=== PATIENT | male | born 1955 | race Caucasian/White ===

== ENCOUNTER 2017-09-10 13:47 | Emergency (ER) | payer SELFPAY ==
[2017-09-10 14:04] VITALS: BP 159/82; PULSE 90; RESP 18; TEMP 98.8; O2SAT 99
[2017-09-10] MEDS ORDERED: SODIUM CHLOR 0.9% 1000 ML INJ 1,000 ML IV SCH (14:48)
[2017-09-10] MEDS ORDERED: ONDANSETRON HCL 4 MG/2 ML VIAL IVP ONE (15:00)
[2017-09-10] MEDS ORDERED: MORPHINE SULFATE 4 MG/ML INJ IV PUSH ONE (15:00)
[2017-09-10] MEDS ORDERED: SODIUM CHLORIDE 0.9% FLUSH 10 ML FLUSH IV FLUSH PRN (15:00)
[2017-09-10] MEDS ORDERED: IOHEXOL 350 MG/ML 10 ML VIAL (for RAD DIAG) IVCONTRAST ONE (15:44)
[2017-09-10 15:47] LABS: AUTOMATED NEUTROPHIL # 9.5 TH/MM3 (1.8-7.7); BASOPHIL # 0.1 TH/MM3 (0-0.2); BASOPHIL % 0.5 % (0.0-2.0); EOSINOPHIL # 0.5 TH/MM3 (0-0.4); EOSINOPHIL % 3.9 % (0.0-4.0); HEMATOCRIT 38.4 % (39.0-51.0); HEMOGLOBIN 13.1 GM/DL (13.0-17.0); LYMPH % 13.6 % (9.0-44.0); LYMPHOCYTE # 1.7 TH/MM3 (1.0-4.8); MEAN CELL VOLUME 83.9 FL (80.0-100.0); MEAN CORPUSCULAR HEMOGLOBIN 28.6 PG (27.0-34.0); MEAN CORPUSCULAR HGB CONC 34.1 % (32.0-36.0); MEAN PLATELET VOLUME 7.9 FL (7.0-11.0); MONO % 5.5 % (0.0-8.0); MONOCYTE # 0.7 TH/MM3 (0-0.9); NEUT % 76.5 % (16.0-70.0); PLATELET COUNT 321 TH/MM3 (150-450); RED BLOOD COUNT 4.57 MIL/MM3 (4.50-5.90); RED CELL DISTRIBUTION WIDTH 14.5 % (11.6-17.2); WHITE BLOOD COUNT 12.5 TH/MM3 (4.0-11.0)
[2017-09-10 15:48] LABS: BACTERIA, URINE OCC /hpf; BILIRUBIN, URINE NEG (NEG); BLOOD, URINE LARGE (NEG); GLUCOSE,URINE NEG (NEG); KETONE, URINE TRACE mg/dL (NEG); NITRITE,URINE NEG (NEG); TRANSITIONAL EPI CELLS, URINE <1 /hpf; URINE COLOR YELLOW (YELLW/STRAW); URINE LEUKOCYTE ESTERASE LARGE (NEG)
[2017-09-10 15:51] LABS: ALT (GPT) 13 U/L (12-78); AST (GOT) 14 U/L (15-37); BICARBONATE 25.1 MEQ/L (21.0-32.0); BLOOD UREA NITROGEN 17 MG/DL (7-18); CALCIUM 8.8 MG/DL (8.5-10.1); CHLORIDE 108 MEQ/L (98-107); CREATININE 0.88 MG/DL (0.60-1.30); GLOMERULAR FILTRATION RATE 88 ML/MIN (>89); GLUCOSE,RANDOM 79 MG/DL (74-106); SODIUM (NA) 141 MEQ/L (136-145)
[2017-09-10 15:54] LABS: ALKALINE PHOSPHATASE 104 U/L (45-117); TOTAL BILIRUBIN ADULT 0.4 MG/DL (0.2-1.0); TOTAL PROTEIN 7.1 GM/DL (6.4-8.2)
--- NOTE | 2017-09-10 16:05 | RADRPT ---
EXAM DATE/TIME: 09/10/2017 15:40 [facility] COMPARISON: No previous studies available for comparison. INDICATIONS : Diffuse lower right region pain for several months. IV CONTRAST: 80 cc Omnipaque 350 (iohexol) IV ORAL CONTRAST: No oral contrast ingested. RADIATION DOSE: 4.50 CTDIvol (mGy) MEDICAL HISTORY : None SURGICAL HISTORY : None. ENCOUNTER: Initial ACUITY: 4 - 6 months PAIN SCALE: 7/10 LOCATION: Right lower quadrant TECHNIQUE: Volumetric scanning of the abdomen and pelvis was performed. Using automated exposure control and ad justment of the mA and/or kV according to patient size, radiation dose was kept as low as reasonably achievable to obtain optimal diagnostic quality images. DICOM format image data is available electro nically for review and comparison. FINDINGS: LOWER LUNGS: The visualized lower lungs are clear. LIVER: Homogeneous density without lesion. There is no dilation of the biliary tree. No calcified gallston es. SPLEEN: Normal size without lesion. PANCREAS: Within normal limits. KIDNEYS: Normal in size and shape. There is no mass, stone or hydronephrosis. ADRENAL GLANDS: Within normal limits. VASCULAR: There is no aortic aneurysm. BOWEL/MESENTERY: The stomach, small bowel, and colon demonstrate no acute abnormality. There is no free intraperitone al air or fluid. ABDOMINAL WALL: Within normal limits. RETROPERITONEUM: There is no lymphadenopathy. BLADDER: There is abnormal appearance of the urinary bladder. Large anomaly cystic mass with areas of mural no dularity and wall thickening projects along the superior aspect of the bladder measuring 4.4 x 4.3 cm . This may be a mass within a diverticulum as well. There are calcifications along this mass along th e inferior border.. REPRODUCTIVE: Femoral vessels are somewhat prominent. No pelvic adenopathy. INGUINAL: There is no lymphadenopathy or hernia. MUSCULOSKELETAL: Within normal limits for patient age. CONCLUSION: 1. Large mass projecting off the superior aspect of the urinary bladder or could be within a mass wit hin a diverticulum concerning for transitional cell carcinoma. Cystoscopy and biopsy recommended. Jose Rankin MD on September 10, 2017 at 15:58 Board Certified Radiologist. This report was verified electronically.
--- NOTE | 2017-09-10 16:08 | PD ---
HPI Chief Complaint: Abdominal Pain Time Seen by Provider: 14:31 Travel History International Travel<30 days: No Contact w/Intl Traveler<30days: No Traveled to known affect area: No History of Present Illness HPI 61-year-old male complains of right abdomen pain. It has been present for months. He reports blood in the urine. He reports family history of cancer of various types. He reports unintentional weight loss. Pain is constant and has become severe lately. He denies fever. No diarrhea. No vomiting. He states he can "smell cancer." PFS Past Medical History Medical History: Denies Significant Hx Tetanus Vaccination: Unknown Influenza Vaccination: No Past Surgical History Surgical History: No Previous Surgery Social History Alcohol Use: No Tobacco Use: Yes (1 ppd) Substance Use: No Allergies-Medications (Allergen,Severity, Reaction): Coded Allergies: No Known Allergies (Unverified , 09/10/17) Reported Meds & Prescriptions Reported Meds & Active Scripts Active Cipro (Ciprofloxacin HCl) 500 Mg Tab 500 Mg PO BID 7 Days Review of Systems Except as stated in HPI: all other systems reviewed are Neg General / Constitutional: Positive: Weight Loss, No: Fever Physical Exam Narrative GENERAL: 61-year-old male pleasant well-nourished well-developed mild to moderate distress Vital Signs Date Time Temp Pulse Resp B/P (MAP) Pulse Ox O2 Delivery O2 Flow Rate FiO2 09/10/17 14:04 98.8 90 18 159/82 (107) 99 SKIN: Warm and dry. HEAD: Atraumatic. Normocephalic. EYES: Pupils equal and round. No scleral icterus. No injection or drainage. ENT: No nasal bleeding or discharge. Mucous membranes pink and moist. NECK: Trachea midline. No JVD. CARDIOVASCULAR: Regular rate and rhythm. RESPIRATORY: No accessory muscle use. Clear to auscultation. Breath sounds equal bilaterally. GASTROINTESTINAL: Abdomen soft. There is some tenderness in the right side. MUSCULOSKELETAL: Extremities without clubbing, cyanosis, or edema. No obvious deformities. NEUROLOGICAL: Awake and alert. No obvious cranial nerve deficits. Motor grossly within normal limits. Five out of 5 muscle strength in the arms and legs. Normal speech. PSYCHIATRIC: Appropriate mood and affect; insight and judgment normal. Data Data Last Documented VS Vital Signs Date Time Temp Pulse Resp B/P (MAP) Pulse Ox O2 Delivery O2 Flow Rate FiO2 09/10/17 17:48 78 16 174/75 (108) 100 Room Air 09/10/17 14:04 98.8 Vital signs reviewed Orders Orders Complete Blood Count With Diff (09/10/17 14:48) Comprehensive Metabolic Panel (09/10/17 14:48) Lipase (09/10/17 14:48) Urinalysis - C+S If Indicated (09/10/17 14:48) Ct Abd/Pel W Iv Contrast(Rout) (09/10/17 14:48) Iv Access Insert/Monitor (09/10/17 14:48) Ecg Monitoring (09/10/17 14:48) Oximetry (09/10/17 14:48) Morphine Inj (Morphine Inj) (09/10/17 15:00) Ondansetron Inj (Zofran Inj) (09/10/17 15:00) Sodium Chlor 0.9% 1000 Ml Inj (Ns 1000 M (09/10/17 14:48) Sodium Chloride 0.9% Flush (Ns Flush) (09/10/17 15:00) Iohexol 350 Inj (Omnipaque 350 Inj) (09/10/17 15:44) Urine Culture (09/10/17 15:15) Mandatory Outpatient Referral (09/10/17 16:27) Ceftriaxone Inj (Rocephin Inj) (09/10/17 16:45) Ed Discharge Order (09/10/17 16:44) Labs Laboratory Tests Test 09/10/17 15:10 09/10/17 15:15 White Blood Count 12.5 TH/MM3 Red Blood Count 4.57 MIL/MM3 Hemoglobin 13.1 GM/DL Hematocrit 38.4 % Mean Corpuscular Volume 83.9 FL Mean Corpuscular Hemoglobin 28.6 PG Mean Corpuscular Hemoglobin Concent 34.1 % Red Cell Distribution Width 14.5 % Platelet Count 321 TH/MM3 Mean Platelet Volume 7.9 FL Neutrophils (%) (Auto) 76.5 % Lymphocytes (%) (Auto) 13.6 % Monocytes (%) (Auto) 5.5 % Eosinophils (%) (Auto) 3.9 % Basophils (%) (Auto) 0.5 % Neutrophils # (Auto) 9.5 TH/MM3 Lymphocytes # (Auto) 1.7 TH/MM3 Monocytes # (Auto) 0.7 TH/MM3 Eosinophils # (Auto) 0.5 TH/MM3 Basophils # (Auto) 0.1 TH/MM3 CBC Comment DIFF FINAL Differential Comment Blood Urea Nitrogen 17 MG/DL Creatinine 0.88 MG/DL Random Glucose 79 MG/DL Total Protein 7.1 GM/DL Albumin 3.0 GM/DL Calcium Level 8.8 MG/DL Alkaline Phosphatase 104 U/L Aspartate Amino Transf (AST/SGOT) 14 U/L Alanine Aminotransferase (ALT/SGPT) 13 U/L Total Bilirubin 0.4 MG/DL Sodium Level 141 MEQ/L Potassium Level 3.9 MEQ/L Chloride Level 108 MEQ/L Carbon Dioxide Level 25.1 MEQ/L Anion Gap 8 MEQ/L Estimat Glomerular Filtration Rate 88 ML/MIN Lipase 138 U/L Urine Color YELLOW Urine Turbidity CLOUDY Urine pH 7.0 Urine Specific [place] 1.021 Urine Protein 100 mg/dL Urine Glucose (UA) NEG mg/dL Urine Ketones TRACE mg/dL Urine Occult Blood LARGE Urine Nitrite NEG Urine Bilirubin NEG Urine Urobilinogen 2.0 MG/DL Urine Leukocyte Esterase LARGE Urine RBC /hpf Urine WBC /hpf Urine Transitional Epithelial Cells <1 /hpf Urine Bacteria OCC /hpf Microscopic Urinalysis Comment CULTURE INDICATED MDM Medical Decision Making Medical Screen Exam Complete: Yes Emergency Medical Condition: Yes Medical Record Reviewed: Yes Differential Diagnosis Gastritis, pancreatitis, appendicitis, acute cholecystitis, ascending cholangitis, AAA, perforated viscous, mesenteric ischemia, hepatitis, cystitis, hydronephrosis/hydroureter/nephroureter calculus, mesenteric adenitis, biliary colic Narrative Course CBC & BMP Diagram 09/10/17 15:10 Total Protein 7.1, Albumin 3.0 L, Calcium Level 8.8, Alkaline Phosphatase 104, Aspartate Amino Transf (AST/SGOT) 14 L, Alanine Aminotransferase (ALT/SGPT) 13, Total Bilirubin 0.4 Urinalysis shows hematuria with white and red blood cells Rocephin given along with the Cipro prescription. The case was discussed with Dr. Degroot of urology. We'll provide a mandatory outpatient referral and have the patient follow up expeditiously to undergo cystoscopy as there is a concern for neoplastic process. This was discussed in detail with the patient and specifically mentioned the concern for cancer. Patient verbalized understanding and agreement to follow-up with Dr. Degroot expeditiously, within 1 -2 days or at the minimum place a phone call for an appointment tomorrow. All questions were answered. I will add to the diagnosis of UTI however due to the timing documentation it will be added after the patient's discharge. He still understands that an infectious bladder processes occurring and that antibiotics are necessary. Diagnosis Primary Impression: Bladder mass Additional Impression: UTI (urinary tract infection) Referrals: Jose Degroot DO [address] Degroot to make an appointment. Med/Other Pt SpecificInfo: Prescription(s) given Scripts Ciprofloxacin (Cipro) 500 Mg Tab 500 MG PO BID for Infection for 7 Days, #14 TAB 0 Refills Prov: Rivera Duncan MD 09/10/17 Disposition: 01 DISCHARGE HOME Condition: Stable Rivera Duncan MD Sep 10, 2017 16:08
[2017-09-10] MEDS ORDERED: cefTRIAXone INJ 1,000 MG in SODIUM CHLORIDE 0.9% INJ 100 ML IV ONE (16:45)
[2017-09-10] MEDS ORDERED: CIPR-9 PO (16:45)
[2017-09-10 17:48] VITALS: BP 174/75; PULSE 78; RESP 16; O2SAT 100
== END 2017-09-10 17:49 | disposition home or self-care (01) ==
LOC: NEPD 13:47
DX: N32.9 Bladder disorder, unspecified (principal); N39.0 Urinary tract infection, site not specified; F17.200 Nicotine dependence, unspecified, uncomplicated
CPT/HCPCS: 74177; 80053; 81001; 83690; 85025; 87086; 96361; 96374; 96375; 99285; J0696; J2270; J2405; J7030; Q9967

== ENCOUNTER 2017-09-13 15:11 | Emergency (ER) | payer SELFPAY ==
[~2017-09-13] VITALS: Ht 167.6 cm; Wt 60.0 kg
[~2017-09-13 15:11] MED LIST: CIPR-9 PO
[2017-09-13 15:27] VITALS: BP 140/71; PULSE 95; RESP 18; TEMP 98.1; O2SAT 100
[2017-09-13] MEDS ORDERED: oxyCODONE/ACETAMINOPHEN 5 MG/325 MG TAB PO ONE (18:00)
[2017-09-13] MEDS ORDERED: SODIUM CHLOR 0.9% 1000 ML INJ 1,000 ML IV ONE (18:00)
[2017-09-13] MEDS ORDERED: NORC5TAB PO (18:10)
--- NOTE | 2017-09-13 18:10 | PD ---
HPI Chief Complaint: Abdominal Pain Time Seen by Provider: 17:42 Travel History International Travel<30 days: No Contact w/Intl Traveler<30days: No Traveled to known affect area: No History of Present Illness HPI Patient is a 61 year old male who comes in complaining of right sided abdominal pain and flank pain. He was here on 09/10 for the same thing and found to have a bladder mass. He was also diagnosed with a UTI and given a prescription for Cipro. He says that the physician who saw him at the time was supposed to give him a prescription for pain medicine as well, but he did not receive one. He says he has an appointment Saturday with the urologist, but he cannot take the pain. He says he is still passing blood in his urine, but the Cipro seems to be helping this. He denies fever or chills, nausea or vomiting. He has been taking Ibuprofen and Aleve without relief of his symptoms. Severity is mild to moderate. PFSH Social History Alcohol Use: No Tobacco Use: Yes (1 ppd) Substance Use: No Allergies-Medications (Allergen,Severity, Reaction): Coded Allergies: No Known Allergies (Unverified , 09/13/17) Reported Meds & Prescriptions Reported Meds & Active Scripts Active Cipro (Ciprofloxacin HCl) 500 Mg Tab 500 Mg PO BID 7 Days Review of Systems Except as stated in HPI: all other systems reviewed are Neg General / Constitutional: No: Fever, Chills HENT: No: Headaches, Lightheadedness Cardiovascular: No: Chest Pain or Discomfort Respiratory: No: Shortness of Breath Gastrointestinal: Positive: Abdominal Pain, No: Nausea, Vomiting Genitourinary: Positive: Hematuria, Flank Pain Neurologic: No: Weakness, Dizziness Physical Exam Narrative GENERAL: Awake and alert, in no acute distress. SKIN: Warm and dry. No wounds or signs of infection. HEAD: Atraumatic. Normocephalic. EYES: Pupils equal and round. No scleral icterus. ENT: Mucous membranes pink and moist. NECK: Trachea midline. No JVD. CARDIOVASCULAR: Regular rate and rhythm. RESPIRATORY: No accessory muscle use. Clear to auscultation. Breath sounds equal bilaterally. GASTROINTESTINAL: Abdomen soft, nondistended. Tender to palpation of the right side of the abdomen, no rebound or guarding. MUSCULOSKELETAL: Extremities without clubbing, cyanosis, or edema. No obvious deformities. NEUROLOGICAL: Awake and alert. No obvious cranial nerve deficits. Motor grossly within normal limits. Five out of 5 muscle strength in the arms and legs. Normal speech. PSYCHIATRIC: Appropriate mood and affect; insight and judgment normal. Data Data Last Documented VS Vital Signs Date Time Temp Pulse Resp B/P (MAP) Pulse Ox O2 Delivery O2 Flow Rate FiO2 09/13/17 15:27 98.1 95 18 140/71 (94) 100 Orders Orders Complete Blood Count With Diff (09/13/17 17:53) Comprehensive Metabolic Panel (09/13/17 17:53) Urinalysis - C+S If Indicated (09/13/17 17:53) Sodium Chlor 0.9% 1000 Ml Inj (Ns 1000 M (09/13/17 18:00) Oxycodone-Acetamin 5-325 Mg (Percocet (09/13/17 18:00) MDM Medical Decision Making Medical Screen Exam Complete: Yes Emergency Medical Condition: Yes Medical Record Reviewed: Yes Differential Diagnosis bladder mass vs UTI vs obstruction Narrative Course Patient is a 61 year old male who comes in complaining of abdominal pain. Exam shows right sided tenderness to palpation. I explained to the patient that I would like to recheck some blood work to make sure his kidneys are functioning normally and his infection does not seem to be getting worse. He is refusing any testing at this time and just wants a prescription for pain medication. I urged the patient to allow me to check some tests, but he is adamantly against it. Given a prescription for [place] and advised to keep his appointment with the urologist. Diagnosis Primary Impression: Bladder mass Patient Instructions: Abdominal Pain (ED), General Instructions Additional Instructions: Follow up with the urologist as scheduled. Return to the ED as needed for any worsening symptoms. Scripts Hydrocodone-Acetaminophen ([place]) 5 Mg-325 Mg Tab 1 TAB PO Q6H Y for PAIN, #10 TAB 0 Refills Prov: Nora Martinez MD 09/13/17 Disposition: 01 DISCHARGE HOME Condition: Stable Nora Martinez MD Sep 13, 2017 18:10
== END 2017-09-13 18:25 | disposition home or self-care (01) ==
LOC: NEPD 15:11
DX: N32.9 Bladder disorder, unspecified (principal); F17.210 Nicotine dependence, cigarettes, uncomplicated; Z79.2 Long term (current) use of antibiotics
CPT/HCPCS: 99283

== ENCOUNTER 2017-10-10 08:11 | Observation (INO) | payer OTHER ==
[~2017-10-10] VITALS: Ht 167.6 cm; Wt 48.1 kg
[~2017-10-10 08:11] MED LIST changes: -CIPR-9 PO; +PERC5TAB12 PO
[2017-10-10] MEDS ORDERED: ceFAZolin INJ 1,000 MG VIAL ONE (09:10)
[2017-10-10] MEDS ORDERED: SODIUM CHLORIDE 0.9% INJ 100 ML ONE (09:11)
[2017-10-10] MEDS ORDERED: CHLORHEXIDINE GLUCONATE 2 % 1 PACK (2 CLOTHS) TOPICAL PRN (09:15)
[2017-10-10] MEDS ORDERED: LACTATED RINGER'S 1000 ML IV PRN (09:15)
[2017-10-10] MEDS ORDERED: SODIUM CHLORID 0.9% 500 ML IV PRN (09:15)
[2017-10-10] MEDS ORDERED: POVIDONE IODINE 5% (ANTISEPSIS KIT) 4 APPLICATIONS EACH NARE PRN (09:15)
[2017-10-10] MEDS ORDERED: METOPROLOL TARTRATE 25 MG TAB PO PRN (09:15)
[2017-10-10] MEDS ORDERED: INSULIN HUMAN REGULAR 1,000 UNITS/10 ML VIAL SQ PRN (09:15)
[2017-10-10] MEDS ORDERED: ceFAZolin 1,000 MG/NS 100 ML IV SCH ×2 (09:15)
[2017-10-10 09:20] LABS: AUTOMATED NEUTROPHIL # 10.4 TH/MM3 (1.8-7.7); BASOPHIL # 0.1 TH/MM3 (0-0.2); BASOPHIL % 0.9 % (0.0-2.0); EOSINOPHIL # 0.1 TH/MM3 (0-0.4); EOSINOPHIL % 0.6 % (0.0-4.0); HEMATOCRIT 33.5 % (39.0-51.0); LYMPH % 11.1 % (9.0-44.0); LYMPHOCYTE # 1.4 TH/MM3 (1.0-4.8); MEAN CELL VOLUME 84.2 FL (80.0-100.0); MEAN CORPUSCULAR HEMOGLOBIN 27.7 PG (27.0-34.0); MEAN CORPUSCULAR HGB CONC 32.8 % (32.0-36.0); MEAN PLATELET VOLUME 7.7 FL (7.0-11.0); MONO % 7.6 % (0.0-8.0); NEUT % 79.8 % (16.0-70.0); PLATELET COUNT 473 TH/MM3 (150-450); RED BLOOD COUNT 3.98 MIL/MM3 (4.50-5.90); RED CELL DISTRIBUTION WIDTH 15.9 % (11.6-17.2); WHITE BLOOD COUNT 13.1 TH/MM3 (4.0-11.0)
[2017-10-10] MEDS ORDERED: ACETAMINOPHEN 1000 MG/100 ML 100 ML IV ONE (10:42)
[2017-10-10] MEDS ORDERED: diphenhydrAMINE HCL 50 MG/ML VIAL IV PUSH PRN (12:00)
[2017-10-10] MEDS ORDERED: PROPOFOL 200 MG/20 ML AMP IV ONE (12:00)
[2017-10-10] MEDS ORDERED: ACETAMINOPHEN 650 MG/20.3 ML UDC PO PRN (12:00)
[2017-10-10] MEDS ORDERED: GLYCOPYRROLATE 1 MG/5 ML SYRINGE IV PUSH ONE (12:00)
[2017-10-10] MEDS ORDERED: NEOSTIGMINE 5 MG/5 ML SYRINGE IV PUSH ONE (12:00)
[2017-10-10] MEDS ORDERED: RESP: ALBUTEROL 1.25 MG/3 ML NEB (PRN) NEB (12:00)
[2017-10-10] MEDS ORDERED: ROCURONIUM INJ 50 MG/5 ML SYRINGE IV PUSH ONE (12:00)
[2017-10-10] MEDS ORDERED: LIDOCAINE HCL 1% PF 5 ML SYRINGE OTHER ONE (12:00)
[2017-10-10] MEDS ORDERED: ONDANSETRON HCL 4 MG/2 ML VIAL IV ONE (12:00)
[2017-10-10] MEDS ORDERED: DEXAMETHASONE SOD PHOS 4 MG/ML VIAL IV ONE (12:00)
[2017-10-10] MEDS ORDERED: LABETALOL HCL 100 MG/20 ML VIAL IV ONE (12:00)
[2017-10-10] MEDS ORDERED: ONDANSETRON HCL 4 MG/2 ML VIAL IV PUSH PRN (12:00)
[2017-10-10] MEDS ORDERED: VECURONIUM BROMIDE 20 MG VIAL IV ONE (12:00)
--- NOTE | 2017-10-10 12:09 | PD.OP ---
Operative Report Date of Surgery: Oct 10, 2017 Preoperative Diagnosis: 4 cm bladder mass Postoperative Diagnosis: Same Procedure: Urethral dilatation; cystoscopy with transurethral resection of bladder mass Anesthesia: EVAN Surgeon: Jose Degroot Food Quality Technician(s): None Resident Surgeon: None Operation and Findings: 61-year-old male with history of hematuria and pelvic pain who had a CT scan demonstrating a 4 cm bladder mass. Decision was made to take patient to the operating room to undergo cystoscopy with transurethral resection of bladder tumor. Risks and benefits were discussed preoperatively and he was willing to proceed. Patient was brought to the operating room and identified by myself as Marc Herr. He was placed in the dorsal lithotomy position, prepped and draped in usual sterile fashion, received preprocedure antibiotics and general endotracheal tube anesthesia was administered. Attempt was made to place a 22 Japanese cystoscope into the bladder. This was unsuccessful. Urethral dilatation was then performed from a 22 Japanese up to a 28 Japanese. The cystoscope was then easily passed into the bladder. Cystoscopy showed a large bladder tumor along with posterior wall extending from the trigone and upward. Both ureteral orifices were identified. There is also a lot of bullous edema around the tumor edges. Using the Dickerson resectoscope, the tumor was resected from the posterior bladder wall. The tumor was large in size. Calcifications were noted within the tumor and areas of necrosis were noted near the trigone.. Once the bed of the tumor was resected, the rollerball was used then to provide hemostasis. Hemostasis was obtained. The chips were evacuated with the Unruly evacuator. A 22 Japanese three-way Dale was then inserted and the patient was started on continuous bladder irrigation. The patient tolerated the procedure well and was extubated and transferred to the recovery room in stable condition. He will follow-up in the office to review his pathology in the near future. Jose Degroot DO Oct 10, 2017 12:09
--- NOTE | 2017-10-10 12:11 | EKG ---
Date Performed: 10/10/2017 Time Performed: 08:48:26 PTAGE: 61 years EKG: Sinus rhythm RIGHT ATRIAL ENLARGEMENT ABNORMAL ECG NO PREVIOUS TRACING DOCTOR: Rayshawn Wrihgt Interpretating Date/Time 10/10/2017 12:11:02
[2017-10-10] MEDS: BELLADONNA ALKALOIDS/OPIUM 60 MG SUPP RECTAL PRN ×2 (12:15→22:51)
[2017-10-10] MEDS ORDERED: MIDAZOLAM HCL 2 MG/2 ML VIAL ONE (12:16)
[2017-10-10] MEDS ORDERED: *MEPERIDINE 25 MG INJ VIAL PERIprocedural Use ONLY ONE (12:19)
[2017-10-10] MEDS ORDERED: *morphine SULFATE 4 MG/ML PERIprocedure ONLY ONE ×3 (12:25→12:49)
[2017-10-10] MEDS: LACTATED RINGER'S 1000 ML INJ 1,000 ML IV SCH ×2 (12:40→23:23)
[2017-10-10] MEDS ORDERED: HYDROmorphone HCL PF 2 MG/ML VIAL ONE (12:56)
[2017-10-10] MEDS ORDERED: oxyCODONE/ACETAMINOPHEN 5 MG/325 MG TAB PO PRN (13:00)
[2017-10-10 13:21] LABS: HEMATOCRIT 28.2 % (39.0-51.0); HEMOGLOBIN 9.7 GM/DL (13.0-17.0); MEAN CELL VOLUME 83.6 FL (80.0-100.0); MEAN CORPUSCULAR HEMOGLOBIN 28.9 PG (27.0-34.0); MEAN CORPUSCULAR HGB CONC 34.5 % (32.0-36.0); MEAN PLATELET VOLUME 7.6 FL (7.0-11.0); PLATELET COUNT 399 TH/MM3 (150-450); RED BLOOD COUNT 3.37 MIL/MM3 (4.50-5.90); RED CELL DISTRIBUTION WIDTH 15.9 % (11.6-17.2); WHITE BLOOD COUNT 16.8 TH/MM3 (4.0-11.0)
[2017-10-10 13:36] LABS: BICARBONATE 26.5 MEQ/L (21.0-32.0); CALCIUM 8.5 MG/DL (8.5-10.1); CREATININE 0.84 MG/DL (0.60-1.30)
[2017-10-10] MEDS ORDERED: DO NOT ADM ANY ANTICOAGULANT DRUGS PRN (14:45)
[2017-10-10] MEDS: MORPHINE SULFATE 2 MG/ML INJ IV PUSH PRN ×3 (15:43→23:21)
[2017-10-10 16:00] VITALS: BP 140/64; PULSE 81; RESP 17; TEMP 97.7; O2SAT 100
[2017-10-10 20:00] VITALS: BP 139/75; PULSE 69; RESP 18; TEMP 99; O2SAT 96
[2017-10-11] VITALS: BP 128/66; PULSE 75; RESP 18; TEMP 99.4; O2SAT 96
[2017-10-11] MEDS: MORPHINE SULFATE 2 MG/ML INJ IV PUSH PRN ×2 (03:52→08:07)
[2017-10-11] MEDS: LACTATED RINGER'S 1000 ML INJ 1,000 ML IV SCH (08:10)
--- NOTE | 2017-10-11 09:15 | HHI.PR ---
Subjective Patient symptoms today PT seen and examined. Urine is clear. CBI clamped Objective Vital Signs Vital Signs Date Time Temp Pulse Resp B/P (MAP) Pulse Ox O2 Delivery O2 Flow Rate FiO2 10/11/17 00:00 99.4 75 18 128/66 (86) 96 10/10/17 20:00 99.0 69 18 139/75 (96) 96 10/10/17 16:00 97.7 81 17 140/64 (89) 100 10/10/17 13:00 64 25 167/87 (113) 100 Room Air 10/10/17 12:45 66 24 165/84 (111) 100 Room Air 10/10/17 12:30 62 18 140/67 (91) 100 Room Air 10/10/17 12:15 97.6 62 20 145/76 (99) 100 Nasal Cannula 2 Intake & Output 10/11/17 10/11/17 07:00 19:00 Intake Total 100 ml Balance 100 ml Intake IV Total 100 ml Result Diagram: 10/10/17 1148 10/10/17 1148 Objective Remarks Abd:soft,nt,nd Dale: urine clear; CBI off Medications and IVs Current Medications Medications (Trade) Dose Ordered Sig/Kacie Route Start Time Stop Time Status Last Admin Cefazolin Sodium 1000 mg/Sodium Chloride 100 ml @ 200 mls/hr DENTAL INSTRUMENT MAKER IV 10/10/17 09:15 10/13/17 09:14 10/10/17 11:30 Lactated Ringer's 1,000 ml @ 30 mls/hr Q24H PRN IV 10/10/17 09:15 10/13/17 09:14 Sodium Chloride 500 ml @ 30 mls/hr [id number] PRN IV 10/10/17 09:15 10/13/17 09:14 (Lopressor) 25 mg DENTAL INSTRUMENT MAKER PRN PO 10/10/17 09:15 10/13/17 09:14 (Betadine 5% Antisepsis Kit) 1 applic DENTAL INSTRUMENT MAKER PRN EACH NARE 10/10/17 09:15 10/13/17 09:14 (Chlorhexidine 2% Cloth) 3 pack DENTAL INSTRUMENT MAKER PRN TOPICAL 10/10/17 09:15 10/13/17 09:14 (NovoLIN R INJ) See Protocol Table ... DENTAL INSTRUMENT MAKER PRN SQ 10/10/17 09:15 10/13/17 09:14 (Albuterol Neb) 1.25 mg Q6HR NEB PRN NEB 10/10/17 12:00 Lactated Ringer's 1,000 ml @ 100 mls/hr Q10H IV 10/10/17 12:00 10/11/17 08:10 (B & O Supp) 60 mg Q6HR PRN RECTAL 10/10/17 13:00 10/10/17 22:51 (Morphine Inj) 2 mg Q4H PRN IV PUSH 10/10/17 12:00 10/11/17 08:07 (Percocet 5-325 Mg) 1 tab Q4H PRN PO 10/10/17 13:00 (Benadryl Inj) 25 mg Q4H PRN IV PUSH 10/10/17 12:00 (Zofran Inj) 4 mg Q6HR PRN IV PUSH 10/10/17 12:00 (Tylenol 650 Mg/ 20 ml Liq) 650 mg Q6H PRN PO 10/10/17 12:00 Miscellaneous Information ALL NURSING DEPARTME... UNSCH PRN .XX 10/10/17 14:45 10/11/17 14:44 Cefazolin Sodium 1000 mg/Sodium Chloride 100 ml @ 200 mls/hr Q8H IV 10/10/17 20:00 10/11/17 03:51 Assessment and Plan Assessment and Plan 62 y.o male s/p TURBT Dale out: void trial D/C home today Jose Degroot DO Oct 11, 2017 09:15
[2017-10-11] MEDS ORDERED: PERC5TAB12 PO (09:41)
[2017-10-11] MEDS ORDERED: CIPR500T2 PO (09:43)
--- NOTE | 2017-10-11 10:52 | RADRPT ---
EXAM DATE/TIME: 10/11/2017 10:12 [facility] COMPARISON: No previous studies available for comparison. INDICATIONS : Shortness of breath. MEDICAL HISTORY : None. SURGICAL HISTORY : None. ENCOUNTER: Initial ACUITY: 2 days PAIN SCORE: 0/10 LOCATION: Bilateral chest FINDINGS: AP and lateral views of the chest were obtained and demonstrate hyperinflation. Abnormal opacity is p resent in both upper lobes with pleural parenchymal change. The hilar regions appear retracted cephal ad. There is no perihilar or bibasilar infiltrate. There is no effusion. There is osteopenia and ther e are compression fracture deformities in mid thoracic spine. One is moderate to severe and the other is mild. CONCLUSION: 1. Abnormal opacity in both upper lobes with pleural parenchymal change most characteristic of scarri ng. 2. Hyperinflation. 3. Osteopenia and compression fracture deformities in the midthoracic spine consistent with osteoporo sis. Maksim Estrada MD on October 11, 2017 at 10:46 Board Certified Radiologist. This report was verified electronically.
== END 2017-10-11 10:56 | disposition home or self-care (01) ==
LOC: HSDC 08:11 → HSDI 12:02 → N07A 13:31
PROVIDERS: ADMIT Urology; ATTEND Urology
DX: C67.0 Malignant neoplasm of trigone of bladder (principal); N32.89 Other specified disorders of bladder; N40.1 Benign prostatic hyperplasia with lower urinary tract symptoms; R31.9 Hematuria, unspecified; J44.9 Chronic obstructive pulmonary disease, unspecified; F17.210 Nicotine dependence, cigarettes, uncomplicated; R94.31 Abnormal electrocardiogram [ECG] [EKG]
CPT/HCPCS: 00912; 52235; 71046; 80048; 84153; 85025; 85027; 88307; 93005; 94150; 96361; 96365; 96366; 96375; 96376; G0378; J0131; J0690; J1100; J1170; J2175; J2250; J2270; J2405; J2710; J3010; J7120

== ENCOUNTER → 2017-10-24 | Outpatient (CLI) | payer OTHER ==
[~2017-10-24] MED LIST changes: +AUGM875T3 PO; +CIPR500T2 PO; +IOHEXOL 350 MG/ML 10 ML VIAL (for RAD DIAG) IVCONTRAST ONE; +PERC10TA27 PO
--- NOTE | 2017-10-24 11:05 | RADRPT ---
EXAM DATE/TIME: 10/24/2017 08:26 [facility] COMPARISON: CHEST PA & LAT, October 11, 2017, 10:12. INDICATIONS : Bladder cancer. Evaluate for metastatic disease. IV CONTRAST: 71 cc Omnipaque 350 (iohexol) IV ; Cumulative dose for multiple exams. RADIATION DOSE: 3.46 CTDIvol (mGy) MEDICAL HISTORY : Carcinoma, bladder. SURGICAL HISTORY : Removal of tumor from bladder. ENCOUNTER: Initial ACUITY: 1 day PAIN SCALE: 0/10 LOCATION: chest TECHNIQUE: Volumetric scanning of the chest was performed. Using automated exposure control and adjustment of t he mA and/or kV according to patient size, radiation dose was kept as low as reasonably achievable to obtain optimal diagnostic quality images. DICOM format image data is available electronically for review and comparison. Follow-up recommendations for detected pulmonary nodules are based at a minimum on nodule size and pa tient risk factors according to Fleischner Society Guidelines. FINDINGS: Extensive emphysematous changes are noted bilaterally. Elongated mass-like densities are noted within the posterior aspect of both apices extending to the pleural surface consistent with extensive scarr ing. Underlying mass is difficult to rule out on the basis of this examination. Outpatient PET/CT may be helpful to rule out hypermetabolism if clinically indicated. No other mass or nodule is noted. No mediastinal, hilar or axillary lymphadenopathy is noted. Coronary artery calcifications are noted. S coliosis of the thoracic spine is noted. There is a severe compression deformity involving the T8 anna tebral body which is likely chronic. CONCLUSION: 1. Elongated mass-like densities are noted within the posterior aspect of both apices extending to th e pleural surface consistent with extensive scarring. Underlying mass is difficult to rule out on the basis of this examination. Outpatient PET/CT may be helpful to rule out hypermetabolism if clinicall y indicated. 2. Extensive emphysematous changes bilaterally. 3. Severe compression deformity involving the T8 vertebral body which is likely chronic. 4. Scoliosis of the thoracic spine. 5. Coronary artery calcifications. Josh Boone MD on October 24, 2017 at 10:40 Board Certified Radiologist. This report was verified electronically.
--- NOTE | 2017-10-24 18:16 | RADRPT ---
EXAM DATE/TIME: 10/24/2017 11:34 [facility] COMPARISON: CT ABDOMEN & PELVIS W CONTRAST, September 10, 2017, 15:40. PRIOR BONE SCANS: Correlative bone scan(s) available for comparison; INDICATIONS : Bladder cancer. DOSE: 30.1 mCi Tc99m MDP IV MEDICAL HISTORY : Hypertension. SURGICAL HISTORY : Tumor on bladder removed. ENCOUNTER: Initial ACUITY: 1 month PAIN SCALE: 4/10 LOCATION: Abdomen. TECHNIQUE: Three hours post intravenous administration of radiotracer, whole body bone scan imaging was performe d. FINDINGS: Blood pool images demonstrate a homogeneous pattern of uptake in the soft tissues. No hyperemic area s are identified. Planar bone scan demonstrates a normal pattern of uptake. No focal areas of incre ased or decreased uptake are seen. There is an 80 in the right renal collecting system and ureter ext ending down to the bladder. CONCLUSION: 1. No evidence of osseous metastatic disease. 2. Evidence of right hydronephrosis. Maksim Estrada MD on October 24, 2017 at 18:11 Board Certified Radiologist. This report was verified electronically.
== END ==
LOC: HRAD 07:29
PROVIDERS: ATTEND Urology
DX: C67.9 Malignant neoplasm of bladder, unspecified (principal)
CPT/HCPCS: 71260; 78306; A9503; Q9967

== ENCOUNTER 2017-11-01 07:05 | Emergency (ER) | payer OTHER ==
[~2017-11-01] VITALS: Ht 167.6 cm; Wt 55.0 kg
[~2017-11-01 07:05] MED LIST changes: -AUGM875T3 PO; -IOHEXOL 350 MG/ML 10 ML VIAL (for RAD DIAG) IVCONTRAST ONE; -PERC10TA27 PO
[2017-11-01 07:10] VITALS: BP 177/82; PULSE 74; RESP 16; TEMP 97.7; O2SAT 100
[2017-11-01 08:47] VITALS: BP_SYST 146; BP_DIAS 8; BP_DIAS 80; PULSE 61; RESP 18; O2SAT 100
--- NOTE | 2017-11-01 08:53 | PD ---
HPI Chief Complaint: Abdominal Pain Time Seen by Provider: 08:26 Travel History International Travel<30 days: No Contact w/Intl Traveler<30days: No Traveled to known affect area: No History of Present Illness HPI 62yo M with PMH of bladder tumor s/p resection by Dr. Degroot 10/10/17 here with c /o abdominal pain after running out of percocet. +Chills. Highest temp 99.8F. Denies any chest pain, sob, n/v, focal weakness or numbness. Pt said Dr. Degroot told him to take 10mg percocet and he ran out of it 3 days ago. Pt got another prescription from Dr. Degroot but pharmacy wont will it until 11/03/17 because they said it is too soon. PFSH Past Medical History Cancer: Yes (BLADDER) Cardiovascular Problems: No COPD: Yes Diabetes: No Diminished Hearing: No Endocrine: No Genitourinary: Yes (BLADDER TUMOR) Hepatitis: No Hiatal Hernia: No Immune Disorder: No Musculoskeletal: No Neurologic: No Psychiatric: No Reproductive: No Respiratory: Yes (EMPHYSEMA, COPD) Thyroid Disease: No Past Surgical History AICD: No Body Medical Devices: NONE PER PT Genitourinary Surgery: Yes (bladder ) Joint Replacement: No Oral Surgery: Yes (WISDOM TEETH EXTRACTION) Pacemaker: No Social History Alcohol Use: No Tobacco Use: Yes (1 ppd) Substance Use: No Allergies-Medications (Allergen,Severity, Reaction): Coded Allergies: No Known Allergies (Unverified , 10/09/17) Reported Meds & Prescriptions Reported Meds & Active Scripts Active Percocet (Oxycodone-Acetaminophen) 10-325 mg Tab 1 Tab PO Q6H PRN Augmentin (Amoxicillin-Clavulanate) 875-125 Mg Tab 1 Tab PO BID Reported Percocet (Oxycodone-Acetaminophen) 5-325 mg Tab 1 Tab PO Q6H PRN Review of Systems Except as stated in HPI: all other systems reviewed are Neg Physical Exam Narrative GENERAL: 62yo M in moderate distress. SKIN: Focused skin assessment warm/dry. HEAD: Atraumatic. Normocephalic. CARDIOVASCULAR: Regular rate and rhythm. No murmur appreciated. RESPIRATORY: No accessory muscle use. Clear to auscultation. Breath sounds equal bilaterally. GASTROINTESTINAL: Abdomen soft, +TTP periumbilical region. MUSCULOSKELETAL: No obvious deformities. No clubbing. No cyanosis. No edema. NEUROLOGICAL: Awake and alert. No obvious cranial nerve deficits. Motor grossly within normal limits. Normal speech. PSYCHIATRIC: Appropriate mood and affect; insight and judgment normal. Data Data Last Documented VS Vital Signs Date Time Temp Pulse Resp B/P (MAP) Pulse Ox O2 Delivery O2 Flow Rate FiO2 11/01/17 13:03 (102) 11/01/17 08:47 61 18 100 Room Air 11/01/17 07:10 97.7 Orders Orders Complete Blood Count With Diff (11/01/17 08:32) Comprehensive Metabolic Panel (11/01/17 08:32) Lipase (11/01/17 08:32) Urinalysis - C+S If Indicated (11/01/17 08:32) Ct Abd/Pel W Iv Contrast(Rout) (11/01/17 08:32) Oxycodone-Acetamin 10-325 Mg (Percocet 1 (11/01/17 09:00) Iohexol 350 Inj (Omnipaque 350 Inj) (11/01/17 10:06) Urine Culture (11/01/17 10:45) Ceftriaxone Inj (Rocephin Inj) (11/01/17 12:00) Ed Discharge Order (11/01/17 12:50) Labs Laboratory Tests Test 11/01/17 08:50 11/01/17 10:45 White Blood Count 10.9 TH/MM3 Red Blood Count 3.98 MIL/MM3 Hemoglobin 10.6 GM/DL Hematocrit 32.6 % Mean Corpuscular Volume 81.9 FL Mean Corpuscular Hemoglobin 26.6 PG Mean Corpuscular Hemoglobin Concent 32.5 % Red Cell Distribution Width 15.2 % Platelet Count 368 TH/MM3 Mean Platelet Volume 7.6 FL Neutrophils (%) (Auto) 75.2 % Lymphocytes (%) (Auto) 12.5 % Monocytes (%) (Auto) 8.1 % Eosinophils (%) (Auto) 3.9 % Basophils (%) (Auto) 0.3 % Neutrophils # (Auto) 8.2 TH/MM3 Lymphocytes # (Auto) 1.4 TH/MM3 Monocytes # (Auto) 0.9 TH/MM3 Eosinophils # (Auto) 0.4 TH/MM3 Basophils # (Auto) 0.0 TH/MM3 CBC Comment DIFF FINAL Differential Comment Blood Urea Nitrogen 18 MG/DL Creatinine 0.80 MG/DL Random Glucose 83 MG/DL Total Protein 6.6 GM/DL Albumin 2.9 GM/DL Calcium Level 8.8 MG/DL Alkaline Phosphatase 87 U/L Aspartate Amino Transf (AST/SGOT) 14 U/L Alanine Aminotransferase (ALT/SGPT) 19 U/L Total Bilirubin 0.3 MG/DL Sodium Level 144 MEQ/L Potassium Level 4.0 MEQ/L Chloride Level 112 MEQ/L Carbon Dioxide Level 25.8 MEQ/L Anion Gap 6 MEQ/L Estimat Glomerular Filtration Rate 98 ML/MIN Lipase 235 U/L Urine Color YELLOW Urine Turbidity CLOUDY Urine pH 6.5 Urine Specific [place] 1.022 Urine Protein 100 mg/dL Urine Glucose (UA) NEG mg/dL Urine Ketones NEG mg/dL Urine Occult Blood LARGE Urine Nitrite NEG Urine Bilirubin NEG Urine Urobilinogen LESS THAN 2.0 MG/DL Urine Leukocyte Esterase MOD Urine RBC /hpf Urine WBC /hpf Urine WBC Clumps OCC Urine Squamous Epithelial Cells 1 /hpf Urine Bacteria MANY /hpf Urine Mucus MANY /lpf Microscopic Urinalysis Comment CULTURE INDICATED MDM Medical Decision Making Medical Screen Exam Complete: Yes Emergency Medical Condition: Yes Differential Diagnosis Pain secondary to malignancy vs. obstruction vs. colitis Narrative Course 62yo M with bladder tumor here with abdominal pain because he ran out of percocet. Labs reviewed, no leukocytosis. H/H low at 10.6/326 but this has not changed from prior. CMP unremarkable. Lipase normal. Creatinine normal. UA showed large blood. Moderate leukocyte with occ WBC clumps. Pt given ceftriaxone. Pt reevaluated after percocet and said pain has improved. CT a/p showed mass along superior aspect of urinary bladder again seen measuring 4.6 x 4.6cm. Moderate hydronephrosis and hydroureter of right collecting system. Wall thickening of multiple small bowel loops left mid and left upper abdomen. No bowel obstruction. Pt is well appearing and denies any nausea or vomiting. Discussed with Dr. Gibbs who is covering Dr. Degroot and said pt can follow up with Dr. Degroot if pain is controlled. Pt said he needs a new prescription for percocet 10mg instead of 5 as pharmacy wont fill the 5mg since it is not time yet but will fill the 10mg. Since pt has some wall thickening in small bowel as well as UTI, will cover with augmentin. Pain is control now and pt wants to try outpatietn treatment first. Return precautions given. Diagnosis Primary Impression: UTI (urinary tract infection) Qualified Codes: N39.0 - Urinary tract infection, site not specified; R31.9 - Hematuria, unspecified Referrals: Jose Degroot DO call for appointment Patient Instructions: General Instructions Departure Forms: Tests/Procedures Additional Instructions: Please follow up with Dr. Degroot in 2 days. Return to the ED if symptoms worsen. Med/Other Pt SpecificInfo: Prescription(s) given Scripts Oxycodone-Acetaminophen (Percocet) 10-325 mg Tab 1 TAB PO Q6H Y for PAIN, #10 TAB 0 Refills Prov: Maci Montesinos DO 11/01/17 Amoxicillin-Clavulanate (Augmentin) 875-125 Mg Tab 1 TAB PO BID for Infection, #10 TAB 0 Refills Prov: Maci Montesinos DO 11/01/17 Disposition: 01 DISCHARGE HOME Condition: Stable Maci Montesinos DO Nov 01, 2017 08:53
[2017-11-01] MEDS ORDERED: oxyCODONE/ACETAMINOPHEN 10 MG/325 MG TAB PO ONE (09:00)
[2017-11-01 09:09] LABS: AUTOMATED NEUTROPHIL # 8.2 TH/MM3 (1.8-7.7); BASOPHIL % 0.3 % (0.0-2.0); EOSINOPHIL # 0.4 TH/MM3 (0-0.4); EOSINOPHIL % 3.9 % (0.0-4.0); HEMATOCRIT 32.6 % (39.0-51.0); HEMOGLOBIN 10.6 GM/DL (13.0-17.0); LYMPH % 12.5 % (9.0-44.0); LYMPHOCYTE # 1.4 TH/MM3 (1.0-4.8); MEAN CELL VOLUME 81.9 FL (80.0-100.0); MEAN CORPUSCULAR HEMOGLOBIN 26.6 PG (27.0-34.0); MEAN CORPUSCULAR HGB CONC 32.5 % (32.0-36.0); MEAN PLATELET VOLUME 7.6 FL (7.0-11.0); MONO % 8.1 % (0.0-8.0); MONOCYTE # 0.9 TH/MM3 (0-0.9); NEUT % 75.2 % (16.0-70.0); PLATELET COUNT 368 TH/MM3 (150-450); RED BLOOD COUNT 3.98 MIL/MM3 (4.50-5.90); RED CELL DISTRIBUTION WIDTH 15.2 % (11.6-17.2); WHITE BLOOD COUNT 10.9 TH/MM3 (4.0-11.0)
[2017-11-01 09:21] LABS: ALBUMIN 2.9 GM/DL (3.4-5.0); AST (GOT) 14 U/L (15-37); BICARBONATE 25.8 MEQ/L (21.0-32.0); BLOOD UREA NITROGEN 18 MG/DL (7-18); CALCIUM 8.8 MG/DL (8.5-10.1); CHLORIDE 112 MEQ/L (98-107); GLOMERULAR FILTRATION RATE 98 ML/MIN (>89); GLUCOSE,RANDOM 83 MG/DL (74-106); SODIUM (NA) 144 MEQ/L (136-145)
[2017-11-01 09:22] LABS: ALT (GPT) 19 U/L (12-78)
[2017-11-01 09:24] LABS: ALKALINE PHOSPHATASE 87 U/L (45-117); TOTAL BILIRUBIN ADULT 0.3 MG/DL (0.2-1.0); TOTAL PROTEIN 6.6 GM/DL (6.4-8.2)
[2017-11-01] MEDS ORDERED: IOHEXOL 350 MG/ML 10 ML VIAL (for RAD DIAG) IVCONTRAST ONE (10:06)
--- NOTE | 2017-11-01 10:13 | RADRPT ---
EXAM DATE/TIME: 11/01/2017 09:44 [facility] COMPARISON: CT ABDOMEN & PELVIS W CONTRAST, September 10, 2017, 15:40. INDICATIONS : Status post bladder tumor removal with abdominal pain. IV CONTRAST: 70 cc Omnipaque 350 (iohexol) IV ORAL CONTRAST: No oral contrast ingested. RADIATION DOSE: 4.26 CTDIvol (mGy) MEDICAL HISTORY : Bladder tumor. SURGICAL HISTORY : Removal from bladder tumor. ENCOUNTER: Initial ACUITY: 1 day PAIN SCALE: 3/10 LOCATION: pelvis TECHNIQUE: Volumetric scanning of the abdomen and pelvis was performed. Using automated exposure control and ad justment of the mA and/or kV according to patient size, radiation dose was kept as low as reasonably achievable to obtain optimal diagnostic quality images. DICOM format image data is available electro nically for review and comparison. FINDINGS: LOWER LUNGS: The visualized lower lungs are clear. Emphysematous changes. LIVER: Homogeneous density without lesion. There is no dilation of the biliary tree. No calcified gallston es. SPLEEN: Normal size without lesion. PANCREAS: Within normal limits. KIDNEYS: Normal in size and shape. There is no mass, stone or hydronephrosis on the left. Moderate hydronephr osis and hydroureter on the right.. ADRENAL GLANDS: Within normal limits. VASCULAR: There is no aortic aneurysm. BOWEL/MESENTERY: There is wall thickening within multiple small bowel loops in the left upper and midabdomen. There i s no free intraperitoneal air or fluid. ABDOMINAL WALL: Within normal limits. RETROPERITONEUM: There is no lymphadenopathy. BLADDER: There is wall thickening of the urinary bladder. The mass seen along the superior aspect of the urina ry bladder measures 4.6 x 4.6 cm. REPRODUCTIVE: Within normal limits. INGUINAL: There is no lymphadenopathy or hernia. MUSCULOSKELETAL: Within normal limits for patient age. CONCLUSION: 1. Mass along the superior aspect the urinary bladder again seen measuring 4.6 x 4.6 cm. 2. Moderate hydronephrosis and hydroureter of the right collecting system. 3. Wall thickening of multiple small bowel loops left mid and left upper abdomen. No bowel obstructio n. Jose Rankin MD on November 01, 2017 at 10:05 Board Certified Radiologist. This report was verified electronically.
[2017-11-01 11:26] LABS: BACTERIA, URINE MANY /hpf; BILIRUBIN, URINE NEG (NEG); BLOOD, URINE LARGE (NEG); GLUCOSE,URINE NEG (NEG); KETONE, URINE NEG (NEG); MUCUS URINE MANY /lpf (OCC); NITRITE,URINE NEG (NEG); PH, URINE 6.5 (5.0-8.5); SQUAMOUS EPITHELIAL CELL URINE 1 /hpf (0-5); URINE COLOR YELLOW (YELLW/STRAW); URINE LEUKOCYTE ESTERASE MOD (NEG); WHITE BLOOD CELL CLUMPS OCC
[2017-11-01] MEDS ORDERED: cefTRIAXone INJ 1,000 MG in SODIUM CHLORIDE 0.9% INJ 100 ML IV ONE (12:00)
[2017-11-01] MEDS ORDERED: AUGM875T3 PO (12:49)
[2017-11-01] MEDS ORDERED: PERC10TA27 PO (12:50)
== END 2017-11-01 13:04 | disposition home or self-care (01) ==
LOC: NEPE 07:05
DX: N39.0 Urinary tract infection, site not specified (principal); R31.9 Hematuria, unspecified; F17.200 Nicotine dependence, unspecified, uncomplicated
CPT/HCPCS: 74177; 80053; 81001; 83690; 85025; 87086; 96374; 99284; J0696; Q9967

== ENCOUNTER 2018-04-15 06:09 | Inpatient (IN) ==
[2018-04-15] MEDS ORDERED: Metoprolol Tartrate 25 MG Tablet PO ONE (06:28)
[2018-04-15] MEDS ORDERED: Chlorhexidine Gluconate 2% 1 Pack (2 Cloths) TOPICAL ONE (06:28)
[2018-04-15] MEDS ORDERED: Enoxaparin Inj 30 MG/0.3 ML Syringe SQ SCH (06:45)
[2018-04-15] MEDS ORDERED: GENTAMICIN IV.SIG SCH (07:00)
[2018-04-15] MEDS ORDERED: SODIUM CHLOR 0.9% IV.SIG SCH (07:00)
[2018-04-15] MEDS ORDERED: Sodium Chlor 0.9% Inj 500 ML IV.SIG SCH (07:00)
[2018-04-15] MEDS ORDERED: Morphine Sulfate Inj 2 MG/ML Vial ONE ×2 (08:04→08:18)
[2018-04-15] MEDS ORDERED: Gelatin Size 100 Topical Foam ONE (08:37)
[2018-04-15 08:46] LABS: Bacteria,Urine Rare /hpf; Bilirubin,Urine Negative (Negative); Color,Urine Red (Yellw/Straw); Glucose,Urine (UA) Negative (Negative); Leukocyte Esterase,Urine Trace (Negative); Nitrite,Urine Negative (Negative); Specific Gravity,Urine 1.015 (1.002-1.035)
[2018-04-15 08:47] LABS: Clarity,Urine Marked (Clear)
[2018-04-15] MEDS ORDERED: Sod Chloride 0.9% Inj 2,000 ML IRRIGATION ONE (09:15)
[2018-04-15] MEDS ORDERED: Metoprolol Inj 5 MG/5 ML Vial IV.PUSH ONE (09:15)
[2018-04-15] MEDS ORDERED: Lidocaine PF 1% Inj 5 ML Syringe OTHER ONE (09:15)
[2018-04-15] MEDS ORDERED: Sodium Chlor 0.9% Inj 500 ML IV.CONT ONE (09:15)
[2018-04-15 10:11] LABS: ABG PCO2 50 mmHg (38-42); ABG PO2 241 mmHG (61-120)
[2018-04-15] MEDS ORDERED: HYDROmorphone PF Inj 2 MG/ML Vial ONE ×2 (10:54→15:44)
[2018-04-15 12:25] LABS: ABG Base Excess -3.9 mmol/L (-2-2); ABG PCO2 51 mmHg (38-42); ABG PO2 250 mmHG (61-120)
[2018-04-15 12:52] LABS: Hematocrit 33.2 % (39.0-51.0); Hemoglobin 10.6 gm/dL (13.0-17.0)
[2018-04-15] MEDS ORDERED: fentaNYL Citrate Inj 100 MCG/2 ML Ampul ONE ×2 (13:09→15:31)
[2018-04-15] MEDS ORDERED: Sugammadex Inj 200 MG/2 ML Vial IV.PUSH ONE (13:09)
[2018-04-15] MEDS ORDERED: Morphine Inj 4 MG/ML Vial ONE (15:31)
[2018-04-15] MEDS ORDERED: *Ondansetron Inj 4 MG/2 ML Vial PERIprocedural Use ONLY ONE (15:47)
--- NOTE | 2018-04-15 15:51 | P.OP ---
- Preoperative Diagnosis (1) Bladder cancer - Postoperative Diagnosis (1) Bladder cancer Date of procedure: 04/15/18 Procedure: Radical cystectomy with bilateral pelvic lymph node dissection with creation of ileal conduit Anesthesia: EVAN Surgeon: Jose Degroot DO Accounting Recruiter: Kyree Camp Estimated blood loss (mL): 450 Operation and Findings: 62-year-old male with history of muscle invasive bladder cancer who completed neoadjuvant chemotherapy under the care of Dr. Mathews. Decision was then made to bring the patient to the operating room to undergo radical cystectomy with bilateral pelvic lymph node dissection with creation of ileal conduit. Risk and benefits were discussed preoperatively the patient was willing to proceed. Patient was brought to the operating room and identified myself as Marc Herr. He is placed on the operating table in the supine position, was prepped and draped in usual sterile fashion, received preprocedure antibiotics and general endotracheal tube anesthesia was administered. 16 [place] was placed into the bladder at the beginning of the procedure. 15 blade was used to make the opening incision extending from the umbilicus down to the symphysis pubis. Abdi's and camper's fascia were identified down to the rectus fascia. This was cut in an inverted V from the umbilicus down to the bladder. The Bookwalter retractor was then placed in the small bowel was retracted cephalad. The pelvic lymph node dissection was then performed on each side using the Metzenbaum scissors with clips. Both right and left obturator node packets were sent to pathology. Both ureters were identified down to the base of the bladder near the insertion site and were cut and clipped at the end. Frozen section samples were sent to pathology and both distal margins were negative for tumor. The pedicles on both sides of the bladder were identified and using the Ethicon stapler were dissected stapled. Once all the pedicles were freed then attention was directed to the dorsal vein complex. Using a 2-0 Vicryl suture this was sutured to provide hemostasis. This was then cut with a knife and a long handle. The prostate was then retracted cephalad. Using the right ankle, the urethra was dissected out and the umbilical tape was then placed under the urethra and this was then cut. Using my right index finger the plane behind the prostate was identified and from the rectum. The prostate was again retracted cephalad and the surrounding pedicles were cut and tied with 2-0 silk suture and Metzenbaum scissors. Once all the surrounding attachments were freed up then the specimen was sent to pathology. A 20 [place] was then inserted into the pelvis to provide drainage. Roland was used to help with hemostasis of this area. Creation of the ileal conduit was performed by isolating a segment of small bowel which is approximately 10-12 cm in length. This segment was taken approximately 12 cm from the ileocecal valve. The bowel was then stapled and to use places after the mesentery was taken down with the Bovie cautery. The conduit was placed posteriorly behind the bowel and the 2 remaining segments of small bowel were then reanastomosed to most together using the staplers. The distal aspect of the conduit segment was opened and irrigated with normal saline and cleared out. Using a right angle clamp to small enterotomies were made into the conduit to allow for passage of the stents through the conduit and up into each ureter. Using a 4-0 Vicryl suture each ureter was anastomosed to the distal aspect to the proximal aspect of the conduit. This was done in running fashion. Care was taken to avoid catching the stents. The bowel that was reanastomosed was closed to prevent herniation. The stoma site was then created lateral to the umbilicus on the patient's right side using a cruciate incision and then the stoma was anchored with 4-0 Vicryl sutures in a [place] stoma was created. This was anchored circumferentially to the skin with interrupted 4-0 Vicryl sutures. A red rubber catheter was inserted in the stoma and the drains and the red rubber catheter were anchored with a 2-0 silk suture. Hemostasis was again checked for within the pelvis and again Roland was used to provide hemostasis. The fascia was closed with a #1 looped running PDS suture and then the skin was closed with vasquez. The patient was awoken and extubated transferred to recovery in stable condition. He was stable hemodynamically throughout the entire case. He did receive 3 units of packed red blood cells during the procedure given that his hemoglobin at one-point was noted to be 8.3.
[2018-04-15] MEDS ORDERED: *Meperidine Inj 25 MG/ML Vial PERIprocedural Use ONLY ONE (15:53)
[2018-04-15 15:57] LABS: Hematocrit 35.8 % (39.0-51.0); Hemoglobin 11.7 gm/dL (13.0-17.0); Mean Corpuscular HGB Conc 32.7 % (32.0-36.0); Mean Corpuscular Volume 82.4 fL (80.0-100.0); Mean Platelet Volume 7.7 fL (7.0-11.0); Platelet Count 352 th/mm3 (150-450); Red Blood Count 4.34 mil/mm3 (4.50-5.90); Red Cell Distribution Width 17.2 % (11.6-17.2); White Blood Count 22.7 th/mm3 (4.0-11.0)
[2018-04-15 16:13] LABS: Anion Gap 10 meq/L (5-15); Blood Urea Nitrogen 13 mg/dL (7-18); Calcium 7.8 mg/dL (8.5-10.1); Carbon Dioxide 21.9 meq/L (21.0-32.0); Chloride 109 meq/L (98-107); Glomerular Filtration Rate Greater Than 89 mL/min (>89); Glucose,Random 147 mg/dL (74-106); Potassium 4.4 meq/L (3.5-5.1); Sodium 141 meq/L (136-145)
[2018-04-15] MEDS ORDERED: fentaNYL 10 mcg/mL Premix Drip 2,500 MCG/250 ML BAG IV.SIG PRN (16:24)
[2018-04-15] MEDS ORDERED: fentaNYL Citrate Inj 100 MCG/2 ML Ampul IV.PUSH ONE (16:24)
--- NOTE | 2018-04-15 16:31 | XR ---
EXAM DATE: 04/15/2018 12:00 AM EDT AGE/SEX: 62 years / Male INDICATIONS: Post op ileo conduit and radical cystectomy. CLINICAL DATA: This is the patient's initial encounter. Patient reports that signs and symptoms have been present for 1 day and indicates a pain score of 10/10. MEDICAL/SURGICAL HISTORY: . Carcinoma, bladder. Chronic obstructive pulmonary disease. Bronchi tis. Scarlet fever. . Ileo conduit and radical cystectomy. COMPARISON: [facility], CT BIOPSY LUNG RIGHT, 03/26/2018. [facility], PET/CT TUMOR, 02/25/2018. . FINDINGS: Abnormal parenchymal opacity at both lung apices again seen. No effusions. Heart size normal. CONCLUSION: Persistent abnormal bilateral upper lobe opacity previously evaluated on PET/CT. Electronically signed by: Fidencio Simms MD 04/15/2018 4:30 PM EDT
--- NOTE | 2018-04-15 16:52 | XR ---
EXAM DATE: 04/15/2018 12:00 AM EDT AGE/SEX: 62 years / Male INDICATIONS: Post op ileo conduit and radical cystectomy. CLINICAL DATA: This is the patient's initial encounter. Patient reports that signs and symptoms have been present for 1 day and indicates a pain score of 10/10. MEDICAL/SURGICAL HISTORY: . Carcinoma, bladder. Chronic obstructive pulmonary disease. Bronchi tis. Scarlet fever. None. COMPARISON: No prior exams available for comparison. FINDINGS: A single AP view of the abdomen and pelvis was obtained and demonstrates bilateral renal stent daniel ters in place as well as an apparent ileal conduit. There is a larger drainage catheter projected ove r the right lower abdomen and upper pelvis. Gas and stool is noted segmentally in the colon and there are multiple loops of nondilated air-containing small bowel. There are surgical clips and vasquez in the pelvis as well as overlying surgical skin vasquez. A nasogastric tube is noted in place. CONCLUSION: 1. Surgical changes status post ileal conduit placement with bilateral stent catheters. 2. Nonspecific bowel gas pattern most likely representing a postoperative ileus. Electronically signed by: Maksim Estrada MD 04/15/2018 4:51 PM EDT
--- NOTE | 2018-04-15 17:28 | P.CONCC ---
History of Present Illness Service: Critical care medicine Reason for Consult: Critical care management Primary Care Provider: No Primary Care Physician Family Provider: No Primary Care Physician Chief Complaint: Status post cystectomy. History of Present Illness: This 62-year-old gentleman underwent cystectomy and ileal conduit construction earlier today. Preoperative CAT scan of the chest and bone marrow scan was negative for metastatic disease. He has a large barrel chest and obvious long- term respiratory problems. The procedure went well and he is normotensive on arrival. He is a present breathing comfortably moving air well. He required 3 units of blood transfusion perioperatively, largely because of an anemia preop. His past medical history is relatively uncomplicated aside from his marginal nutritional status. His only prior surgery is to have the tumor biopsied on a previous cystoscopy. He has been on oral morphine 3 times a day for considerable period of time and it is anticipated that he will be tolerant to pain medicine. For this reason we will use a basal continuous rate of fentanyl to help control his postoperative pain. Review of Systems No chest pain or shortness of breath. Complains of incisional pain. It is noteworthy that he has had long-term problems with pain control. [facility] - History History Provided By: Patient - Medical History Medical History: Medical History (Last Updated 04/15/18 @ 07:21 by Rosalie Montano) History of chemotherapy Anxiety Bladder cancer COPD (chronic obstructive pulmonary disease) Cancer Chronic abdominal pain Depression Scarlet fever - Surgical History Surgical History: Surgical History (Last Updated 04/08/18 @ 11:57 by Brenna Reich RN) History of bladder surgery - Tobacco History Second Hand Smoke Exposure: No Tobacco Use In Past 30 Days: Yes Smoking Status: Current every day smoker Tobacco Type: Cigarettes - Alcohol History How Often Do You Have a Drink Containing Alcohol: Never - Substance Use History Substance History: No History of Abuse - Travel History Recent Travel in the [place] Within the Last 8 Weeks: No Recent Travel Out of the Country Within the Last 8 Weeks: No Medications and Allergies Active Medications: Active Medications Albuterol (Duoneb Neb ([facility])) 1 ampul NEB Q6HR NEB [facility] Last Admin: 04/15/18 16:32 Dose: 1 ampul Albuterol (Duoneb Neb (Prn)) 1 ampul NEB Q2HR NEB PRN PRN Reason: WHEEZING Enoxaparin Sodium (Lovenox Inj) 30 mg SQ [employer] [facility] Stop: 04/15/18 18:00 Last Admin: 04/15/18 08:00 Dose: 30 mg Enoxaparin Sodium (Lovenox Inj) 30 mg SQ DAILY [facility] Gabapentin (Neurontin Liq) 300 mg PO BID [facility] Hydromorphone HCl (Dilaudid Pf Inj) 2 mg IV.PUSH Q4H PRN PRN Reason: PAIN 6-10 Lactated Ringer's (Lr 1000 Ml Inj) 1,000 mls @ 30 mls/hr IV.SIG .Q24H [facility] Stop: 04/16/18 06:29 Last Admin: 04/15/18 07:24 Dose: 30 mls/hr Sodium Chloride (Ns Inj) 500 mls @ 30 mls/hr IV.SIG .Q10H [facility] Last Admin: 04/15/18 07:25 Dose: Not Given Metronidazole/Sodium Chloride (Flagyl 500 Mg Inj) 100 mls @ 100 mls/hr IV.SIG [employer] [facility] Stop: 04/16/18 07:26 Last Infusion: 04/15/18 10:30 Dose: Infused Cefazolin Sodium 1,000 mg/ (Sodium Chloride) 100 mls @ 200 mls/hr IV.SIG Q8H [facility] Metronidazole/Sodium Chloride (Flagyl 500 Mg Inj) 100 mls @ 100 mls/hr IV.SIG Q8H [facility] Stop: 04/16/18 08:59 Fentanyl (Fentanyl 10 Mcg/Ml Premix Drip) 2,500 mcg in 250 mls @ 5 mls/hr IV.SIG TITRATE PRN; Protocol PRN Reason: Per Protocol Miscellaneous Information ([facility] Nursing Information) 1 each OTHER UNSCH PRN PRN Reason: SEE LABEL COMMENTS Stop: 04/16/18 15:22 Ondansetron HCl (Zofran Inj) 4 mg IV.PUSH Q6H PRN PRN Reason: MILD NAUSEA Stop: 04/30/18 23:59 Pantoprazole Sodium (Protonix Inj) 40 mg IV.PUSH Q24H [facility] Allergies Allergy/AdvReac Type Severity Reaction Status Date / Time No Known Allergies Allergy Verified 04/15/18 07:21 Home Medications Medication Instructions Recorded Confirmed Type hydrocodone-acetaminophen 1 tab PO Q4-6H PRN 01/30/18 04/15/18 History morphine 30 mg PO Q8H 01/30/18 04/15/18 History ondansetron [Zofran ODT] 4 mg PO Q6-8H PRN 01/30/18 04/15/18 History gabapentin 300 mg PO BID 03/26/18 04/15/18 History Physical Exam Vital signs: Vital Signs 04/15/18 07:28 04/15/18 15:22 04/15/18 15:30 Temperature 97.8 F 98 F Pulse Rate 80 78 75 Respiratory Rate 24 20 18 Blood Pressure 129/81 145/69 H 128/72 Pulse Oximetry 100 100 99 04/15/18 15:45 04/15/18 16:00 04/15/18 16:32 Temperature 98.2 F Pulse Rate 75 70 78 Respiratory Rate 15 14 18 Blood Pressure 139/70 148/85 H Pulse Oximetry 100 100 Intake & Output 04/14/18 04/15/18 04/15/18 18:59 06:59 18:59 Intake Total 4804.5 / 4804.5 Output Total 450 / 450 Balance 4354.5 / 4354.5 Weight 44.9 kg Intake: IV 304.5 / 304.5 Ampicillin Inj 1,000 MG In NS 100 / 100 Inj 100 ML @ 100 mls/hr IV.SIG [employer] [facility] Rx#:[id number] Gentamicin Inj 180 MG In NS Inj 104.5 / 104.5 100 ML @ 104.5 mls/hr IV.SIG [employer] [facility] Rx#:[id number] Flagyl 500 MG Inj 100 ML @ 100 100 / 100 mls/hr IV.SIG [employer] [facility] Rx#: [id number] Anesthesia Amount 3700 / 3700 Intake (Blood Product) Amt 800 / 800 Rbc As-3 Leukoreduced Unit 400 / 400 [id number] Rbc As-3 Leukoreduced Unit 0 / 0 [id number] Rbc As-3 Leukoreduced Unit 400 / 400 [id number] Output: Estimated Blood Loss 450 / 450 Other: Weight On Admission 44.9 kg Narrative: General: Thin, moderately debilitated appearing middle-aged gentleman Head: Atraumatic Neck: Supple, airway widely patent Lungs: Clear bilaterally, distant breath sounds, no wheezes or crackles. Comfortable respiratory pattern Heart: Distant tones, regular rate and rhythm, no murmur or rub. Abdomen: Postsurgical, nondistended, ostomy well-perfused. Quiet. Extremities: Warm, well-perfused. Neuro: Residual lethargy from surgery. Complains of pain at incision. Moves 4 limbs spontaneously. Protects airway well. - Urinary Catheter Management Indwelling Urethral Catheter Cath placed during this visit: yes, but has since been removed by the nurse Reason for continuing: Not indwelling catheter Insertion date: 04/15/18 Insertion time: 14:20 Removal date: 04/15/18 Removal time: 13:08 Assessment and Plan - Problem List (1) Emphysema of lung Code(s): J43.9 - Emphysema, unspecified Status: Acute (2) Bladder cancer Code(s): C67.9 - Malignant neoplasm of bladder, unspecified Status: Acute - Assessment and Plan Plan: Plan: 1. Incentive spirometry every 2 hours. 2. Maintenance IV isotonic crystalloid. 3. Bronchodilators. 4. Fentanyl continuous drip as basal pain control. 5. Protonix for GI ulcer prophylaxis. 6. Chemical DVT prophylaxis when okay with surgeon. 7. CBC in a.m. Overall impression: This gentleman looks quite stable following a major abdominal procedure today. We need to pay particular attention to his long- standing respiratory problems and his pain control issues. Aside from that hopefully his postoperative course will be uneventful. He is breathing comfortably now at the bedside and has no bronchospasm.
[2018-04-15] MEDS: HYDROmorphone PF Inj 2 MG/ML Vial IV.PUSH PRN (17:46)
[2018-04-15] MEDS: Pantoprazole Inj 40 MG Vial IV.PUSH SCH (18:06)
[2018-04-15] MEDS: Gabapentin Liq 250 MG/5 ML UDC PO SCH (20:58)
[2018-04-16] MEDS: HYDROmorphone PF Inj 2 MG/ML Vial IV.PUSH PRN ×2 (03:13→07:19)
[2018-04-16 05:17] LABS: Baso % (Auto) 0.3 % (0.0-2.0); Eos % (Auto) 0.1 % (0.0-4.0); Hematocrit 30.8 % (39.0-51.0); Hemoglobin 10.1 gm/dL (13.0-17.0); Lymph # (Auto) 0.8 th/mm3 (1.0-4.8); Mean Corpuscular HGB Conc 32.9 % (32.0-36.0); Mean Corpuscular Hemoglobin 27.1 pg (27.0-34.0); Mean Corpuscular Volume 82.4 fL (80.0-100.0); Mono # (Auto) 1.1 th/mm3 (0.0-0.9); Mono % (Auto) 6.9 % (0.0-8.0); Neut # (Auto) 13.8 th/mm3 (1.8-7.7); Neut % (Auto) 87.7 % (16.0-70.0); Platelet Count 285 th/mm3 (150-450); Red Blood Count 3.73 mil/mm3 (4.50-5.90); Red Cell Distribution Width 17.2 % (11.6-17.2); White Blood Count 15.8 th/mm3 (4.0-11.0)
[2018-04-16 05:33] LABS: Alanine Aminotransferase 8 U/L (12-78); Anion Gap 10 meq/L (5-15); Aspartate Aminotransferase 17 U/L (15-37); Blood Urea Nitrogen 12 mg/dL (7-18); Calcium 7.7 mg/dL (8.5-10.1); Carbon Dioxide 25.9 meq/L (21.0-32.0); Chloride 113 meq/L (98-107); Glomerular Filtration Rate Greater Than 89 mL/min (>89); Glucose,Random 109 mg/dL (74-106); Potassium 4.1 meq/L (3.5-5.1); Sodium 149 meq/L (136-145)
[2018-04-16 05:37] LABS: Alkaline Phosphatase 57 U/L (45-117); Prealbumin 8 mg/dL (20-40); Total Protein 5.7 g/dL (6.4-8.2)
[2018-04-16] MEDS ORDERED: Potassium Phosphate Inj 30 MMOL in Sodium Chlor 0.9% Inj 250 ML IV.SIG PRN (08:32)
[2018-04-16] MEDS ORDERED: Magnesium Oxide 400 MG Tablet PO PRN (08:32)
[2018-04-16] MEDS ORDERED: Magnesium Sulfate Inj 4 GM in Sodium Chlor 0.9% Inj 92 ML IV.SIG PRN (08:32)
[2018-04-16] MEDS ORDERED: Potassium Chlor 40 mEq Premix 40 MEQ/100 ML PIGGYBACK IV.SIG PRN (08:32)
[2018-04-16] MEDS ORDERED: Sodium Phosphate Inj 30 MMOL in Sodium Chlor 0.9% Inj 250 ML IV.SIG PRN (08:32)
[2018-04-16] MEDS ORDERED: Magnesium Sulfate Inj 2 GM in Sodium Chlor 0.9% Inj 96 ML IV.SIG PRN (08:32)
[2018-04-16] MEDS ORDERED: Potassium Chlor 20 mEq Premix 20 MEQ/100 ML PIGGYBACK IV.SIG PRN ×2 (08:32)
[2018-04-16] MEDS ORDERED: Potassium Chloride 25 MEQ Effervescent Tablet PO PRN (08:32)
[2018-04-16] MEDS ORDERED: Potassium Phosphate 500 MG Soluble Tablet PO PRN ×2 (08:32)
[2018-04-16] MEDS ORDERED: Dextrose 50% in Water 50 ML Vial IV.PUSH PRN (08:33)
--- NOTE | 2018-04-16 08:33 | P.PNURO ---
Subjective Patient symptoms today: Pt seen and examined. Some pain but controlled overall. Stable. Objective Vital Signs: Vital Signs 04/15/18 15:22 04/15/18 15:30 04/15/18 15:45 Temperature 98 F Pulse Rate 78 75 75 Respiratory Rate 20 18 15 Blood Pressure 145/69 H 128/72 139/70 Pulse Oximetry 100 99 100 04/15/18 16:00 04/15/18 16:32 04/15/18 19:00 Temperature 98.2 F Pulse Rate 70 78 Respiratory Rate 14 18 16 Blood Pressure 148/85 H Pulse Oximetry 100 94 L 04/15/18 20:00 04/15/18 20:58 04/16/18 00:00 Temperature 97.6 F 98.3 F Pulse Rate 76 70 Respiratory Rate 16 16 17 Blood Pressure 141/66 H 156/76 H Pulse Oximetry 93 L 95 04/16/18 04:00 04/16/18 04:59 04/16/18 05:32 Temperature 98.7 F Pulse Rate 73 76 Respiratory Rate 13 20 18 Blood Pressure 130/75 Pulse Oximetry 92 L Intake & Output 04/15/18 04/16/18 04/16/18 18:59 06:59 18:59 Intake Total 4904.5 / 4904.5 420 / 420 Output Total 450 / 450 975 / 975 Balance 4454.5 / 4454.5 -555 / -555 Weight 50 kg Intake: IV 404.5 / 404.5 400 / 400 Ampicillin Inj 1,000 MG In NS 100 / 100 Inj 100 ML @ 100 mls/hr IV.SIG AUTOMATIC BEAM WARPER TENDER KACIE Rx#:[id number] Gentamicin Inj 180 MG In NS Inj 104.5 / 104.5 100 ML @ 104.5 mls/hr IV.SIG AUTOMATIC BEAM WARPER TENDER KACIE Rx#:[id number] Ancef Inj 1,000 MG In NS Inj 200 / 200 100 ML @ 200 mls/hr IV.SIG Q8H KACIE Rx#:[id number] Flagyl 500 MG Inj 100 ML @ 100 200 / 200 200 / 200 mls/hr IV.SIG Q8H KACIE Rx#: [id number] Water Bolus Amount 20 / 20 Anesthesia Amount 3700 / 3700 Intake (Blood Product) Amt 800 / 800 Rbc As-3 Leukoreduced Unit 400 / 400 [id number] Rbc As-3 Leukoreduced Unit 0 / 0 [id number] Rbc As-3 Leukoreduced Unit 400 / 400 [id number] Output: Estimated Blood Loss 450 / 450 Urine Amount (Catheter) 900 / 900 Right ileal conduit 900 / 900 Wound Drainage 75 / 75 Penile drain 75 / 75 Result Diagrams: 04/16/18 04:40 04/16/18 04:40 Imaging: Impressions Abdomen X-Ray 04/15/18 00:00 CONCLUSION: 1. Surgical changes status post ileal conduit placement with bilateral stent catheters. 2. Nonspecific bowel gas pattern most likely representing a postoperative ileus. Chest X-Ray 04/15/18 00:00 CONCLUSION: Persistent abnormal bilateral upper lobe opacity previously evaluated on PET/CT. Medications and IVs: Active Medications Generic Name Dose Route Start Last Admin Trade Name Freq PRN Reason Stop Dose Admin Albuterol 1 ampul 04/15/18 16:00 04/16/18 04:59 Duoneb Neb (Kacie) NEB 1 ampul Q6HR NEB KACIE Administration Albuterol 1 ampul 04/15/18 16:28 Duoneb Neb (Prn) NEB Q2HR NEB PRN WHEEZING Enoxaparin Sodium 30 mg 04/16/18 09:00 Lovenox Inj SQ DAILY KACIE Gabapentin 300 mg 04/15/18 21:00 04/15/18 20:58 Neurontin Liq PO Not Given BID KACIE Hydromorphone HCl 2 mg 04/15/18 15:33 04/16/18 07:19 Dilaudid Pf Inj IV.PUSH 2 mg Q4H PRN Administration PAIN 6-10 Sodium Chloride 500 mls @ 30 mls/hr 04/15/18 07:00 04/15/18 07:25 Ns Inj IV.SIG Not Given .Q10H KACIE Cefazolin Sodium 1,000 mg/ 100 mls @ 200 mls/hr 04/15/18 17:00 04/16/18 02:26 Sodium Chloride IV.SIG Infused Q8H KACIE Infusion Metronidazole/Sodium Chloride 100 mls @ 100 mls/hr 04/15/18 16:00 04/16/18 02 :26 Flagyl 500 Mg Inj IV.SIG 04/16/18 08:59 Infused Q8H KACIE Infusion Fentanyl 2,500 mcg in 250 mls @ 5 mls/hr 04/15/18 16:24 04/16/18 02:26 Fentanyl 10 Mcg/Ml Premix Drip IV.SIG 150 mcg/hr TITRATE PRN 15 mls/hr Per Protocol Titration Protocol 50 MCG/HR Miscellaneous Information 1 each 04/15/18 15:23 Misc Nursing Information OTHER 04/16/18 15:22 UNSCH PRN SEE LABEL COMMENTS Ondansetron HCl 4 mg 04/15/18 15:26 Zofran Inj IV.PUSH 04/30/18 23:59 Q6H PRN MILD NAUSEA Pantoprazole Sodium 40 mg 04/15/18 16:00 04/15/18 18:06 Protonix Inj IV.PUSH 40 mg Q24H KACIE Administration Objective Remarks: CV: RRR Lungs: decreased BS Abd:soft,nd,tender one exam Stoma: pink and viable Dale Pelvic drain: bloody Ext: neg C/C/E Assessment and Plan - Plan Stable s/p radical cystectomy with ileal conduit OOB to chair Start TPN
[2018-04-16] MEDS ORDERED: Sodium Chloride 0.45 % Inj 1,000 ML IV.CONT SCH (09:00)
[2018-04-16] MEDS ORDERED: Naloxone Inj 0.4 MG/ML Vial IV.PUSH PRN (09:02)
[2018-04-16] MEDS ORDERED: HYDROmorphone PF Inj 2 MG/ML Vial IV.PUSH ONE (09:02)
--- NOTE | 2018-04-16 09:02 | P.PNCC ---
Subjective Subjective Remarks/Hospital Course: This 62-year-old gentleman underwent cystectomy and ileal conduit construction earlier today. Preoperative CAT scan of the chest and bone marrow scan was negative for metastatic disease. He has a large barrel chest and obvious long- term respiratory problems. The procedure went well and he is normotensive on arrival. He is a present breathing comfortably moving air well. He required 3 units of blood transfusion perioperatively, largely because of an anemia preop. His past medical history is relatively uncomplicated aside from his marginal nutritional status. His only prior surgery is to have the tumor biopsied on a previous cystoscopy. He has been on oral morphine 3 times a day for considerable period of time and it is anticipated that he will be tolerant to pain medicine. For this reason we will use a basal continuous rate of fentanyl to help control his postoperative pain. SUBJECTIVE: 04/16: Currently on fentanyl drip at 150 kelsi grams per hour. Complains of abdominal pain with singultus. Ileostomy conduit site good drainage with no active bleeding. Awake and oriented x3. Difficulty moving right lower extremity/adduction Objective Vital Signs / I&O: Vital Signs 04/15/18 15:22 04/15/18 15:30 04/15/18 15:45 Temperature 98 F Pulse Rate 78 75 75 Respiratory Rate 20 18 15 Blood Pressure 145/69 H 128/72 139/70 Pulse Oximetry 100 99 100 04/15/18 16:00 04/15/18 16:32 04/15/18 19:00 Temperature 98.2 F Pulse Rate 70 78 Respiratory Rate 14 18 16 Blood Pressure 148/85 H Pulse Oximetry 100 94 L 04/15/18 20:00 04/15/18 20:58 04/16/18 00:00 Temperature 97.6 F 98.3 F Pulse Rate 76 70 Respiratory Rate 16 16 17 Blood Pressure 141/66 H 156/76 H Pulse Oximetry 93 L 95 04/16/18 04:00 04/16/18 04:59 04/16/18 05:32 Temperature 98.7 F Pulse Rate 73 76 Respiratory Rate 13 20 18 Blood Pressure 130/75 Pulse Oximetry 92 L 04/16/18 08:53 Temperature Pulse Rate 79 Respiratory Rate 17 Blood Pressure Pulse Oximetry Intake & Output 04/15/18 04/16/18 04/16/18 18:59 06:59 18:59 Intake Total 4904.5 / 4904.5 420 / 420 Output Total 450 / 450 975 / 975 Balance 4454.5 / 4454.5 -555 / -555 Weight 50 kg Intake: IV 404.5 / 404.5 400 / 400 Ampicillin Inj 1,000 MG In NS 100 / 100 Inj 100 ML @ 100 mls/hr IV.SIG MILKING MACHINE MECHANIC NADINE Rx#:[id number] Gentamicin Inj 180 MG In NS Inj 104.5 / 104.5 100 ML @ 104.5 mls/hr IV.SIG MILKING MACHINE MECHANIC NADINE Rx#:[id number] Ancef Inj 1,000 MG In NS Inj 200 / 200 100 ML @ 200 mls/hr IV.SIG Q8H NADINE Rx#:[id number] Flagyl 500 MG Inj 100 ML @ 100 200 / 200 200 / 200 mls/hr IV.SIG Q8H NADINE Rx#: [id number] Water Bolus Amount 20 / 20 Anesthesia Amount 3700 / 3700 Intake (Blood Product) Amt 800 / 800 Rbc As-3 Leukoreduced Unit 400 / 400 [id number] Rbc As-3 Leukoreduced Unit 0 / 0 [id number] Rbc As-3 Leukoreduced Unit 400 / 400 [id number] Output: Estimated Blood Loss 450 / 450 Urine Amount (Catheter) 900 / 900 Right ileal conduit 900 / 900 Wound Drainage 75 / 75 Penile drain 75 / 75 Result Diagrams: 04/16/18 04:40 04/16/18 04:40 Imaging: Abdomen X-Ray 04/15/18 00:00 CONCLUSION: 1. Surgical changes status post ileal conduit placement with bilateral stent catheters. 2. Nonspecific bowel gas pattern most likely representing a postoperative ileus. Chest X-Ray 04/15/18 00:00 CONCLUSION: Persistent abnormal bilateral upper lobe opacity previously evaluated on PET/CT. Objective Remarks: GENERAL: 62-year-old male resting in bed in no acute distress SKIN: Warm and dry. HEAD: Atraumatic. Normocephalic. EYES: Pupils equal and round. No scleral icterus. No injection or drainage. ENT: No nasal bleeding or discharge. Mucous membranes pink and moist. Nasogastric tube in left nares to low intermittent wall suction NECK: Trachea midline. No JVD. CARDIOVASCULAR: Regular rate and rhythm. S1, S2. No S4. RESPIRATORY: No accessory muscle use. Clear to auscultation. Breath sounds equal bilaterally. GASTROINTESTINAL: Abdomen soft, tender to palpation. Midline incisions/lateral to the right with old dried blood. Ileal conduit is pink with good drainage. MUSCULOSKELETAL: Extremities without significant peripheral edema. No obvious deformities. NEUROLOGICAL: Awake and alert. No obvious cranial nerve deficits. Difficulty lifting right lower extremity and adducting PSYCHIATRIC: Appropriate mood and affect; insight and judgment normal. 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 0.2 mg every 6 hours for breakthrough pain. Resume gabapentin 300 mg twice daily/home medication Acetaminophen 650 p.o. every 6 hours as needed fever CV: Currently one half normal saline at 100 cc an hour. Discontinue when TPN initiated Currently not requiring vasopressors and/or antihypertensives Resp: COPD Pulmonary nodule -lung biopsy 2018 revealed inflammatory changes. No malignancy Nasal cannula to maintain saturations greater than equal to 92% Incentive spirometry while awake Albuterol/ipratropium aerosols every 6 hours with albuterol aerosols every 2 hours as needed for dyspnea Lung hyperinflation protocol initiated GI: History of internal and external hemorrhoids Hypoalbuminemia Severe protein calorie malnutrition N.p.o. except for medications per urology We will start on TPN at 65 cc an hour with lipids daily. Dietary for recommendations for dosage Pantoprazole for GI prophylaxis Docusate sodium 100 milligrams twice daily/senna liquid 8.8 g twice daily for bowel regimen Rule out porphyria check urine 24 hours for chronic abdominal pain : Postoperative day #1 ileal conduit bilateral urethral stents secondary to high- grade urethral cancer T3 N0 M0 (stage IIIa) Management per Dr. 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 Clarke -3 cycles of 4 of cisplatin/gemcitabine. Leukocytosis Normocytic anemia Transfuse 3 PRBCs in OR. Monitor CBC daily. Follow trends. No indication for transfusion of blood products today. ID: Currently on cefazolin 1 g IV every 8 hours.. Received ampicillin and gentamicin in OR Management per urology FEN: Hypernatremia Currently one half normal saline at 100 cc an hour. Adjust TPN as needed. Replace electrolytes as clinically indicated per ICU electrolyte protocol MSK: Physical therapy/occupational therapy evaluate and treat Access -Left subclavian CVL day 2 placed 04/15 Prophylaxis -GI -pantoprazole -DVT -SCD/enoxaparin Level 3 follow-up
[2018-04-16] MEDS ORDERED: Sodium Chloride 0.9% 2 ML Flush PRN IV.FLUSH (09:14)
[2018-04-16 11:17] LABS: Anion Gap 10 meq/L (5-15); Blood Urea Nitrogen 14 mg/dL (7-18); Calcium 8.3 mg/dL (8.5-10.1); Carbon Dioxide 25.1 meq/L (21.0-32.0); Chloride 110 meq/L (98-107); Glomerular Filtration Rate Greater Than 89 mL/min (>89); Glucose,Random 128 mg/dL (74-106); Phosphorus 3.5 mg/dL (2.5-4.9); Potassium 3.6 meq/L (3.5-5.1); Sodium 145 meq/L (136-145)
--- NOTE | 2018-04-16 11:39 | P.DIET ---
Nutritional Evaluation Type of nutrition evaluation: initial Nutrition consult regarding: TPN/PPN Nutrition screening: [facility] Objective - Diagnosis Cystectomy - Objective Body Mass Index: 17.8 % IBW: 77 (IBW = 142#) Body Weight Used for Calculations: Actual (50 kg) Energy Needs - Lower Range (kCal/kg): 30 Energy Needs - Upper Range (kCal/kg): 35 Lower Limit kCal/kg (kCals): 1,500 Upper Limit kCal/kg (kCals): 1,750 Lower Limit Protein Factor (Grams per Kg): 1.0 Upper Limit Protein Factor (Grams per Kg): 1.5 Lower Protein Needs (Protein): 50 Upper Protein Needs (Protein): 75 Dietitian Reviewed in Medical Record: Curent medications, Intake & Output, Labs , Medical history, TPN/PPN Diet Order: NPO Objective Comments: glu 128 Assessment Assessment: Pt is at high nutrition risk 2' to dx and his need for TPN. To meet needs, recommend Clinimix E 5/20 @ 60 mls/hr with 20% lipids 250 mls/day to provide a total of 2267 kcals and 72 gms protein. Request weekly TG while on TPN and monitor glucose closely. Recommendations: TPN: Clinimix E 5/20 @ 60 mls/hr LIPIDS: 20% lipids 250 mls/day Dietitian to Monitor: Lab values, Intake & Output, TPN/PPN tolerance, Weight change, Diet advancement, Medical course
[2018-04-16] MEDS: Enoxaparin Inj 30 MG/0.3 ML Syringe SQ SCH (12:04)
[2018-04-16] MEDS: Gabapentin Liq 250 MG/5 ML UDC PO SCH ×2 (12:05→20:14)
[2018-04-16] MEDS: Insulin NovoLOG Aspart Correctional Sugar Inj SQ SCH ×2 (12:06→18:18)
[2018-04-16] MEDS: HYDROmorphone PCA Inj 6 MG/30 ML PCA.VIAL PCA PRN ×3 (12:29→23:02)
--- NOTE | 2018-04-16 14:38 | OTSOAPIP ---
TIME SESSION COMPLETED: AM TREATMENT TIME: 0 MINS. CHART REVIEWED. PATIENT REQUESTED TO BE SEEN TOMORROW, DUE TO PAIN. PLAN: WILL SEE PATIENT NEXT TREATMENT DAY. Therapist: Lissette Gutiérrez Signature on file
[2018-04-16] MEDS: Pantoprazole Inj 40 MG Vial IV.PUSH SCH (16:33)
[2018-04-16] MEDS: Docusate Sodium Liq 100 MG/10 ML UDC NG/OG SCH (20:14)
[2018-04-16] MEDS: Sennosides Liq 8.8 MG/5 ML UDC NG/OG SCH (20:14)
[2018-04-16] MEDS: Sodium Chloride 0.9% 2 ML Flush BID IV.FLUSH SCH (20:15)
[2018-04-16] MEDS: Multivitamin Inj 10 ML, Folic Acid Inj 1 MG in AA 5%/D20W - Electrolytes 2,000 ML IV.SIG SCH (20:45)
[2018-04-16 22:47] LABS: INR 1.1 Ratio; Prothrombin Time 11.6 sec (9.8-11.6)
[2018-04-17] MEDS: Insulin NovoLOG Aspart Correctional Sugar Inj SQ SCH ×4 (01:13→19:02)
[2018-04-17 03:35] LABS: Baso # (Auto) 0.1 th/mm3 (0.0-0.2); Baso % (Auto) 0.6 % (0.0-2.0); Eos % (Auto) 0.1 % (0.0-4.0); Hematocrit 31.6 % (39.0-51.0); Hemoglobin 10.2 gm/dL (13.0-17.0); Lymph # (Auto) 0.7 th/mm3 (1.0-4.8); Lymph % (Auto) 5.3 % (9.0-44.0); Mean Corpuscular HGB Conc 32.4 % (32.0-36.0); Mean Corpuscular Hemoglobin 26.8 pg (27.0-34.0); Mean Corpuscular Volume 82.8 fL (80.0-100.0); Mean Platelet Volume 7.8 fL (7.0-11.0); Mono # (Auto) 0.8 th/mm3 (0.0-0.9); Neut # (Auto) 11.6 th/mm3 (1.8-7.7); Platelet Count 286 th/mm3 (150-450); Red Blood Count 3.81 mil/mm3 (4.50-5.90); Red Cell Distribution Width 17.7 % (11.6-17.2); White Blood Count 13.2 th/mm3 (4.0-11.0)
[2018-04-17 04:00] LABS: Alanine Aminotransferase 6 U/L (12-78); Albumin 1.9 g/dL (3.4-5.0); Anion Gap 9 meq/L (5-15); Aspartate Aminotransferase 13 U/L (15-37); Blood Urea Nitrogen 14 mg/dL (7-18); Calcium 7.9 mg/dL (8.5-10.1); Carbon Dioxide 29.5 meq/L (21.0-32.0); Chloride 108 meq/L (98-107); Glomerular Filtration Rate Greater Than 89 mL/min (>89); Glucose,Random 136 mg/dL (74-106); Magnesium 2.1 mg/dL (1.5-2.5); Phosphorus 2.3 mg/dL (2.5-4.9); Potassium 3.3 meq/L (3.5-5.1); Sodium 146 meq/L (136-145)
[2018-04-17 04:02] LABS: Alkaline Phosphatase 57 U/L (45-117); Total Protein 5.5 g/dL (6.4-8.2)
[2018-04-17] MEDS: HYDROmorphone PCA Inj 6 MG/30 ML PCA.VIAL PCA PRN ×3 (07:00→18:30)
[2018-04-17] MEDS: Gabapentin Liq 250 MG/5 ML UDC PO SCH ×2 (08:57→20:14)
[2018-04-17] MEDS: Docusate Sodium Liq 100 MG/10 ML UDC NG/OG SCH ×2 (08:57→21:15)
[2018-04-17] MEDS: Sodium Chloride 0.9% 2 ML Flush BID IV.FLUSH SCH ×2 (08:58→21:15)
[2018-04-17] MEDS: Enoxaparin Inj 30 MG/0.3 ML Syringe SQ SCH (08:58)
[2018-04-17] MEDS: Sennosides Liq 8.8 MG/5 ML UDC NG/OG SCH ×2 (08:59→20:15)
--- NOTE | 2018-04-17 11:04 | P.PNCC ---
Subjective Subjective Remarks/Hospital Course: This 62-year-old gentleman underwent cystectomy and ileal conduit construction earlier today. Preoperative CAT scan of the chest and bone marrow scan was negative for metastatic disease. He has a large barrel chest and obvious long- term respiratory problems. The procedure went well and he is normotensive on arrival. He is a present breathing comfortably moving air well. He required 3 units of blood transfusion perioperatively, largely because of an anemia preop. His past medical history is relatively uncomplicated aside from his marginal nutritional status. His only prior surgery is to have the tumor biopsied on a previous cystoscopy. He has been on oral morphine 3 times a day for considerable period of time and it is anticipated that he will be tolerant to pain medicine. For this reason we will use a basal continuous rate of fentanyl to help control his postoperative pain. 04/16: Currently on fentanyl drip at 150 kelsi grams per hour. Complains of abdominal pain with singultus. Ileostomy conduit site good drainage with no active bleeding. Awake and oriented x3. Difficulty moving right lower extremity/adduction SUBJECTIVE: 04/17: Resting at side of bed. Still unable to elevate or adduct his right lower extremity. Tolerating the hydromorphone MANAGER PULMONARY with a basal rate 0.2 mg an hour. Appears comfortable. Tolerating TPN see orders Objective Vital Signs / I&O: Vital Signs 04/16/18 12:00 04/16/18 14:00 04/16/18 16:00 Temperature 98.2 F 98.5 F Pulse Rate 82 82 80 Respiratory Rate 20 18 Blood Pressure 150/90 H 140/82 Pulse Oximetry 93 L 91 L 04/16/18 18:00 04/16/18 20:00 04/16/18 20:39 Temperature 97.6 F Pulse Rate 88 82 Respiratory Rate 19 Blood Pressure 144/82 H Pulse Oximetry 95 98 04/16/18 22:00 04/17/18 00:00 04/17/18 02:00 Temperature Pulse Rate 77 73 73 Respiratory Rate 17 Blood Pressure 133/74 Pulse Oximetry 93 L 04/17/18 04:00 04/17/18 05:55 04/17/18 08:00 Temperature 98.7 F Pulse Rate 72 71 75 Respiratory Rate 19 25 H Blood Pressure 137/69 131/72 Pulse Oximetry 92 L 97 04/17/18 10:00 04/17/18 10:45 Temperature Pulse Rate 84 Respiratory Rate Blood Pressure Pulse Oximetry 93 L Intake & Output 04/16/18 04/17/18 04/17/18 18:59 06:59 18:59 Intake Total 200 / 200 1810 / 1810 Output Total 1450 / 1450 1350 / 1350 Balance -1250 / -1250 460 / 460 Weight 51 kg Intake: IV 200 / 200 1810 / 1810 1/2 Normal Saline Inj 1,000 ML 1000 / 1000 @ 100 mls/hr IV.CONT .Q10H NADINE Rx#:[id number] Intralipid 20% Inj 250 ML @ 31. 250 / 250 25 mls/hr IV.SIG Q24H NADINE Rx#: [id number] Ancef Inj 1,000 MG In NS Inj 100 / 100 200 / 200 100 ML @ 200 mls/hr IV.SIG Q8H NADINE Rx#:[id number] Flagyl 500 MG Inj 100 ML @ 100 100 / 100 mls/hr IV.SIG Q8H NADINE Rx#: [id number] Output: Urine Amount (Catheter) 200 / 200 Indwelling Urethral Catheter 200 / 200 Urine Amount (Stoma) 1150 / 1150 1150 / 1150 Ileal Conduit Right 1150 / 1150 1150 / 1150 Gastric Drainage 100 / 100 100 / 100 Left Nare Nasogastric Tube 100 / 100 100 / 100 Wound Drainage 100 / 100 Pelvic Drain 100 / 100 Other: Date of Last Bowel Movement 04/15/18 04/15/18 # Bowel Movements 0 Result Diagrams: 04/17/18 03:15 04/17/18 03:15 Other Results: Microbiology 04/15/18 07:00 Clean Catch Urine Urine Culture - Final No growth in 48 hours Imaging: Abdomen X-Ray 04/15/18 00:00 CONCLUSION: 1. Surgical changes status post ileal conduit placement with bilateral stent catheters. 2. Nonspecific bowel gas pattern most likely representing a postoperative ileus. Chest X-Ray 04/15/18 00:00 CONCLUSION: Persistent abnormal bilateral upper lobe opacity previously evaluated on PET/CT. Objective Remarks: GENERAL: 62-year-old male resting in bed in no acute distress SKIN: Warm and dry. HEAD: Atraumatic. Normocephalic. EYES: Pupils equal and round. No scleral icterus. No injection or drainage. ENT: No nasal bleeding or discharge. Mucous membranes pink and moist. Nasogastric tube in left nares to low intermittent wall suction NECK: Trachea midline. No JVD. CARDIOVASCULAR: Regular rate and rhythm. S1, S2. No S4. RESPIRATORY: No accessory muscle use. Clear to auscultation. Breath sounds equal bilaterally. GASTROINTESTINAL: Abdomen soft, tender to palpation. Midline incisions/lateral to the right with old dried blood. Ileal conduit is pink with good drainage. MUSCULOSKELETAL: Extremities without significant peripheral edema. No obvious deformities. NEUROLOGICAL: Awake and alert. No obvious cranial nerve deficits. Difficulty lifting right lower extremity and adducting PSYCHIATRIC: Appropriate mood and affect; insight and judgment normal. 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 0.2 mg every 6 hours for breakthrough pain. Resume gabapentin 300 mg twice daily/home medication Acetaminophen 650 p.o. every 6 hours as needed fever CV: Currently on TPN at 60 cc an hour Currently not requiring vasopressors and/or antihypertensives Resp: COPD Pulmonary nodule -lung biopsy 2018 revealed inflammatory changes. No malignancy Nasal cannula to maintain saturations greater than equal to 92% Incentive spirometry while awake Albuterol/ipratropium aerosols every 6 hours with albuterol aerosols every 2 hours as needed for dyspnea Lung hyperinflation protocol initiated GI: History of internal and external hemorrhoids Hypoalbuminemia Severe protein calorie malnutrition N.p.o. except for medications per urology We will start on TPN at 60 cc an hour with lipids daily. 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 Clarke -3 cycles of 4 of cisplatin/gemcitabine. Leukocytosis Normocytic anemia Transfuse 3 PRBCs in OR. Monitor CBC daily. Follow trends. No indication for transfusion of blood products today. ID: Currently on cefazolin 1 g IV every 8 hours.. Received ampicillin and gentamicin in OR Management per urology FEN: Hypernatremia Hypokalemia Currently one half normal saline at 100 cc an hour. Discontinue Adjust TPN as needed. Currently on Clinimix 5/20 at 60 cc an hour with lipids daily Replace electrolytes as clinically indicated per ICU electrolyte protocol MSK: Physical therapy/occupational therapy evaluate and treat Access -Left subclavian CVL day 3 placed 04/15 Prophylaxis -GI -pantoprazole -DVT -SCD/enoxaparin Level 3 follow-up
--- NOTE | 2018-04-17 11:41 | P.PNURO ---
Subjective Patient symptoms today: Pt alert and awake. Pain is controlled. TPN started. Objective Vital Signs: Vital Signs 04/16/18 12:00 04/16/18 14:00 04/16/18 16:00 Temperature 98.2 F 98.5 F Pulse Rate 82 82 80 Respiratory Rate 20 18 Blood Pressure 150/90 H 140/82 Pulse Oximetry 93 L 91 L 04/16/18 18:00 04/16/18 20:00 04/16/18 20:39 Temperature 97.6 F Pulse Rate 88 82 Respiratory Rate 19 Blood Pressure 144/82 H Pulse Oximetry 95 98 04/16/18 22:00 04/17/18 00:00 04/17/18 02:00 Temperature Pulse Rate 77 73 73 Respiratory Rate 17 Blood Pressure 133/74 Pulse Oximetry 93 L 04/17/18 04:00 04/17/18 05:55 04/17/18 08:00 Temperature 98.7 F Pulse Rate 72 71 75 Respiratory Rate 19 25 H Blood Pressure 137/69 131/72 Pulse Oximetry 92 L 97 04/17/18 10:00 04/17/18 10:45 Temperature Pulse Rate 84 Respiratory Rate Blood Pressure Pulse Oximetry 93 L Intake & Output 04/16/18 04/17/18 04/17/18 18:59 06:59 18:59 Intake Total 200 / 200 1810 / 1810 Output Total 1450 / 1450 1350 / 1350 Balance -1250 / -1250 460 / 460 Weight 51 kg Intake: IV 200 / 200 1810 / 1810 1/2 Normal Saline Inj 1,000 ML 1000 / 1000 @ 100 mls/hr IV.CONT .Q10H KACIE Rx#:[id number] Intralipid 20% Inj 250 ML @ 31. 250 / 250 25 mls/hr IV.SIG Q24H KACIE Rx#: [id number] Ancef Inj 1,000 MG In NS Inj 100 / 100 200 / 200 100 ML @ 200 mls/hr IV.SIG Q8H KACIE Rx#:[id number] Flagyl 500 MG Inj 100 ML @ 100 100 / 100 mls/hr IV.SIG Q8H KACIE Rx#: [id number] Output: Urine Amount (Catheter) 200 / 200 Indwelling Urethral Catheter 200 / 200 Urine Amount (Stoma) 1150 / 1150 1150 / 1150 Ileal Conduit Right 1150 / 1150 1150 / 1150 Gastric Drainage 100 / 100 100 / 100 Left Nare Nasogastric Tube 100 / 100 100 / 100 Wound Drainage 100 / 100 Pelvic Drain 100 / 100 Other: Date of Last Bowel Movement 04/15/18 04/15/18 # Bowel Movements 0 Result Diagrams: 04/17/18 03:15 04/17/18 03:15 Medications and IVs: Active Medications Generic Name Dose Route Start Last Admin Trade Name Freq PRN Reason Stop Dose Admin Acetaminophen 650 mg 04/16/18 08:55 Tylenol Liq PO Q6H PRN FEVER Albuterol 1 ampul 04/15/18 16:00 04/17/18 10:44 Duoneb Neb (Kacie) NEB Not Given Q6HR NEB KACIE Albuterol 2.5 mg 04/16/18 08:54 Albuterol Neb (Prn) NEB Q2HR NEB PRN DYSPNEA Dextrose 50 ml 04/16/18 08:33 D50w Vial IV.PUSH UNSCH PRN PER HYPOGLYCEMIA PROTOCOL Diphenhydramine HCl 25 mg 04/16/18 09:02 Benadryl Inj IV.PUSH Q6H PRN for itching Docusate Sodium 100 mg 04/16/18 21:00 04/17/18 08:57 Colace Liq NG/OG 100 mg BID KACIE Administration Enoxaparin Sodium 30 mg 04/16/18 09:00 04/17/18 08:58 Lovenox Inj SQ 30 mg DAILY KACIE Administration Gabapentin 300 mg 04/15/18 21:00 04/17/18 08:57 Neurontin Liq PO 300 mg BID KACIE Administration Glucagon 1 mg 04/16/18 08:33 Glucagon Inj OTHER UNSCH PRN for Hypoglycemia Protocol Sodium Chloride 500 mls @ 30 mls/hr 04/15/18 07:00 04/15/18 07:25 Ns Inj IV.SIG Not Given .Q10H KACIE Magnesium Sulfate 4 gm/ Sodium 100 mls @ 50 mls/hr 04/16/18 08:32 Chloride IV.SIG UNSCH PRN For Magnesium 0.9 - 1.1 mg/dL Magnesium Sulfate 2 gm/ Sodium 100 mls @ 50 mls/hr 04/16/18 08:32 Chloride IV.SIG UNSCH PRN For Magnesium 1.2 - 1.6 mg/dL Potassium Chloride 20 meq in 100 mls @ 50 mls/hr 04/16/18 08:32 Kcl 20 Meq Premix Inj IV.SIG Q2H PRN For Potassium 3.3 - 3.5 mEq/L Potassium Chloride 40 meq in 100 mls @ 25 mls/hr 04/16/18 08:32 Kcl 40 Meq Premix Inj IV.SIG UNSCH PRN For Potassium 3.3 - 3.5 mEq/L Potassium Chloride 20 meq in 100 mls @ 50 mls/hr 04/16/18 08:32 Kcl 20 Meq Premix Inj IV.SIG Q2H PRN For Potassium 2.8 - 3.2 mEq/L Potassium Phosphate 30 mmol/ 260 mls @ 42 mls/hr 04/16/18 08:32 04/17/18 06: 43 Sodium Chloride IV.SIG 42 mls/hr UNSCH PRN Administration SEE LABEL COMMENTS Sodium Phosphate 30 mmol/ 260 mls @ 42 mls/hr 04/16/18 08:32 Sodium Chloride IV.SIG UNSCH PRN For Phosphorus < 2.5 mg/dL Potassium Chloride 40 meq in 100 mls @ 50 mls/hr 04/16/18 08:32 Kcl 40 Meq Premix Inj IV.SIG Q2H PRN For Potassium 2.8 - 3.2 mEq/L Hydromorphone/Sodium Chloride 6 mg in 30 mls @ 1.5 mls/hr 04/16/18 09:02 10/30 07:00 Dilaudid Waiter/Waitress Dining Car Inj SENIOR LEAD DEVELOPER 1.5 mls/hr UNSCH PRN Administration per SENIOR LEAD DEVELOPER parameters 0.3 MG/HR Multivitamins 10 ml/ Folic 2,010.2 mls @ 65 mls/hr 04/16/18 20:00 04/16/18 20 :45 Acid 1 mg/ Amino Acids/ IV.SIG 65 mls/hr Electrolytes Q24H KACIE Administration Fat Emulsion Intravenous 250 mls @ 31.25 mls/hr 04/16/18 20:00 04/17/18 04:44 Intralipid 20% Inj IV.SIG Infused Q24H KACIE Infusion Cefazolin Sodium 1,000 mg/ 100 mls @ 200 mls/hr 04/16/18 21:00 04/17/18 05:41 Sodium Chloride IV.SIG Infused Q8H KACIE Infusion Insulin Aspart 0 unit 04/16/18 12:00 04/17/18 05:47 Novolog Insulin Correctional Sugar Inj SQ Not Given Q6HR [facility] Protocol Magnesium Oxide 800 mg 04/16/18 08:32 Mag-Ox PO UNSCH PRN For Magnesium 1.2 - 1.6 mg/dL Naloxone HCl 0.4 mg 04/16/18 09:02 Narcan Inj IV.PUSH PRN PRN SEE LABEL COMMENTS Ondansetron HCl 4 mg 04/15/18 15:26 04/17/18 10:22 Zofran Inj IV.PUSH 04/30/18 23:59 4 mg Q6H PRN Administration MILD NAUSEA Pantoprazole Sodium 40 mg 04/15/18 16:00 04/16/18 16:33 Protonix Inj IV.PUSH 40 mg Q24H KACIE Administration Potassium Bicarb/Potassium Chloride 50 meq 04/16/18 08:32 K-Lyte Cl Eff PO UNSCH PRN For Potassium 3.3 - 3.5 mEq/L Potassium Phosphate 2,000 mg 04/16/18 08:32 K-Phos Original PO Q4H PRN Phosphorus Less Than 2.5 mg/dL Potassium Phosphate 2,000 mg 04/16/18 08:32 K-Phos Original PO UNSCH PRN SEE LABEL COMMENTS Sennosides 8.8 mg 04/16/18 21:00 04/17/18 08:59 Senna Liq NG/OG 8.8 mg BID KACIE Administration Sodium Chloride 2 ml 04/16/18 21:00 04/17/18 08:58 Ns Flush IV.FLUSH 2 ml BID KACIE Administration Sodium Chloride 2 ml 04/16/18 09:14 Ns Flush IV.FLUSH PRN PRN FLUSH AFTER USING IV ACCESS Objective Remarks: CV: RRR Lungs: decreased BS Abd:soft,nd,tender one exam Stoma: pink and viable Dale Pelvic drain: bloody Ext: neg C/C/E 04/17 CV: RRR Lungs: decreased BS Abd:soft,nd,tender Stoma: pink and viable Wound: clean and dry Dale Pelvic drain: bloody Ext: neg C/C/E Assessment and Plan - Plan Stable s/p radical cystectomy with ileal conduit OOB to chair Start TPN 04/17 Stable s/p radical cystectomy with ileal conduit Continue TPN OOB to chair NGT to gravity drainage Encourage incentive sphirometer
[2018-04-17 16:26] LABS: Hematocrit 30.6 % (39.0-51.0); Hemoglobin 10.1 gm/dL (13.0-17.0); Mean Corpuscular HGB Conc 33.1 % (32.0-36.0); Mean Corpuscular Volume 81.8 fL (80.0-100.0); Mean Platelet Volume 7.9 fL (7.0-11.0); Platelet Count 286 th/mm3 (150-450); Red Blood Count 3.74 mil/mm3 (4.50-5.90); Red Cell Distribution Width 17.6 % (11.6-17.2)
[2018-04-17] MEDS ORDERED: Lidocaine 1% Inj 50 ML Vial ONE (17:52)
[2018-04-17 18:14] LABS: Albumin 2.1 g/dL (3.4-5.0); Anion Gap 10 meq/L (5-15); Aspartate Aminotransferase 12 U/L (15-37); Blood Urea Nitrogen 13 mg/dL (7-18); Calcium 8.7 mg/dL (8.5-10.1); Carbon Dioxide 29.4 meq/L (21.0-32.0); Chloride 106 meq/L (98-107); Glomerular Filtration Rate Greater Than 89 mL/min (>89); Glucose,Random 122 mg/dL (74-106); Potassium 3.1 meq/L (3.5-5.1); Sodium 145 meq/L (136-145)
[2018-04-17 18:15] LABS: Alanine Aminotransferase 8 U/L (12-78)
[2018-04-17 18:17] LABS: Alkaline Phosphatase 62 U/L (45-117); Total Protein 6.3 g/dL (6.4-8.2)
[2018-04-17] MEDS ORDERED: Lidocaine 1% Inj 50 ML Vial INFILTRATN ONE (18:30)
[2018-04-17] MEDS: Pantoprazole Inj 40 MG Vial IV.PUSH SCH (18:42)
[2018-04-17] MEDS: Potassium Chlor 40 mEq Premix 40 MEQ/100 ML PIGGYBACK IV.SIG PRN ×2 (20:13→22:42)
[2018-04-17] MEDS: Multivitamin Inj 10 ML, Folic Acid Inj 1 MG in AA 5%/D20W - Electrolytes 2,000 ML IV.SIG SCH (20:20)
[2018-04-18] MEDS: HYDROmorphone PCA Inj 6 MG/30 ML PCA.VIAL PCA PRN ×5 (01:00→22:38)
--- NOTE | 2018-04-18 08:50 | P.PNURO ---
Subjective Patient symptoms today: Pt seen and examined. Feels ok. No complaints. OOB yesterday. Objective Vital Signs: Vital Signs 04/17/18 10:00 04/17/18 10:45 04/17/18 12:00 Temperature 98.7 F Pulse Rate 84 91 H Respiratory Rate 20 Blood Pressure 141/76 H Pulse Oximetry 93 L 97 04/17/18 12:23 04/17/18 13:32 04/17/18 14:00 Temperature Pulse Rate 75 Respiratory Rate 20 20 Blood Pressure Pulse Oximetry 04/17/18 16:00 04/17/18 16:18 04/17/18 18:00 Temperature 98.9 F Pulse Rate 75 74 71 Respiratory Rate 20 17 Blood Pressure 143/82 H Pulse Oximetry 98 04/17/18 18:41 04/17/18 19:31 04/17/18 20:00 Temperature 99.2 F Pulse Rate 68 Respiratory Rate 21 19 17 Blood Pressure 129/72 Pulse Oximetry 95 04/17/18 20:47 04/17/18 22:00 04/18/18 00:00 Temperature 98.6 F Pulse Rate 72 78 Respiratory Rate 24 Blood Pressure 170/90 H Pulse Oximetry 90 L 95 04/18/18 01:30 04/18/18 02:00 04/18/18 04:00 Temperature 98.7 F Pulse Rate 70 70 Respiratory Rate 21 16 Blood Pressure 145/63 H Pulse Oximetry 96 04/18/18 06:00 04/18/18 07:51 04/18/18 08:10 Temperature Pulse Rate 70 Respiratory Rate 20 Blood Pressure Pulse Oximetry 96 Intake & Output 04/17/18 04/18/18 04/18/18 18:59 06:59 18:59 Intake Total 360 / 360 2450 / 2450 Output Total 500 / 500 1175 / 1175 Balance -140 / -140 1275 / 1275 Weight 50.6 kg Intake: IV 360 / 360 2450 / 2450 Intralipid 20% Inj 250 ML @ 31. 250 / 250 25 mls/hr IV.SIG Q24H KACIE Rx#: [id number] MVI-12 Inj 10 ML Folvite Inj 1 1800 / 1800 MG In Clinimix E 5%/D20W Inj 2, 000 ML @ 65 mls/hr IV.SIG Q24H KACIE Rx#:[id number] KCl 40 mEq Premix Inj 40 meq In 200 / 200 100 ml @ 50 mls/hr IV.SIG Q2H PRN Rx#:[id number] Potassium Phosphate Inj 30 MMOL 260 / 260 In NS Inj 250 ML @ 42 mls/hr IV.SIG UNSCH PRN Rx#:[id number] Ancef Inj 1,000 MG In NS Inj 100 / 100 200 / 200 100 ML @ 200 mls/hr IV.SIG Q8H KACIE Rx#:[id number] Oral 0 / 0 Output: Urine 500 / 500 Urine Amount (Stoma) 1050 / 1050 Ileal Conduit Right 1050 / 1050 Wound Drainage 125 / 125 Pelvic Drain 125 / 125 Other: Date of Last Bowel Movement 04/15/18 # Bowel Movements 0 Result Diagrams: 04/17/18 16:00 04/17/18 17:30 Medications and IVs: Active Medications Generic Name Dose Route Start Last Admin Trade Name Freq PRN Reason Stop Dose Admin Acetaminophen 650 mg 04/16/18 08:55 Tylenol Liq PO Q6H PRN FEVER Albuterol 1 ampul 04/15/18 16:00 04/18/18 07:51 Duoneb Neb (Kacie) NEB Not Given Q6HR NEB KACIE Albuterol 2.5 mg 04/16/18 08:54 Albuterol Neb (Prn) NEB Q2HR NEB PRN DYSPNEA Dextrose 50 ml 04/16/18 08:33 D50w Vial IV.PUSH UNSCH PRN PER HYPOGLYCEMIA PROTOCOL Diphenhydramine HCl 25 mg 04/16/18 09:02 Benadryl Inj IV.PUSH Q6H PRN for itching Docusate Sodium 100 mg 04/16/18 21:00 04/17/18 21:15 Colace Liq NG/OG 100 mg BID KACIE Administration Enoxaparin Sodium 30 mg 04/16/18 09:00 04/17/18 08:58 Lovenox Inj SQ 30 mg DAILY KACIE Administration Gabapentin 300 mg 04/15/18 21:00 04/17/18 20:14 Neurontin Liq PO 300 mg BID KACIE Administration Glucagon 1 mg 04/16/18 08:33 Glucagon Inj OTHER UNSCH PRN for Hypoglycemia Protocol Sodium Chloride 500 mls @ 30 mls/hr 04/15/18 07:00 04/15/18 07:25 Ns Inj IV.SIG Not Given .Q10H KACIE Magnesium Sulfate 4 gm/ Sodium 100 mls @ 50 mls/hr 04/16/18 08:32 Chloride IV.SIG UNSCH PRN For Magnesium 0.9 - 1.1 mg/dL Magnesium Sulfate 2 gm/ Sodium 100 mls @ 50 mls/hr 04/16/18 08:32 Chloride IV.SIG UNSCH PRN For Magnesium 1.2 - 1.6 mg/dL Potassium Chloride 20 meq in 100 mls @ 50 mls/hr 04/16/18 08:32 Kcl 20 Meq Premix Inj IV.SIG Q2H PRN For Potassium 3.3 - 3.5 mEq/L Potassium Chloride 40 meq in 100 mls @ 25 mls/hr 04/16/18 08:32 Kcl 40 Meq Premix Inj IV.SIG UNSCH PRN For Potassium 3.3 - 3.5 mEq/L Potassium Chloride 20 meq in 100 mls @ 50 mls/hr 04/16/18 08:32 Kcl 20 Meq Premix Inj IV.SIG Q2H PRN For Potassium 2.8 - 3.2 mEq/L Potassium Phosphate 30 mmol/ 260 mls @ 42 mls/hr 04/16/18 08:32 04/17/18 14: 10 Sodium Chloride IV.SIG Infused UNSCH PRN Infusion SEE LABEL COMMENTS Sodium Phosphate 30 mmol/ 260 mls @ 42 mls/hr 04/16/18 08:32 Sodium Chloride IV.SIG UNSCH PRN For Phosphorus < 2.5 mg/dL Potassium Chloride 40 meq in 100 mls @ 50 mls/hr 04/16/18 08:32 04/18/18 00: 42 Kcl 40 Meq Premix Inj IV.SIG Infused Q2H PRN Infusion For Potassium 2.8 - 3.2 mEq/L Hydromorphone/Sodium Chloride 6 mg in 30 mls @ 1.5 mls/hr 04/16/18 09:02 11/29 08:11 Dilaudid Casino Controller Inj EROSION CONTROL SPECIALIST 1.5 mls/hr UNSCH PRN Administration per EROSION CONTROL SPECIALIST parameters 0.3 MG/HR Multivitamins 10 ml/ Folic 2,010.2 mls @ 65 mls/hr 04/16/18 20:00 04/17/18 20 :20 Acid 1 mg/ Amino Acids/ IV.SIG 65 mls/hr Electrolytes Q24H KACIE Administration Fat Emulsion Intravenous 250 mls @ 31.25 mls/hr 04/16/18 20:00 04/18/18 04:55 Intralipid 20% Inj IV.SIG Infused Q24H KACIE Infusion Cefazolin Sodium 1,000 mg/ 100 mls @ 200 mls/hr 04/16/18 21:00 04/18/18 06:10 Sodium Chloride IV.SIG Infused Q8H KACIE Infusion Insulin Aspart 0 unit 04/16/18 12:00 04/18/18 00:00 Novolog Insulin Correctional Sugar Inj SQ Not Given Q6HR [facility] Protocol Magnesium Oxide 800 mg 04/16/18 08:32 Mag-Ox PO UNSCH PRN For Magnesium 1.2 - 1.6 mg/dL Naloxone HCl 0.4 mg 04/16/18 09:02 Narcan Inj IV.PUSH PRN PRN SEE LABEL COMMENTS Ondansetron HCl 4 mg 04/15/18 15:26 04/17/18 10:22 Zofran Inj IV.PUSH 04/30/18 23:59 4 mg Q6H PRN Administration MILD NAUSEA Pantoprazole Sodium 40 mg 04/15/18 16:00 04/17/18 18:42 Protonix Inj IV.PUSH 40 mg Q24H KACIE Administration Potassium Bicarb/Potassium Chloride 50 meq 04/16/18 08:32 K-Lyte Cl Eff PO UNSCH PRN For Potassium 3.3 - 3.5 mEq/L Potassium Phosphate 2,000 mg 04/16/18 08:32 K-Phos Original PO Q4H PRN Phosphorus Less Than 2.5 mg/dL Potassium Phosphate 2,000 mg 04/16/18 08:32 K-Phos Original PO UNSCH PRN SEE LABEL COMMENTS Sennosides 8.8 mg 04/16/18 21:00 04/17/18 20:15 Senna Liq NG/OG 8.8 mg BID KACIE Administration Sodium Chloride 2 ml 04/16/18 21:00 04/17/18 21:15 Ns Flush IV.FLUSH 2 ml BID KACIE Administration Sodium Chloride 2 ml 04/16/18 09:14 Ns Flush IV.FLUSH PRN PRN FLUSH AFTER USING IV ACCESS Objective Remarks: CV: RRR Lungs: decreased BS Abd:soft,nd,tender one exam Stoma: pink and viable Dale Pelvic drain: bloody Ext: neg C/C/E 04/17 CV: RRR Lungs: decreased BS Abd:soft,nd,tender Stoma: pink and viable Wound: clean and dry Dale Pelvic drain: bloody Ext: neg C/C/E 04/18 CV: RRR Lungs: CTA Abd:soft,nd,tender Stoma: pink and viable Wound: Dressing intact Dale Pelvic drain: bloody Ext: neg C/C/E Assessment and Plan - Plan Stable s/p radical cystectomy with ileal conduit OOB to chair Start TPN 04/17 Stable s/p radical cystectomy with ileal conduit Continue TPN OOB to chair NGT to gravity drainage Encourage incentive sphirometer 04/18 Stable s/p radical cystectomy with ileal conduit POD#3 Continue TPN OOB to chair/ambulate NGT to gravity drainage Will d/c pelvic drain in next day or two as drainage continues to decline
[2018-04-18 08:53] LABS: Hematocrit 31.6 % (39.0-51.0); Hemoglobin 10.3 gm/dL (13.0-17.0); Mean Corpuscular HGB Conc 32.7 % (32.0-36.0); Mean Corpuscular Hemoglobin 27.1 pg (27.0-34.0); Mean Platelet Volume 8.2 fL (7.0-11.0); Platelet Count 259 th/mm3 (150-450); Red Blood Count 3.81 mil/mm3 (4.50-5.90); Red Cell Distribution Width 17.4 % (11.6-17.2); White Blood Count 12.1 th/mm3 (4.0-11.0)
[2018-04-18] MEDS: Gabapentin Liq 250 MG/5 ML UDC PO SCH ×2 (08:54→20:43)
[2018-04-18] MEDS: Enoxaparin Inj 30 MG/0.3 ML Syringe SQ SCH (08:54)
[2018-04-18] MEDS: Docusate Sodium Liq 100 MG/10 ML UDC NG/OG SCH ×2 (08:54→20:43)
[2018-04-18] MEDS: Sodium Chloride 0.9% 2 ML Flush BID IV.FLUSH SCH ×2 (08:59→20:46)
[2018-04-18] MEDS: Sennosides Liq 8.8 MG/5 ML UDC NG/OG SCH ×2 (08:59→20:43)
[2018-04-18 09:20] LABS: Anion Gap 8 meq/L (5-15); Blood Urea Nitrogen 12 mg/dL (7-18); Carbon Dioxide 30.3 meq/L (21.0-32.0); Chloride 103 meq/L (98-107); Glomerular Filtration Rate Greater Than 89 mL/min (>89); Glucose,Random 108 mg/dL (74-106); Magnesium 1.8 mg/dL (1.5-2.5); Phosphorus 3.1 mg/dL (2.5-4.9); Potassium 3.4 meq/L (3.5-5.1); Sodium 141 meq/L (136-145)
[2018-04-18] MEDS ORDERED: Cathflo Activase Inj 2 MG Vial I-CATHETER ONE (10:00)
[2018-04-18] MEDS ORDERED: Potassium Chlor 40 mEq Premix 40 MEQ/100 ML PIGGYBACK IV.SIG ONE (10:00)
--- NOTE | 2018-04-18 10:00 | P.PNCC ---
Subjective Subjective Remarks/Hospital Course: This 62-year-old gentleman underwent cystectomy and ileal conduit construction earlier today. Preoperative CAT scan of the chest and bone marrow scan was negative for metastatic disease. He has a large barrel chest and obvious long- term respiratory problems. The procedure went well and he is normotensive on arrival. He is a present breathing comfortably moving air well. He required 3 units of blood transfusion perioperatively, largely because of an anemia preop. His past medical history is relatively uncomplicated aside from his marginal nutritional status. His only prior surgery is to have the tumor biopsied on a previous cystoscopy. He has been on oral morphine 3 times a day for considerable period of time and it is anticipated that he will be tolerant to pain medicine. For this reason we will use a basal continuous rate of fentanyl to help control his postoperative pain. 04/16: Currently on fentanyl drip at 150 kelsi grams per hour. Complains of abdominal pain with singultus. Ileostomy conduit site good drainage with no active bleeding. Awake and oriented x3. Difficulty moving right lower extremity/adduction 04/17: Resting at side of bed. Still unable to elevate or adduct his right lower extremity. Tolerating the hydromorphone WET POUR MIXER with a basal rate 0.2 mg an hour. Appears comfortable. Tolerating TPN see orders SUBJECTIVE: 04/18: Afebrile. Currently resting in bed in no acute distress. Remains on hydromorphone WET POUR MIXER. Tolerating TPN. Replacing potassium magnesium today. Objective Vital Signs / I&O: Vital Signs 04/17/18 10:00 04/17/18 10:45 04/17/18 12:00 Temperature 98.7 F Pulse Rate 84 91 H Respiratory Rate 20 Blood Pressure 141/76 H Pulse Oximetry 93 L 97 04/17/18 12:23 04/17/18 13:32 04/17/18 14:00 Temperature Pulse Rate 75 Respiratory Rate 20 20 Blood Pressure Pulse Oximetry 04/17/18 16:00 04/17/18 16:18 04/17/18 18:00 Temperature 98.9 F Pulse Rate 75 74 71 Respiratory Rate 20 17 Blood Pressure 143/82 H Pulse Oximetry 98 04/17/18 18:41 04/17/18 19:31 04/17/18 20:00 Temperature 99.2 F Pulse Rate 68 Respiratory Rate 21 19 17 Blood Pressure 129/72 Pulse Oximetry 95 04/17/18 20:47 04/17/18 22:00 04/18/18 00:00 Temperature 98.6 F Pulse Rate 72 78 Respiratory Rate 24 Blood Pressure 170/90 H Pulse Oximetry 90 L 95 04/18/18 01:30 04/18/18 02:00 04/18/18 04:00 Temperature 98.7 F Pulse Rate 70 70 Respiratory Rate 21 16 Blood Pressure 145/63 H Pulse Oximetry 96 04/18/18 06:00 04/18/18 07:51 04/18/18 08:00 Temperature Pulse Rate 70 77 Respiratory Rate Blood Pressure Pulse Oximetry 96 97 04/18/18 08:10 04/18/18 08:54 Temperature Pulse Rate Respiratory Rate 20 24 Blood Pressure Pulse Oximetry Intake & Output 04/17/18 04/18/18 04/18/18 18:59 06:59 18:59 Intake Total 360 / 360 2450 / 2450 Output Total 500 / 500 1175 / 1175 Balance -140 / -140 1275 / 1275 Weight 50.6 kg Intake: IV 360 / 360 2450 / 2450 Intralipid 20% Inj 250 ML @ 31. 250 / 250 25 mls/hr IV.SIG Q24H NADINE Rx#: [id number] MVI-12 Inj 10 ML Folvite Inj 1 1800 / 1800 MG In Clinimix E 5%/D20W Inj 2, 000 ML @ 65 mls/hr IV.SIG Q24H NADINE Rx#:[id number] KCl 40 mEq Premix Inj 40 meq In 200 / 200 100 ml @ 50 mls/hr IV.SIG Q2H PRN Rx#:[id number] Potassium Phosphate Inj 30 MMOL 260 / 260 In NS Inj 250 ML @ 42 mls/hr IV.SIG UNSCH PRN Rx#:[id number] Ancef Inj 1,000 MG In NS Inj 100 / 100 200 / 200 100 ML @ 200 mls/hr IV.SIG Q8H NADINE Rx#:[id number] Oral 0 / 0 Output: Urine 500 / 500 Urine Amount (Stoma) 1050 / 1050 Ileal Conduit Right 1050 / 1050 Wound Drainage 125 / 125 Pelvic Drain 125 / 125 Other: Date of Last Bowel Movement 04/15/18 # Bowel Movements 0 Result Diagrams: 04/18/18 07:57 04/18/18 07:57 Other Results: Microbiology 04/15/18 07:00 Clean Catch Urine Urine Culture - Final No growth in 48 hours Imaging: Abdomen X-Ray 04/15/18 00:00 CONCLUSION: 1. Surgical changes status post ileal conduit placement with bilateral stent catheters. 2. Nonspecific bowel gas pattern most likely representing a postoperative ileus. Chest X-Ray 04/15/18 00:00 CONCLUSION: Persistent abnormal bilateral upper lobe opacity previously evaluated on PET/CT. Objective Remarks: GENERAL: 62-year-old male resting in bed in no acute distress SKIN: Warm and dry. HEAD: Atraumatic. Normocephalic. EYES: Pupils equal and round. No scleral icterus. No injection or drainage. ENT: No nasal bleeding or discharge. Mucous membranes pink and moist. Nasogastric tube in left nares to low intermittent wall suction NECK: Trachea midline. No JVD. CARDIOVASCULAR: Regular rate and rhythm. S1, S2. No S4. Without murmur RESPIRATORY: No accessory muscle use. Clear to auscultation. Breath sounds equal bilaterally. GASTROINTESTINAL: Abdomen soft, tender to palpation. Midline incisions/lateral to the right with old dried blood. Ileal conduit is clearing with good drainage 1050 cc. Pelvic drain 125 cc past 24 hours. MUSCULOSKELETAL: Extremities without significant peripheral edema. No obvious deformities. NEUROLOGICAL: Awake and alert. No obvious cranial nerve deficits. Difficulty lifting right lower extremity and adducting PSYCHIATRIC: Appropriate mood and affect; insight and judgment normal. 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 0.2 mg every 6 hours for breakthrough pain. Resume gabapentin 300 mg twice daily/home medication Acetaminophen 650 p.o. every 6 hours as needed fever CV: Currently on TPN at 60 cc an hour Currently not requiring vasopressors and/or antihypertensives Resp: COPD Pulmonary nodule -lung biopsy 2018 revealed inflammatory changes. No malignancy Nasal cannula to maintain saturations greater than equal to 92%. Currently on 2 L nasal cannula Incentive spirometry while awake Albuterol/ipratropium aerosols every 6 hours with albuterol aerosols every 2 hours as needed for dyspnea Lung hyperinflation protocol initiated GI: History of internal and external hemorrhoids Hypoalbuminemia Severe protein calorie malnutrition N.p.o. except for medications per urology We will start on TPN at 60 cc an hour with lipids daily. Dietary for recommendations for dosage Pantoprazole for GI prophylaxis Docusate sodium 100 milligrams twice daily/senna liquid 8.8 g twice daily for bowel regimen Relistor 12 mg subcu x1 now. Check KUB. 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 Mathews -3 cycles of 4 of cisplatin/gemcitabine. Leukocytosis Normocytic anemia Transfuse 3 PRBCs in OR. Monitor CBC daily. Follow trends. No indication for transfusion of blood products today. ID: Currently on cefazolin 1 g IV every 8 hours.. Received ampicillin and gentamicin in OR Management per urology FEN: Hypokalemia Currently one half normal saline at 100 cc an hour. Discontinue Adjust TPN as needed. Currently on Clinimix 5/20 at 60 cc an hour with lipids daily Replace electrolytes as clinically indicated per ICU electrolyte protocol. Receiving 2 g mag sulfate and 60 mg potassium chloride IV x1 now. MSK: Physical therapy/occupational therapy evaluate and treat Access -Left subclavian CVL day 4 placed 04/15 Prophylaxis -GI -pantoprazole -DVT -SCD/enoxaparin Level 3 follow-up
[2018-04-18] MEDS ORDERED: Labetalol HCl Inj 100 MG/20 ML Vial IV.PUSH PRN (10:09)
[2018-04-18] MEDS ORDERED: Magnesium Sulfate Inj 2 GM in Sodium Chlor 0.9% Inj 96 ML IV.SIG ONE (11:00)
[2018-04-18] MEDS ORDERED: Methylnaltrexone Inj 12 MG/0.6 ML Vial SQ ONE (11:00)
--- NOTE | 2018-04-18 14:41 | XR ---
EXAM DATE: 04/18/2018 12:00 AM EDT AGE/SEX: 62 years / Male INDICATIONS: Abdominal pain. CLINICAL DATA: This is the patient's subsequent encounter. Patient reports that signs and symptoms h ave been present for 1 day and indicates a pain score of 9/10. MEDICAL/SURGICAL HISTORY: . Carcinoma, bladder. Chronic obstructive pulmonary disease. Bronchit is. Scarlet fever. . Ileo conduit and radical cystectomy. COMPARISON: [facility], ABDOMEN 1V KUB, 04/15/2018. . FINDINGS: Multiple renal stents and drain are evident from ileal conduit and cystectomy.. Midline vasquez. Nasogastric tube just across the GE junction Minimal gas distention of proximal small bowel when compared to distal. There is no free air. CONCLUSION: Compared to the study of 04/15/2018 with slight increase the amount of bowel distention. Stents and drain appear to remain in good position. Electronically signed by: Mustapha Rodriguez MD 04/18/2018 2:39 PM EDT
[2018-04-18] MEDS: Insulin NovoLOG Aspart Correctional Sugar Inj SQ SCH ×3 (15:32→17:15)
[2018-04-18] MEDS: Pantoprazole Inj 40 MG Vial IV.PUSH SCH (15:44)
[2018-04-19] MEDS: Multivitamin Inj 10 ML, Folic Acid Inj 1 MG in AA 5%/D20W - Electrolytes 2,000 ML IV.SIG SCH ×2 (00:34→20:36)
[2018-04-19] MEDS: HYDROmorphone PCA Inj 6 MG/30 ML PCA.VIAL PCA PRN ×5 (03:12→20:19)
[2018-04-19] MEDS: Insulin NovoLOG Aspart Correctional Sugar Inj SQ SCH ×5 (04:03→18:17)
--- NOTE | 2018-04-19 08:12 | P.PNCC ---
Subjective Subjective Remarks/Hospital Course: This 62-year-old gentleman underwent cystectomy and ileal conduit construction earlier today. Preoperative CAT scan of the chest and bone marrow scan was negative for metastatic disease. He has a large barrel chest and obvious long- term respiratory problems. The procedure went well and he is normotensive on arrival. He is a present breathing comfortably moving air well. He required 3 units of blood transfusion perioperatively, largely because of an anemia preop. His past medical history is relatively uncomplicated aside from his marginal nutritional status. His only prior surgery is to have the tumor biopsied on a previous cystoscopy. He has been on oral morphine 3 times a day for considerable period of time and it is anticipated that he will be tolerant to pain medicine. For this reason we will use a basal continuous rate of fentanyl to help control his postoperative pain. 04/16: Currently on fentanyl drip at 150 kelsi grams per hour. Complains of abdominal pain with singultus. Ileostomy conduit site good drainage with no active bleeding. Awake and oriented x3. Difficulty moving right lower extremity/adduction 04/17: Resting at side of bed. Still unable to elevate or adduct his right lower extremity. Tolerating the hydromorphone ENTREPRENEURSHIP PROGRAM DIRECTOR with a basal rate 0.2 mg an hour. Appears comfortable. Tolerating TPN see orders 04/18: Afebrile. Currently resting in bed in no acute distress. Remains on hydromorphone ENTREPRENEURSHIP PROGRAM DIRECTOR. Tolerating TPN. Replacing potassium magnesium today. 04/19: Comfortable in bed and perhaps little drowsy. Urine output acceptable and renal function good. Pain control remains an issue and he may be a little oversedated at this time. He has been a longtime consumer of oral morphine and tends to push the ENTREPRENEURSHIP PROGRAM DIRECTOR button repeatedly. We will follow him closely. Urine culture appears benign. Objective Vital Signs / I&O: Vital Signs 04/18/18 08:10 04/18/18 08:54 04/18/18 10:00 Temperature Pulse Rate 72 Respiratory Rate 20 24 Blood Pressure Pulse Oximetry 04/18/18 12:00 04/18/18 14:00 04/18/18 15:32 Temperature 99.3 F Pulse Rate 76 73 Respiratory Rate 22 22 Blood Pressure 134/87 Pulse Oximetry 96 04/18/18 15:33 04/18/18 16:00 04/18/18 16:53 Temperature 98.8 F Pulse Rate 75 92 H Respiratory Rate 16 19 24 Blood Pressure 129/74 Pulse Oximetry 96 04/18/18 18:00 04/18/18 18:49 04/18/18 18:50 Temperature Pulse Rate 83 Respiratory Rate 21 21 Blood Pressure Pulse Oximetry 04/18/18 19:58 04/18/18 20:00 04/18/18 22:00 Temperature 98.9 F Pulse Rate 78 90 Respiratory Rate 18 Blood Pressure 126/76 Pulse Oximetry 95 91 L 04/19/18 00:00 04/19/18 02:00 04/19/18 03:08 Temperature 98.9 F Pulse Rate 82 81 Respiratory Rate 21 21 Blood Pressure 142/75 H Pulse Oximetry 90 L 04/19/18 04:00 04/19/18 06:00 Temperature 98.4 F Pulse Rate 81 84 Respiratory Rate 21 Blood Pressure 120/75 Pulse Oximetry 92 L Intake & Output 04/18/18 04/19/18 04/19/18 18:59 06:59 18:59 Intake Total 300 / 300 2460.2 / 2460.2 Output Total 525 / 525 2099 / 2099 Balance -225 / -225 360.2 / 360.2 Weight 50 kg Intake: IV 300 / 300 2460.2 / 2460.2 Intralipid 20% Inj 250 ML @ 31. 250 / 250 25 mls/hr IV.SIG Q24H [facility] Rx#: [id number] Magnesium Sulfate Inj 2 GM In 100 / 100 NS Inj 96 ML @ 50 mls/hr IV.SIG ONCE ONE Rx#:[id number] MVI-12 Inj 10 ML Folvite Inj 1 2009.2 / 2009.2 MG In Clinimix E 5%/D20W Inj 2, 000 ML @ 65 mls/hr IV.SIG Q24H [facility] Rx#:[id number] KCl 40 mEq Premix Inj 40 meq In 100 / 100 100 ml @ 25 mls/hr IV.SIG ONCE ONE Rx#:[id number] Ancef Inj 1,000 MG In NS Inj 100 / 100 200 / 200 100 ML @ 200 mls/hr IV.SIG Q8H [facility] Rx#:[id number] Oral 0 / 0 Output: Urine Amount (Stoma) 525 / 525 2099 / 2099 Ileal Conduit Right 525 / 525 2099 Wound Drainage 0 / 0 Pelvic Drain 0 / 0 Other: Date of Last Bowel Movement 04/15/18 # Bowel Movements 0 Result Diagrams: 04/18/18 07:57 04/18/18 07:57 Objective Remarks: GENERAL: 62-year-old male resting in bed in no acute distress SKIN: Warm and dry. HEAD: Atraumatic. Normocephalic. EYES: Pupils equal and round. No scleral icterus. No injection or drainage. ENT: No nasal bleeding or discharge. Mucous membranes pink and moist. Nasogastric tube in left nares to low intermittent wall suction NECK: Trachea midline. Airway widely patent. CARDIOVASCULAR: Regular rate and rhythm. S1, S2. No S4. Without murmur. Distant tones, no JVD. RESPIRATORY: No accessory muscle use. Clear to auscultation. Breath sounds equal bilaterally. GASTROINTESTINAL: Abdomen soft, tender to palpation. Ileal conduit is viable with plentiful urinary drainage. MUSCULOSKELETAL: Extremities without significant peripheral edema. Warm, well- perfused. NEUROLOGICAL: Awake and alert. No obvious cranial nerve deficits. PSYCHIATRIC: Appropriate mood and affect; insight and judgment normal. 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 0.2 mg every 6 hours for breakthrough pain. Resume gabapentin 300 mg twice daily/home medication Acetaminophen 650 p.o. every 6 hours as needed fever CV: Currently on TPN at 60 cc an hour Currently not requiring vasopressors and/or antihypertensives Resp: COPD Pulmonary nodule -lung biopsy 2018 revealed inflammatory changes. No malignancy Nasal cannula to maintain saturations greater than equal to 92%. Currently on 2 L nasal cannula Incentive spirometry while awake Albuterol/ipratropium aerosols every 6 hours with albuterol aerosols every 2 hours as needed for dyspnea Lung hyperinflation protocol initiated GI: History of internal and external hemorrhoids Hypoalbuminemia Severe protein calorie malnutrition N.p.o. except for medications per urology We will start on TPN at 60 cc an hour with lipids daily. Dietary for recommendations for dosage Pantoprazole for GI prophylaxis Docusate sodium 100 milligrams twice daily/senna liquid 8.8 g twice daily for bowel regimen Relistor 12 mg subcu x1 now. Check KUB. 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 Mathews -3 cycles of 4 of cisplatin/gemcitabine. Leukocytosis Normocytic anemia Transfuse 3 PRBCs in OR. Monitor CBC daily. Follow trends. No indication for transfusion of blood products today. ID: Currently on cefazolin 1 g IV every 8 hours.. Received ampicillin and gentamicin in OR Management per urology FEN: Hypokalemia Currently one half normal saline at 100 cc an hour. Discontinue Adjust TPN as needed. Currently on Clinimix 5/20 at 60 cc an hour with lipids daily Replace electrolytes as clinically indicated per ICU electrolyte protocol. MSK: Physical therapy/occupational therapy evaluate and treat Access -Left subclavian CVL day 5 placed 04/15 Prophylaxis -GI -pantoprazole -DVT -SCD/enoxaparin Overall impression: Stable hemodynamics and acceptable respiratory function status post major abdominal procedure. Renal function is normal. Good progress aside from anticipated issues with pain control.
[2018-04-19] MEDS: Enoxaparin Inj 30 MG/0.3 ML Syringe SQ SCH (08:59)
[2018-04-19] MEDS: Sodium Chloride 0.9% 2 ML Flush BID IV.FLUSH SCH ×2 (08:59→20:18)
[2018-04-19] MEDS: Gabapentin Liq 250 MG/5 ML UDC PO SCH ×2 (08:59→20:17)
[2018-04-19 13:30] LABS: Hematocrit 31.8 % (39.0-51.0); Hemoglobin 10.4 gm/dL (13.0-17.0); Mean Corpuscular HGB Conc 32.8 % (32.0-36.0); Mean Corpuscular Hemoglobin 27.3 pg (27.0-34.0); Mean Corpuscular Volume 83.1 fL (80.0-100.0); Mean Platelet Volume 8.1 fL (7.0-11.0); Platelet Count 262 th/mm3 (150-450); Red Blood Count 3.82 mil/mm3 (4.50-5.90); Red Cell Distribution Width 17.4 % (11.6-17.2); White Blood Count 15.1 th/mm3 (4.0-11.0)
[2018-04-19 13:51] LABS: Albumin 1.9 g/dL (3.4-5.0); Amylase 59 U/L (25-115); Anion Gap 9 meq/L (5-15); Aspartate Aminotransferase 13 U/L (15-37); Blood Urea Nitrogen 15 mg/dL (7-18); Calcium 8.2 mg/dL (8.5-10.1); Chloride 99 meq/L (98-107); Glomerular Filtration Rate Greater Than 89 mL/min (>89); Glucose,Random 127 mg/dL (74-106); Lipase 91 U/L (73-393); Magnesium 1.9 mg/dL (1.5-2.5); Potassium 3.5 meq/L (3.5-5.1); Sodium 135 meq/L (136-145)
[2018-04-19 13:52] LABS: Alanine Aminotransferase 9 U/L (12-78)
[2018-04-19 14:00] LABS: Alkaline Phosphatase 85 U/L (45-117); Total Protein 6.1 g/dL (6.4-8.2)
--- NOTE | 2018-04-19 14:15 | P.PNURO ---
Subjective Patient symptoms today: Pt seen and examined. Pain controlled. Vitals stable. Objective Vital Signs: Vital Signs 04/18/18 15:32 04/18/18 15:33 04/18/18 16:00 Temperature 98.8 F Pulse Rate 75 Respiratory Rate 22 16 19 Blood Pressure 129/74 Pulse Oximetry 96 04/18/18 16:53 04/18/18 18:00 04/18/18 18:49 Temperature Pulse Rate 92 H 83 Respiratory Rate 24 21 Blood Pressure Pulse Oximetry 04/18/18 18:50 04/18/18 19:58 04/18/18 20:00 Temperature 98.9 F Pulse Rate 78 Respiratory Rate 21 18 Blood Pressure 126/76 Pulse Oximetry 95 91 L 04/18/18 22:00 04/19/18 00:00 04/19/18 02:00 Temperature 98.9 F Pulse Rate 90 82 81 Respiratory Rate 21 Blood Pressure 142/75 H Pulse Oximetry 90 L 04/19/18 03:08 04/19/18 04:00 04/19/18 06:00 Temperature 98.4 F Pulse Rate 81 84 Respiratory Rate 21 21 Blood Pressure 120/75 Pulse Oximetry 92 L 04/19/18 08:00 04/19/18 09:12 04/19/18 10:00 Temperature 99.2 F Pulse Rate 88 94 H 92 H Respiratory Rate 24 20 Blood Pressure 125/71 Pulse Oximetry 92 L 94 L 04/19/18 12:00 Temperature 99.2 F Pulse Rate 87 Respiratory Rate 24 Blood Pressure 123/76 Pulse Oximetry 96 Intake & Output 04/18/18 04/19/18 04/19/18 18:59 06:59 18:59 Intake Total 300 / 300 2460.2 / 2460.2 Output Total 525 / 525 2100 / 2100 Balance -225 / -225 360.2 / 360.2 Weight 50 kg Intake: IV 300 / 300 2460.2 / 2460.2 Intralipid 20% Inj 250 ML @ 31. 250 / 250 25 mls/hr IV.SIG Q24H [facility] Rx#: [id number] Magnesium Sulfate Inj 2 GM In 100 / 100 NS Inj 96 ML @ 50 mls/hr IV.SIG ONCE ONE Rx#:[id number] MVI-12 Inj 10 ML Folvite Inj 1 2009.2 / 2009.2 MG In Clinimix E 5%/D20W Inj 2, 000 ML @ 65 mls/hr IV.SIG Q24H [facility] Rx#:[id number] KCl 40 mEq Premix Inj 40 meq In 100 / 100 100 ml @ 25 mls/hr IV.SIG ONCE ONE Rx#:[id number] Ancef Inj 1,000 MG In NS Inj 100 / 100 200 / 200 100 ML @ 200 mls/hr IV.SIG Q8H [facility] Rx#:[id number] Oral 0 / 0 Output: Urine Amount (Stoma) 525 / 525 2100 / 2100 Ileal Conduit Right 525 / 525 2100 / 2100 Wound Drainage 0 / 0 Pelvic Drain 0 / 0 Other: Date of Last Bowel Movement 04/15/18 04/15/18 # Bowel Movements 0 Result Diagrams: 04/19/18 13:13 04/19/18 13:13 Imaging: Impressions Abdomen X-Ray 04/18/18 00:00 CONCLUSION: Compared to the study of 04/15/2018 with slight increase the amount of bowel distention. Stents and drain appear to remain in good position. Medications and IVs: Active Medications Generic Name Dose Route Start Last Admin Trade Name Freq PRN Reason Stop Dose Admin Acetaminophen 650 mg 04/16/18 08:55 Tylenol Liq PO Q6H PRN FEVER Albuterol 1 ampul 04/15/18 16:00 04/19/18 09:10 Duoneb Neb (Kacie) NEB 1 ampul Q6HR NEB [facility] Administration Albuterol 2.5 mg 04/16/18 08:54 Albuterol Neb (Prn) NEB Q2HR NEB PRN DYSPNEA Dextrose 50 ml 04/16/18 08:33 D50w Vial IV.PUSH UNSCH PRN PER HYPOGLYCEMIA PROTOCOL Diphenhydramine HCl 25 mg 04/16/18 09:02 Benadryl Inj IV.PUSH Q6H PRN for itching Docusate Sodium 100 mg 04/16/18 21:00 04/18/18 20:43 Colace Liq NG/OG 100 mg BID [facility] Administration Enoxaparin Sodium 30 mg 04/16/18 09:00 04/19/18 08:59 Lovenox Inj SQ 30 mg DAILY [facility] Administration Gabapentin 300 mg 04/15/18 21:00 04/19/18 08:59 Neurontin Liq PO 300 mg BID KAICE Administration Glucagon 1 mg 04/16/18 08:33 Glucagon Inj OTHER UNSCH PRN for Hypoglycemia Protocol Sodium Chloride 500 mls @ 30 mls/hr 04/15/18 07:00 04/15/18 07:25 Ns Inj IV.SIG Not Given .Q10H [facility] Magnesium Sulfate 4 gm/ Sodium 100 mls @ 50 mls/hr 04/16/18 08:32 Chloride IV.SIG UNSCH PRN For Magnesium 0.9 - 1.1 mg/dL Magnesium Sulfate 2 gm/ Sodium 100 mls @ 50 mls/hr 04/16/18 08:32 Chloride IV.SIG UNSCH PRN For Magnesium 1.2 - 1.6 mg/dL Potassium Chloride 20 meq in 100 mls @ 50 mls/hr 04/16/18 08:32 Kcl 20 Meq Premix Inj IV.SIG Q2H PRN For Potassium 3.3 - 3.5 mEq/L Potassium Chloride 40 meq in 100 mls @ 25 mls/hr 04/16/18 08:32 Kcl 40 Meq Premix Inj IV.SIG UNSCH PRN For Potassium 3.3 - 3.5 mEq/L Potassium Chloride 20 meq in 100 mls @ 50 mls/hr 04/16/18 08:32 Kcl 20 Meq Premix Inj IV.SIG Q2H PRN For Potassium 2.8 - 3.2 mEq/L Potassium Phosphate 30 mmol/ 260 mls @ 42 mls/hr 04/16/18 08:32 04/17/18 14: 10 Sodium Chloride IV.SIG Infused UNSCH PRN Infusion SEE LABEL COMMENTS Sodium Phosphate 30 mmol/ 260 mls @ 42 mls/hr 04/16/18 08:32 Sodium Chloride IV.SIG UNSCH PRN For Phosphorus < 2.5 mg/dL Potassium Chloride 40 meq in 100 mls @ 50 mls/hr 04/16/18 08:32 04/18/18 00: 42 Kcl 40 Meq Premix Inj IV.SIG Infused Q2H PRN Infusion For Potassium 2.8 - 3.2 mEq/L Hydromorphone/Sodium Chloride 6 mg in 30 mls @ 1.5 mls/hr 04/16/18 09:02 12/30 11:50 Dilaudid Clinical Editor Inj DIVER TENDER 1.5 mls/hr UNSCH PRN Administration per DIVER TENDER parameters 0.3 MG/HR Multivitamins 10 ml/ Folic 2,010.2 mls @ 65 mls/hr 04/16/18 20:00 04/19/18 00 :34 Acid 1 mg/ Amino Acids/ IV.SIG 65 mls/hr Electrolytes Q24H [facility] Administration Fat Emulsion Intravenous 250 mls @ 31.25 mls/hr 04/16/18 20:00 04/19/18 04:42 Intralipid 20% Inj IV.SIG Infused Q24H [facility] Infusion Cefazolin Sodium 1,000 mg/ 100 mls @ 200 mls/hr 04/16/18 21:00 04/19/18 05:42 Sodium Chloride IV.SIG Infused Q8H [facility] Infusion Insulin Aspart 0 unit 04/16/18 12:00 04/19/18 09:01 Novolog Insulin Correctional Sugar Inj SQ Not Given Q6HR [facility] Protocol Labetalol HCl 10 mg 04/18/18 10:09 Trandate Inj IV.PUSH Q1H PRN Sbp>165, Dbp>90, Hr>65 Magnesium Oxide 800 mg 04/16/18 08:32 Mag-Ox PO UNSCH PRN For Magnesium 1.2 - 1.6 mg/dL Naloxone HCl 0.4 mg 04/16/18 09:02 Narcan Inj IV.PUSH PRN PRN SEE LABEL COMMENTS Nitroglycerin 2 inch 04/18/18 10:10 Nitro-Bid 2% Oint TOPICAL Q6HR PRN Sbp>165, Dbp>90 Ondansetron HCl 4 mg 04/15/18 15:26 04/17/18 10:22 Zofran Inj IV.PUSH 04/30/18 23:59 4 mg Q6H PRN Administration MILD NAUSEA Pantoprazole Sodium 40 mg 04/15/18 16:00 04/18/18 15:44 Protonix Inj IV.PUSH 40 mg Q24H [facility] Administration Potassium Bicarb/Potassium Chloride 50 meq 04/16/18 08:32 K-Lyte Cl Eff PO UNSCH PRN For Potassium 3.3 - 3.5 mEq/L Potassium Phosphate 2,000 mg 04/16/18 08:32 K-Phos Original PO Q4H PRN Phosphorus Less Than 2.5 mg/dL Potassium Phosphate 2,000 mg 04/16/18 08:32 K-Phos Original PO UNSCH PRN SEE LABEL COMMENTS Sennosides 8.8 mg 04/16/18 21:00 04/18/18 20:43 Senna Liq NG/OG 8.8 mg BID [facility] Administration Sodium Chloride 2 ml 04/16/18 21:00 04/19/18 08:59 Ns Flush IV.FLUSH 2 ml BID [facility] Administration Sodium Chloride 2 ml 04/16/18 09:14 Ns Flush IV.FLUSH PRN PRN FLUSH AFTER USING IV ACCESS Objective Remarks: CV: RRR Lungs: decreased BS Abd:soft,nd,tender one exam Stoma: pink and viable Dale Pelvic drain: bloody Ext: neg C/C/E 04/17 CV: RRR Lungs: decreased BS Abd:soft,nd,tender Stoma: pink and viable Wound: clean and dry Dale Pelvic drain: bloody Ext: neg C/C/E 04/18 CV: RRR Lungs: CTA Abd:soft,nd,tender Stoma: pink and viable Wound: Dressing intact Dale Pelvic drain: bloody Ext: neg C/C/E 04/19 Abd:soft,nt,nd Dressing intact Stoma: pink and viable Pelvic drain removed at bedside Ext: neg Assessment and Plan - Plan Stable s/p radical cystectomy with ileal conduit OOB to chair Start TPN 10 Stable s/p radical cystectomy with ileal conduit Continue TPN OOB to chair NGT to gravity drainage Encourage incentive sphirometer 10 Stable s/p radical cystectomy with ileal conduit POD#3 Continue TPN OOB to chair/ambulate NGT to gravity drainage Will d/c pelvic drain in next day or two as drainage continues to decline 10 Stable s/p radical cystectomy with ileal conduit POD#4 OOB to chair Pelvic drain removed Continue NGT to gravity Continue TPN Path noted: T3b
[2018-04-19] MEDS: Pantoprazole Inj 40 MG Vial IV.PUSH SCH (15:31)
[2018-04-19] MEDS: Docusate Sodium Liq 100 MG/10 ML UDC NG/OG SCH ×2 (15:32→20:18)
[2018-04-19] MEDS: Sennosides Liq 8.8 MG/5 ML UDC NG/OG SCH ×2 (15:32→20:19)
[2018-04-20] MEDS: Insulin NovoLOG Aspart Correctional Sugar Inj SQ SCH ×4 (00:40→17:30)
[2018-04-20] MEDS: HYDROmorphone PCA Inj 6 MG/30 ML PCA.VIAL PCA PRN ×5 (02:19→19:54)
[2018-04-20 04:44] LABS: Alanine Aminotransferase 20 U/L (12-78); Albumin 1.9 g/dL (3.4-5.0); Alkaline Phosphatase 168 U/L (45-117); Anion Gap 12 meq/L (5-15); Aspartate Aminotransferase 38 U/L (15-37); Blood Urea Nitrogen 13 mg/dL (7-18); Calcium 7.7 mg/dL (8.5-10.1); Carbon Dioxide 28.3 meq/L (21.0-32.0); Chloride 95 meq/L (98-107); Glomerular Filtration Rate Greater Than 89 mL/min (>89); Glucose,Random 115 mg/dL (74-106); Magnesium 1.9 mg/dL (1.5-2.5); Potassium 3.6 meq/L (3.5-5.1); Sodium 135 meq/L (136-145); Total Protein 6.2 g/dL (6.4-8.2)
[2018-04-20] MEDS: Sodium Chloride 0.9% 2 ML Flush BID IV.FLUSH SCH ×2 (08:47→20:14)
[2018-04-20] MEDS: Gabapentin Liq 250 MG/5 ML UDC PO SCH ×2 (08:47→20:13)
[2018-04-20] MEDS: Enoxaparin Inj 30 MG/0.3 ML Syringe SQ SCH (08:47)
[2018-04-20] MEDS: Sennosides Liq 8.8 MG/5 ML UDC NG/OG SCH ×2 (08:47→20:14)
[2018-04-20] MEDS: Docusate Sodium Liq 100 MG/10 ML UDC NG/OG SCH ×2 (08:47→20:13)
--- NOTE | 2018-04-20 10:11 | P.PNURO ---
Subjective Patient symptoms today: Pt seen and examined. No complaints or events overnight. Objective Vital Signs: Vital Signs 04/19/18 12:00 04/19/18 14:00 04/19/18 16:00 Temperature 99.2 F 99.2 F Pulse Rate 87 87 100 H Respiratory Rate 24 18 Blood Pressure 123/76 121/80 Pulse Oximetry 96 94 L 04/19/18 18:00 04/19/18 20:00 04/19/18 21:08 Temperature 99.3 F Pulse Rate 89 90 Respiratory Rate 18 20 Blood Pressure 132/78 Pulse Oximetry 94 L 04/19/18 21:09 04/19/18 22:00 04/20/18 00:00 Temperature 99.8 F H Pulse Rate 88 92 H Respiratory Rate 18 20 Blood Pressure 130/79 Pulse Oximetry 95 04/20/18 01:09 04/20/18 02:00 04/20/18 03:26 Temperature Pulse Rate 88 Respiratory Rate 20 22 Blood Pressure Pulse Oximetry 04/20/18 04:00 04/20/18 06:00 04/20/18 06:49 Temperature 99.5 F Pulse Rate 89 88 Respiratory Rate 23 18 Blood Pressure 133/79 Pulse Oximetry 93 L 04/20/18 07:48 04/20/18 08:00 Temperature 99.1 F Pulse Rate 84 Respiratory Rate 19 Blood Pressure 126/75 Pulse Oximetry 94 L 95 Intake & Output 04/19/18 04/20/18 04/20/18 18:59 06:59 18:59 Intake Total 100 / 100 1900 / 1900 Output Total 1974 1200 / 1200 Balance -1875 / -1875 700 / 700 Weight 48.9 kg Intake: IV 100 / 100 1900 / 1900 MVI-12 Inj 10 ML Folvite Inj 1 1800 / 1800 MG In Clinimix E 5%/D20W Inj 2, 000 ML @ 65 mls/hr IV.SIG Q24H [facility] Rx#:[id number] Ancef Inj 1,000 MG In NS Inj 100 / 100 100 / 100 100 ML @ 200 mls/hr IV.SIG Q8H [facility] Rx#:[id number] Oral 0 / 0 Output: Urine Amount (Catheter) 1949 1200 / 1200 Right ileal conduit 1949 1200 / 1200 Gastric Drainage 0 / 0 Left Nare Nasogastric Tube 0 / 0 Wound Drainage 25 / 25 Pelvic Drain 25 / 25 Other: Date of Last Bowel Movement 04/15/18 04/15/18 04/15/18 Result Diagrams: 04/19/18 13:13 04/20/18 03:30 Medications and IVs: Active Medications Generic Name Dose Route Start Last Admin Trade Name Freq PRN Reason Stop Dose Admin Acetaminophen 650 mg 04/16/18 08:55 Tylenol Liq PO Q6H PRN FEVER Albuterol 2.5 mg 04/16/18 08:54 Albuterol Neb (Prn) NEB Q2HR NEB PRN DYSPNEA Dextrose 50 ml 04/16/18 08:33 D50w Vial IV.PUSH UNSCH PRN PER HYPOGLYCEMIA PROTOCOL Diphenhydramine HCl 25 mg 04/16/18 09:02 Benadryl Inj IV.PUSH Q6H PRN for itching Docusate Sodium 100 mg 04/16/18 21:00 04/20/18 08:47 Colace Liq NG/OG Not Given BID [facility] Enoxaparin Sodium 30 mg 04/16/18 09:00 04/20/18 08:47 Lovenox Inj SQ 30 mg DAILY [facility] Administration Gabapentin 300 mg 04/15/18 21:00 04/20/18 08:47 Neurontin Liq PO 300 mg BID [facility] Administration Glucagon 1 mg 04/16/18 08:33 Glucagon Inj OTHER UNSCH PRN for Hypoglycemia Protocol Sodium Chloride 500 mls @ 30 mls/hr 04/15/18 07:00 04/15/18 07:25 Ns Inj IV.SIG Not Given .Q10H [facility] Magnesium Sulfate 4 gm/ Sodium 100 mls @ 50 mls/hr 04/16/18 08:32 Chloride IV.SIG UNSCH PRN For Magnesium 0.9 - 1.1 mg/dL Magnesium Sulfate 2 gm/ Sodium 100 mls @ 50 mls/hr 04/16/18 08:32 Chloride IV.SIG UNSCH PRN For Magnesium 1.2 - 1.6 mg/dL Potassium Chloride 20 meq in 100 mls @ 50 mls/hr 04/16/18 08:32 Kcl 20 Meq Premix Inj IV.SIG Q2H PRN For Potassium 3.3 - 3.5 mEq/L Potassium Chloride 40 meq in 100 mls @ 25 mls/hr 04/16/18 08:32 Kcl 40 Meq Premix Inj IV.SIG UNSCH PRN For Potassium 3.3 - 3.5 mEq/L Potassium Chloride 20 meq in 100 mls @ 50 mls/hr 04/16/18 08:32 Kcl 20 Meq Premix Inj IV.SIG Q2H PRN For Potassium 2.8 - 3.2 mEq/L Potassium Phosphate 30 mmol/ 260 mls @ 42 mls/hr 04/16/18 08:32 04/17/18 14: 10 Sodium Chloride IV.SIG Infused UNSCH PRN Infusion SEE LABEL COMMENTS Sodium Phosphate 30 mmol/ 260 mls @ 42 mls/hr 04/16/18 08:32 Sodium Chloride IV.SIG UNSCH PRN For Phosphorus < 2.5 mg/dL Potassium Chloride 40 meq in 100 mls @ 50 mls/hr 04/16/18 08:32 04/18/18 00: 42 Kcl 40 Meq Premix Inj IV.SIG Infused Q2H PRN Infusion For Potassium 2.8 - 3.2 mEq/L Hydromorphone/Sodium Chloride 6 mg in 30 mls @ 1.5 mls/hr 04/16/18 09:02 01/29 07:10 Dilaudid Medical Record Transcriber Inj KNITTING DEMONSTRATOR 1.5 mls/hr UNSCH PRN Administration per KNITTING DEMONSTRATOR parameters 0.3 MG/HR Multivitamins 10 ml/ Folic 2,010.2 mls @ 65 mls/hr 04/16/18 20:00 04/19/18 20 :36 Acid 1 mg/ Amino Acids/ IV.SIG 65 mls/hr Electrolytes Q24H [facility] Administration Fat Emulsion Intravenous 250 mls @ 31.25 mls/hr 04/16/18 20:00 04/19/18 20:35 Intralipid 20% Inj IV.SIG 31.25 mls/hr Q24H [facility] Administration Cefazolin Sodium 1,000 mg/ 100 mls @ 200 mls/hr 04/16/18 21:00 04/20/18 04:58 Sodium Chloride IV.SIG 200 mls/hr Q8H [facility] Administration Insulin Aspart 0 unit 04/16/18 12:00 04/20/18 06:13 Novolog Insulin Correctional Sugar Inj SQ Not Given Q6HR [facility] Protocol Labetalol HCl 10 mg 04/18/18 10:09 Trandate Inj IV.PUSH Q1H PRN Sbp>165, Dbp>90, Hr>65 Magnesium Oxide 800 mg 04/16/18 08:32 Mag-Ox PO UNSCH PRN For Magnesium 1.2 - 1.6 mg/dL Naloxone HCl 0.4 mg 04/16/18 09:02 Narcan Inj IV.PUSH PRN PRN SEE LABEL COMMENTS Nitroglycerin 2 inch 04/18/18 10:10 Nitro-Bid 2% Oint TOPICAL Q6HR PRN Sbp>165, Dbp>90 Ondansetron HCl 4 mg 04/15/18 15:26 04/17/18 10:22 Zofran Inj IV.PUSH 04/30/18 23:59 4 mg Q6H PRN Administration MILD NAUSEA Pantoprazole Sodium 40 mg 04/15/18 16:00 04/19/18 15:31 Protonix Inj IV.PUSH 40 mg Q24H [facility] Administration Potassium Bicarb/Potassium Chloride 50 meq 04/16/18 08:32 K-Lyte Cl Eff PO UNSCH PRN For Potassium 3.3 - 3.5 mEq/L Potassium Phosphate 2,000 mg 04/16/18 08:32 K-Phos Original PO Q4H PRN Phosphorus Less Than 2.5 mg/dL Potassium Phosphate 2,000 mg 04/16/18 08:32 K-Phos Original PO UNSCH PRN SEE LABEL COMMENTS Sennosides 8.8 mg 04/16/18 21:00 04/20/18 08:47 Senna Liq NG/OG Not Given BID [facility]INE Sodium Chloride 2 ml 04/16/18 21:00 04/20/18 08:47 Ns Flush IV.FLUSH 2 ml BID [facility] Administration Sodium Chloride 2 ml 04/16/18 09:14 Ns Flush IV.FLUSH PRN PRN FLUSH AFTER USING IV ACCESS Objective Remarks: CV: RRR Lungs: decreased BS Abd:soft,nd,tender one exam Stoma: pink and viable Dale Pelvic drain: bloody Ext: neg C/C/E 04/17 CV: RRR Lungs: decreased BS Abd:soft,nd,tender Stoma: pink and viable Wound: clean and dry Dale Pelvic drain: bloody Ext: neg C/C/E 04/18 CV: RRR Lungs: CTA Abd:soft,nd,tender Stoma: pink and viable Wound: Dressing intact Dale Pelvic drain: bloody Ext: neg C/C/E 04/19 Abd:soft,nt,nd Dressing intact Stoma: pink and viable Pelvic drain removed at bedside Ext: neg 04/20 Abd:soft,nt,nd Dressing intact Stoma: pink and viable Ext: neg C/C/E Assessment and Plan - Plan Stable s/p radical cystectomy with ileal conduit OOB to chair Start TPN 10/ Stable s/p radical cystectomy with ileal conduit Continue TPN OOB to chair NGT to gravity drainage Encourage incentive sphirometer 04/18 Stable s/p radical cystectomy with ileal conduit POD#3 Continue TPN OOB to chair/ambulate NGT to gravity drainage Will d/c pelvic drain in next day or two as drainage continues to decline 04/19 Stable s/p radical cystectomy with ileal conduit POD#4 OOB to chair Pelvic drain removed Continue NGT to gravity Continue TPN Path noted: T3b 04/20 Stable POD#5 s/p radical cystectomy with ileal conduit OOB today/Ambulate Path reviewed with pt today Will plan to remove NGT this Saturday and start clear liquids Continue TPN
--- NOTE | 2018-04-20 13:37 | P.PNCC ---
Subjective Subjective Remarks/Hospital Course: This 62-year-old gentleman underwent cystectomy and ileal conduit construction earlier today. Preoperative CAT scan of the chest and bone marrow scan was negative for metastatic disease. He has a large barrel chest and obvious long- term respiratory problems. The procedure went well and he is normotensive on arrival. He is a present breathing comfortably moving air well. He required 3 units of blood transfusion perioperatively, largely because of an anemia preop. His past medical history is relatively uncomplicated aside from his marginal nutritional status. His only prior surgery is to have the tumor biopsied on a previous cystoscopy. He has been on oral morphine 3 times a day for considerable period of time and it is anticipated that he will be tolerant to pain medicine. For this reason we will use a basal continuous rate of fentanyl to help control his postoperative pain. 04/16: Currently on fentanyl drip at 150 kelsi grams per hour. Complains of abdominal pain with singultus. Ileostomy conduit site good drainage with no active bleeding. Awake and oriented x3. Difficulty moving right lower extremity/adduction 04/17: Resting at side of bed. Still unable to elevate or adduct his right lower extremity. Tolerating the hydromorphone NUTRITION SPECIALIST with a basal rate 0.2 mg an hour. Appears comfortable. Tolerating TPN see orders 04/18: Afebrile. Currently resting in bed in no acute distress. Remains on hydromorphone NUTRITION SPECIALIST. Tolerating TPN. Replacing potassium magnesium today. 04/19: Comfortable in bed and perhaps little drowsy. Urine output acceptable and renal function good. Pain control remains an issue and he may be a little oversedated at this time. He has been a longtime consumer of oral morphine and tends to push the NUTRITION SPECIALIST button repeatedly. We will follow him closely. Urine culture appears benign. 04/20: Breathing with acceptable comfort. Clears throat well. Protects airway well. Remains suitably hydrated and renal intestines are sluggish as expected but abdomen is not distended. Continue NG tube to intermittent suction. Objective Vital Signs / I&O: Vital Signs 04/19/18 14:00 04/19/18 16:00 04/19/18 18:00 Temperature 99.2 F Pulse Rate 87 100 H 89 Respiratory Rate 18 Blood Pressure 121/80 Pulse Oximetry 94 L 04/19/18 20:00 04/19/18 21:08 04/19/18 21:09 Temperature 99.3 F Pulse Rate 90 Respiratory Rate 18 20 18 Blood Pressure 132/78 Pulse Oximetry 94 L 04/19/18 22:00 04/20/18 00:00 04/20/18 01:09 Temperature 99.8 F H Pulse Rate 88 92 H Respiratory Rate 20 20 Blood Pressure 130/79 Pulse Oximetry 95 04/20/18 02:00 04/20/18 03:26 04/20/18 04:00 Temperature 99.5 F Pulse Rate 88 89 Respiratory Rate 22 23 Blood Pressure 133/79 Pulse Oximetry 93 L 04/20/18 06:00 04/20/18 06:49 04/20/18 07:48 Temperature Pulse Rate 88 Respiratory Rate 18 Blood Pressure Pulse Oximetry 94 L 04/20/18 08:00 Temperature 99.1 F Pulse Rate 84 Respiratory Rate 19 Blood Pressure 126/75 Pulse Oximetry 95 Intake & Output 04/19/18 04/20/18 04/20/18 18:59 06:59 18:59 Intake Total 100 / 100 1999 Output Total 1974 1200 / 1200 Balance -1875 / -1875 800 / 800 Weight 48.9 kg Intake: IV 100 / 100 1999 MVI-12 Inj 10 ML Folvite Inj 1 1800 / 1800 MG In Clinimix E 5%/D20W Inj 2, 000 ML @ 65 mls/hr IV.SIG Q24H NADINE Rx#:[id number] Ancef Inj 1,000 MG In NS Inj 100 / 100 200 / 200 100 ML @ 200 mls/hr IV.SIG Q8H NADINE Rx#:[id number] Oral 0 / 0 Output: Urine Amount (Catheter) 1949 1200 / 1200 Right ileal conduit 1949 1200 / 1200 Gastric Drainage 0 / 0 Left Nare Nasogastric Tube 0 / 0 Wound Drainage 25 / 25 Pelvic Drain 25 / 25 Other: Date of Last Bowel Movement 04/15/18 04/15/18 04/15/18 Result Diagrams: 04/19/18 13:13 04/20/18 03:30 Objective Remarks: GENERAL: 62-year-old male resting in bed in no acute distress SKIN: Warm and dry. HEAD: Atraumatic. Normocephalic. EYES: Pupils equal and round. No scleral icterus. No injection or drainage. ENT: No nasal bleeding or discharge. Mucous membranes pink and moist. Nasogastric tube in left nares to low intermittent wall suction NECK: Trachea midline. Airway widely patent. CARDIOVASCULAR: Regular rate and rhythm. S1, S2. No S4. Without murmur. Distant tones, no JVD. RESPIRATORY: Barrel shaped chest. No accessory muscle use. Clear to auscultation. Breath sounds equal bilaterally. GASTROINTESTINAL: Abdomen soft, tender to palpation. Ileal conduit is viable with plentiful urinary drainage. MUSCULOSKELETAL: Extremities without significant peripheral edema. Warm, well- perfused. NEUROLOGICAL: Awake and alert. No obvious cranial nerve deficits. Follows commands with 4 limbs. 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 0.2 mg every 6 hours for breakthrough pain. Resume gabapentin 300 mg twice daily/home medication Acetaminophen 650 p.o. every 6 hours as needed fever CV: Currently on TPN at 60 cc an hour Currently not requiring vasopressors and/or antihypertensives Resp: COPD Pulmonary nodule -lung biopsy 2018 revealed inflammatory changes. No malignancy Nasal cannula to maintain saturations greater than equal to 92%. Currently on 2 L nasal cannula Incentive spirometry while awake Albuterol/ipratropium aerosols every 6 hours with albuterol aerosols every 2 hours as needed for dyspnea Lung hyperinflation protocol initiated GI: History of internal and external hemorrhoids Hypoalbuminemia Severe protein calorie malnutrition N.p.o. except for medications per urology We will start on TPN at 60 cc an hour with lipids daily. Dietary for recommendations for dosage Pantoprazole for GI prophylaxis Docusate sodium 100 milligrams twice daily/senna liquid 8.8 g twice daily for bowel regimen Relistor 12 mg subcu x1 now. Check KUB. 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 Mathews -3 cycles of 4 of cisplatin/gemcitabine. Leukocytosis Normocytic anemia Transfuse 3 PRBCs in OR. Monitor CBC daily. Follow trends. No indication for transfusion of blood products today. ID: Currently on cefazolin 1 g IV every 8 hours.. Received ampicillin and gentamicin in OR Management per urology FEN: Hypokalemia Currently one half normal saline at 100 cc an hour. Discontinue Adjust TPN as needed. Currently on Clinimix 5/20 at 60 cc an hour with lipids daily Replace electrolytes as clinically indicated per ICU electrolyte protocol. MSK: Physical therapy/occupational therapy evaluate and treat Access -Left subclavian CVL day 5 placed 04/15 Prophylaxis -GI -pantoprazole -DVT -SCD/enoxaparin Overall impression: Stable hemodynamics and acceptable respiratory function status post major abdominal procedure. Renal function is normal. Good progress aside from anticipated issues with pain control. Attempt to taper back slowly on narcotic use.
[2018-04-20] MEDS: Pantoprazole Inj 40 MG Vial IV.PUSH SCH (15:37)
[2018-04-20] MEDS: Multivitamin Inj 10 ML, Folic Acid Inj 1 MG in AA 5%/D20W - Electrolytes 2,000 ML IV.SIG SCH (20:32)
[2018-04-21] MEDS: HYDROmorphone PCA Inj 6 MG/30 ML PCA.VIAL PCA PRN ×6 (00:19→22:06)
[2018-04-21] MEDS: Insulin NovoLOG Aspart Correctional Sugar Inj SQ SCH ×4 (00:42→18:59)
[2018-04-21 06:08] LABS: Hematocrit 30.9 % (39.0-51.0); Hemoglobin 10.3 gm/dL (13.0-17.0); Mean Corpuscular HGB Conc 33.3 % (32.0-36.0); Mean Corpuscular Hemoglobin 27.2 pg (27.0-34.0); Mean Corpuscular Volume 81.5 fL (80.0-100.0); Mean Platelet Volume 8.7 fL (7.0-11.0); Platelet Count 265 th/mm3 (150-450); Red Blood Count 3.79 mil/mm3 (4.50-5.90); Red Cell Distribution Width 17.3 % (11.6-17.2); White Blood Count 13.5 th/mm3 (4.0-11.0)
[2018-04-21 06:36] LABS: Anion Gap 9 meq/L (5-15); Blood Urea Nitrogen 14 mg/dL (7-18); Carbon Dioxide 27.6 meq/L (21.0-32.0); Chloride 97 meq/L (98-107); Glomerular Filtration Rate Greater Than 89 mL/min (>89); Glucose,Random 119 mg/dL (74-106); Potassium 3.4 meq/L (3.5-5.1); Sodium 134 meq/L (136-145)
--- NOTE | 2018-04-21 08:52 | P.PNURO ---
Subjective Patient symptoms today: Pt seen and examined. Pt did not get OOB yesterday as no help was provided by staff per pt. No complaints. Objective Vital Signs: Vital Signs 04/20/18 10:00 04/20/18 12:00 04/20/18 14:00 Temperature 99.1 F Pulse Rate 88 86 82 Respiratory Rate 20 Blood Pressure 127/75 Pulse Oximetry 96 04/20/18 16:00 04/20/18 18:00 04/20/18 20:00 Temperature 99.1 F 98.4 F Pulse Rate 92 H 88 82 Respiratory Rate 21 21 Blood Pressure 121/75 128/74 Pulse Oximetry 95 95 04/20/18 20:06 04/20/18 20:24 04/20/18 22:00 Temperature Pulse Rate 84 Respiratory Rate 22 21 Blood Pressure Pulse Oximetry 04/21/18 00:00 04/21/18 00:42 04/21/18 00:49 Temperature 99.7 F H Pulse Rate 90 Respiratory Rate 18 21 18 Blood Pressure 130/74 Pulse Oximetry 93 L 04/21/18 02:00 04/21/18 04:00 04/21/18 04:49 Temperature 99.5 F Pulse Rate 85 86 Respiratory Rate 18 18 Blood Pressure 119/72 Pulse Oximetry 94 L 04/21/18 06:00 Temperature Pulse Rate 90 Respiratory Rate Blood Pressure Pulse Oximetry Intake & Output 04/20/18 04/21/18 04/21/18 18:59 06:59 18:59 Intake Total 2250 / 2250 Output Total 1300 / 1300 1100 / 1100 Balance -1300 / -1300 1150 / 1150 Weight 48.6 kg Intake: IV 2250 / 2250 Intralipid 20% Inj 250 ML @ 31. 250 / 250 25 mls/hr IV.SIG Q24H NADINE Rx#: [id number] MVI-12 Inj 10 ML Folvite Inj 1 1800 / 1800 MG In Clinimix E 5%/D20W Inj 2, 000 ML @ 65 mls/hr IV.SIG Q24H NADINE Rx#:[id number] Ancef Inj 1,000 MG In NS Inj 200 / 200 100 ML @ 200 mls/hr IV.SIG Q8H NADINE Rx#:[id number] Output: Urine Amount (Catheter) 1300 / 1300 1100 / 1100 Right ileal conduit 1300 / 1300 1100 / 1100 Other: Date of Last Bowel Movement 04/15/18 04/15/18 # Bowel Movements 0 Result Diagrams: 04/21/18 05:45 04/21/18 05:45 Medications and IVs: Active Medications Generic Name Dose Route Start Last Admin Trade Name Freq PRN Reason Stop Dose Admin Acetaminophen 650 mg 04/16/18 08:55 Tylenol Liq PO Q6H PRN FEVER Albuterol 2.5 mg 04/16/18 08:54 Albuterol Neb (Prn) NEB Q2HR NEB PRN DYSPNEA Dextrose 50 ml 04/16/18 08:33 D50w Vial IV.PUSH UNSCH PRN PER HYPOGLYCEMIA PROTOCOL Diphenhydramine HCl 25 mg 04/16/18 09:02 Benadryl Inj IV.PUSH Q6H PRN for itching Docusate Sodium 100 mg 04/16/18 21:00 04/20/18 20:13 Colace Liq NG/OG Not Given BID NADINE Enoxaparin Sodium 30 mg 04/16/18 09:00 04/20/18 08:47 Lovenox Inj SQ 30 mg DAILY NADINE Administration Gabapentin 300 mg 04/15/18 21:00 04/20/18 20:13 Neurontin Liq PO 300 mg BID NADINE Administration Glucagon 1 mg 04/16/18 08:33 Glucagon Inj OTHER UNSCH PRN for Hypoglycemia Protocol Sodium Chloride 500 mls @ 30 mls/hr 04/15/18 07:00 04/15/18 07:25 Ns Inj IV.SIG Not Given .Q10H NADINE Magnesium Sulfate 4 gm/ Sodium 100 mls @ 50 mls/hr 04/16/18 08:32 Chloride IV.SIG UNSCH PRN For Magnesium 0.9 - 1.1 mg/dL Magnesium Sulfate 2 gm/ Sodium 100 mls @ 50 mls/hr 04/16/18 08:32 Chloride IV.SIG UNSCH PRN For Magnesium 1.2 - 1.6 mg/dL Potassium Chloride 20 meq in 100 mls @ 50 mls/hr 04/16/18 08:32 Kcl 20 Meq Premix Inj IV.SIG Q2H PRN For Potassium 3.3 - 3.5 mEq/L Potassium Chloride 40 meq in 100 mls @ 25 mls/hr 04/16/18 08:32 Kcl 40 Meq Premix Inj IV.SIG UNSCH PRN For Potassium 3.3 - 3.5 mEq/L Potassium Chloride 20 meq in 100 mls @ 50 mls/hr 04/16/18 08:32 Kcl 20 Meq Premix Inj IV.SIG Q2H PRN For Potassium 2.8 - 3.2 mEq/L Potassium Phosphate 30 mmol/ 260 mls @ 42 mls/hr 04/16/18 08:32 04/17/18 14: 10 Sodium Chloride IV.SIG Infused UNSCH PRN Infusion SEE LABEL COMMENTS Sodium Phosphate 30 mmol/ 260 mls @ 42 mls/hr 04/16/18 08:32 Sodium Chloride IV.SIG UNSCH PRN For Phosphorus < 2.5 mg/dL Potassium Chloride 40 meq in 100 mls @ 50 mls/hr 04/16/18 08:32 04/18/18 00: 42 Kcl 40 Meq Premix Inj IV.SIG Infused Q2H PRN Infusion For Potassium 2.8 - 3.2 mEq/L Hydromorphone/Sodium Chloride 6 mg in 30 mls @ 1.5 mls/hr 04/16/18 09:02 03/01 05:12 Dilaudid Regulatory Affairs Analyst Inj MANAGER CANCER 1.5 mls/hr UNSCH PRN Administration per MANAGER CANCER parameters 0.3 MG/HR Multivitamins 10 ml/ Folic 2,010.2 mls @ 65 mls/hr 04/16/18 20:00 04/20/18 20 :32 Acid 1 mg/ Amino Acids/ IV.SIG 65 mls/hr Electrolytes Q24H NADINE Administration Fat Emulsion Intravenous 250 mls @ 31.25 mls/hr 04/16/18 20:00 04/20/18 20:12 Intralipid 20% Inj IV.SIG 31.25 mls/hr Q24H NADINE Administration Cefazolin Sodium 1,000 mg/ 100 mls @ 200 mls/hr 04/16/18 21:00 04/21/18 05:07 Sodium Chloride IV.SIG 200 mls/hr Q8H NADINE Administration Insulin Aspart 0 unit 04/16/18 12:00 04/21/18 05:59 Novolog Insulin Correctional Sugar Inj SQ Not Given Q6HR [facility] Protocol Labetalol HCl 10 mg 04/18/18 10:09 Trandate Inj IV.PUSH Q1H PRN Sbp>165, Dbp>90, Hr>65 Magnesium Oxide 800 mg 04/16/18 08:32 Mag-Ox PO UNSCH PRN For Magnesium 1.2 - 1.6 mg/dL Naloxone HCl 0.4 mg 04/16/18 09:02 Narcan Inj IV.PUSH PRN PRN SEE LABEL COMMENTS Nitroglycerin 2 inch 04/18/18 10:10 Nitro-Bid 2% Oint TOPICAL Q6HR PRN Sbp>165, Dbp>90 Ondansetron HCl 4 mg 04/15/18 15:26 04/17/18 10:22 Zofran Inj IV.PUSH 04/30/18 23:59 4 mg Q6H PRN Administration MILD NAUSEA Pantoprazole Sodium 40 mg 04/15/18 16:00 04/20/18 15:37 Protonix Inj IV.PUSH 40 mg Q24H NADINE Administration Potassium Bicarb/Potassium Chloride 50 meq 04/16/18 08:32 K-Lyte Cl Eff PO UNSCH PRN For Potassium 3.3 - 3.5 mEq/L Potassium Phosphate 2,000 mg 04/16/18 08:32 K-Phos Original PO Q4H PRN Phosphorus Less Than 2.5 mg/dL Potassium Phosphate 2,000 mg 04/16/18 08:32 K-Phos Original PO UNSCH PRN SEE LABEL COMMENTS Sennosides 8.8 mg 04/16/18 21:00 04/20/18 20:14 Senna Liq NG/OG Not Given BID NADINE Sodium Chloride 2 ml 04/16/18 21:00 04/20/18 20:14 Ns Flush IV.FLUSH 2 ml BID NADINE Administration Sodium Chloride 2 ml 04/16/18 09:14 Ns Flush IV.FLUSH PRN PRN FLUSH AFTER USING IV ACCESS Objective Remarks: CV: RRR Lungs: decreased BS Abd:soft,nd,tender one exam Stoma: pink and viable Dale Pelvic drain: bloody Ext: neg C/C/E 04/17 CV: RRR Lungs: decreased BS Abd:soft,nd,tender Stoma: pink and viable Wound: clean and dry Dale Pelvic drain: bloody Ext: neg C/C/E 04/18 CV: RRR Lungs: CTA Abd:soft,nd,tender Stoma: pink and viable Wound: Dressing intact Dale Pelvic drain: bloody Ext: neg C/C/E 04/19 Abd:soft,nt,nd Dressing intact Stoma: pink and viable Pelvic drain removed at bedside Ext: neg 04/20 Abd:soft,nt,nd Dressing intact Stoma: pink and viable Ext: neg C/C/E 04/21 Abd:soft,nt,nd Stoma: pink and viable Stents in place Wound: clean and dry Ext:neg C/C/E Assessment and Plan - Plan Stable s/p radical cystectomy with ileal conduit OOB to chair Start TPN 10 Stable s/p radical cystectomy with ileal conduit Continue TPN OOB to chair NGT to gravity drainage Encourage incentive sphirometer 04/18 Stable s/p radical cystectomy with ileal conduit POD#3 Continue TPN OOB to chair/ambulate NGT to gravity drainage Will d/c pelvic drain in next day or two as drainage continues to decline 04/19 Stable s/p radical cystectomy with ileal conduit POD#4 OOB to chair Pelvic drain removed Continue NGT to gravity Continue TPN Path noted: T3b 04/20 Stable POD#5 s/p radical cystectomy with ileal conduit OOB today/Ambulate Path reviewed with pt today Will plan to remove NGT this Saturday and start clear liquids Continue TPN 04/21 Stable POD#6 s/p radical cystectomy with ileal conduit NGT removed; ice chips today OOB Continue TPN
[2018-04-21] MEDS: Gabapentin Liq 250 MG/5 ML UDC PO SCH ×2 (10:05→21:02)
[2018-04-21] MEDS: Enoxaparin Inj 30 MG/0.3 ML Syringe SQ SCH (10:05)
[2018-04-21] MEDS: Docusate Sodium Liq 100 MG/10 ML UDC NG/OG SCH ×3 (10:05→21:01)
[2018-04-21] MEDS: Sennosides Liq 8.8 MG/5 ML UDC NG/OG SCH ×3 (10:05→21:03)
[2018-04-21] MEDS: Sodium Chloride 0.9% 2 ML Flush BID IV.FLUSH SCH ×2 (10:06→21:02)
--- NOTE | 2018-04-21 10:39 | P.PNCC ---
Subjective Subjective Remarks/Hospital Course: This 62-year-old gentleman underwent cystectomy and ileal conduit construction earlier today. Preoperative CAT scan of the chest and bone marrow scan was negative for metastatic disease. He has a large barrel chest and obvious long- term respiratory problems. The procedure went well and he is normotensive on arrival. He is a present breathing comfortably moving air well. He required 3 units of blood transfusion perioperatively, largely because of an anemia preop. His past medical history is relatively uncomplicated aside from his marginal nutritional status. His only prior surgery is to have the tumor biopsied on a previous cystoscopy. He has been on oral morphine 3 times a day for considerable period of time and it is anticipated that he will be tolerant to pain medicine. For this reason we will use a basal continuous rate of fentanyl to help control his postoperative pain. 04/16: Currently on fentanyl drip at 150 kelsi grams per hour. Complains of abdominal pain with singultus. Ileostomy conduit site good drainage with no active bleeding. Awake and oriented x3. Difficulty moving right lower extremity/adduction 04/17: Resting at side of bed. Still unable to elevate or adduct his right lower extremity. Tolerating the hydromorphone INVENTORY ANALYST with a basal rate 0.2 mg an hour. Appears comfortable. Tolerating TPN see orders 04/18: Afebrile. Currently resting in bed in no acute distress. Remains on hydromorphone INVENTORY ANALYST. Tolerating TPN. Replacing potassium magnesium today. 04/19: Comfortable in bed and perhaps little drowsy. Urine output acceptable and renal function good. Pain control remains an issue and he may be a little oversedated at this time. He has been a longtime consumer of oral morphine and tends to push the INVENTORY ANALYST button repeatedly. We will follow him closely. Urine culture appears benign. 04/20: Breathing with acceptable comfort. Clears throat well. Protects airway well. Remains suitably hydrated and renal intestines are sluggish as expected but abdomen is not distended. Continue NG tube to intermittent suction. 04/21: Warm and well-perfused, urine output good. Continue to try to light and analgesia and increase mobilization. Objective Vital Signs / I&O: Vital Signs 04/20/18 12:00 04/20/18 14:00 04/20/18 16:00 Temperature 99.1 F 99.1 F Pulse Rate 86 82 92 H Respiratory Rate 20 21 Blood Pressure 127/75 121/75 Pulse Oximetry 96 95 04/20/18 18:00 04/20/18 20:00 04/20/18 20:06 Temperature 98.4 F Pulse Rate 88 82 Respiratory Rate 21 22 Blood Pressure 128/74 Pulse Oximetry 95 04/20/18 20:24 04/20/18 22:00 04/21/18 00:00 Temperature 99.7 F H Pulse Rate 84 90 Respiratory Rate 21 18 Blood Pressure 130/74 Pulse Oximetry 93 L 04/21/18 00:42 04/21/18 00:49 04/21/18 02:00 Temperature Pulse Rate 85 Respiratory Rate 21 18 Blood Pressure Pulse Oximetry 04/21/18 04:00 04/21/18 04:49 04/21/18 06:00 Temperature 99.5 F Pulse Rate 86 90 Respiratory Rate 18 18 Blood Pressure 119/72 Pulse Oximetry 94 L Intake & Output 04/20/18 04/21/18 04/21/18 18:59 06:59 18:59 Intake Total 2250 / 2250 350 / 350 Output Total 1300 / 1300 1100 / 1100 Balance -1300 / -1300 1150 / 1150 350 / 350 Weight 48.6 kg Intake: IV 2250 / 2250 350 / 350 Intralipid 20% Inj 250 ML @ 31. 250 / 250 250 / 250 25 mls/hr IV.SIG Q24H NADINE Rx#: [id number] MVI-12 Inj 10 ML Folvite Inj 1 1800 / 1800 MG In Clinimix E 5%/D20W Inj 2, 000 ML @ 65 mls/hr IV.SIG Q24H NADINE Rx#:[id number] Ancef Inj 1,000 MG In NS Inj 200 / 200 100 / 100 100 ML @ 200 mls/hr IV.SIG Q8H NADINE Rx#:[id number] Output: Urine Amount (Catheter) 1300 / 1300 1100 / 1100 Right ileal conduit 1300 / 1300 1100 / 1100 Other: Date of Last Bowel Movement 04/15/18 04/15/18 # Bowel Movements 0 Result Diagrams: 04/21/18 05:45 04/21/18 05:45 Objective Remarks: GENERAL: 62-year-old SKIN: Warm and dry. HEAD: Atraumatic. Normocephalic. EYES: Pupils equal and round. No scleral icterus. No injection or drainage. ENT: No nasal bleeding or discharge. Mucous membranes pink and moist. Nasogastric tube in left nares to low intermittent wall suction NECK: Trachea midline. Airway widely patent. No obstructive noises. CARDIOVASCULAR: Regular rate and rhythm. S1, S2. No S4. Without murmur. Distant tones, no JVD. RESPIRATORY: Barrel shaped chest. No accessory muscle use. Clear to auscultation. Breath sounds equal bilaterally. Acceptable cough. GASTROINTESTINAL: Abdomen soft, tender to palpation. Ileal conduit is viable with plentiful urinary drainage. MUSCULOSKELETAL: Extremities without significant peripheral edema. Warm, well- perfused. NEUROLOGICAL: Awake and alert. No obvious cranial nerve deficits. Follows commands with 4 limbs. 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 0.2 mg every 6 hours for breakthrough pain. Resume gabapentin 300 mg twice daily/home medication Acetaminophen 650 p.o. every 6 hours as needed fever CV: Currently on TPN at 60 cc an hour Currently not requiring vasopressors and/or antihypertensives Resp: COPD Pulmonary nodule -lung biopsy 2018 revealed inflammatory changes. No malignancy Nasal cannula to maintain saturations greater than equal to 92%. Currently on 2 L nasal cannula Incentive spirometry while awake Albuterol/ipratropium aerosols every 6 hours with albuterol aerosols every 2 hours as needed for dyspnea Lung hyperinflation protocol initiated GI: History of internal and external hemorrhoids Hypoalbuminemia Severe protein calorie malnutrition N.p.o. except for medications per urology We will start on TPN at 60 cc an hour with lipids daily. Dietary for recommendations for dosage Pantoprazole for GI prophylaxis Docusate sodium 100 milligrams twice daily/senna liquid 8.8 g twice daily for bowel regimen Relistor 12 mg subcu x1 now. Check KUB. Ice chips have been started by service. 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 Mathews -3 cycles of 4 of cisplatin/gemcitabine. Leukocytosis Normocytic anemia Transfuse 3 PRBCs in OR. Monitor CBC daily. Follow trends. No indication for transfusion of blood products today. ID: Currently on cefazolin 1 g IV every 8 hours.. Received ampicillin and gentamicin in OR Management per urology FEN: Hypokalemia Currently one half normal saline at 100 cc an hour. Discontinue Adjust TPN as needed. Currently on Clinimix 5/20 at 60 cc an hour with lipids daily Replace electrolytes as clinically indicated per ICU electrolyte protocol. MSK: Physical therapy/occupational therapy evaluate and treat Access -Left subclavian CVL day 5 placed 04/15 Prophylaxis -GI -pantoprazole -DVT -SCD/enoxaparin Overall impression: Stable hemodynamics and acceptable respiratory function status post major abdominal procedure. Renal function is normal. Good progress aside from anticipated issues with pain control. Attempt to taper back on narcotic use and increase mobilization.
[2018-04-21] MEDS: Multivitamin Inj 10 ML, Folic Acid Inj 1 MG in AA 5%/D20W - Electrolytes 2,000 ML IV.SIG SCH (11:00)
--- NOTE | 2018-04-21 13:35 | P.DIET ---
Nutritional Evaluation Type of nutrition evaluation: follow-up Nutrition consult regarding: TPN/PPN Nutrition screening: [facility] [place] Objective - Diagnosis Cystectomy - Objective % IBW: 77 (IBW = 142#) Body Weight Used for Calculations: Actual (50 kg) Energy Needs - Lower Range (kCal/kg): 30 Energy Needs - Upper Range (kCal/kg): 35 Lower Limit kCal/kg (kCals): 1,500 Upper Limit kCal/kg (kCals): 1,750 Lower Limit Protein Factor (Grams per Kg): 1.0 Upper Limit Protein Factor (Grams per Kg): 1.5 Lower Protein Needs (Protein): 50 Upper Protein Needs (Protein): 75 Dietitian Reviewed in Medical Record: Curent medications, Intake & Output, Labs , Medical history, TPN/PPN Diet Order: NPO Assessment Assessment: Pt remains at high nutrition risk receiving TPN of Clinimix E 5/20 @ 65 mls/hr with 20% lipids 250 mls/day for a total of 1873 kcals and 78 gms protein. Labs, wts and clinical course reviewed; CBW = 48.6 kg. Request weekly TG while on TPN and monitor glucose closely. Recommendations: TPN: Clinimix E 5/20 @ 65 mls/hr LIPIDS: 20% lipids 250 mls/day Dietitian to Monitor: Lab values, Intake & Output, TPN/PPN tolerance, Weight change, Diet advancement, Medical course
[2018-04-21 16:52] LABS: Collection Duration Porphyrins 24 h; Coproporphyrin, Tetra 167 nmol/24 h (<=230); Heptacarboxylporphryins 4 nmol/24 h (<=9); Urine Volume Porphyrins 1700 mL; Uroporphyrin, Octa 15 nmol/24 h (<=30)
[2018-04-21] MEDS: Pantoprazole Inj 40 MG Vial IV.PUSH SCH (17:26)
[2018-04-22] MEDS: Insulin NovoLOG Aspart Correctional Sugar Inj SQ SCH ×4 (00:58→17:54)
[2018-04-22] MEDS: HYDROmorphone PCA Inj 6 MG/30 ML PCA.VIAL PCA PRN (05:10)
[2018-04-22 06:28] LABS: Hematocrit 29.5 % (39.0-51.0); Hemoglobin 9.7 gm/dL (13.0-17.0); Mean Corpuscular Hemoglobin 27.3 pg (27.0-34.0); Mean Corpuscular Volume 82.6 fL (80.0-100.0); Mean Platelet Volume 8.7 fL (7.0-11.0); Platelet Count 306 th/mm3 (150-450); Red Blood Count 3.57 mil/mm3 (4.50-5.90); White Blood Count 11.3 th/mm3 (4.0-11.0)
[2018-04-22 06:38] LABS: Anion Gap 10 meq/L (5-15); Blood Urea Nitrogen 14 mg/dL (7-18); Calcium 7.7 mg/dL (8.5-10.1); Carbon Dioxide 27.6 meq/L (21.0-32.0); Chloride 98 meq/L (98-107); Glomerular Filtration Rate Greater Than 89 mL/min (>89); Glucose,Random 136 mg/dL (74-106); Potassium 3.3 meq/L (3.5-5.1); Sodium 136 meq/L (136-145)
[2018-04-22] MEDS: Enoxaparin Inj 30 MG/0.3 ML Syringe SQ SCH (09:43)
[2018-04-22] MEDS: Gabapentin Liq 250 MG/5 ML UDC PO SCH ×2 (09:45→21:11)
[2018-04-22] MEDS: Sodium Chloride 0.9% 2 ML Flush BID IV.FLUSH SCH ×2 (09:45→21:12)
[2018-04-22] MEDS: Docusate Sodium Liq 100 MG/10 ML UDC NG/OG SCH ×3 (09:45→21:01)
[2018-04-22] MEDS: Sennosides Liq 8.8 MG/5 ML UDC NG/OG SCH ×2 (09:46→21:02)
--- NOTE | 2018-04-22 10:49 | P.PNURO ---
Subjective Patient symptoms today: Pt seen and examined. NGT out. Still passing gas. Urine clear. Objective Vital Signs: Vital Signs 04/21/18 12:00 04/21/18 14:00 04/21/18 16:00 Temperature 98 F 98.2 F Pulse Rate 104 H 93 H 86 Respiratory Rate 20 20 Blood Pressure 118/73 121/75 Pulse Oximetry 97 95 04/21/18 18:00 04/21/18 20:00 04/21/18 22:00 Temperature 98.9 F Pulse Rate 80 86 86 Respiratory Rate 20 Blood Pressure 130/79 Pulse Oximetry 95 04/22/18 00:00 04/22/18 02:00 04/22/18 04:00 Temperature 98.4 F 98.8 F Pulse Rate 80 79 81 Respiratory Rate 17 21 Blood Pressure 127/78 125/72 Pulse Oximetry 94 L 94 L 04/22/18 06:00 04/22/18 06:37 04/22/18 07:56 Temperature Pulse Rate 85 Respiratory Rate 17 Blood Pressure Pulse Oximetry 95 04/22/18 08:00 Temperature Pulse Rate 79 Respiratory Rate Blood Pressure Pulse Oximetry 92 L Intake & Output 04/21/18 04/22/18 04/22/18 18:59 06:59 18:59 Intake Total 2460.2 / 2460.2 100 / 100 350 / 350 Output Total 1000 / 1000 825 / 825 Balance 1460.2 / 1460.2 -725 / -725 350 / 350 Weight 49.4 kg Intake: IV 2460.2 / 2460.2 100 / 100 350 / 350 Intralipid 20% Inj 250 ML @ 31. 250 / 250 250 / 250 25 mls/hr IV.SIG Q24H NADINE Rx#: [id number] MVI-12 Inj 10 ML Folvite Inj 1 2010.2 / 2010.2 MG In Clinimix E 5%/D20W Inj 2, 000 ML @ 65 mls/hr IV.SIG Q24H NADINE Rx#:[id number] Ancef Inj 1,000 MG In NS Inj 200 / 200 100 / 100 100 / 100 100 ML @ 200 mls/hr IV.SIG Q8H NADINE Rx#:[id number] Output: Urine Amount (Catheter) 1000 / 1000 825 / 825 Right ileal conduit 1000 / 1000 825 / 825 Other: Date of Last Bowel Movement 04/21/18 04/21/18 04/21/18 # Bowel Movements 1 Result Diagrams: 04/22/18 06:08 04/22/18 06:08 Medications and IVs: Active Medications Generic Name Dose Route Start Last Admin Trade Name Freq PRN Reason Stop Dose Admin Acetaminophen 650 mg 04/16/18 08:55 Tylenol Liq PO Q6H PRN FEVER Albuterol 2.5 mg 04/16/18 08:54 Albuterol Neb (Prn) NEB Q2HR NEB PRN DYSPNEA Dextrose 50 ml 04/16/18 08:33 D50w Vial IV.PUSH UNSCH PRN PER HYPOGLYCEMIA PROTOCOL Diphenhydramine HCl 25 mg 04/16/18 09:02 Benadryl Inj IV.PUSH Q6H PRN for itching Docusate Sodium 100 mg 04/16/18 21:00 04/22/18 10:00 Colace Liq NG/OG Not Given BID NADINE Enoxaparin Sodium 30 mg 04/16/18 09:00 04/22/18 09:43 Lovenox Inj SQ 30 mg DAILY NADINE Administration Gabapentin 300 mg 04/15/18 21:00 04/22/18 09:45 Neurontin Liq PO 300 mg BID NADINE Administration Glucagon 1 mg 04/16/18 08:33 Glucagon Inj OTHER UNSCH PRN for Hypoglycemia Protocol Sodium Chloride 500 mls @ 30 mls/hr 04/15/18 07:00 04/15/18 07:25 Ns Inj IV.SIG Not Given .Q10H NADINE Magnesium Sulfate 4 gm/ Sodium 100 mls @ 50 mls/hr 04/16/18 08:32 Chloride IV.SIG UNSCH PRN For Magnesium 0.9 - 1.1 mg/dL Magnesium Sulfate 2 gm/ Sodium 100 mls @ 50 mls/hr 04/16/18 08:32 Chloride IV.SIG UNSCH PRN For Magnesium 1.2 - 1.6 mg/dL Potassium Chloride 20 meq in 100 mls @ 50 mls/hr 04/16/18 08:32 Kcl 20 Meq Premix Inj IV.SIG Q2H PRN For Potassium 3.3 - 3.5 mEq/L Potassium Chloride 40 meq in 100 mls @ 25 mls/hr 04/16/18 08:32 Kcl 40 Meq Premix Inj IV.SIG UNSCH PRN For Potassium 3.3 - 3.5 mEq/L Potassium Chloride 20 meq in 100 mls @ 50 mls/hr 04/16/18 08:32 Kcl 20 Meq Premix Inj IV.SIG Q2H PRN For Potassium 2.8 - 3.2 mEq/L Potassium Phosphate 30 mmol/ 260 mls @ 42 mls/hr 04/16/18 08:32 04/17/18 14: 10 Sodium Chloride IV.SIG Infused UNSCH PRN Infusion SEE LABEL COMMENTS Sodium Phosphate 30 mmol/ 260 mls @ 42 mls/hr 04/16/18 08:32 Sodium Chloride IV.SIG UNSCH PRN For Phosphorus < 2.5 mg/dL Potassium Chloride 40 meq in 100 mls @ 50 mls/hr 04/16/18 08:32 04/18/18 00: 42 Kcl 40 Meq Premix Inj IV.SIG Infused Q2H PRN Infusion For Potassium 2.8 - 3.2 mEq/L Hydromorphone/Sodium Chloride 6 mg in 30 mls @ 1.5 mls/hr 04/16/18 09:02 04/01 05:10 Dilaudid Fraud Representative Inj ELECTRICAL HIGH TENSION TESTER 1.5 mls/hr UNSCH PRN Administration per ELECTRICAL HIGH TENSION TESTER parameters 0.3 MG/HR Multivitamins 10 ml/ Folic 2,010.2 mls @ 65 mls/hr 04/16/18 20:00 04/21/18 11 :00 Acid 1 mg/ Amino Acids/ IV.SIG 65 mls/hr Electrolytes Q24H NADINE Administration Fat Emulsion Intravenous 250 mls @ 31.25 mls/hr 04/16/18 20:00 04/22/18 07:00 Intralipid 20% Inj IV.SIG Infused Q24H NADINE Infusion Cefazolin Sodium 1,000 mg/ 100 mls @ 200 mls/hr 04/16/18 21:00 04/22/18 07:00 Sodium Chloride IV.SIG Infused Q8H NADINE Infusion Insulin Aspart 0 unit 04/16/18 12:00 04/22/18 06:39 Novolog Insulin Correctional Sugar Inj SQ Not Given Q6HR [facility] Protocol Labetalol HCl 10 mg 04/18/18 10:09 Trandate Inj IV.PUSH Q1H PRN Sbp>165, Dbp>90, Hr>65 Magnesium Oxide 800 mg 04/16/18 08:32 Mag-Ox PO UNSCH PRN For Magnesium 1.2 - 1.6 mg/dL Naloxone HCl 0.4 mg 04/16/18 09:02 Narcan Inj IV.PUSH PRN PRN SEE LABEL COMMENTS Nitroglycerin 2 inch 04/18/18 10:10 Nitro-Bid 2% Oint TOPICAL Q6HR PRN Sbp>165, Dbp>90 Ondansetron HCl 4 mg 04/15/18 15:26 04/17/18 10:22 Zofran Inj IV.PUSH 04/30/18 23:59 4 mg Q6H PRN Administration MILD NAUSEA Pantoprazole Sodium 40 mg 04/15/18 16:00 04/21/18 17:26 Protonix Inj IV.PUSH 40 mg Q24H NADINE Administration Potassium Bicarb/Potassium Chloride 50 meq 04/16/18 08:32 K-Lyte Cl Eff PO UNSCH PRN For Potassium 3.3 - 3.5 mEq/L Potassium Phosphate 2,000 mg 04/16/18 08:32 K-Phos Original PO Q4H PRN Phosphorus Less Than 2.5 mg/dL Potassium Phosphate 2,000 mg 04/16/18 08:32 K-Phos Original PO UNSCH PRN SEE LABEL COMMENTS Sennosides 8.8 mg 04/16/18 21:00 04/22/18 09:46 Senna Liq NG/OG Not Given BID NADINE Sodium Chloride 2 ml 04/16/18 21:00 04/22/18 09:45 Ns Flush IV.FLUSH 2 ml BID NADINE Administration Sodium Chloride 2 ml 04/16/18 09:14 Ns Flush IV.FLUSH PRN PRN FLUSH AFTER USING IV ACCESS Objective Remarks: CV: RRR Lungs: decreased BS Abd:soft,nd,tender one exam Stoma: pink and viable Dale Pelvic drain: bloody Ext: neg C/C/E 04/17 CV: RRR Lungs: decreased BS Abd:soft,nd,tender Stoma: pink and viable Wound: clean and dry Dale Pelvic drain: bloody Ext: neg C/C/E 04/18 CV: RRR Lungs: CTA Abd:soft,nd,tender Stoma: pink and viable Wound: Dressing intact Dale Pelvic drain: bloody Ext: neg C/C/E 04/19 Abd:soft,nt,nd Dressing intact Stoma: pink and viable Pelvic drain removed at bedside Ext: neg 04/20 Abd:soft,nt,nd Dressing intact Stoma: pink and viable Ext: neg C/C/E 04/21 Abd:soft,nt,nd Stoma: pink and viable Stents in place Wound: clean and dry Ext:neg C/C/E 04/22 Abd:soft,nt,nd Stoma: pink and viable Stents in place Wound: clean and dry Ext:neg C/C/E Assessment and Plan - Plan Stable s/p radical cystectomy with ileal conduit OOB to chair Start TPN 10 Stable s/p radical cystectomy with ileal conduit Continue TPN OOB to chair NGT to gravity drainage Encourage incentive sphirometer 10 Stable s/p radical cystectomy with ileal conduit POD#3 Continue TPN OOB to chair/ambulate NGT to gravity drainage Will d/c pelvic drain in next day or two as drainage continues to decline 04/19 Stable s/p radical cystectomy with ileal conduit POD#4 OOB to chair Pelvic drain removed Continue NGT to gravity Continue TPN Path noted: T3b 04/20 Stable POD#5 s/p radical cystectomy with ileal conduit OOB today/Ambulate Path reviewed with pt today Will plan to remove NGT this Saturday and start clear liquids Continue TPN 04/21 Stable POD#6 s/p radical cystectomy with ileal conduit NGT removed; ice chips today OOB Continue TPN 04/22 Stable POD#7 s/p radical cystectomy with ileal conduit Clear liquid diet D/C ELECTRICAL HIGH TENSION TESTER. Will start PO pain meds. OOB Continue TPN
--- NOTE | 2018-04-22 11:04 | P.PN ---
Subjective Interval history: peer specialist notes: This 62-year-old gentleman underwent cystectomy and ileal conduit construction earlier today. Preoperative CAT scan of the chest and bone marrow scan was negative for metastatic disease. He has a large barrel chest and obvious long- term respiratory problems. The procedure went well and he is normotensive on arrival. He is a present breathing comfortably moving air well. He required 3 units of blood transfusion perioperatively, largely because of an anemia preop. His past medical history is relatively uncomplicated aside from his marginal nutritional status. His only prior surgery is to have the tumor biopsied on a previous cystoscopy. He has been on oral morphine 3 times a day for considerable period of time and it is anticipated that he will be tolerant to pain medicine. For this reason we will use a basal continuous rate of fentanyl to help control his postoperative pain. 04/16: Currently on fentanyl drip at 150 kelsi grams per hour. Complains of abdominal pain with singultus. Ileostomy conduit site good drainage with no active bleeding. Awake and oriented x3. Difficulty moving right lower extremity/adduction 04/17: Resting at side of bed. Still unable to elevate or adduct his right lower extremity. 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 Appears comfortable. Tolerating TPN see orders 04/18: Afebrile. Currently resting in bed in no acute distress. 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 Tolerating TPN. Replacing potassium magnesium today. 04/19: Comfortable in bed and perhaps little drowsy. Urine output acceptable and renal function good. Pain control remains an issue and he may be a little oversedated at this time. He has been a longtime consumer of oral morphine and tends to push the LEASE PURCHASE TRUCK DRIVER button repeatedly. We will follow him closely. Urine culture appears benign. 04/20: Breathing with acceptable comfort. Clears throat well. Protects airway well. Remains suitably hydrated and renal intestines are sluggish as expected but abdomen is not distended. Continue NG tube to intermittent suction. 04/21: Warm and well-perfused, urine output good. Continue to try to light and analgesia and increase mobilization. Hospitalist notes: 04/22: Seen in his bedroom, discussed with patient and nurse Miss aLrsen at this time started on liquid diet asked for Ensure clear will follow recommendations by Urology specialist, no nausea, vomit or diarrhea. Physical Exam Vital signs: Vital Signs 04/21/18 12:00 04/21/18 14:00 04/21/18 16:00 Temperature 98 F 98.2 F Pulse Rate 104 H 93 H 86 Respiratory Rate 20 20 Blood Pressure 118/73 121/75 Pulse Oximetry 97 95 04/21/18 18:00 04/21/18 20:00 04/21/18 22:00 Temperature 98.9 F Pulse Rate 80 86 86 Respiratory Rate 20 Blood Pressure 130/79 Pulse Oximetry 95 04/22/18 00:00 04/22/18 02:00 04/22/18 04:00 Temperature 98.4 F 98.8 F Pulse Rate 80 79 81 Respiratory Rate 17 21 Blood Pressure 127/78 125/72 Pulse Oximetry 94 L 94 L 04/22/18 06:00 04/22/18 06:37 04/22/18 07:56 Temperature Pulse Rate 85 Respiratory Rate 17 Blood Pressure Pulse Oximetry 95 04/22/18 08:00 04/22/18 10:00 Temperature 98.6 F Pulse Rate 79 83 Respiratory Rate Blood Pressure 121/71 Pulse Oximetry 92 L Intake & Output 04/21/18 04/22/18 04/22/18 18:59 06:59 18:59 Intake Total 2460.2 / 2460.2 100 / 100 350 / 350 Output Total 1000 / 1000 825 / 825 Balance 1460.2 / 1460.2 -725 / -725 350 / 350 Weight 49.4 kg Intake: IV 2460.2 / 2460.2 100 / 100 350 / 350 Intralipid 20% Inj 250 ML @ 31. 250 / 250 250 / 250 25 mls/hr IV.SIG Q24H NADINE Rx#: [id number] MVI-12 Inj 10 ML Folvite Inj 1 2010.2 / 2010.2 MG In Clinimix E 5%/D20W Inj 2, 000 ML @ 65 mls/hr IV.SIG Q24H NADINE Rx#:[id number] Ancef Inj 1,000 MG In NS Inj 200 / 200 100 / 100 100 / 100 100 ML @ 200 mls/hr IV.SIG Q8H NADINE Rx#:[id number] Output: Urine Amount (Catheter) 1000 / 1000 825 / 825 Right ileal conduit 1000 / 1000 825 / 825 Other: Date of Last Bowel Movement 04/21/18 04/21/18 04/21/18 # Bowel Movements 1 Narrative: GENERAL: Well-developed patient, in no apparent distress. CARDIOVASCULAR: Regular rate and rhythm without murmurs, gallops, or rubs. RESPIRATORY: Clear to auscultation. Breath sounds equal bilaterally. No wheezes , rales, or rhonchi. GASTROINTESTINAL: Abdomen soft, dressed surgical area. MUSCULOSKELETAL: Extremities without clubbing, cyanosis, or edema. NEURO: Alert & Oriented x4 to person, place, time, situation. Moves all ext x4 GENERAL: This is a well-nourished, well-developed patient, in no apparent distress. CARDIOVASCULAR: Regular rate and rhythm without murmurs, gallops, or rubs. RESPIRATORY: Clear to auscultation. Breath sounds equal bilaterally. No wheezes , rales, or rhonchi. GASTROINTESTINAL: Abdomen soft, non-tender, nondistended. Normal active bowel sounds MUSCULOSKELETAL: Extremities without clubbing, cyanosis, or edema. NEURO: Alert & Oriented x4 to person, place, time, situation. Moves all ext x4 - Urinary Catheter Management Indwelling Urethral Catheter Cath placed during this visit: yes, but has since been removed by the nurse Reason for continuing: Not indwelling catheter Insertion date: 04/15/18 Insertion time: 14:20 Removal date: 04/15/18 Removal time: 13:08 Right ileal conduit Cath placed during this visit: yes Reason for continuing: Not indwelling catheter Insertion date: 04/15/18 Results - Labs CBC & Chem 7: 04/22/18 06:08 04/22/18 06:08 Laboratory Results - last 24 hr 04/18/18 04/21/18 04/22/18 10:00 11:44 00:43 WBC RBC Hgb Hct MCV MCH MCHC RDW Plt Count MPV Sodium Potassium Chloride Carbon Dioxide Anion Gap BUN Creatinine Estimated GFR POC Glucose 158 H 138 H Random Glucose Calcium U Porphobilinogen 24 Hr 0.6 U Collection Duration 24 Urine Total Volume 1700 U Uroporph (Octacarboxy 15 U Heptacarboxylporphyr 4 U Hexacarboxylporphyr Less than 1 U Pentacarboxylporph 24 6 U Coproporphyrin (Tetra 167 Ur Porphyrins Interp 24h . 04/22/18 04/22/1804/22/18 06:08 06:08 06:09 WBC 11.3 H RBC 3.57 L Hgb 9.7 L Hct 29.5 L MCV 82.6 MCH 27.3 MCHC 33.0 RDW 17.0 Plt Count 306 MPV 8.7 Sodium 136 Potassium 3.3 L Chloride 98 Carbon Dioxide 27.6 Anion Gap 10 BUN 14 Creatinine 0.52 L Estimated GFR Greater than 89 POC Glucose 145 H Random Glucose 136 H Calcium 7.7 L U Porphobilinogen 24 Hr U Collection Duration Urine Total Volume U Uroporph (Octacarboxy U Heptacarboxylporphyr U Hexacarboxylporphyr U Pentacarboxylporph 24 U Coproporphyrin (Tetra Ur Porphyrins Interp 24h Assessment and Plan - Plan 1. Chronic Pain syndrome and narcotic dependence Anxiety/Depression Continue Dilaudid, Gabapentin and Oxycodone 2. COPD/Pulmonary Nodule Lung biopsy 2018 revealed inflammatory changes no malignancy oxygen as needed to keep O2 sat over 92%, Bronchodilator, Mucolytic and incentive spirometry 3. Severe Protein Calorie Malnutrition, NPO as per Urology specialist, TPN was started Dietary consult, PPIs for GI prophylaxis, 4. Post operative Day #5 Ileal conduit bilateral urethral stents secondary to high grade urethral cancer T3N0M0 Stage IIIa 5. High grade urethral cancer Stage IIIa, T3N0M0 followed by health care law specialist doctor Reid, Cycles of Cisplatin/gemcitabine, due to Anemia status post blood transfusion of 3 units of PRBCs in OR, 6. Leukocytosis on Cefazolin 1 gram IV every 8 hours, received Ampicillin and Gentamicin in OR Management by Urology specialist. 7. Hypokalemia replaced and following. Physical therapy/occupational therapy evaluate and treat Prophylaxis -GI -pantoprazole -DVT -SCD/enoxaparin Code Status: Full code. Discussed Condition With: patient and nurse Suzie Discharge Planning: as per attending physician.
[2018-04-22] MEDS: HYDROmorphone PF Inj 2 MG/ML Vial IV.PUSH PRN ×3 (11:08→22:10)
[2018-04-22] MEDS: Pantoprazole Inj 40 MG Vial IV.PUSH SCH (16:11)
[2018-04-22] MEDS: Multivitamin Inj 10 ML, Folic Acid Inj 1 MG in AA 5%/D20W - Electrolytes 2,000 ML IV.SIG SCH (21:10)
[2018-04-23] MEDS: Insulin NovoLOG Aspart Correctional Sugar Inj SQ SCH ×4 (01:24→17:19)
[2018-04-23] MEDS: HYDROmorphone PF Inj 2 MG/ML Vial IV.PUSH PRN ×5 (02:12→20:28)
[2018-04-23 05:12] LABS: Anion Gap 10 meq/L (5-15); Blood Urea Nitrogen 14 mg/dL (7-18); Calcium 8.1 mg/dL (8.5-10.1); Carbon Dioxide 28.4 meq/L (21.0-32.0); Chloride 99 meq/L (98-107); Glomerular Filtration Rate Greater Than 89 mL/min (>89); Glucose,Random 114 mg/dL (74-106); Magnesium 2.3 mg/dL (1.5-2.5); Phosphorus 2.9 mg/dL (2.5-4.9); Potassium 3.4 meq/L (3.5-5.1); Sodium 137 meq/L (136-145)
[2018-04-23 05:14] LABS: Hematocrit 29.5 % (39.0-51.0); Hemoglobin 9.8 gm/dL (13.0-17.0); Mean Corpuscular HGB Conc 33.3 % (32.0-36.0); Mean Corpuscular Hemoglobin 27.8 pg (27.0-34.0); Mean Corpuscular Volume 83.3 fL (80.0-100.0); Mean Platelet Volume 9.2 fL (7.0-11.0); Platelet Count 304 th/mm3 (150-450); Red Blood Count 3.54 mil/mm3 (4.50-5.90); Red Cell Distribution Width 17.3 % (11.6-17.2); White Blood Count 13.6 th/mm3 (4.0-11.0)
[2018-04-23] MEDS: Enoxaparin Inj 30 MG/0.3 ML Syringe SQ SCH (08:40)
[2018-04-23] MEDS: Gabapentin Liq 250 MG/5 ML UDC PO SCH ×2 (08:40→20:29)
[2018-04-23] MEDS: Sennosides Liq 8.8 MG/5 ML UDC NG/OG SCH ×2 (08:41→22:28)
[2018-04-23] MEDS: Docusate Sodium Liq 100 MG/10 ML UDC NG/OG SCH ×2 (08:41→20:29)
[2018-04-23] MEDS: Sodium Chloride 0.9% 2 ML Flush BID IV.FLUSH SCH ×2 (08:41→20:29)
--- NOTE | 2018-04-23 08:49 | P.PNURO ---
Subjective Patient symptoms today: Pt seen and examined. Pt not getting OOB/Ambulating according to staff. Objective Vital Signs: Vital Signs 04/22/18 10:00 04/22/18 12:00 04/22/18 14:00 Temperature 98.2 F Pulse Rate 83 98 H 96 H Respiratory Rate Blood Pressure 130/81 Pulse Oximetry 93 L 04/22/18 16:00 04/22/18 18:00 04/22/18 19:00 Temperature 98.8 F Pulse Rate 78 79 Respiratory Rate Blood Pressure 116/73 Pulse Oximetry 97 95 04/22/18 20:00 04/22/18 22:00 04/22/18 22:56 Temperature 99.3 F Pulse Rate 83 80 Respiratory Rate 24 15 Blood Pressure 125/72 Pulse Oximetry 98 04/23/18 00:00 04/23/18 02:00 04/23/18 04:00 Temperature 97.7 F 98.1 F Pulse Rate 73 73 84 Respiratory Rate 19 21 Blood Pressure 137/75 121/72 Pulse Oximetry 95 98 04/23/18 04:58 04/23/18 06:00 04/23/18 07:54 Temperature Pulse Rate 76 Respiratory Rate 22 Blood Pressure Pulse Oximetry 97 Intake & Output 04/22/18 04/23/18 04/23/18 18:59 06:59 18:59 Intake Total 2680.2 / 2680.2 580 / 580 250 / 250 Output Total 950 / 950 900 / 900 Balance 1730.2 / 1730.2 -320 / -320 250 / 250 Weight 49.2 kg Intake: IV 2560.2 / 2560.2 100 / 100 250 / 250 Intralipid 20% Inj 250 ML @ 31. 250 / 250 250 / 250 25 mls/hr IV.SIG Q24H NADINE Rx#: [id number] MVI-12 Inj 10 ML Folvite Inj 1 2009.2 / 2010.2 MG In Clinimix E 5%/D20W Inj 2, 000 ML @ 65 mls/hr IV.SIG Q24H NADINE Rx#:[id number] KCl 40 mEq Premix Inj 40 meq In 100 / 100 100 ml @ 25 mls/hr IV.SIG UNSCH PRN Rx#:[id number] Ancef Inj 1,000 MG In NS Inj 200 / 200 100 / 100 100 ML @ 200 mls/hr IV.SIG Q8H NADINE Rx#:[id number] Oral 120 / 120 480 / 480 Output: Urine Amount (Catheter) 950 / 950 900 / 900 Right ileal conduit 950 / 950 900 / 900 Other: Date of Last Bowel Movement 04/21/18 04/21/18 # Bowel Movements 0 Result Diagrams: 04/23/18 04:32 04/23/18 04:32 Medications and IVs: Active Medications Generic Name Dose Route Start Last Admin Trade Name Freq PRN Reason Stop Dose Admin Acetaminophen 650 mg 04/16/18 08:55 Tylenol Liq PO Q6H PRN FEVER Albuterol 2.5 mg 04/16/18 08:54 Albuterol Neb (Prn) NEB Q2HR NEB PRN DYSPNEA Dextrose 50 ml 04/16/18 08:33 D50w Vial IV.PUSH UNSCH PRN PER HYPOGLYCEMIA PROTOCOL Diphenhydramine HCl 25 mg 04/16/18 09:02 Benadryl Inj IV.PUSH Q6H PRN for itching Docusate Sodium 100 mg 04/16/18 21:00 04/23/18 08:41 Colace Liq NG/OG Not Given BID NADINE Enoxaparin Sodium 30 mg 04/16/18 09:00 04/23/18 08:40 Lovenox Inj SQ 30 mg DAILY NADINE Administration Gabapentin 300 mg 04/15/18 21:00 04/23/18 08:40 Neurontin Liq PO 300 mg BID NADINE Administration Glucagon 1 mg 04/16/18 08:33 Glucagon Inj OTHER UNSCH PRN for Hypoglycemia Protocol Hydromorphone HCl 2 mg 04/22/18 10:58 04/23/18 06:24 Dilaudid Pf Inj IV.PUSH 2 mg Q4H PRN Administration ABDOMINAL PAIN Sodium Chloride 500 mls @ 30 mls/hr 04/15/18 07:00 04/15/18 07:25 Ns Inj IV.SIG Not Given .Q10H NADINE Magnesium Sulfate 4 gm/ Sodium 100 mls @ 50 mls/hr 04/16/18 08:32 Chloride IV.SIG UNSCH PRN For Magnesium 0.9 - 1.1 mg/dL Magnesium Sulfate 2 gm/ Sodium 100 mls @ 50 mls/hr 04/16/18 08:32 Chloride IV.SIG UNSCH PRN For Magnesium 1.2 - 1.6 mg/dL Potassium Chloride 20 meq in 100 mls @ 50 mls/hr 04/16/18 08:32 Kcl 20 Meq Premix Inj IV.SIG Q2H PRN For Potassium 3.3 - 3.5 mEq/L Potassium Chloride 40 meq in 100 mls @ 25 mls/hr 04/16/18 08:32 04/22/18 15: 08 Kcl 40 Meq Premix Inj IV.SIG Infused UNSCH PRN Infusion For Potassium 3.3 - 3.5 mEq/L Potassium Chloride 20 meq in 100 mls @ 50 mls/hr 04/16/18 08:32 Kcl 20 Meq Premix Inj IV.SIG Q2H PRN For Potassium 2.8 - 3.2 mEq/L Potassium Phosphate 30 mmol/ 260 mls @ 42 mls/hr 04/16/18 08:32 04/17/18 14: 10 Sodium Chloride IV.SIG Infused UNSCH PRN Infusion SEE LABEL COMMENTS Sodium Phosphate 30 mmol/ 260 mls @ 42 mls/hr 04/16/18 08:32 Sodium Chloride IV.SIG UNSCH PRN For Phosphorus < 2.5 mg/dL Potassium Chloride 40 meq in 100 mls @ 50 mls/hr 04/16/18 08:32 04/18/18 00: 42 Kcl 40 Meq Premix Inj IV.SIG Infused Q2H PRN Infusion For Potassium 2.8 - 3.2 mEq/L Multivitamins 10 ml/ Folic 2,010.2 mls @ 65 mls/hr 04/16/18 20:00 04/23/18 07 :11 Acid 1 mg/ Amino Acids/ IV.SIG 20 mls/hr Electrolytes Q24H NADINE Infusion Fat Emulsion Intravenous 250 mls @ 31.25 mls/hr 04/16/18 20:00 04/23/18 07:11 Intralipid 20% Inj IV.SIG Infused Q24H NADINE Infusion Sodium Chloride 154 meq/ 1,038.5 mls @ 50 mls/hr 04/23/18 07:00 Dextrose IV.CONT .[id number] [facility] Insulin Aspart 0 unit 04/16/18 12:00 04/23/18 06:42 Novolog Insulin Correctional Sugar Inj SQ Not Given Q6HR [facility] Protocol Labetalol HCl 10 mg 04/18/18 10:09 Trandate Inj IV.PUSH Q1H PRN Sbp>165, Dbp>90, Hr>65 Magnesium Oxide 800 mg 04/16/18 08:32 Mag-Ox PO UNSCH PRN For Magnesium 1.2 - 1.6 mg/dL Naloxone HCl 0.4 mg 04/16/18 09:02 Narcan Inj IV.PUSH PRN PRN SEE LABEL COMMENTS Nitroglycerin 2 inch 04/18/18 10:10 Nitro-Bid 2% Oint TOPICAL Q6HR PRN Sbp>165, Dbp>90 Ondansetron HCl 4 mg 04/15/18 15:26 04/17/18 10:22 Zofran Inj IV.PUSH 04/30/18 23:59 4 mg Q6H PRN Administration MILD NAUSEA Oxycodone/Acetaminophen 1 tab 04/22/18 12:00 04/23/18 08:41 Percocet 7.5/325 Mg PO 1 tab Q4H PRN Administration ABDOMINAL PAIN Pantoprazole Sodium 40 mg 04/15/18 16:00 04/22/18 16:11 Protonix Inj IV.PUSH 40 mg Q24H NADINE Administration Potassium Bicarb/Potassium Chloride 50 meq 04/16/18 08:32 K-Lyte Cl Eff PO UNSCH PRN For Potassium 3.3 - 3.5 mEq/L Potassium Phosphate 2,000 mg 04/16/18 08:32 K-Phos Original PO Q4H PRN Phosphorus Less Than 2.5 mg/dL Potassium Phosphate 2,000 mg 04/16/18 08:32 K-Phos Original PO UNSCH PRN SEE LABEL COMMENTS Sennosides 8.8 mg 04/16/18 21:00 04/23/18 08:41 Senna Liq NG/OG Not Given BID NADINE Sodium Chloride 2 ml 04/16/18 21:00 04/23/18 08:41 Ns Flush IV.FLUSH 2 ml BID NADINE Administration Sodium Chloride 2 ml 04/16/18 09:14 Ns Flush IV.FLUSH PRN PRN FLUSH AFTER USING IV ACCESS Objective Remarks: CV: RRR Lungs: decreased BS Abd:soft,nd,tender one exam Stoma: pink and viable Dale Pelvic drain: bloody Ext: neg C/C/E 04/17 CV: RRR Lungs: decreased BS Abd:soft,nd,tender Stoma: pink and viable Wound: clean and dry Dale Pelvic drain: bloody Ext: neg C/C/E 04/18 CV: RRR Lungs: CTA Abd:soft,nd,tender Stoma: pink and viable Wound: Dressing intact Dale Pelvic drain: bloody Ext: neg C/C/E 04/19 Abd:soft,nt,nd Dressing intact Stoma: pink and viable Pelvic drain removed at bedside Ext: neg 04/20 Abd:soft,nt,nd Dressing intact Stoma: pink and viable Ext: neg C/C/E 04/21 Abd:soft,nt,nd Stoma: pink and viable Stents in place Wound: clean and dry Ext:neg C/C/E 04/22 Abd:soft,nt,nd Stoma: pink and viable Stents in place Wound: clean and dry Ext:neg C/C/E 04/23 Abd:soft,nt,nd Stoma: pink and viable Stents in place Wound: clean and dry Ext:neg C/C/E Assessment and Plan - Plan Stable s/p radical cystectomy with ileal conduit OOB to chair Start TPN 10 Stable s/p radical cystectomy with ileal conduit Continue TPN OOB to chair NGT to gravity drainage Encourage incentive sphirometer 04/18 Stable s/p radical cystectomy with ileal conduit POD#3 Continue TPN OOB to chair/ambulate NGT to gravity drainage Will d/c pelvic drain in next day or two as drainage continues to decline 04/19 Stable s/p radical cystectomy with ileal conduit POD#4 OOB to chair Pelvic drain removed Continue NGT to gravity Continue TPN Path noted: T3b 04/20 Stable POD#5 s/p radical cystectomy with ileal conduit OOB today/Ambulate Path reviewed with pt today Will plan to remove NGT this Saturday and start clear liquids Continue TPN 04/21 Stable POD#6 s/p radical cystectomy with ileal conduit NGT removed; ice chips today OOB Continue TPN 04/22 Stable POD#7 s/p radical cystectomy with ileal conduit Clear liquid diet D/C [facility]. Will start PO pain meds. OOB Continue TPN 04/23 Stable POD#8 s/p radical cystectomy with ileal conduit Regular diet OOB Ween off TPN
[2018-04-23] MEDS: Sodium Chloride 23.4% Inj 154 MEQ in Dextrose 10% in Water Inj 1,000 ML IV.CONT SCH ×2 (09:34)
--- NOTE | 2018-04-23 14:15 | P.PN ---
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 Preoperative CAT scan of the chest and bone marrow scan was negative for metastatic disease. He has a large barrel chest and obvious long- term respiratory problems. The procedure went well and he is normotensive on arrival. He is a present breathing comfortably moving air well. He required 3 units of blood transfusion perioperatively, largely because of an anemia preop. His past medical history is relatively uncomplicated aside from his marginal nutritional status. His only prior surgery is to have the tumor biopsied on a previous cystoscopy. He has been on oral morphine 3 times a day for considerable period of time and it is anticipated that he will be tolerant to pain medicine. For this reason we will use a basal continuous rate of fentanyl to help control his postoperative pain. 04/16: Currently on fentanyl drip at 150 kelsi grams per hour. Complains of abdominal pain with singultus. Ileostomy conduit site good drainage with no active bleeding. Awake and oriented x3. Difficulty moving right lower extremity/adduction 04/17: Resting at side of bed. Still unable to elevate or adduct his right lower extremity. Tolerating the hydromorphone ORIENTAL RUG STRETCHER with a basal rate 0.2 mg an hour. Appears comfortable. Tolerating TPN see orders 04/18: Afebrile. Currently resting in bed in no acute distress. Remains on hydromorphone ORIENTAL RUG STRETCHER. Tolerating TPN. Replacing potassium magnesium today. 04/19: Comfortable in bed and perhaps little drowsy. Urine output acceptable and renal function good. Pain control remains an issue and he may be a little oversedated at this time. He has been a longtime consumer of oral morphine and tends to push the ORIENTAL RUG STRETCHER button repeatedly. We will follow him closely. Urine culture appears benign. 04/20: Breathing with acceptable comfort. Clears throat well. Protects airway well. Remains suitably hydrated and renal intestines are sluggish as expected but abdomen is not distended. Continue NG tube to intermittent suction. 04/21: Warm and well-perfused, urine output good. Continue to try to light and analgesia and increase mobilization. Hospitalist notes: 04/22: Seen in his bedroom, discussed with patient and nurse Miss Larsen at this time started on liquid diet asked for Ensure clear will follow recommendations by Urology specialist.1 04/23: Seen by his Attending physician POD#8 status post Radical cystectomy with ileal conduit, recommended to start Regular diet and Wean off TPN. Seen in his bedroom and discussed with nurse eating without difficulty. no nausea, vomit or diarrhea. Physical Exam Vital signs: Vital Signs 04/22/18 14:46 04/22/18 15:00 04/22/18 16:00 Temperature 98.8 F Pulse Rate 86 84 78 Respiratory Rate 22 21 23 Blood Pressure 103/66 105/67 116/73 Pulse Oximetry 95 93 L 97 04/22/18 17:00 04/22/18 18:00 04/22/18 19:00 Temperature Pulse Rate 77 82 89 Respiratory Rate 24 25 H 25 H Blood Pressure 119/71 119/71 129/68 Pulse Oximetry 96 97 98 04/22/18 20:00 04/22/18 21:00 04/22/18 22:00 Temperature 99.3 F Pulse Rate 84 81 76 Respiratory Rate 24 24 22 Blood Pressure 125/72 116/65 124/69 Pulse Oximetry 98 95 95 04/22/18 22:56 04/22/18 23:00 04/23/18 00:00 Temperature 97.7 F Pulse Rate 71 78 Respiratory Rate 15 18 20 Blood Pressure 128/67 137/75 Pulse Oximetry 96 97 04/23/18 01:00 04/23/18 02:00 04/23/18 03:00 Temperature Pulse Rate 71 71 68 Respiratory Rate 18 19 17 Blood Pressure 145/69 H 141/80 H 166/77 H Pulse Oximetry 96 98 97 04/23/18 03:14 04/23/18 04:00 04/23/18 04:58 Temperature 98.1 F Pulse Rate 70 79 Respiratory Rate 19 21 22 Blood Pressure 127/78 121/72 Pulse Oximetry 96 98 04/23/18 05:00 04/23/18 06:00 04/23/18 07:00 Temperature Pulse Rate 82 78 77 Respiratory Rate 21 23 24 Blood Pressure 134/74 135/74 123/74 Pulse Oximetry 97 98 96 04/23/18 07:54 04/23/18 08:00 04/23/18 09:00 Temperature Pulse Rate 77 79 Respiratory Rate 27 H 20 Blood Pressure 130/76 121/72 Pulse Oximetry 97 98 96 04/23/18 10:00 04/23/18 11:00 Temperature Pulse Rate 75 97 H Respiratory Rate 22 22 Blood Pressure 120/72 129/77 Pulse Oximetry 97 99 Intake & Output 04/22/18 04/23/18 04/23/18 18:59 06:59 18:59 Intake Total 2680.2 / 2680.2 580 / 580 250 / 250 Output Total 950 / 950 900 / 900 Balance 1730.2 / 1730.2 -320 / -320 250 / 250 Weight 49.2 kg Intake: IV 2560.2 / 2560.2 100 / 100 250 / 250 Intralipid 20% Inj 250 ML @ 31. 250 / 250 250 / 250 25 mls/hr IV.SIG Q24H [facility] Rx#: [id number] MVI-12 Inj 10 ML Folvite Inj 1 2010.2 / 2010.2 MG In Clinimix E 5%/D20W Inj 2, 000 ML @ 65 mls/hr IV.SIG Q24H [facility] Rx#:[id number] KCl 40 mEq Premix Inj 40 meq In 100 / 100 100 ml @ 25 mls/hr IV.SIG UNSCH PRN Rx#:[id number] Ancef Inj 1,000 MG In NS Inj 200 / 200 100 / 100 100 ML @ 200 mls/hr IV.SIG Q8H [facility] Rx#:[id number] Oral 120 / 120 480 / 480 Output: Urine Amount (Catheter) 950 / 950 900 / 900 Right ileal conduit 950 / 950 900 / 900 Other: Date of Last Bowel Movement 04/21/18 04/21/18 04/21/18 # Bowel Movements 0 Narrative: GENERAL: This is a well-nourished, well-developed patient, in no apparent distress. CARDIOVASCULAR: Regular rate and rhythm without murmurs, gallops, or rubs. RESPIRATORY: Clear to auscultation. Breath sounds equal bilaterally. No wheezes , rales, or rhonchi. GASTROINTESTINAL: Abdomen soft, clean surgical wound. MUSCULOSKELETAL: Extremities without clubbing, cyanosis, or edema. NEURO: Alert & Oriented x4 to person, place, time, situation. Moves all ext x4 - Urinary Catheter Management Indwelling Urethral Catheter Cath placed during this visit: yes, but has since been removed by the nurse Reason for continuing: Not indwelling catheter Insertion date: 04/15/18 Insertion time: 14:20 Removal date: 04/15/18 Removal time: 13:08 Right ileal conduit Cath placed during this visit: yes Reason for continuing: Not indwelling catheter Insertion date: 04/15/18 Results - Labs CBC & Chem 7: 04/23/18 04:32 04/23/18 04:32 Laboratory Results - last 24 hr 04/22/18 04/22/18 04/23/18 17:50 23:45 00:00 WBC RBC Hgb Hct MCV MCH MCHC RDW Plt Count MPV Sodium Potassium 3.7 Chloride Carbon Dioxide Anion Gap BUN Creatinine Estimated GFR POC Glucose 158 H 133 H Random Glucose Calcium Phosphorus Magnesium 04/23/18 04/23/18 04/23/18 04:32 04:32 06:40 WBC 13.6 H RBC 3.54 L Hgb 9.8 L Hct 29.5 L MCV 83.3 MCH 27.8 MCHC 33.3 RDW 17.3 H Plt Count 304 MPV 9.2 Sodium 137 Potassium 3.4 L Chloride 99 Carbon Dioxide 28.4 Anion Gap 10 BUN 14 Creatinine 0.61 Estimated GFR Greater than 89 POC Glucose 108 Random Glucose 114 H Calcium 8.1 L Phosphorus 2.9 Magnesium 2.3 Assessment and Plan - Plan 1. Chronic Pain syndrome and narcotic dependence Anxiety/Depression Continue Dilaudid, Gabapentin and Oxycodone 2. COPD/Pulmonary Nodule Lung biopsy 2018 revealed inflammatory changes no malignancy oxygen as needed to keep O2 sat over 92%, Bronchodilator, Mucolytic and incentive spirometry 3. Severe Protein Calorie Malnutrition, NPO as per Urology specialist, stopped TPN and started on Regular diet. PPI continue. 4. Post operative Day #8 Ileal conduit bilateral urethral stents secondary to high grade urethral cancer T3N0M0 Stage IIIa 5. High grade urethral cancer Stage IIIa, T3N0M0 followed by cryptologic support specialist doctor Reid, Cycles of Cisplatin/gemcitabine, due to Anemia status post blood transfusion of 3 units of PRBCs in OR, 6. Leukocytosis on Cefazolin 1 gram IV every 8 hours, received Ampicillin and Gentamicin in OR Management by Urology specialist. now off antibiotics. 7. Hypokalemia replaced and following. Physical therapy/occupational therapy evaluate and treat Prophylaxis -GI -pantoprazole -DVT -SCD/enoxaparin Code Status: Full Code. Discussed Condition With: patient and nurse Discharge Planning: as per attending physician.
[2018-04-23 15:23] LABS: Collection Duration Porphyrins 24 h; Coproporphyrin, Tetra 412 nmol/24 h (<=230); Heptacarboxylporphryins 5 nmol/24 h (<=9); Hexacarboxylporphryins 2 nmol/24 h (<=8); Urine Volume Porphyrins 1950 mL; Uroporphyrin, Octa 19 nmol/24 h (<=30)
[2018-04-23] MEDS: Pantoprazole Inj 40 MG Vial IV.PUSH SCH (17:29)
[2018-04-23] MEDS: Multivitamin Inj 10 ML, Folic Acid Inj 1 MG in AA 5%/D20W - Electrolytes 2,000 ML IV.SIG SCH (22:27)
[2018-04-24] MEDS: Insulin NovoLOG Aspart Correctional Sugar Inj SQ SCH ×5 (01:24→23:54)
[2018-04-24] MEDS: HYDROmorphone PF Inj 2 MG/ML Vial IV.PUSH PRN ×5 (02:48→21:25)
[2018-04-24] MEDS: Sodium Chloride 23.4% Inj 154 MEQ in Dextrose 10% in Water Inj 1,000 ML IV.CONT SCH ×2 (05:19)
[2018-04-24 06:30] LABS: Anion Gap 11 meq/L (5-15); Blood Urea Nitrogen 13 mg/dL (7-18); Carbon Dioxide 24.9 meq/L (21.0-32.0); Chloride 103 meq/L (98-107); Glomerular Filtration Rate Greater Than 89 mL/min (>89); Glucose,Random 103 mg/dL (74-106); Magnesium 2.2 mg/dL (1.5-2.5); Potassium 4.3 meq/L (3.5-5.1); Sodium 139 meq/L (136-145)
[2018-04-24] MEDS: Gabapentin Liq 250 MG/5 ML UDC PO SCH (08:20)
[2018-04-24] MEDS: Sennosides Liq 8.8 MG/5 ML UDC NG/OG SCH ×2 (08:21→20:29)
[2018-04-24] MEDS: Sodium Chloride 0.9% 2 ML Flush BID IV.FLUSH SCH ×2 (08:21→21:25)
[2018-04-24] MEDS: Enoxaparin Inj 30 MG/0.3 ML Syringe SQ SCH (08:21)
[2018-04-24] MEDS: Docusate Sodium Liq 100 MG/10 ML UDC NG/OG SCH ×2 (08:22→20:28)
--- NOTE | 2018-04-24 08:46 | P.PN ---
Subjective Interval history: help desk support specialist notes: This 62-year-old gentleman underwent cystectomy and ileal conduit construction earlier today. Preoperative CAT scan of the chest and bone marrow scan was negative for metastatic disease. He has a large barrel chest and obvious long- term respiratory problems. The procedure went well and he is normotensive on arrival. He is a present breathing comfortably moving air well. He required 3 units of blood transfusion perioperatively, largely because of an anemia preop. His past medical history is relatively uncomplicated aside from his marginal nutritional status. His only prior surgery is to have the tumor biopsied on a previous cystoscopy. He has been on oral morphine 3 times a day for considerable period of time and it is anticipated that he will be tolerant to pain medicine. For this reason we will use a basal continuous rate of fentanyl to help control his postoperative pain. 04/16: Currently on fentanyl drip at 150 kelsi grams per hour. Complains of abdominal pain with singultus. Ileostomy conduit site good drainage with no active bleeding. Awake and oriented x3. Difficulty moving right lower extremity/adduction 04/17: Resting at side of bed. Still unable to elevate or adduct his right lower extremity. Tolerating the hydromorphone SLIP COVER ESTIMATOR with a basal rate 0.2 mg an hour. Appears comfortable. Tolerating TPN see orders 04/18: Afebrile. Currently resting in bed in no acute distress. Remains on hydromorphone SLIP COVER ESTIMATOR. Tolerating TPN. Replacing potassium magnesium today. 04/19: Comfortable in bed and perhaps little drowsy. Urine output acceptable and renal function good. Pain control remains an issue and he may be a little oversedated at this time. He has been a longtime consumer of oral morphine and tends to push the SLIP COVER ESTIMATOR button repeatedly. We will follow him closely. Urine culture appears benign. 04/20: Breathing with acceptable comfort. Clears throat well. Protects airway well. Remains suitably hydrated and renal intestines are sluggish as expected but abdomen is not distended. Continue NG tube to intermittent suction. 04/21: Warm and well-perfused, urine output good. Continue to try to light and analgesia and increase mobilization. Hospitalist notes: 04/22: Seen in his bedroom, discussed with patient and nurse Miss Larsen at this time started on liquid diet asked for Ensure clear will follow recommendations by Urology specialist.1 04/23: Seen by his Attending physician POD#8 status post Radical cystectomy with ileal conduit, recommended to start Regular diet and Wean off TPN. Seen in his bedroom and discussed with nurse eating without difficulty. 04/24: Seen in his bedroom discussed with nurse Miss Rebecca govea to switch his Gabapentin to Capsules, no nausea, vomit or diarrhea tolerating well his diet. Physical Exam Vital signs: Vital Signs 04/23/18 09:00 04/23/18 10:00 04/23/18 11:00 Temperature Pulse Rate 79 75 97 H Respiratory Rate 20 22 22 Blood Pressure 121/72 120/72 129/77 Pulse Oximetry 96 97 99 04/23/18 12:00 04/23/18 13:00 04/23/18 14:00 Temperature Pulse Rate 91 H 91 H 87 Respiratory Rate 24 24 20 Blood Pressure 115/76 116/78 123/77 Pulse Oximetry 97 96 96 04/23/18 15:00 04/23/18 16:00 04/23/18 17:00 Temperature Pulse Rate 85 80 81 Respiratory Rate 29 H 21 23 Blood Pressure 114/69 115/70 124/70 Pulse Oximetry 98 96 96 04/23/18 18:00 04/23/18 20:00 04/23/18 20:44 Temperature 98.3 F Pulse Rate 83 77 Respiratory Rate 25 H 25 H Blood Pressure 118/70 130/73 Pulse Oximetry 96 98 96 04/23/18 22:00 04/24/18 00:00 04/24/18 02:00 Temperature 98.2 F Pulse Rate 80 79 76 Respiratory Rate 24 Blood Pressure 113/67 Pulse Oximetry 96 04/24/18 04:00 04/24/18 06:00 04/24/18 08:00 Temperature 98.2 F Pulse Rate 78 78 Respiratory Rate 22 Blood Pressure 155/71 H Pulse Oximetry 98 97 Intake & Output 04/23/18 04/24/18 04/24/18 18:59 06:59 18:59 Intake Total 4450 / 4450 1240 / 1240 Output Total 3975 / 3975 650 / 650 Balance 475 / 475 590 / 590 Weight 48.8 kg Intake: IV 250 / 250 1000 / 1000 Sodium Chloride 23.4% Inj 154 1000 / 1000 MEQ In D10W Inj 1,000 ML @ 50 mls/hr IV.CONT .[id number] [facility] Rx# :[id number] Intralipid 20% Inj 250 ML @ 31. 250 / 250 25 mls/hr IV.SIG Q24H [facility] Rx#: [id number] Oral 480 / 480 240 / 240 Water Bolus Amount 20 / Anesthesia Amount 3700 / 3700 Output: Urine 500 / 500 Estimated Blood Loss 450 / 450 Urine Amount (Catheter) 900 / 900 Right ileal conduit 900 / 900 Urine Amount (Stoma) 2099 / 2100 650 / 650 Ileal Conduit Right 2099 / 2099 650 / 650 Wound Drainage Pelvic Drain Other: Date of Last Bowel Movement 04/21/18 04/24/18 # Bowel Movements 0 2 Narrative: GENERAL: This is a well-nourished, well-developed patient, in no apparent distress. CARDIOVASCULAR: Regular rate and rhythm without murmurs, gallops, or rubs. RESPIRATORY: Clear to auscultation. Breath sounds equal bilaterally. No wheezes , rales, or rhonchi. GASTROINTESTINAL: Abdomen soft, clean surgical wound. MUSCULOSKELETAL: Extremities without clubbing, cyanosis, or edema. NEURO: Alert & Oriented x4 to person, place, time, situation. Moves all ext x4 - Urinary Catheter Management Indwelling Urethral Catheter Cath placed during this visit: yes, but has since been removed by the nurse Reason for continuing: Not indwelling catheter Insertion date: 04/15/18 Insertion time: 14:20 Removal date: 04/15/18 Removal time: 13:08 Right ileal conduit Cath placed during this visit: yes Reason for continuing: Not indwelling catheter Insertion date: 04/15/18 Results - Labs CBC & Chem 7: 04/23/18 04:32 04/24/18 05:07 Laboratory Results - last 24 hr 04/19/18 04/24/18 04/24/18 16:48 00:57 05:07 Sodium 139 Potassium 4.3 D Chloride 103 Carbon Dioxide 24.9 Anion Gap 11 BUN 13 Creatinine 0.57 L Estimated GFR Greater than 89 POC Glucose 101 Random Glucose 103 Calcium 8.0 L Phosphorus 3.0 Magnesium 2.2 U Porphobilinogen 24 Hr 0.8 U Collection Duration 24 Urine Total Volume 1950 U Uroporph (Octacarboxy 19 U Heptacarboxylporphyr 5 U Hexacarboxylporphyr 2 U Pentacarboxylporph 24 11 H U Coproporphyrin (Tetra 412 H Ur Porphyrins Interp 24h . 04/24/18 05:39 Sodium Potassium Chloride Carbon Dioxide Anion Gap BUN Creatinine Estimated GFR POC Glucose 110 Random Glucose Calcium Phosphorus Magnesium U Porphobilinogen 24 Hr U Collection Duration Urine Total Volume U Uroporph (Octacarboxy U Heptacarboxylporphyr U Hexacarboxylporphyr U Pentacarboxylporph 24 U Coproporphyrin (Tetra Ur Porphyrins Interp 24h Assessment and Plan - Plan 1. Chronic Pain syndrome and narcotic dependence Anxiety/Depression Continue Dilaudid, Gabapentin and Oxycodone, gabapentin to Capsules again. 2. COPD/Pulmonary Nodule Lung biopsy 2018 revealed inflammatory changes no malignancy oxygen as needed to keep O2 sat over 92%, Bronchodilator, Mucolytic and incentive spirometry 3. Severe Protein Calorie Malnutrition, NPO as per Urology specialist, stopped TPN and started on Regular diet. PPI continue. 4. Post operative Day #9 Ileal conduit bilateral urethral stents secondary to high grade urethral cancer T3N0M0 Stage IIIa, removed TPA. 5. High grade urethral cancer Stage IIIa, T3N0M0 followed by technical operations specialist doctor Reid, Cycles of Cisplatin/gemcitabine, due to Anemia status post blood transfusion of 3 units of PRBCs in OR, 6. Leukocytosis on Cefazolin 1 gram IV every 8 hours, received Ampicillin and Gentamicin in OR Management by Urology specialist. now off antibiotics. 7. Hypokalemia replaced Physical therapy/occupational therapy evaluate and treat Prophylaxis -GI -pantoprazole -DVT -SCD/enoxaparin Code Status: Full Code Discussed Condition With: Patient and Nurse Rebecca Discharge Planning: as per attending physician.
--- NOTE | 2018-04-24 11:12 | P.PNURO ---
Subjective Patient symptoms today: Pt seen and examined. OOB in chair. c/o feeling weak. Not motivated. Objective Vital Signs: Vital Signs 04/23/18 12:00 04/23/18 13:00 04/23/18 14:00 Temperature Pulse Rate 91 H 91 H 87 Respiratory Rate 24 24 20 Blood Pressure 115/76 116/78 123/77 Pulse Oximetry 97 96 96 04/23/18 15:00 04/23/18 16:00 04/23/18 17:00 Temperature Pulse Rate 85 80 81 Respiratory Rate 29 H 21 23 Blood Pressure 114/69 115/70 124/70 Pulse Oximetry 98 96 96 04/23/18 18:00 04/23/18 20:00 04/23/18 20:44 Temperature 98.3 F Pulse Rate 83 77 Respiratory Rate 25 H 25 H Blood Pressure 118/70 130/73 Pulse Oximetry 96 98 96 04/23/18 22:00 04/24/18 00:00 04/24/18 02:00 Temperature 98.2 F Pulse Rate 80 79 76 Respiratory Rate 24 Blood Pressure 113/67 Pulse Oximetry 96 04/24/18 04:00 04/24/18 06:00 04/24/18 08:00 Temperature 98.2 F 98.8 F Pulse Rate 78 78 72 Respiratory Rate 22 22 Blood Pressure 155/71 H 119/67 Pulse Oximetry 98 96 04/24/18 10:00 Temperature Pulse Rate 70 Respiratory Rate Blood Pressure Pulse Oximetry Intake & Output 04/23/18 04/24/18 04/24/18 18:59 06:59 18:59 Intake Total 4450 / 4450 1240 / 1240 Output Total 3975 / 3975 650 / 650 Balance 475 / 475 590 / 590 Weight 48.8 kg Intake: IV 250 / 250 1000 / 1000 Sodium Chloride 23.4% Inj 154 1000 / 1000 MEQ In D10W Inj 1,000 ML @ 50 mls/hr IV.CONT .[id number] [facility] Rx# :[id number] Intralipid 20% Inj 250 ML @ 31. 250 / 250 25 mls/hr IV.SIG Q24H [facility] Rx#: [id number] Oral 480 / 480 240 / 240 Water Bolus Amount 20 / 20 Anesthesia Amount 3700 / 3700 Output: Urine 500 / 500 Estimated Blood Loss 450 / 450 Urine Amount (Catheter) 900 / 900 Right ileal conduit 900 / 900 Urine Amount (Stoma) 2100 / 2100 650 / 650 Ileal Conduit Right 2099 650 / 650 Wound Drainage Pelvic Drain Other: Date of Last Bowel Movement 04/21/18 04/24/18 04/24/18 # Bowel Movements 0 2 Result Diagrams: 04/23/18 04:32 04/24/18 05:07 Medications and IVs: Active Medications Generic Name Dose Route Start Last Admin Trade Name Freq PRN Reason Stop Dose Admin Acetaminophen 650 mg 04/16/18 08:55 Tylenol Liq PO Q6H PRN FEVER Albuterol 2.5 mg 04/16/18 08:54 Albuterol Neb (Prn) NEB Q2HR NEB PRN DYSPNEA Dextrose 50 ml 04/16/18 08:33 D50w Vial IV.PUSH UNSCH PRN PER HYPOGLYCEMIA PROTOCOL Diphenhydramine HCl 25 mg 04/16/18 09:02 Benadryl Inj IV.PUSH Q6H PRN for itching Docusate Sodium 100 mg 04/16/18 21:00 04/24/18 08:22 Colace Liq NG/OG Not Given BID NADINE Enoxaparin Sodium 30 mg 04/16/18 09:00 04/24/18 08:21 Lovenox Inj SQ 30 mg DAILY NADINE Administration Gabapentin 300 mg 04/15/18 21:00 04/24/18 08:20 Neurontin Liq PO 300 mg BID NADINE Administration Glucagon 1 mg 04/16/18 08:33 Glucagon Inj OTHER UNSCH PRN for Hypoglycemia Protocol Hydromorphone HCl 2 mg 04/22/18 10:58 04/24/18 08:21 Dilaudid Pf Inj IV.PUSH 2 mg Q4H PRN Administration ABDOMINAL PAIN Sodium Chloride 500 mls @ 30 mls/hr 04/15/18 07:00 04/15/18 07:25 Ns Inj IV.SIG Not Given .Q10H [facility] Magnesium Sulfate 4 gm/ Sodium 100 mls @ 50 mls/hr 04/16/18 08:32 Chloride IV.SIG UNSCH PRN For Magnesium 0.9 - 1.1 mg/dL Magnesium Sulfate 2 gm/ Sodium 100 mls @ 50 mls/hr 04/16/18 08:32 Chloride IV.SIG UNSCH PRN For Magnesium 1.2 - 1.6 mg/dL Sodium Phosphate 30 mmol/ 260 mls @ 42 mls/hr 04/16/18 08:32 Sodium Chloride IV.SIG UNSCH PRN For Phosphorus < 2.5 mg/dL Multivitamins 10 ml/ Folic 2,010.2 mls @ 65 mls/hr 04/16/18 20:00 04/23/18 22 :27 Acid 1 mg/ Amino Acids/ IV.SIG Not Given Electrolytes Q24H [facility] Fat Emulsion Intravenous 250 mls @ 31.25 mls/hr 04/16/18 20:00 04/23/18 22:27 Intralipid 20% Inj IV.SIG Not Given Q24H [facility] Sodium Chloride 154 meq/ 1,038.5 mls @ 50 mls/hr 04/23/18 07:00 04/24/18 05: 19 Dextrose IV.CONT 50 mls/hr .[id number] [facility] Administration Insulin Aspart 0 unit 04/16/18 12:00 04/24/18 06:25 Novolog Insulin Correctional Sugar Inj SQ Not Given Q6HR [facility] Protocol Labetalol HCl 10 mg 04/18/18 10:09 Trandate Inj IV.PUSH Q1H PRN Sbp>165, Dbp>90, Hr>65 Magnesium Oxide 800 mg 04/16/18 08:32 Mag-Ox PO UNSCH PRN For Magnesium 1.2 - 1.6 mg/dL Naloxone HCl 0.4 mg 04/16/18 09:02 Narcan Inj IV.PUSH PRN PRN SEE LABEL COMMENTS Nitroglycerin 2 inch 04/18/18 10:10 Nitro-Bid 2% Oint TOPICAL Q6HR PRN Sbp>165, Dbp>90 Ondansetron HCl 4 mg 04/15/18 15:26 04/17/18 10:22 Zofran Inj IV.PUSH 04/30/18 23:59 4 mg Q6H PRN Administration MILD NAUSEA Oxycodone/Acetaminophen 1 tab 04/22/18 12:00 04/24/18 05:19 Percocet 7.5/325 Mg PO 1 tab Q4H PRN Administration ABDOMINAL PAIN Pantoprazole Sodium 40 mg 04/15/18 16:00 04/23/18 17:29 Protonix Inj IV.PUSH 40 mg Q24H [facility] Administration Sennosides 8.8 mg 04/16/18 21:00 04/24/18 08:21 Senna Liq NG/OG Not Given BID NADINE Sodium Chloride 2 ml 04/16/18 21:00 04/24/18 08:21 Ns Flush IV.FLUSH 2 ml BID NADINE Administration Sodium Chloride 2 ml 04/16/18 09:14 Ns Flush IV.FLUSH PRN PRN FLUSH AFTER USING IV ACCESS Objective Remarks: CV: RRR Lungs: decreased BS Abd:soft,nd,tender one exam Stoma: pink and viable Dale Pelvic drain: bloody Ext: neg C/C/E 04/17 CV: RRR Lungs: decreased BS Abd:soft,nd,tender Stoma: pink and viable Wound: clean and dry Dale Pelvic drain: bloody Ext: neg C/C/E 04/18 CV: RRR Lungs: CTA Abd:soft,nd,tender Stoma: pink and viable Wound: Dressing intact Dale Pelvic drain: bloody Ext: neg C/C/E 04/19 Abd:soft,nt,nd Dressing intact Stoma: pink and viable Pelvic drain removed at bedside Ext: neg 04/20 Abd:soft,nt,nd Dressing intact Stoma: pink and viable Ext: neg C/C/E 04/21 Abd:soft,nt,nd Stoma: pink and viable Stents in place Wound: clean and dry Ext:neg C/C/E 04/22 Abd:soft,nt,nd Stoma: pink and viable Stents in place Wound: clean and dry Ext:neg C/C/E 04/23 Abd:soft,nt,nd Stoma: pink and viable Stents in place Wound: clean and dry Ext:neg C/C/E 04/24 Abd:soft,nt,nd Stoma: pink and viable Stents in place Wound: clean and dry Ext:neg C/C/E Assessment and Plan - Plan Stable s/p radical cystectomy with ileal conduit OOB to chair Start TPN 10/ Stable s/p radical cystectomy with ileal conduit Continue TPN OOB to chair NGT to gravity drainage Encourage incentive sphirometer 04/18 Stable s/p radical cystectomy with ileal conduit POD#3 Continue TPN OOB to chair/ambulate NGT to gravity drainage Will d/c pelvic drain in next day or two as drainage continues to decline 10 Stable s/p radical cystectomy with ileal conduit POD#4 OOB to chair Pelvic drain removed Continue NGT to gravity Continue TPN Path noted: T3b 04/20 Stable POD#5 s/p radical cystectomy with ileal conduit OOB today/Ambulate Path reviewed with pt today Will plan to remove NGT this Saturday and start clear liquids Continue TPN 04/21 Stable POD#6 s/p radical cystectomy with ileal conduit NGT removed; ice chips today OOB Continue TPN 04/22 Stable POD#7 s/p radical cystectomy with ileal conduit Clear liquid diet D/C DIRECTOR PAYER. Will start PO pain meds. OOB Continue TPN 04/23 Stable POD#8 s/p radical cystectomy with ileal conduit Regular diet OOB Ween off TPN 11 Stable POD#9 s/p radical cystectomy with ileal conduit OOB/Ambulate Off TPN Tolerating Regular diet.
--- NOTE | 2018-04-24 12:35 | P.DIET ---
Nutritional Evaluation Type of nutrition evaluation: follow-up Nutrition consult regarding: TPN/PPN Nutrition [place] [facility] [place] Subjective Comments: Ate 25% of his breakfast. Objective - Diagnosis Cystectomy - Objective % IBW: 77 (IBW = 142#) Body Weight Used for Calculations: Actual (50 kg) Energy Needs - Lower Range (kCal/kg): 30 Energy Needs - Upper Range (kCal/kg): 35 Lower Limit kCal/kg (kCals): 1,500 Upper Limit kCal/kg (kCals): 1,750 Lower Limit Protein Factor (Grams per Kg): 1.0 Upper Limit Protein Factor (Grams per Kg): 1.5 Lower Protein Needs (Protein): 50 Upper Protein Needs (Protein): 75 Dietitian Reviewed in Medical Record: Curent medications, Intake & Output, Labs , Medical history, TPN/PPN Diet Order: NPO Objective Comments: TG 73 glu wnl Assessment Assessment: Pt remains at high nutrition risk receiving TPN of Clinimix E /20 @ 65 mls/hr with 20% lipids 250 mls/day for a total of 1873 kcals and 78 gms protein. Diet advanced to regular and the pt is tolerating it. Labs, wts and clinical course reviewed; CBW = 48.8 kg. TPN can be weaned as po intake increases. Recommendations: Regular diet as ordered Wean TPN. Dietitian to Monitor: Lab values, Intake & Output, TPN/PPN tolerance, Weight change, PO Intake, Diet advancement, Medical course
[2018-04-24] MEDS: Pantoprazole Inj 40 MG Vial IV.PUSH SCH (15:39)
[2018-04-24] MEDS: Multivitamin Inj 10 ML, Folic Acid Inj 1 MG in AA 5%/D20W - Electrolytes 2,000 ML IV.SIG SCH (20:28)
[2018-04-24] MEDS: Gabapentin 300 MG Capsule PO SCH (21:25)
[2018-04-25] MEDS: Sodium Chloride 23.4% Inj 154 MEQ in Dextrose 10% in Water Inj 1,000 ML IV.CONT SCH ×2 (01:32)
[2018-04-25] MEDS: HYDROmorphone PF Inj 2 MG/ML Vial IV.PUSH PRN ×5 (01:33→18:32)
[2018-04-25] MEDS: Insulin NovoLOG Aspart Correctional Sugar Inj SQ SCH ×3 (06:44→17:19)
--- NOTE | 2018-04-25 08:21 | P.PNURO ---
Subjective Patient symptoms today: Pt seen and examined. Feels better. Poor PO intake noted. TPN off and central line is out. Objective Vital Signs: Vital Signs 04/24/18 09:00 04/24/18 09:07 04/24/18 10:00 Temperature Pulse Rate 70 76 84 Respiratory Rate 20 24 23 Blood Pressure 134/70 128/74 127/74 Pulse Oximetry 96 99 98 04/24/18 11:00 04/24/18 12:00 04/24/18 13:00 Temperature 98.6 F Pulse Rate 92 H 82 82 Respiratory Rate 25 H 27 H 19 Blood Pressure 126/77 134/76 121/71 Pulse Oximetry 97 98 95 04/24/18 14:00 04/24/18 15:00 04/24/18 16:00 Temperature 98.5 F Pulse Rate 77 75 84 Respiratory Rate 18 20 21 Blood Pressure 121/68 119/72 126/73 Pulse Oximetry 97 97 92 L 04/24/18 17:00 04/24/18 18:00 04/24/18 19:00 Temperature Pulse Rate 73 69 73 Respiratory Rate 20 17 22 Blood Pressure 119/70 126/75 136/68 Pulse Oximetry 97 96 98 04/24/18 20:00 04/24/18 20:35 04/24/18 21:00 Temperature 98.3 F Pulse Rate 74 86 Respiratory Rate 23 20 24 Blood Pressure 149/76 H Pulse Oximetry 97 99 04/24/18 21:47 04/24/18 22:00 04/24/18 22:07 Temperature Pulse Rate 77 76 Respiratory Rate 20 20 18 Blood Pressure 114/76 133/76 Pulse Oximetry 97 97 04/24/18 23:00 04/24/18 23:07 04/25/18 00:00 Temperature 98.9 F Pulse Rate 82 76 Respiratory Rate 24 25 H Blood Pressure 136/73 132/70 Pulse Oximetry 97 100 95 04/25/18 00:16 04/25/18 01:00 04/25/18 02:00 Temperature Pulse Rate 76 74 Respiratory Rate 18 21 17 Blood Pressure 114/68 108/64 Pulse Oximetry 96 95 04/25/18 02:03 04/25/18 03:00 04/25/18 04:00 Temperature 98.2 F Pulse Rate 75 76 Respiratory Rate 18 20 21 Blood Pressure 132/71 125/73 Pulse Oximetry 95 95 04/25/18 04:41 04/25/18 06:00 04/25/18 07:51 Temperature Pulse Rate 80 Respiratory Rate 22 Blood Pressure Pulse Oximetry 96 04/25/18 08:00 Temperature 98.7 F Pulse Rate 71 Respiratory Rate 16 Blood Pressure 121/67 Pulse Oximetry 95 Intake & Output 04/24/18 04/25/18 04/25/18 18:59 06:59 18:59 Intake Total 240 / 240 1158.5 / 1158.5 Output Total 450 / 450 550 / 550 Balance -210 / -210 608.5 / 608.5 Weight 49.6 kg Intake: IV 1038.5 / 1038.5 Sodium Chloride 23.4% Inj 154 1038.5 / 1038.5 MEQ In D10W Inj 1,000 ML @ 50 mls/hr IV.CONT .[id number] NADINE Rx# :[id number] Oral 240 / 240 120 / 120 Output: Urine Amount (Catheter) 450 / 450 550 / 550 Right ileal conduit 450 / 450 550 / 550 Other: Date of Last Bowel Movement 04/24/18 04/24/18 # Bowel Movements 2 Result Diagrams: 04/23/18 04:32 04/24/18 05:07 Medications and IVs: Active Medications Generic Name Dose Route Start Last Admin Trade Name Freq PRN Reason Stop Dose Admin Acetaminophen 650 mg 04/16/18 08:55 Tylenol Liq PO Q6H PRN FEVER Albuterol 2.5 mg 04/16/18 08:54 Albuterol Neb (Prn) NEB Q2HR NEB PRN DYSPNEA Dextrose 50 ml 04/16/18 08:33 D50w Vial IV.PUSH UNSCH PRN PER HYPOGLYCEMIA PROTOCOL Diphenhydramine HCl 25 mg 04/16/18 09:02 Benadryl Inj IV.PUSH Q6H PRN for itching Docusate Sodium 100 mg 04/16/18 21:00 04/24/18 20:28 Colace Liq NG/OG Not Given BID NADINE Enoxaparin Sodium 30 mg 04/16/18 09:00 04/24/18 08:21 Lovenox Inj SQ 30 mg DAILY NADINE Administration Gabapentin 300 mg 04/24/18 21:00 04/24/18 21:25 Neurontin PO 300 mg BID NADINE Administration Glucagon 1 mg 04/16/18 08:33 Glucagon Inj OTHER UNSCH PRN for Hypoglycemia Protocol Hydromorphone HCl 2 mg 04/22/18 10:58 04/25/18 05:35 Dilaudid Pf Inj IV.PUSH 2 mg Q4H PRN Administration ABDOMINAL PAIN Sodium Chloride 500 mls @ 30 mls/hr 04/15/18 07:00 04/15/18 07:25 Ns Inj IV.SIG Not Given .Q10H NADINE Magnesium Sulfate 4 gm/ Sodium 100 mls @ 50 mls/hr 04/16/18 08:32 Chloride IV.SIG UNSCH PRN For Magnesium 0.9 - 1.1 mg/dL Magnesium Sulfate 2 gm/ Sodium 100 mls @ 50 mls/hr 04/16/18 08:32 Chloride IV.SIG UNSCH PRN For Magnesium 1.2 - 1.6 mg/dL Sodium Phosphate 30 mmol/ 260 mls @ 42 mls/hr 04/16/18 08:32 Sodium Chloride IV.SIG UNSCH PRN For Phosphorus < 2.5 mg/dL Multivitamins 10 ml/ Folic 2,010.2 mls @ 65 mls/hr 04/16/18 20:00 04/24/18 20 :28 Acid 1 mg/ Amino Acids/ IV.SIG Not Given Electrolytes Q24H [facility] Fat Emulsion Intravenous 250 mls @ 31.25 mls/hr 04/16/18 20:00 04/24/18 20:28 Intralipid 20% Inj IV.SIG Not Given Q24H [facility] Sodium Chloride 154 meq/ 1,038.5 mls @ 50 mls/hr 04/23/18 07:00 04/25/18 01: 32 Dextrose IV.CONT 50 mls/hr .[id number] [facility] Administration Insulin Aspart 0 unit 04/16/18 12:00 04/25/18 06:44 Novolog Insulin Correctional Sugar Inj SQ Not Given Q6HR [facility] Protocol Labetalol HCl 10 mg 04/18/18 10:09 Trandate Inj IV.PUSH Q1H PRN Sbp>165, Dbp>90, Hr>65 Magnesium Oxide 800 mg 04/16/18 08:32 Mag-Ox PO UNSCH PRN For Magnesium 1.2 - 1.6 mg/dL Naloxone HCl 0.4 mg 04/16/18 09:02 Narcan Inj IV.PUSH PRN PRN SEE LABEL COMMENTS Nitroglycerin 2 inch 04/18/18 10:10 Nitro-Bid 2% Oint TOPICAL Q6HR PRN Sbp>165, Dbp>90 Ondansetron HCl 4 mg 04/15/18 15:26 04/17/18 10:22 Zofran Inj IV.PUSH 04/30/18 23:59 4 mg Q6H PRN Administration MILD NAUSEA Oxycodone/Acetaminophen 1 tab 04/22/18 12:00 04/25/18 07:31 Percocet 7.5/325 Mg PO 1 tab Q4H PRN Administration ABDOMINAL PAIN Pantoprazole Sodium 40 mg 04/15/18 16:00 04/24/18 15:39 Protonix Inj IV.PUSH 40 mg Q24H NADINE Administration Sennosides 8.8 mg 04/16/18 21:00 04/24/18 20:29 Senna Liq NG/OG Not Given BID NADINE Sodium Chloride 2 ml 04/16/18 21:00 04/24/18 21:25 Ns Flush IV.FLUSH 2 ml BID NADINE Administration Sodium Chloride 2 ml 04/16/18 09:14 Ns Flush IV.FLUSH PRN PRN FLUSH AFTER USING IV ACCESS Objective Remarks: CV: RRR Lungs: decreased BS Abd:soft,nd,tender one exam Stoma: pink and viable Dale Pelvic drain: bloody Ext: neg C/C/E 04/17 CV: RRR Lungs: decreased BS Abd:soft,nd,tender Stoma: pink and viable Wound: clean and dry Adle Pelvic drain: bloody Ext: neg C/C/E 04/18 CV: RRR Lungs: CTA Abd:soft,nd,tender Stoma: pink and viable Wound: Dressing intact Dale Pelvic drain: bloody Ext: neg C/C/E 04/19 Abd:soft,nt,nd Dressing intact Stoma: pink and viable Pelvic drain removed at bedside Ext: neg 04/20 Abd:soft,nt,nd Dressing intact Stoma: pink and viable Ext: neg C/C/E 04/21 Abd:soft,nt,nd Stoma: pink and viable Stents in place Wound: clean and dry Ext:neg C/C/E 04/22 Abd:soft,nt,nd Stoma: pink and viable Stents in place Wound: clean and dry Ext:neg C/C/E 04/23 Abd:soft,nt,nd Stoma: pink and viable Stents in place Wound: clean and dry Ext:neg C/C/E 04/24 Abd:soft,nt,nd Stoma: pink and viable Stents in place Wound: clean and dry Ext:neg C/C/E 04/25 Abd:soft,nt,nd Stoma:pink and viable Stents in place Wound: clean and dry Leakage from prior central line site is noted Ext: neg C/C/E Assessment and Plan - Plan Stable s/p radical cystectomy with ileal conduit OOB to chair Start TPN 10 Stable s/p radical cystectomy with ileal conduit Continue TPN OOB to chair NGT to gravity drainage Encourage incentive sphirometer 10 Stable s/p radical cystectomy with ileal conduit POD#3 Continue TPN OOB to chair/ambulate NGT to gravity drainage Will d/c pelvic drain in next day or two as drainage continues to decline 10 Stable s/p radical cystectomy with ileal conduit POD#4 OOB to chair Pelvic drain removed Continue NGT to gravity Continue TPN Path noted: T3b 10 Stable POD#5 s/p radical cystectomy with ileal conduit OOB today/Ambulate Path reviewed with pt today Will plan to remove NGT this Saturday and start clear liquids Continue TPN 04/21 Stable POD#6 s/p radical cystectomy with ileal conduit NGT removed; ice chips today OOB Continue TPN 04/22 Stable POD#7 s/p radical cystectomy with ileal conduit 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 Will start PO pain meds. OOB Continue TPN 04/23 Stable POD#8 s/p radical cystectomy with ileal conduit Regular diet OOB Ween off TPN 04/24 Stable POD#9 s/p radical cystectomy with ileal conduit OOB/Ambulate Off TPN Tolerating Regular diet. 04/25 Stable POD#10 s/p radical cystectomy with ileal conduit OOB/Ambulate Off TPN; calorie count, ? PPN; nutrition evaluation Tolerating Regular diet.
[2018-04-25] MEDS: Docusate Sodium Liq 100 MG/10 ML UDC NG/OG SCH ×2 (09:27→20:34)
[2018-04-25] MEDS: Enoxaparin Inj 30 MG/0.3 ML Syringe SQ SCH (09:27)
[2018-04-25] MEDS: Sodium Chloride 0.9% 2 ML Flush BID IV.FLUSH SCH ×2 (09:27→20:34)
[2018-04-25] MEDS: Gabapentin 300 MG Capsule PO SCH ×2 (09:27→20:33)
[2018-04-25] MEDS: Sennosides Liq 8.8 MG/5 ML UDC NG/OG SCH ×2 (09:28→20:38)
[2018-04-25] MEDS: Pantoprazole Inj 40 MG Vial IV.PUSH SCH (15:50)
--- NOTE | 2018-04-25 16:29 | P.PN ---
Subjective Interval history: resume specialist notes: This 62-year-old gentleman underwent cystectomy and ileal conduit construction earlier today. Preoperative CAT scan of the chest and bone marrow scan was negative for metastatic disease. He has a large barrel chest and obvious long- term respiratory problems. The procedure went well and he is normotensive on arrival. He is a present breathing comfortably moving air well. He required 3 units of blood transfusion perioperatively, largely because of an anemia preop. His past medical history is relatively uncomplicated aside from his marginal nutritional status. His only prior surgery is to have the tumor biopsied on a previous cystoscopy. He has been on oral morphine 3 times a day for considerable period of time and it is anticipated that he will be tolerant to pain medicine. For this reason we will use a basal continuous rate of fentanyl to help control his postoperative pain. 04/16: Currently on fentanyl drip at 150 kelsi grams per hour. Complains of abdominal pain with singultus. Ileostomy conduit site good drainage with no active bleeding. Awake and oriented x3. Difficulty moving right lower extremity/adduction 04/17: Resting at side of bed. Still unable to elevate or adduct his right lower extremity. Tolerating the hydromorphone LEAD RADIOLOGIC TECHNOLOGIST with a basal rate 0.2 mg an hour. Appears comfortable. Tolerating TPN see orders 04/18: Afebrile. Currently resting in bed in no acute distress. Remains on hydromorphone LEAD RADIOLOGIC TECHNOLOGIST. Tolerating TPN. Replacing potassium magnesium today. 04/19: Comfortable in bed and perhaps little drowsy. Urine output acceptable and renal function good. Pain control remains an issue and he may be a little oversedated at this time. He has been a longtime consumer of oral morphine and tends to push the LEAD RADIOLOGIC TECHNOLOGIST button repeatedly. We will follow him closely. Urine culture appears benign. 04/20: Breathing with acceptable comfort. Clears throat well. Protects airway well. Remains suitably hydrated and renal intestines are sluggish as expected but abdomen is not distended. Continue NG tube to intermittent suction. 04/21: Warm and well-perfused, urine output good. Continue to try to light and analgesia and increase mobilization. Hospitalist notes: 04/22: Seen in his bedroom, discussed with patient and nurse Miss Larsen at this time started on liquid diet asked for Ensure clear will follow recommendations by Urology specialist.1 04/23: Seen by his Attending physician POD#8 status post Radical cystectomy with ileal conduit, recommended to start Regular diet and Wean off TPN. Seen in his bedroom and discussed with nurse eating without difficulty. 04/24: Seen in his bedroom discussed with nurse Miss Rebecca govea to switch his Gabapentin to Capsules, no nausea, vomit or diarrhea tolerating well his diet. 04/25: stable in his bedroom, had fever 100.1 F, No nausea or vomit, has some loose stools, asked for C Diff, CBC, BMP, blood cultures urinalysis, CXR ap and lateral. following. Physical Exam Vital signs: Vital Signs 04/24/18 17:00 04/24/18 18:00 04/24/18 19:00 Temperature Pulse Rate 73 69 73 Respiratory Rate 20 17 22 Blood Pressure 119/70 126/75 136/68 Pulse Oximetry 97 96 98 04/24/18 20:00 04/24/18 20:35 04/24/18 21:00 Temperature 98.3 F Pulse Rate 74 86 Respiratory Rate 23 20 24 Blood Pressure 149/76 H Pulse Oximetry 97 99 04/24/18 21:47 04/24/18 22:00 04/24/18 22:07 Temperature Pulse Rate 77 76 Respiratory Rate 20 20 18 Blood Pressure 114/76 133/76 Pulse Oximetry 97 97 04/24/18 23:00 04/24/18 23:07 04/25/18 00:00 Temperature 98.9 F Pulse Rate 82 76 Respiratory Rate 24 25 H Blood Pressure 136/73 132/70 Pulse Oximetry 97 100 95 04/25/18 00:16 04/25/18 01:00 04/25/18 02:00 Temperature Pulse Rate 76 74 Respiratory Rate 18 21 17 Blood Pressure 114/68 108/64 Pulse Oximetry 96 95 04/25/18 02:03 04/25/18 03:00 04/25/18 04:00 Temperature 98.2 F Pulse Rate 75 76 Respiratory Rate 18 20 21 Blood Pressure 132/71 125/73 Pulse Oximetry 95 95 04/25/18 04:41 04/25/18 06:00 04/25/18 07:51 Temperature Pulse Rate 80 Respiratory Rate 22 Blood Pressure Pulse Oximetry 96 04/25/18 08:00 04/25/18 12:00 Temperature 98.7 F 98.5 F Pulse Rate 71 81 Respiratory Rate 16 16 Blood Pressure 121/67 132/57 L Pulse Oximetry 95 98 Intake & Output 04/24/18 04/25/18 04/25/18 18:59 06:59 18:59 Intake Total 240 / 240 1158.5 / 1158.5 Output Total 450 / 450 550 / 550 Balance -210 / -210 608.5 / 608.5 Weight 49.6 kg Intake: IV 1038.5 / 1038.5 Sodium Chloride 23.4% Inj 154 1038.5 / 1038.5 MEQ In D10W Inj 1,000 ML @ 50 mls/hr IV.CONT .[id number] NADINE Rx# :[id number] Oral 240 / 240 120 / 120 Output: Urine Amount (Catheter) 450 / 450 550 / 550 Right ileal conduit 450 / 450 550 / 550 Other: Date of Last Bowel Movement 04/24/18 04/24/18 # Bowel Movements 2 Narrative: GENERAL: This is a well-nourished, well-developed patient, in no apparent distress. CARDIOVASCULAR: Regular rate and rhythm without murmurs, gallops, or rubs. RESPIRATORY: Clear to auscultation. Breath sounds equal bilaterally. No wheezes , rales, or rhonchi. GASTROINTESTINAL: Abdomen soft, clean surgical wound. MUSCULOSKELETAL: Extremities without clubbing, cyanosis, or edema. NEURO: Alert & Oriented x4 to person, place, time, situation. Moves all ext x4 - Urinary Catheter Management Indwelling Urethral Catheter Cath placed during this visit: yes, but has since been removed by the nurse Reason for continuing: Not indwelling catheter Insertion date: 04/15/18 Insertion time: 14:20 Removal date: 04/15/18 Removal time: 13:08 Right ileal conduit Cath placed during this visit: yes Reason for continuing: Not indwelling catheter Insertion date: 04/15/18 Results - Labs CBC & Chem 7: 04/23/18 04:32 04/24/18 05:07 Laboratory Results - last 24 hr 04/24/18 04/24/18 04/25/18 18:30 23:50 05:40 POC Glucose 128 H 155 H 113 H 04/25/18 11:24 POC Glucose 171 H Assessment and Plan - Plan 1. Chronic Pain syndrome and narcotic dependence Anxiety/Depression Continue Dilaudid, Gabapentin and Oxycodone, gabapentin to Capsules again. 2. COPD/Pulmonary Nodule Lung biopsy 2018 revealed inflammatory changes no malignancy oxygen as needed to keep O2 sat over 92%, Bronchodilator, Mucolytic and incentive spirometry 3. Severe Protein Calorie Malnutrition, NPO as per Urology specialist, stopped TPN and started on Regular diet. PPI continue. 4. Post operative Day #10 Ileal conduit bilateral urethral stents secondary to high grade urethral cancer T3N0M0 Stage IIIa, removed TPA. 5. High grade urethral cancer Stage IIIa, T3N0M0 followed by account review specialist doctor Reid, Cycles of Cisplatin/gemcitabine, due to Anemia status post blood transfusion of 3 units of PRBCs in OR, 6. Leukocytosis on Cefazolin 1 gram IV every 8 hours, received Ampicillin and Gentamicin in OR Management by Urology specialist. now off antibiotics. as per Nurse he patient had fever 100.1 not yet in EMR, asked for Urinalysis, Blood cultures x 2, CXR, C Diff, had some loose stools, CBC and BMP stat, following results at this time afebrile. 7. Hypokalemia replaced Physical therapy/occupational therapy evaluate and treat Prophylaxis -GI -pantoprazole -DVT -SCD/enoxaparin Code Status: Full code. Discussed Condition With: Patient and Nurse Miss Frost. Discharge Planning: as per attending physician.
--- NOTE | 2018-04-25 17:14 | XR ---
EXAM DATE: 04/25/2018 12:00 AM EDT AGE/SEX: 62 years / Male INDICATIONS: . Evaluate for atelectasis. CLINICAL DATA: This is the patient's subsequent encounter. Patient reports that signs and symptoms h ave been present for 1 week and indicates a pain score of 0/10. MEDICAL/SURGICAL HISTORY: Chronic obstructive pulmonary disease. Carcinoma, bladder. Scarlet f ever. None. COMPARISON: [facility] [place] 2V PA&LAT, 01/30/2018. . FINDINGS: This appears mildly increased from the prior study. There are no new confluent infiltrates or effusio ns. There is a moderate to severe compression fracture deformity again noted in the midthoracic spine which is unchanged. There is diffuse osteopenia. The bony thorax is otherwise intact. CONCLUSION: Right apical pleural parenchymal change again noted which appears mildly increased from the prior german dy. There is volume loss and mediastinal shift to the right. Electronically signed by: Maksim Estrada MD 04/25/2018 5:12 PM EDT
--- NOTE | 2018-04-25 17:15 | P.DIET ---
Nutritional Evaluation Type of nutrition evaluation: follow-up Nutrition consult regarding: TPN/PPN Nutrition [place] [facility] [place]: 04/25/18 MDC Poor PO Intake; needs calorie count; ? PPN Subjective Subjective Comments: Pt says he has never been a "big eater". States his usual wt in his adult life at 125 to 130-lb. Pt does not care for the Ensure Clear Supplement. Food preferences taken during this visit. Partially eaten lunch tray in pt's room w/ approximately 25% po intake. Objective - Diagnosis Cystectomy - Objective [place] body weight: 65 kg % IBW: 77 (IBW = 142#) Body Weight Used for Calculations: Actual (50 kg) Energy Needs - Lower Range (kCal/kg): 35 Energy Needs - Upper Range (kCal/kg): 40 Lower Limit kCal/kg (kCals): 1,750 Upper Limit kCal/kg (kCals): 2,000 Lower Limit Protein Factor (Grams per Kg): 1.2 Upper Limit Protein Factor (Grams per Kg): 1.5 Lower Protein Needs (Protein): 60 Upper Protein Needs (Protein): 75 Dietitian Reviewed in Medical Record: Current diet, Curent medications, Intake & Output, Labs, Medical history Diet Order: Regular Oral Diet Intake Amount: Poor <50% Objective Comments: PMH: Anxiety, Depression, Bladder Cancer h/o chemo, chronic abdominal pain, Scarlet Fever Labs Include: TG 73, POC Glucose 113, 171 LBM 04/24 Assessment Assessment: Pt remains at high nutrition risk receiving TPN and low BMI. TPN is off and central line is out. Diet has been advanced. MDC for Calorie Count, started today 04/25 through 04/28 w/ Recs to follow . Pt and his RN Margot informed Calorie Count has started. Send Ensure Enlive(= 350 kcal and 20g Protein per serving). [place] pt's food preferences. Labs reviewed. Dietitian following. Recommendations: 1. MDC for Calorie Count, started today 04/25 through 04/28 w/ Recs to follow 2. Send Ensure Enlive 3. [place] pt's food preferences 4. Dietitian following Dietitian to Monitor: Lab values, Supplement acceptance, Intake & Output, Diet tolerance, Weight change, PO Intake, Medical course
[2018-04-25 19:21] LABS: Baso # (Auto) 0.1 th/mm3 (0.0-0.2); Baso % (Auto) 0.2 % (0.0-2.0); Eos # (Auto) 0.3 th/mm3 (0.0-0.4); Eos % (Auto) 1.2 % (0.0-4.0); Hematocrit 29.2 % (39.0-51.0); Hemoglobin 9.5 gm/dL (13.0-17.0); Lymph # (Auto) 0.9 th/mm3 (1.0-4.8); Lymph % (Auto) 3.9 % (9.0-44.0); Mean Corpuscular HGB Conc 32.6 % (32.0-36.0); Mean Corpuscular Hemoglobin 26.9 pg (27.0-34.0); Mean Corpuscular Volume 82.7 fL (80.0-100.0); Mean Platelet Volume 8.9 fL (7.0-11.0); Mono # (Auto) 1.1 th/mm3 (0.0-0.9); Mono % (Auto) 4.9 % (0.0-8.0); Neut # (Auto) 20.8 th/mm3 (1.8-7.7); Neut % (Auto) 89.8 % (16.0-70.0); Platelet Count 377 th/mm3 (150-450); Red Blood Count 3.53 mil/mm3 (4.50-5.90); Red Cell Distribution Width 17.4 % (11.6-17.2); White Blood Count 23.2 th/mm3 (4.0-11.0)
[2018-04-25 19:43] LABS: Anion Gap 11 meq/L (5-15); Blood Urea Nitrogen 15 mg/dL (7-18); Calcium 8.2 mg/dL (8.5-10.1); Carbon Dioxide 23.4 meq/L (21.0-32.0); Chloride 103 meq/L (98-107); Glomerular Filtration Rate Greater Than 89 mL/min (>89); Glucose,Random 100 mg/dL (74-106); Potassium 3.6 meq/L (3.5-5.1); Sodium 137 meq/L (136-145)
[2018-04-25] MEDS: Multivitamin Inj 10 ML, Folic Acid Inj 1 MG in AA 5%/D20W - Electrolytes 2,000 ML IV.SIG SCH (20:51)
[2018-04-26] MEDS: HYDROmorphone PF Inj 2 MG/ML Vial IV.PUSH PRN ×5 (00:22→21:45)
[2018-04-26] MEDS: Sodium Chloride 23.4% Inj 154 MEQ in Dextrose 10% in Water Inj 1,000 ML IV.CONT SCH ×6 (00:25→20:13)
[2018-04-26] MEDS: Insulin NovoLOG Aspart Correctional Sugar Inj SQ SCH ×3 (00:25→05:28)
[2018-04-26 04:57] LABS: Bacteria,Urine Occasional /hpf; Bilirubin,Urine Negative (Negative); Clarity,Urine Cloudy (Clear); Color,Urine Yellow (Yellw/Straw); Glucose,Urine (UA) Negative (Negative); Hyaline Casts,Urine 3 /lpf (0-3); Leukocyte Esterase,Urine Moderate (Negative); Mucus,Urine Few /lpf (Occasional); Nitrite,Urine Negative (Negative); Specific Gravity,Urine 1.018 (1.002-1.035); Squamous Epithelial Cell,Urine 1 /hpf (0-5)
[2018-04-26] MEDS: Gabapentin 300 MG Capsule PO SCH ×3 (07:32→20:10)
[2018-04-26] MEDS: Enoxaparin Inj 30 MG/0.3 ML Syringe SQ SCH ×2 (07:32→08:15)
[2018-04-26] MEDS: Docusate Sodium Liq 100 MG/10 ML UDC NG/OG SCH ×2 (08:15→20:10)
[2018-04-26] MEDS: Sennosides Liq 8.8 MG/5 ML UDC NG/OG SCH ×2 (08:15→20:10)
[2018-04-26] MEDS: Sodium Chloride 0.9% 2 ML Flush BID IV.FLUSH SCH ×2 (08:15→20:10)
--- NOTE | 2018-04-26 10:29 | P.PN ---
Subjective Interval history: Walk for chronic pain, status post radical cystectomy. Patient is currently resting in bed. He complains of inadequate pain control. Denies any fever or chills. Tolerating diet okay. Physical Exam Vital signs: Vital Signs 04/25/18 12:00 04/25/18 16:00 04/25/18 20:00 Temperature 98.5 F 100.1 F H 99.6 F Pulse Rate 81 98 H 90 Respiratory Rate 16 16 19 Blood Pressure 132/57 L 116/80 110/72 Pulse Oximetry 98 93 L 96 04/26/18 00:00 04/26/18 08:00 Temperature 97.7 F 97.8 F Pulse Rate 78 76 Respiratory Rate 19 16 Blood Pressure 121/80 124/75 Pulse Oximetry 97 98 Intake & Output 04/25/18 04/26/18 04/26/18 18:59 06:59 18:59 Intake Total 480 / 480 2038.5 / 2038.5 Output Total 700 / 700 Balance -220 / -220 2038.5 / 2038.5 Weight 50 kg Intake: IV 1038.5 / 1038.5 Sodium Chloride 23.4% Inj 154 1038.5 / 1038.5 MEQ In D10W Inj 1,000 ML @ 50 mls/hr IV.CONT .[id number] [facility] Rx# :[id number] Oral 480 / 480 1000 / 1000 Output: Urine 700 / 700 Other: # Voids 3 # Bowel Movements 3 Narrative: GENERAL: This is a well-nourished, well-developed patient, in no apparent distress. CARDIOVASCULAR: Regular rate and rhythm without murmurs, gallops, or rubs. RESPIRATORY: Clear to auscultation. Breath sounds equal bilaterally. No wheezes , rales, or rhonchi. GASTROINTESTINAL: Abdomen soft, clean surgical wound. MUSCULOSKELETAL: Extremities without clubbing, cyanosis, or edema. NEURO: Alert & Oriented x4 to person, place, time, situation. Moves all ext x4 - Urinary Catheter Management Indwelling Urethral Catheter Cath placed during this visit: yes, but has since been removed by the nurse Reason for continuing: Not indwelling catheter Insertion date: 04/15/18 Insertion time: 14:20 Removal date: 04/15/18 Removal time: 13:08 Right ileal conduit Cath placed during this visit: yes Reason for continuing: Other continuation reason Insertion date: 04/15/18 Results - Labs CBC & Chem 7: 04/25/18 18:23 04/25/18 18:23 Laboratory Results - last 24 hr 04/25/18 04/25/18 04/25/18 11:24 17:19 18:23 WBC 23.2 H RBC 3.53 L Hgb 9.5 L Hct 29.2 L MCV 82.7 MCH 26.9 L MCHC 32.6 RDW 17.4 H Plt Count 377 MPV 8.9 Neut % (Auto) 89.8 H Lymph % (Auto) 3.9 L Gillespie % (Auto) 4.9 Eos % (Auto) 1.2 Baso % (Auto) 0.2 Neut # (Auto) 20.8 H Lymph # (Auto) 0.9 L Gillespie # (Auto) 1.1 H Eos # (Auto) 0.3 Baso # (Auto) 0.1 WBC Differential . Differential Comment Auto diff final Sodium Potassium Chloride Carbon Dioxide Anion Gap BUN Creatinine Estimated GFR POC Glucose 171 H 109 Random Glucose Calcium Urine Color Urine Clarity Urine pH Ur Specific [place] Urine Protein Urine Glucose (UA) Urine Ketones Urine Occult Blood Urine Nitrate Urine Bilirubin Urine Urobilinogen Ur Leukocyte Esterase Urine RBC Urine WBC Ur Squamous Epith Cells Urine Bacteria Hyaline Casts Urine Mucus Urine Yeast Micro UA Comment Ur Microscopic Review Urine Culture Comments 04/25/18 04/26/18 18:23 04:25 WBC RBC Hgb Hct MCV MCH MCHC RDW Plt Count MPV Neut % (Auto) Lymph % (Auto) Gillespie % (Auto) Eos % (Auto) Baso % (Auto) Neut # (Auto) Lymph # (Auto) Gillespie # (Auto) Eos # (Auto) Baso # (Auto) WBC Differential Differential Comment Sodium 137 Potassium 3.6 Chloride 103 Carbon Dioxide 23.4 Anion Gap 11 BUN 15 Creatinine 0.84 Estimated GFR Greater than 89 POC Glucose Random Glucose 100 Calcium 8.2 L Urine Color Yellow Urine Clarity Cloudy H Urine pH 5.0 Ur Specific [place] 1.018 Urine Protein 30 H Urine Glucose (UA) Negative Urine Ketones Negative Urine Occult Blood Moderate H Urine Nitrate Negative Urine Bilirubin Negative Urine Urobilinogen Less than 2 Ur Leukocyte Esterase Moderate H Urine RBC 49 H Urine WBC 25 H Ur Squamous Epith Cells 1 Urine Bacteria Occasional H Hyaline Casts 3 Urine Mucus Few H Urine Yeast Many H Micro UA Comment Cath-culture ind Ur Microscopic Review Not Reportable Urine Culture Comments Cath-cult indicated - Imaging Impressions Chest X-Ray 04/25/18 00:00 CONCLUSION: Right apical pleural parenchymal change again noted which appears mildly increased from the prior study. There is volume loss and mediastinal shift to the right. Assessment and Plan - Plan Mr. Herr is a 62-year-old male with a history of muscle invasive bladder cancer status post neoadjuvant chemotherapy who underwent radical cystectomy with bilateral pelvic lymph node dissection with creation of ileal conduit on . He required 3 units of blood transfusion perioperatively largely because of anemia preop. Patient was subsequently managed in the critical care unit. Patient's care was transferred to hospitalist service on 04/22/2018. Muscle invasive bladder cancer Chronic pain syndrome -Status post neoadjuvant chemotherapy and radical cystectomy -Currently on Percocet as needed and Dilaudid 2 mg IV every 4 hours as needed. -He is now on oral diet. He was on TPN before. COPD Pulmonary nodule -Lung biopsy 2017 revealed inflammatory changes no malignancy -Continue albuterol nebulizer treatments, supplemental oxygen as needed. Hypokalemia - resolved. Full code. Lovenox
[2018-04-26] MEDS: Pantoprazole Inj 40 MG Vial IV.PUSH SCH (16:21)
[2018-04-27] MEDS: HYDROmorphone PF Inj 2 MG/ML Vial IV.PUSH PRN ×5 (04:25→21:28)
[2018-04-27] MEDS: Docusate Sodium Liq 100 MG/10 ML UDC NG/OG SCH ×2 (08:37→23:30)
[2018-04-27] MEDS: Gabapentin 300 MG Capsule PO SCH ×2 (08:38→21:31)
[2018-04-27] MEDS: Enoxaparin Inj 30 MG/0.3 ML Syringe SQ SCH (08:39)
[2018-04-27] MEDS: Sodium Chloride 0.9% 2 ML Flush BID IV.FLUSH SCH ×2 (08:39→23:30)
[2018-04-27] MEDS: Sennosides Liq 8.8 MG/5 ML UDC NG/OG SCH ×2 (08:39→23:33)
--- NOTE | 2018-04-27 09:57 | P.PN ---
Subjective Interval history: Follow-up for chronic pain, status post radical cystectomy, C. difficile colitis. Patient is currently doing well. He feels weak but no fever or chills. He does not have a lot of appetite. Physical Exam Vital signs: Vital Signs 04/26/18 12:00 04/26/18 16:00 04/26/18 20:00 Temperature 97.7 F 97.6 F 97.7 F Pulse Rate 79 75 76 Respiratory Rate 16 16 18 Blood Pressure 122/77 122/71 139/76 Pulse Oximetry 98 97 99 04/26/18 21:51 04/26/18 22:32 04/27/18 00:00 Temperature 97.4 F L Pulse Rate 72 Respiratory Rate 20 20 18 Blood Pressure 124/78 Pulse Oximetry 99 04/27/18 02:44 04/27/18 06:41 04/27/18 06:43 Temperature Pulse Rate Respiratory Rate 20 20 20 Blood Pressure Pulse Oximetry 04/27/18 08:00 Temperature 98 F Pulse Rate 69 Respiratory Rate 17 Blood Pressure 116/69 Pulse Oximetry 98 Intake & Output 04/26/18 04/27/18 04/27/18 18:59 06:59 18:59 Intake Total 480 / 480 320 / 320 Output Total 300 / 300 450 / 450 Balance 180 / 180 -130 / -130 Weight 48.7 kg Intake: Oral 480 / 480 320 / 320 Output: Urine 450 / 450 Urine Amount (Catheter) 300 / 300 Right ileal conduit 300 / 300 Other: # Bowel Movements 0 Narrative: GENERAL: This is a well-nourished, well-developed patient, in no apparent distress. CARDIOVASCULAR: Regular rate and rhythm without murmurs, gallops, or rubs. RESPIRATORY: Clear to auscultation. Breath sounds equal bilaterally. No wheezes , rales, or rhonchi. GASTROINTESTINAL: Abdomen soft, clean surgical wound. MUSCULOSKELETAL: Extremities without clubbing, cyanosis, or edema. NEURO: Alert & Oriented x4 to person, place, time, situation. Moves all ext x4 - Urinary Catheter Management Indwelling Urethral Catheter Cath placed during this visit: yes, but has since been removed by the nurse Reason for continuing: Not indwelling catheter Insertion date: 04/15/18 Insertion time: 14:20 Removal date: 04/15/18 Removal time: 13:08 Right ileal conduit Cath placed during this visit: yes Reason for continuing: Other continuation reason Insertion date: 04/15/18 Results - Labs CBC & Chem 7: 04/25/18 18:23 04/25/18 18:23 Laboratory Results - last 24 hr 04/26/18 06:26 Stl C.difficile DNA Amp Positive H St C. diff Tox Epid 027 Positive H Microbiology 04/25/18 18:23 Blood - Peripheral Aerobic Blood Culture - Preliminary No growth in 1 day 04/25/18 18:23 Blood - Peripheral Anaerobic Blood Culture - Preliminary No growth in 1 day 04/25/18 18:28 Blood - Peripheral Aerobic Blood Culture - Preliminary No growth in 1 day 04/25/18 18:28 Blood - Peripheral Anaerobic Blood Culture - Preliminary No growth in 1 day Assessment and Plan - Plan Mr. Herr is a 62-year-old male with a history of muscle invasive bladder cancer status post neoadjuvant chemotherapy who underwent radical cystectomy with bilateral pelvic lymph node dissection with creation of ileal conduit on . He required 3 units of blood transfusion perioperatively largely because of anemia preop. Patient was subsequently managed in the critical care unit. Patient's care was transferred to hospitalist service on 04/22/2018. Muscle invasive bladder cancer Chronic pain syndrome -Status post neoadjuvant chemotherapy and radical cystectomy -Currently on Percocet as needed and Dilaudid 2 mg IV every 4 hours as needed. -He is now on oral diet. He was on TPN before. -We will discuss with hematology oncology as well as COPD Pulmonary nodule -Lung biopsy 2017 revealed inflammatory changes no malignancy -Continue albuterol nebulizer treatments, supplemental oxygen as needed. Hypokalemia - resolved. C. Diff colitis -Will start Vancomycin PO 125mg QID X 10 days. -CBC, BMP in the AM. Full code. Lovenox
[2018-04-27] MEDS: Sodium Chloride 23.4% Inj 154 MEQ in Dextrose 10% in Water Inj 1,000 ML IV.CONT SCH ×2 (16:56)
[2018-04-27] MEDS: Pantoprazole Inj 40 MG Vial IV.PUSH SCH (16:57)
[2018-04-28] MEDS: HYDROmorphone PF Inj 2 MG/ML Vial IV.PUSH PRN ×6 (01:41→22:40)
[2018-04-28 06:34] LABS: Baso # (Auto) 0.1 th/mm3 (0.0-0.2); Baso % (Auto) 0.7 % (0.0-2.0); Eos # (Auto) 0.4 th/mm3 (0.0-0.4); Eos % (Auto) 4.6 % (0.0-4.0); Hematocrit 28.4 % (39.0-51.0); Hemoglobin 9.2 gm/dL (13.0-17.0); Lymph # (Auto) 1.2 th/mm3 (1.0-4.8); Lymph % (Auto) 12.3 % (9.0-44.0); Mean Corpuscular HGB Conc 32.5 % (32.0-36.0); Mean Corpuscular Hemoglobin 27.5 pg (27.0-34.0); Mean Corpuscular Volume 84.5 fL (80.0-100.0); Mean Platelet Volume 8.3 fL (7.0-11.0); Mono # (Auto) 0.7 th/mm3 (0.0-0.9); Mono % (Auto) 7.1 % (0.0-8.0); Neut # (Auto) 7.1 th/mm3 (1.8-7.7); Neut % (Auto) 75.3 % (16.0-70.0); Platelet Count 398 th/mm3 (150-450); Red Blood Count 3.36 mil/mm3 (4.50-5.90); Red Cell Distribution Width 17.2 % (11.6-17.2); White Blood Count 9.4 th/mm3 (4.0-11.0)
[2018-04-28 06:59] LABS: Anion Gap 9 meq/L (5-15); Blood Urea Nitrogen 12 mg/dL (7-18); Calcium 7.8 mg/dL (8.5-10.1); Carbon Dioxide 24.3 meq/L (21.0-32.0); Chloride 107 meq/L (98-107); Glomerular Filtration Rate Greater Than 89 mL/min (>89); Glucose,Random 69 mg/dL (74-106); Potassium 3.7 meq/L (3.5-5.1); Sodium 140 meq/L (136-145)
[2018-04-28] MEDS: Docusate Sodium Liq 100 MG/10 ML UDC NG/OG SCH ×2 (08:49→21:15)
[2018-04-28] MEDS: Enoxaparin Inj 30 MG/0.3 ML Syringe SQ SCH (08:51)
[2018-04-28] MEDS: Sennosides Liq 8.8 MG/5 ML UDC NG/OG SCH ×2 (08:52→21:17)
[2018-04-28] MEDS: Gabapentin 300 MG Capsule PO SCH ×2 (08:52→21:15)
[2018-04-28] MEDS: Sodium Chloride 0.9% 2 ML Flush BID IV.FLUSH SCH ×2 (08:53→21:17)
--- NOTE | 2018-04-28 09:03 | P.PNURO ---
Subjective Patient symptoms today: Pt seen and examined. some pain. not motivated, depressed. Objective Vital Signs: Vital Signs 04/27/18 12:00 04/27/18 12:08 04/27/18 16:00 Temperature 97.4 F L 98 F Pulse Rate 75 73 Respiratory Rate 17 17 Blood Pressure 117/69 128/77 Pulse Oximetry 98 98 99 04/27/18 19:29 04/27/18 20:00 04/27/18 23:33 Temperature 98.3 F Pulse Rate 74 Respiratory Rate 20 18 20 Blood Pressure 125/64 Pulse Oximetry 99 04/28/18 00:00 04/28/18 03:41 04/28/18 06:13 Temperature 98.0 F Pulse Rate 74 Respiratory Rate 18 20 20 Blood Pressure 112/62 Pulse Oximetry 98 Intake & Output 04/27/18 04/28/18 04/28/18 18:59 06:59 18:59 Intake Total 1747.5 / 1747.5 Output Total 300 / 300 1300 / 1300 Balance 1447.5 / 1447.5 -1300 / -1300 Weight 48.6 kg Intake: IV 1027.5 / 1027.5 Sodium Chloride 23.4% Inj 154 1027.5 / 1027.5 MEQ In D10W Inj 1,000 ML @ 50 mls/hr IV.CONT .[id number] [facility] Rx# :[id number] Oral 720 / 720 Output: Urine 1300 / 1300 Urine Amount (Catheter) 300 / 300 Right ileal conduit 300 / 300 Other: Date of Last Bowel Movement 04/26/18 Result Diagrams: 04/28/18 03:55 04/28/18 03:55 Medications and IVs: Active Medications Generic Name Dose Route Start Last Admin Trade Name Freq PRN Reason Stop Dose Admin Acetaminophen 650 mg 04/16/18 08:55 Tylenol Liq PO Q6H PRN FEVER Albuterol 2.5 mg 04/16/18 08:54 Albuterol Neb (Prn) NEB Q2HR NEB PRN DYSPNEA Diphenhydramine HCl 25 mg 04/16/18 09:02 Benadryl Inj IV.PUSH Q6H PRN for itching Docusate Sodium 100 mg 04/16/18 21:00 04/28/18 08:49 Colace Liq NG/OG Not Given BID [facility] Enoxaparin Sodium 30 mg 04/16/18 09:00 04/28/18 08:51 Lovenox Inj SQ 30 mg DAILY NADINE Administration Gabapentin 300 mg 04/24/18 21:00 04/28/18 08:52 Neurontin PO 300 mg BID NADINE Administration Hydromorphone HCl 2 mg 04/22/18 10:58 04/28/18 06:11 Dilaudid Pf Inj IV.PUSH 2 mg Q4H PRN Administration BREAKTHROUGH PAIN Sodium Chloride 500 mls @ 30 mls/hr 04/15/18 07:00 04/15/18 07:25 Ns Inj IV.SIG Not Given .Q10H NADINE Magnesium Sulfate 4 gm/ Sodium 100 mls @ 50 mls/hr 04/16/18 08:32 Chloride IV.SIG UNSCH PRN For Magnesium 0.9 - 1.1 mg/dL Magnesium Sulfate 2 gm/ Sodium 100 mls @ 50 mls/hr 04/16/18 08:32 Chloride IV.SIG UNSCH PRN For Magnesium 1.2 - 1.6 mg/dL Sodium Phosphate 30 mmol/ 260 mls @ 42 mls/hr 04/16/18 08:32 Sodium Chloride IV.SIG UNSCH PRN For Phosphorus < 2.5 mg/dL Sodium Chloride 154 meq/ 1,038.5 mls @ 50 mls/hr 04/23/18 07:00 04/27/18 16: 56 Dextrose IV.CONT 50 mls/hr .[id number] NADINE Administration Labetalol HCl 10 mg 04/18/18 10:09 Trandate Inj IV.PUSH Q1H PRN Sbp>165, Dbp>90, Hr>65 Magnesium Oxide 800 mg 04/16/18 08:32 Mag-Ox PO UNSCH PRN For Magnesium 1.2 - 1.6 mg/dL Naloxone HCl 0.4 mg 04/16/18 09:02 Narcan Inj IV.PUSH PRN PRN SEE LABEL COMMENTS Nitroglycerin 2 inch 04/18/18 10:10 Nitro-Bid 2% Oint TOPICAL Q6HR PRN Sbp>165, Dbp>90 Ondansetron HCl 4 mg 04/15/18 15:26 04/26/18 18:10 Zofran Inj IV.PUSH 04/30/18 23:59 4 mg Q6H PRN Administration MILD NAUSEA Oxycodone/Acetaminophen 1 tab 04/22/18 12:00 04/28/18 08:51 Percocet 7.5/325 Mg PO 1 tab Q4H PRN Administration Pain 5-10 Pantoprazole Sodium 40 mg 04/15/18 16:00 04/27/18 16:57 Protonix Inj IV.PUSH 40 mg Q24H NADINE Administration Sennosides 8.8 mg 04/16/18 21:00 04/28/18 08:52 Senna Liq NG/OG Not Given BID NADINE Sodium Chloride 2 ml 04/16/18 21:00 04/28/18 08:53 Ns Flush IV.FLUSH 2 ml BID NADINE Administration Sodium Chloride 2 ml 04/16/18 09:14 Ns Flush IV.FLUSH PRN PRN FLUSH AFTER USING IV ACCESS Vancomycin HCl 125 mg 04/27/18 09:00 04/28/18 08:53 Vancomycin Po PO 05/07/18 08:59 125 mg QID NADINE Administration Objective Remarks: CV: RRR Lungs: decreased BS Abd:soft,nd,tender one exam Stoma: pink and viable Dale Pelvic drain: bloody Ext: neg C/C/E 04/17 CV: RRR Lungs: decreased BS Abd:soft,nd,tender Stoma: pink and viable Wound: clean and dry Dale Pelvic drain: bloody Ext: neg C/C/E 04/18 CV: RRR Lungs: CTA Abd:soft,nd,tender Stoma: pink and viable Wound: Dressing intact Dale Pelvic drain: bloody Ext: neg C/C/E 04/19 Abd:soft,nt,nd Dressing intact Stoma: pink and viable Pelvic drain removed at bedside Ext: neg 04/20 Abd:soft,nt,nd Dressing intact Stoma: pink and viable Ext: neg C/C/E 04/21 Abd:soft,nt,nd Stoma: pink and viable Stents in place Wound: clean and dry Ext:neg C/C/E 04/22 Abd:soft,nt,nd Stoma: pink and viable Stents in place Wound: clean and dry Ext:neg C/C/E 04/23 Abd:soft,nt,nd Stoma: pink and viable Stents in place Wound: clean and dry Ext:neg C/C/E 04/24 Abd:soft,nt,nd Stoma: pink and viable Stents in place Wound: clean and dry Ext:neg C/C/E 04/25 Abd:soft,nt,nd Stoma:pink and viable Stents in place Wound: clean and dry Leakage from prior central line site is noted Ext: neg C/C/E 04/28 Abd:soft,nt,nd Drain tube removed-red rubber Stents in place and will remove one tomorrow Wound: Clean and dry Ext: neg C/C/E Assessment and Plan - Plan Stable s/p radical cystectomy with ileal conduit OOB to chair Start TPN 10 Stable s/p radical cystectomy with ileal conduit Continue TPN OOB to chair NGT to gravity drainage Encourage incentive sphirometer 10 Stable s/p radical cystectomy with ileal conduit POD#3 Continue TPN OOB to chair/ambulate NGT to gravity drainage Will d/c pelvic drain in next day or two as drainage continues to decline 04/19 Stable s/p radical cystectomy with ileal conduit POD#4 OOB to chair Pelvic drain removed Continue NGT to gravity Continue TPN Path noted: T3b 04/20 Stable POD#5 s/p radical cystectomy with ileal conduit OOB today/Ambulate Path reviewed with pt today Will plan to remove NGT this Saturday and start clear liquids Continue TPN 04/21 Stable POD#6 s/p radical cystectomy with ileal conduit NGT removed; ice chips today OOB Continue TPN 04/22 Stable POD#7 s/p radical cystectomy with ileal conduit Clear liquid diet D/[employer]. Will start PO pain meds. OOB Continue TPN 04/23 Stable POD#8 s/p radical cystectomy with ileal conduit Regular diet OOB Ween off TPN 04/24 Stable POD#9 s/p radical cystectomy with ileal conduit OOB/Ambulate Off TPN Tolerating Regular diet. 04/25 Stable POD#10 s/p radical cystectomy with ileal conduit OOB/Ambulate Off TPN; calorie count, ? PPN; nutrition evaluation Tolerating Regular diet. 04/28 Stable POD#13 s/p radical cystectomy with ileal conduit OOB/Ambulate Off TPN; calorie count, ? PPN; nutrition evaluation Tolerating Regular diet some Continue abx for C. Diff
[2018-04-28] MEDS: Sodium Chloride 23.4% Inj 154 MEQ in Dextrose 10% in Water Inj 1,000 ML IV.CONT SCH ×2 (11:01)
--- NOTE | 2018-04-28 11:14 | P.PN ---
Subjective Interval history: Follow-up for chronic pain, status post radical cystectomy, C. difficile colitis. Patient is resting in bed. Denies any fever or chills. He, however, remains somewhat depressed mood. He complains of significant abdominal pain not relieved by current regimen which includes p.o. Percocet as well as IV Dilaudid. Physical Exam Vital signs: Vital Signs 04/27/18 12:00 04/27/18 12:08 04/27/18 16:00 Temperature 97.4 F L 98 F Pulse Rate 75 73 Respiratory Rate 17 17 Blood Pressure 117/69 128/77 Pulse Oximetry 98 98 99 04/27/18 19:29 04/27/18 20:00 04/27/18 23:33 Temperature 98.3 F Pulse Rate 74 Respiratory Rate 20 18 20 Blood Pressure 125/64 Pulse Oximetry 99 04/28/18 00:00 04/28/18 03:41 04/28/18 06:13 Temperature 98.0 F Pulse Rate 74 Respiratory Rate 18 20 20 Blood Pressure 112/62 Pulse Oximetry 98 04/28/18 08:00 Temperature 98.4 F Pulse Rate 74 Respiratory Rate 14 Blood Pressure 121/74 Pulse Oximetry 97 Intake & Output 04/27/18 04/28/18 04/28/18 18:59 06:59 18:59 Intake Total 1747.5 / 1747.5 1000 / 1000 Output Total 300 / 300 1300 / 1300 Balance 1447.5 / 1447.5 -1300 / -1300 1000 / 1000 Weight 48.6 kg Intake: IV 1027.5 / 1027.5 1000 / 1000 Sodium Chloride 23.4% Inj 154 1027.5 / 1027.5 1000 / 1000 MEQ In D10W Inj 1,000 ML @ 50 mls/hr IV.CONT .[id number] [facility] Rx# :[id number] Oral 720 / 720 Output: Urine 1300 / 1300 Urine Amount (Catheter) 300 / 300 Right ileal conduit 300 / 300 Other: Date of Last Bowel Movement 04/26/18 04/28/18 Narrative: GENERAL: This is a well-nourished, well-developed patient, in no apparent distress. CARDIOVASCULAR: Regular rate and rhythm without murmurs, gallops, or rubs. RESPIRATORY: Clear to auscultation. Breath sounds equal bilaterally. No wheezes , rales, or rhonchi. GASTROINTESTINAL: Abdomen soft, clean surgical wound. Significant tenderness to palpation. MUSCULOSKELETAL: Extremities without clubbing, cyanosis, or edema. NEURO: Alert & Oriented x4 to person, place, time, situation. Moves all ext x4 - Urinary Catheter Management Indwelling Urethral Catheter Cath placed during this visit: yes, but has since been removed by the nurse Reason for continuing: Not indwelling catheter Insertion date: 04/15/18 Insertion time: 14:20 Removal date: 04/15/18 Removal time: 13:08 Right ileal conduit Cath placed during this visit: yes Reason for continuing: Not indwelling catheter Insertion date: 04/15/18 Results - Labs CBC & Chem 7: 04/28/18 03:55 04/28/18 03:55 Laboratory Results - last 24 hr 04/26/18 04/28/18 04/28/18 06:26 03:55 03:55 WBC 9.4 RBC 3.36 L Hgb 9.2 L Hct 28.4 L MCV 84.5 MCH 27.5 MCHC 32.5 RDW 17.2 Plt Count 398 MPV 8.3 Neut % (Auto) 75.3 H Lymph % (Auto) 12.3 [place] % (Auto) 7.1 Eos % (Auto) 4.6 H Baso % (Auto) 0.7 Neut # (Auto) 7.1 Lymph # (Auto) 1.2 [place] # (Auto) 0.7 Eos # (Auto) 0.4 Baso # (Auto) 0.1 WBC Differential . Differential Comment Auto diff final Sodium 140 Potassium 3.7 Chloride 107 Carbon Dioxide 24.3 Anion Gap 9 BUN 12 Creatinine 0.60 Estimated GFR Greater than 89 Random Glucose 69 L Calcium 7.8 L Stool C.difficile Ag Positive H Stool C.difficile Toxin Positive H Microbiology 04/25/18 18:23 Blood - Peripheral Aerobic Blood Culture - Preliminary No growth in 3 days 04/25/18 18:23 Blood - Peripheral Anaerobic Blood Culture - Preliminary No growth in 3 days 04/25/18 18:28 Blood - Peripheral Aerobic Blood Culture - Preliminary No growth in 3 days 04/25/18 18:28 Blood - Peripheral Anaerobic Blood Culture - Preliminary No growth in 3 days 04/26/18 04:25 Catheterized Urine Urine Culture - Final Dia albicans Assessment and Plan - Plan Mr. Herr is a 62-year-old male with a history of muscle invasive bladder cancer status post neoadjuvant chemotherapy who underwent radical cystectomy with bilateral pelvic lymph node dissection with creation of ileal conduit on . He required 3 units of blood transfusion perioperatively largely because of anemia preop. Patient was subsequently managed in the critical care unit. Patient's care was transferred to hospitalist service on 04/22/2018. Muscle invasive bladder cancer Chronic pain syndrome -Status post neoadjuvant chemotherapy and radical cystectomy -Currently on Percocet as needed and Dilaudid 1 mg IV for breakthrough. -He is now on oral diet. He was on TPN before. -Discussed with Urology and Oncology (Dr. Mathews). We will consult Dr. Mathews. -Encouraged patient to get up and move around a bit more. -His current ECOG score is 3-4, more likely 4. -Will get palliative care consult as well. COPD Pulmonary nodule -Lung biopsy 2017 revealed inflammatory changes no malignancy -Continue albuterol nebulizer treatments, supplemental oxygen as needed. Hypokalemia - resolved. C. Diff colitis -Vancomycin PO 125mg QID X 10 days. -Diarrhea improving. -CBC, BMP reviewed. Hgb stable. Full code. Lovenox
--- NOTE | 2018-04-28 11:41 | P.DCO ---
- Home Health Nursing Order: Medical education, Signs/symptoms of disease process, Medication education-adverse effect, Wound care and dressing changes (Ileal conduit management. ) - Case Management Consult No - Certification I have seen patient Marc Herr on 04/28/18. My clinical findings support the need for the requested home health care services because: Limited mobility due to disease progression, Deconditioned with increased weakness, Limited ability to care for self, Need for psychosocial assistance, Impaired cognition/judgement, High risk of falls, Infection with risk of complications I certify that my clinical findings support that this patient is homebound because: Post-op weakness, Unsteady gait/balance, Unsafe to leave home unassisted, Need for psychosocial assistance, Non-ambulatory: confined to bed or chair, Unable to use public transportation
--- NOTE | 2018-04-28 12:44 | P.CONPAL ---
Consult Service: Palliative Care Requesting Physician: Noah Cuenca Reason for Consult: a. To assist with evaluation and management of symptoms including: Pain, weakness, diarrhea b. To assist medical decision maker(s) with: better understanding of current medical conditions; weighing benefits/burdens of medical treatment options; making medical treatment decisions. 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 Mathews since November 2017. 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 He began to notice suprapubic pain in September 2017 and then developed hematuria and subsequently underwent transurethral resection of a bladder tumor that was greater than [address] scan of the chest, abdomen and pelvis with IV contrast as well as a nuclear medicine bone scan showed no definitive evidence of distal metastases or intra-abdominal malignant lymphadenopathy. He received 3 cycles of cisplatin/gemcitabine however his treatment was then discontinued because he was tolerating this poorly. PET scan performed in February 2018 showed an abnormal appearance of the urinary bladder however a decrease in soft tissue mass burden involving the bladder as well as hypermetabolic activity in bilateral lung apices associated with scar like tissue densities. After review by the multidisciplinary thoracic oncology tumor board February [address]-guided biopsy a inbound customer service representative lesion in the right upper lobe was recommended. That biopsy was performed showing pathologic findings consistent with inflammatory changes. Per Dr. Mathews's 03/18/18 note, felt that if the lesion in the lung or anything except metastatic bladder cancer , the patient would be a candidate for curative intent therapy with resection of the primary tumor of the bladder while he was not tolerant of chemotherapy in the past, recommendations by Dr. Mathews on 04/01/2018 recommended, first, surgical resection or if surgical complication rates felt to be too high, then combined modality chemoradiotherapy. At this time the patient is too weak and debilitated to undergo chemotherapy. In his prior chemotherapy treatments, he stated he laid in bed and vomited continuously for days. He was admitted to [facility] 04/15/18 for radical cystectomy and postoperatively was transferred to intensive care due to his fragile respiratory status where he received 3 units of blood, secondary to preoperative anemia and treated for acute and chronic pain. He describes his pain as severe, continuous ranging from 7/10 after pain medications to 10/10 within a couple hours. He states his pain starts at the right kidney and directed downward towards the bladder, sharp , debilitating, slightly improved with pain medication but not relieved. Once stabilized he was transferred to the hospitalist service, who consulted palliative care to assist in symptom management and goals of care as patient has chronic pain, aggressive weakness and acute diarrhea secondary to a C. difficile infection. His weakness has been progressive, worsening with the effects of chemotherapy from prior treatments, worsened by poor appetite, moderate to severe, however his pain has been so debilitating he has been unable to do anything except lay in bed. He is cachectic, tearful and requires a 1 person assist to stand, pivot and get back to bed from the bedside commode. He developed diarrhea on 04/24 with 2-3 liquid stools daily, non-cramping, nonbloody with no modifying factors, Which tested C. difficile positive on . He is being treated with oral vancomycin 125 mg p.o. 4 times daily. Past medical history Muscle invasive high-grade bladder cancer, T3b N0 M0; stage IIIa status post chemotherapy with cisplatin and gemcitabine x3 cycles Pulmonary nodules/scarring Hemorrhoids COPD Emphysema Seizure 2000 Chronic pain Scarlet fever Surgical history Transurethral resection of bladder tumor in 2018 Radical cystectomy with bilateral pelvic lymph node dissection and creation of ileal conduit Social history Former heavy alcohol use none at this time. Has smoked 1 pack/day for over 45 years. 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 Family history Both parents . Father in a motor vehicle accident, mother had cancer. Function/Cognitive Trajectory: He has become progressively weaker and more debilitated since being diagnosed with cancer in September 2017. 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 He states that since his bladder resection in September, he has progressively declined experiencing more pain, nausea, weakness, anorexia, depression and steadily worsening quality of life. . Review of Systems Constitutional: Reports weakness, Reports weight loss Respiratory: Reports shortness of breath Gastrointestinal: Reports abdominal pain, Reports loose stools Musculoskeletal: Reports back pain, Reports decreased muscle mass Psychiatric: Reports depression PMFSH - History History Provided By: Patient - Medical History Medical History: Medical History (Last Reviewed 04/28/18 @ 08:58 by Maylin Maharaj) History of chemotherapy Anxiety Bladder cancer COPD (chronic obstructive pulmonary disease) Cancer Chronic abdominal pain Depression Scarlet fever - Surgical History Surgical History: Surgical History (Last Reviewed 04/28/18 @ 08:58 by Maylin Maharaj) History of bladder surgery - Tobacco History Second Hand Smoke Exposure: No Tobacco Use In Past 30 Days: Yes Smoking Status: Current every day smoker Tobacco Type: Cigarettes - Alcohol History How Often Do You Have a Drink Containing Alcohol: Never - Substance Use History Substance History: No History of Abuse - Travel History Recent Travel in the [place] Within the Last 8 Weeks: No Recent Travel Out of the Country Within the Last 8 Weeks: No - Immunization History Hx Influenza Vaccine This Season: No Medications and Allergies Active Medications: Active Medications Acetaminophen (Tylenol Liq) 650 mg PO Q6H PRN PRN Reason: FEVER Albuterol (Albuterol Neb (Prn)) 2.5 mg NEB Q2HR NEB PRN PRN Reason: DYSPNEA Diphenhydramine HCl (Benadryl Inj) 25 mg IV.PUSH Q6H PRN PRN Reason: for itching Docusate Sodium (Colace Liq) 100 mg NG/OG BID [facility] Last Admin: 04/28/18 08:49 Dose: Not Given Enoxaparin Sodium (Lovenox Inj) 30 mg SQ DAILY [facility] Last Admin: 04/28/18 08:51 Dose: 30 mg Gabapentin (Neurontin) 300 mg PO BID [facility] Last Admin: 04/28/18 08:52 Dose: 300 mg Hydromorphone HCl (Dilaudid Pf Inj) 1 mg IV.PUSH Q4H PRN PRN Reason: BREAKTHROUGH PAIN Last Admin: 04/28/18 11:05 Dose: 1 mg Sodium Chloride (Ns Inj) 500 mls @ 30 mls/hr IV.SIG .Q10H [facility] Last Admin: 04/15/18 07:25 Dose: Not Given Magnesium Sulfate 4 gm/ Sodium (Chloride) 100 mls @ 50 mls/hr IV.SIG UNSCH PRN PRN Reason: For Magnesium 0.9 - 1.1 mg/dL Magnesium Sulfate 2 gm/ Sodium (Chloride) 100 mls @ 50 mls/hr IV.SIG UNSCH PRN PRN Reason: For Magnesium 1.2 - 1.6 mg/dL Sodium Phosphate 30 mmol/ (Sodium Chloride) 260 mls @ 42 mls/hr IV.SIG UNSCH PRN PRN Reason: For Phosphorus < 2.5 mg/dL Sodium Chloride 154 meq/ (Dextrose) 1,038.5 mls @ 50 mls/hr IV.CONT .[id number] [facility] Last Admin: 04/28/18 11:01 Dose: 50 mls/hr Labetalol HCl (Trandate Inj) 10 mg IV.PUSH Q1H PRN PRN Reason: Sbp>165, Dbp>90, Hr>65 Magnesium Oxide (Mag-Ox) 800 mg PO UNSCH PRN PRN Reason: For Magnesium 1.2 - 1.6 mg/dL Naloxone HCl (Narcan Inj) 0.4 mg IV.PUSH PRN PRN PRN Reason: SEE LABEL COMMENTS Nitroglycerin (Nitro-Bid 2% Oint) 2 inch TOPICAL Q6HR PRN PRN Reason: Sbp>165, Dbp>90 Ondansetron HCl (Zofran Inj) 4 mg IV.PUSH Q6H PRN PRN Reason: MILD NAUSEA Stop: 04/30/18 23:59 Last Admin: 04/26/18 18:10 Dose: 4 mg Oxycodone/Acetaminophen (Percocet 7.5/325 Mg) 1 tab PO Q4H PRN PRN Reason: Pain 5-10 Last Admin: 04/28/18 08:51 Dose: 1 tab Pantoprazole Sodium (Protonix Inj) 40 mg IV.PUSH Q24H [facility] Last Admin: 04/27/18 16:57 Dose: 40 mg Sennosides (Senna Liq) 8.8 mg NG/OG BID [facility] Last Admin: 04/28/18 08:52 Dose: Not Given Sodium Chloride (Ns Flush) 2 ml IV.FLUSH BID [facility] Last Admin: 04/28/18 08:53 Dose: 2 ml Sodium Chloride (Ns Flush) 2 ml IV.FLUSH PRN PRN PRN Reason: FLUSH AFTER USING IV ACCESS Vancomycin HCl (Vancomycin Po) 125 mg PO QID [facility] Stop: 05/07/18 08:59 Last Admin: 04/28/18 08:53 Dose: 125 mg Allergies Allergy/AdvReac Type Severity Reaction Status Date / Time No Known Allergies Allergy Verified 04/15/18 07:21 Home Medications Medication Instructions Recorded Confirmed Type hydrocodone-acetaminophen 1 tab PO Q4-6H PRN 01/30/18 04/15/18 History morphine 30 mg PO Q8H 01/30/18 04/15/18 History ondansetron [Zofran ODT] 4 mg PO Q6-8H PRN 01/30/18 04/15/18 History gabapentin 300 mg PO BID 03/26/18 04/15/18 History Advance Directives Living Will: No Healthcare Surrogate: Yes Health Care Surrogate Name and Number: Holly Levine Power of Certified Paralegal: No Physical Exam Vital Signs: Vital Signs - 24 hr 04/27/18 12:00 04/27/18 12:08 04/27/18 16:00 Temperature 97.4 F L 98 F Pulse Rate 75 73 Respiratory Rate 17 17 Blood Pressure 117/69 128/77 Pulse Oximetry 98 98 99 04/27/18 19:29 04/27/18 20:00 04/27/18 23:33 Temperature 98.3 F Pulse Rate 74 Respiratory Rate 20 18 20 Blood Pressure 125/64 Pulse Oximetry 99 04/28/18 00:00 04/28/18 03:41 04/28/18 06:13 Temperature 98.0 F Pulse Rate 74 Respiratory Rate 18 20 20 Blood Pressure 112/62 Pulse Oximetry 98 04/28/18 08:00 Temperature 98.4 F Pulse Rate 74 Respiratory Rate 14 Blood Pressure 121/74 Pulse Oximetry 97 I&O: Intake & Output 04/26/18 04/27/18 04/28/18 04/29/18 06:59 06:59 06:59 06:59 Intake Total 2518.5 / 2518.5 800 / 800 1747.5 / 1747.5 1000 / 1000 Output Total 700 / 700 750 / 750 1600 / 1600 Balance 1818.5 / 1818.5 50 / 50 147.5 / 147.5 1000 / 1000 Weight 110 lb 3.698 oz 107 lb 5.842 oz 107 lb 2.314 oz Physical Exam: CONSTITUTIONAL/GENERAL: This is a cachectic male, lying in bed in moderate distress, tearful complaining of pain from the right flank into the pelvis. TUBES/LINES/DRAINS: PIV SKIN: No jaundice, rashes, or lesions. Ecchymoses on upper extremities. No wounds seen anteriorly. Skin temperature appropriate. Not diaphoretic. HEAD: Atraumatic. Normocephalic. EYES: Pupils equal and round and reactive. Extraocular motions intact. No scleral icterus. No injection or drainage. Fundi not examined. ENT: Hearing grossly normal. Nose without bleeding or purulent drainage. Throat without visible erythema, exudates, masses, or lesions. NECK: Trachea midline. Supple, nontender. No palpable thyroid enlargement or nodularity. CARDIOVASCULAR: Regular rate and rhythm without murmurs, gallops, or rubs. No JVD. Peripheral pulses symmetric. RESPIRATORY/CHEST: Symmetric, unlabored respirations. Scattered rhonchi. Breath sounds equal bilaterally. GASTROINTESTINAL: Abdomen soft, tender to palpation, nondistended. No hepato- splenomegaly, or palpable masses. No guarding. Bowel sounds present. GENITOURINARY: Ileal conduit in place draining to bedside drainage. MUSCULOSKELETAL: Extremities without clubbing, cyanosis, or edema. No joint tenderness or effusion noted. No calf tenderness. No mottling or clubbing. LYMPHATICS: No palpable cervical or supraclavicular adenopathy. NEUROLOGICAL: Awake and alert. Motor and sensory grossly within normal limits. Follows commands. Cognitively sharp. Moves all extremities. PSYCHIATRIC: Agitated from extreme pain, calm and pleasant once pain recedes, no apparent hallucinations or other psychotic thought process. Diagnostic Tests Laboratory: Laboratory Results - last 72 hr 04/25/18 04/25/18 04/25/18 17:19 18:23 18:23 WBC 23.2 H RBC 3.53 L Hgb 9.5 L Hct 29.2 L MCV 82.7 MCH 26.9 L MCHC 32.6 RDW 17.4 H Plt Count 377 MPV 8.9 Neut % (Auto) 89.8 H Lymph % (Auto) 3.9 L Dickens % (Auto) 4.9 Eos % (Auto) 1.2 Baso % (Auto) 0.2 Neut # (Auto) 20.8 H Lymph # (Auto) 0.9 L Dickens # (Auto) 1.1 H Eos # (Auto) 0.3 Baso # (Auto) 0.1 WBC Differential . Differential Comment Auto diff final Sodium 137 Potassium 3.6 Chloride 103 Carbon Dioxide 23.4 Anion Gap 11 BUN 15 Creatinine 0.84 Estimated GFR Greater than 89 POC Glucose 109 Random Glucose 100 Calcium 8.2 L Urine Color Urine Clarity Urine pH Ur Specific [place] Urine Protein Urine Glucose (UA) Urine Ketones Urine Occult Blood Urine Nitrate Urine Bilirubin Urine Urobilinogen Ur Leukocyte Esterase Urine RBC Urine WBC Ur Squamous Epith Cells Urine Bacteria Hyaline Casts Urine Mucus Urine Yeast Micro UA Comment Ur Microscopic Review Urine Culture Comments Stool C.difficile Ag Stool C.difficile Toxin Stl C.difficile DNA Amp St C. diff Tox Epid 027 04/26/18 04/26/18 04/28/18 04:25 06:26 03:55 WBC 9.4 RBC 3.36 L Hgb 9.2 L Hct 28.4 L MCV 84.5 MCH 27.5 MCHC 32.5 RDW 17.2 Plt Count 398 MPV 8.3 Neut % (Auto) 75.3 H Lymph % (Auto) 12.3 Dickens % (Auto) 7.1 Eos % (Auto) 4.6 H Baso % (Auto) 0.7 Neut # (Auto) 7.1 Lymph # (Auto) 1.2 Dickens # (Auto) 0.7 Eos # (Auto) 0.4 Baso # (Auto) 0.1 WBC Differential . Differential Comment Auto diff final Sodium Potassium Chloride Carbon Dioxide Anion Gap BUN Creatinine Estimated GFR POC Glucose Random Glucose Calcium Urine Color Yellow Urine Clarity Cloudy H Urine pH 5.0 Ur Specific [place] 1.018 Urine Protein 30 H Urine Glucose (UA) Negative Urine Ketones Negative Urine Occult Blood Moderate H Urine Nitrate Negative Urine Bilirubin Negative Urine Urobilinogen Less than 2 Ur Leukocyte Esterase Moderate H Urine RBC 49 H Urine WBC 25 H Ur Squamous Epith Cells 1 Urine Bacteria Occasional H Hyaline Casts 3 Urine Mucus Few H Urine Yeast Many H Micro UA Comment Cath-culture ind Ur Microscopic Review Not Reportable Urine Culture Comments Cath-cult indicated Stool C.difficile Ag Positive H Stool C.difficile Toxin Positive H Stl C.difficile DNA Amp Positive H St C. diff Tox Epid 027 Positive H 04/28/18 03:55 WBC RBC Hgb Hct MCV MCH MCHC RDW Plt Count MPV Neut % (Auto) Lymph % (Auto) Dickens % (Auto) Eos % (Auto) Baso % (Auto) Neut # (Auto) Lymph # (Auto) Dickens # (Auto) Eos # (Auto) Baso # (Auto) WBC Differential Differential Comment Sodium 140 Potassium 3.7 Chloride 107 Carbon Dioxide 24.3 Anion Gap 9 BUN 12 Creatinine 0.60 Estimated GFR Greater than 89 POC Glucose Random Glucose 69 L Calcium 7.8 L Urine Color Urine Clarity Urine pH Ur Specific [place] Urine Protein Urine Glucose (UA) Urine Ketones Urine Occult Blood Urine Nitrate Urine Bilirubin Urine Urobilinogen Ur Leukocyte Esterase Urine RBC Urine WBC Ur Squamous Epith Cells Urine Bacteria Hyaline Casts Urine Mucus Urine Yeast Micro UA Comment Ur Microscopic Review Urine Culture Comments Stool C.difficile Ag Stool C.difficile Toxin Stl C.difficile DNA Amp St C. diff Tox Epid 027 Result Diagrams: 04/28/18 03:55 04/28/18 03:55 Microbiology: Microbiology 04/25/18 18:23 Aerobic Blood Culture - Preliminary Blood - Peripheral No growth in 3 days Anaerobic Blood Culture - Preliminary No growth in 3 days 04/25/18 18:28 Aerobic Blood Culture - Preliminary Blood - Peripheral No growth in 3 days Anaerobic Blood Culture - Preliminary No growth in 3 days 04/26/18 04:25 Urine Culture - Final Catheterized Urine Dia albicans Imaging: Abdomen X-Ray 04/15/18 00:00 CONCLUSION: 1. Surgical changes status post ileal conduit placement with bilateral stent catheters. 2. Nonspecific bowel gas pattern most likely representing a postoperative ileus. Chest X-Ray 04/15/18 00:00 CONCLUSION: Persistent abnormal bilateral upper lobe opacity previously evaluated on PET/CT. Abdomen X-Ray 04/18/18 00:00 CONCLUSION: Compared to the study of 04/15/2018 with slight increase the amount of bowel distention. Stents and drain appear to remain in good position. Chest X-Ray 04/25/18 00:00 CONCLUSION: Right apical pleural parenchymal change again noted which appears mildly increased from the prior study. There is volume loss and mediastinal shift to the right. Procedures: 04/15: Radical cystectomy . Patient/Family Conference Present at Family Conference: Spoke with patient at bedside. No other family available at this time. Patient is alert and oriented and appears to have good insight into his medical condition. He states his primary problem is pain which has been uncontrolled as well as the inability to obtain any pain treatment outside of the hospital due to no insurance. Patient states he was informed by his urologist, Dr. Degroot, that his bladder cancer had invaded the muscle wall, so despite cystectomy, he still had cancer. He was not tolerant of chemotherapy in the past and at this time his performance status is extremely poor and he would not be a candidate for any chemotherapy. We discussed hospice as there is no available treatment for his cancer per my discussion with Dr. Cuenca, making this a terminal condition. Given his terminal diagnosis, cachectic condition, poor appetite and progressive decline, he would be appropriate for hospice. . Family Conference Location: Bedside Issues Discussed: * Palliative care role, purpose, approach * Additional medical, psychosocial, and spiritual history * Patients general health, functional status, and cognitive changes in the months leading up to the current hospitalization * Patient/family understanding of the current medical problems * Patient/family understanding of prognosis * Patients goals of care as best understood from advance directives and/or conversations and/or values * Current medical treatment options and benefits/burdens of those options * Likely scenarios comparing ongoing aggressive care with a transition to comfort measures only * Questions answered to the best of my ability * Palliative care contact information provided Assessment and Plan - Disease Oriented Problem List (1) COPD (chronic obstructive pulmonary disease) (2) Bladder cancer (3) Chronic pain Pertinent Non-Medical Issues: Psychosocial: He was born in [place] and moved to [place] 3 years ago with his girlfriend of many years. He worked in [employer] and [employer] for many years. He has 1 daughter from whom he is estranged. Spiritual: Brick [employer] Hand available. Legal: No advance directives completed. Healthcare surrogate completed at this assessment. Ethical issues impacting care: None noted. . Important Contacts: Significant other: Hollymanjit Levine . Prognosis: His prognosis is guarded. Margins of the tumor resection were positive and the patient is not tolerant of chemotherapy. He received 3 rounds of chemotherapy previously and was unable to receive the fourth due to poor tolerance, extreme nausea and vomiting rapid weight loss and poor performance status. He was informed by the urologist that the cancer had invaded the muscle wall and as his performance status is so poor, he would not be a candidate for chemotherapy even if it was tolerated. He wishes for pain relief as his primary treatment. Given his positive cancer diagnosis, poor performance status and progressive decline, he would be hospice appropriate if goals were consistent. . Code Status: Full Code Plan: PLAN: Legal decision maker: Goals: CODE STATUS: SYMPTOMS: * Pain: * Depression: SUMMARY This is a 62-year-old male with a long history of tobacco abuse, environmental pollutants exposure with COPD, bladder cancer, now status post radical cystectomy with ileal conduit. He did not tolerate chemotherapy well and received only 3 of the [address] of the lungs indicated hypermetabolic activity which was subsequently biopsied showing inflammatory changes. His appetite is poor and he is generally depressed. His prognosis is guarded. The cancer has invaded the muscle wall and his performance status is too poor to undergo recurrent chemotherapy. He has severe uncontrolled pain and wishes primarily for pain relief restore his quality of life. He would be appropriate for hospice if goals were consistent. Palliative care will continue to follow the patient during hospital course as condition evolves, to assist patient/decision-maker with understanding of their medical conditions, weighing benefits/burdens of treatment options, for clarification of goals of treatment. Additionally will assist with any symptoms of palliative concern. . Appreciation Thank you for the opportunity to participate in the care of Marc Herr. Attestation Attestation: To help prompt me to consider important information that might be impacting today's encounter and assessment, information from prior notes written by myself or my colleagues may have been "brought forward" into today's note. My signature on this note, however, is an attestation that I personally performed the exam, history, and/or decision-making noted today, and, unless otherwise indicated, the interactions with patient, family, and staff as well as the review of records all occurred today. I also attest that the listed assessment and stated plan reflect my best clinical judgment today based on the combination of historical information, prior notes, and today's exam/ interactions. When time spent is documented, it refers only to time spent today by the signer, or if indicated, combined time spent today by collaborating physician/nurse practitioner. .
--- NOTE | 2018-04-28 12:50 | P.DIET ---
Nutritional Evaluation Type of nutrition evaluation: follow-up Nutrition consult regarding: TPN/PPN Nutrition screening: [facility] Screening comments: 04/25/18 [facility] Poor PO Intake; needs calorie count; ? PPN Subjective Subjective Comments: WOCN preparing to provide ostomy teaching when Calorie Count envelope collected. Pt w/full breakfast tray on bedside table at 11:30am today and says he would like to see if he can eat it-noted pt's RN Desiree reports pt working on the same breakfast tray earlier today at 09:34am. Pt asked whether he is drinking the Ensure Enlive and he says "two out of 44 is not bad". Brought forward from previous note:Pt says he has never been a "big eater". States his usual wt in his adult life at 125 to 130-lb. Pt does not care for the Ensure Clear Supplement. Food preferences taken during this visit. Partially eaten lunch tray in pt's room w/approximately 25% po intake. Objective - Diagnosis Cystectomy - Objective [place] body weight: 65 kg % IBW: 77 (IBW = 142#) Body Weight Used for Calculations: Actual (50 kg) Energy Needs - Lower Range (kCal/kg): 35 Energy Needs - Upper Range (kCal/kg): 40 Lower Limit kCal/kg (kCals): 1,750 Upper Limit kCal/kg (kCals): 2,000 Lower Limit Protein Factor (Grams per Kg): 1.2 Upper Limit Protein Factor (Grams per Kg): 1.5 Lower Protein Needs (Protein): 60 Upper Protein Needs (Protein): 75 Dietitian Reviewed in Medical Record: Current diet, Curent medications, Intake & Output, Labs, Medical history Diet Order: Regular Oral Diet Intake Amount: Poor <50% Objective Comments: PMH: Anxiety, Depression, Bladder Cancer h/o chemo, chronic abdominal pain, Scarlet Fever Skin/Integumentary: midine coccyx pressure injury Labs Include: TG 73, Random Glucose 69 Feeding - Current PO Supplement Current Supplement: Ensure Enlive Current Frequency of Supplement: Three times a day Current kCals Provided by Supplement: 350 Current Protein Provided by Supplement: 20 - kCal Count Day 1 kCal Intake: 500 Day 1 Protein Intake: 17 Day 2 kCal Intake: 990 Day 2 Protein Intake: 52 Day 3 kCal Intake: 190 Day 3 Protein Intake: 7 kCal Comments: Day#3: 0% po intake for breakfast and dinner Assessment Assessment: Pt remains at high nutrition risk w/history of bladder cancer POD#13 s/p radical cystectomy w/ileal conduit. Post-op pt received TPN which was weaned and central line has been discontinued. Diet has been advanced. Pt now w/c- diff colitis receiving Vancomycin 04/27 through 05/07. MDC for Calorie Count through 04/28 w/INADEQUATE PO INTAKE. Pt w/low BMI 17.3. Rec an alternative method of nutrition, if consistent w/goals of care. For PPN, Rec CLIIMIX E 4.25/ 5 @ 75ml/hr and 20% Lipids @ 10ml/hr to offer 77g Protein and 1092 kcal. Rec a repeat Calorie Count in 5 to 7 days. Rec an appetite stimulant, if medically appropriate. Continue Ensure Enlive. [place] pt's food preferences. Labs reviewed. Wt changes noted w/a a 1.4kg wt loss. Dietitian following. Recommendations: 1. MDC for Calorie Count 04/25 through 04/28 w/INADEQUATE PO INTAKE 2. Rec an alternative method of nutrition, if consistent w/goals of care 3. For PPN, Rec CLIIMIX E 4.25/5 @ 75ml/hr and 20% Lipids @ 10ml/hr 4. Rec a repeat Calorie Count in 5 to 7 days 5. Rec an appetite stimulant, if medically appropriate 6. Continue Ensure Enlive 7. Continue to honor pt's food preferences 8. Dietitian following Dietitian to Monitor: Lab values, Supplement acceptance, Intake & Output, Diet tolerance, Weight change, PO Intake, Wound/skin status, Medical course
--- NOTE | 2018-04-28 16:12 | P.PNWCN ---
Wound Care Nurse Consult Description: Received ostomy management consult from Doctor Jose Degroot for RUQ Communicated with: ALEX Bravo and patient Recommendation: Please monitor for urine output, stoma appearance and color. Change urostomy appliance if leaking occurs. Do not reinforce with tape, please change. Urinary Diversion - Urinary Stoma Ileal Conduit Stent(s) Present: Yes Number of Stents: 2 Stoma Edema: No Stoma Diameter: 29 (~29mm) Stoma Appearance: Beefy Red Collection Device: Two-piece Drainage Description: Yellow Wafer Size: two piece sesura federico urostomy appliance from [employer] Loni-Stomal Skin Appearance: Intact, Irritated and Inflammed - Additional Information Patient seen on for evaluation and teaching of new urostomy ileal conduit to RUQ of abdomen. Patient has a history of bladder CA. Bladder was removed and now patient has an ileal conduit urostomy. Patient was instructed on surgery, stoma color, and appearance. Two stents are noted coming from stoma lumen. Output is yellow with sediment and no odor. Patient has not had urostomy appliance changed in a while per patient. Urostomy appliance was changed with step by step instruction with patient using [employer] two piece urostomy appliance that fits 1/8 to 2 3/4 stoma sizes. Patient's stoma is 1 1/8 inches, red in color and protruding. Coloplast drainable pouch was attached to urine collection device.Supplies were left in patient's room. Script for ostomy supplies is in chart
[2018-04-28] MEDS: Pantoprazole Inj 40 MG Vial IV.PUSH SCH (17:08)
--- NOTE | 2018-04-28 20:50 | P.CON ---
History of Present Illness Service: Hematology/Oncology Consult date: 04/28/18 Requesting Physician: Noah Cuenca Reason for Consult: High Grade Urothelial Cell Carcinoma of the Bladder Primary Care Provider: No Primary Care Physician Chief Complaint: Abdominal pain and weakness. History of Present Illness: Mr. 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 His treatment history to date consists of neoadjuvant systemic chemotherapy with Cisplatin and Gemcitabine followed by radical cystoprostatectomy in early April 2018. Surgery was an R1 resection (gross negative margins with positive radial margin on pathologic review). Post operative course has been complicated by severe physical deconditioning, pain and lower extremity weakness. The patient's major complaint is that of continued Right sided upper quadrant ABD pain and flank pain, this pain he reports was present prior to surgery and has not changed in severity or character despite his recent surgery. He also reports feeling weak to the point where he can barely move his legs. Additional complaints include swelling of the left forearm and arm. Review of Systems Constitutional: Reports anorexia Eyes: Denies change in vision Ears, Nose, Mouth, and Throat: Denies change in voice, Denies hoarseness, Denies mouth lesions Cardiovascular: Reports shortness of breath with activity, Denies chest pain, Denies shortness of breath when lying down Respiratory: Reports chest congestion, Reports cough, Denies change in phlegm color, Denies coughing up blood Gastrointestinal: Reports abdominal pain, Reports constipation, Reports incontinent of stools, Reports loose stools Genitourinary: Denies blood in urine Musculoskeletal: Reports abnormal walking, Reports back pain, Reports body aches , Reports decreased muscle mass, Reports joint pain, Reports muscle weakness Skin/Breast: Denies lesions, Denies rash, Denies yellowing of the skin Neurologic: Reports lack of coordination, Reports unsteadiness, Reports weakness Psychiatric: Reports anxiety, Denies change in appetite (loss of appetite.) Endocrine: Denies cold intolerance Hematologic/Lymphatic: Denies easy bleeding, Denies easy bruising Allergic/Immunologic: Denies GI upset with certain foods, Denies hives, Denies itchy eyes PMFSH - History History Provided By: Patient - Medical History Medical History: Medical History (Last Reviewed 04/28/18 @ 08:58 by Maylin Maharaj) History of chemotherapy Anxiety Bladder cancer COPD (chronic obstructive pulmonary disease) Cancer Chronic abdominal pain Depression Scarlet fever - Surgical History Surgical History: Surgical History (Last Updated 04/28/18 @ 20:25 by Alexey Mathews MD) History of lung biopsy History of bladder surgery - Social History I have reviewed the patient's Social History: Yes - Tobacco History Second Hand Smoke Exposure: No Tobacco Use In Past 30 Days: Yes Smoking Status: Current every day smoker Tobacco Type: Cigarettes - Alcohol History How Often Do You Have a Drink Containing Alcohol: Never - Substance Use History Substance History: No History of Abuse - Travel History Recent Travel in the [place] Within the Last 8 Weeks: No Recent Travel Out of the Country Within the Last 8 Weeks: No - Immunization History Hx Influenza Vaccine This Season: No Medications and Allergies Active Medications: Active Medications Acetaminophen (Tylenol Liq) 650 mg PO Q6H PRN PRN Reason: FEVER Albuterol (Albuterol Neb (Prn)) 2.5 mg NEB Q2HR NEB PRN PRN Reason: DYSPNEA Diphenhydramine HCl (Benadryl Inj) 25 mg IV.PUSH Q6H PRN PRN Reason: for itching Docusate Sodium (Colace Liq) 100 mg NG/OG BID [facility] Last Admin: 04/28/18 08:49 Dose: Not Given Enoxaparin Sodium (Lovenox Inj) 30 mg SQ DAILY [facility] Last Admin: 04/28/18 08:51 Dose: 30 mg Gabapentin (Neurontin) 300 mg PO BID [facility] Last Admin: 04/28/18 08:52 Dose: 300 mg Hydromorphone HCl (Dilaudid Pf Inj) 1 mg IV.PUSH Q4H PRN PRN Reason: BREAKTHROUGH PAIN Last Admin: 04/28/18 18:43 Dose: 1 mg Sodium Chloride (Ns Inj) 500 mls @ 30 mls/hr IV.SIG .Q10H [facility] Last Admin: 04/15/18 07:25 Dose: Not Given Magnesium Sulfate 4 gm/ Sodium (Chloride) 100 mls @ 50 mls/hr IV.SIG UNSCH PRN PRN Reason: For Magnesium 0.9 - 1.1 mg/dL Magnesium Sulfate 2 gm/ Sodium (Chloride) 100 mls @ 50 mls/hr IV.SIG UNSCH PRN PRN Reason: For Magnesium 1.2 - 1.6 mg/dL Sodium Phosphate 30 mmol/ (Sodium Chloride) 260 mls @ 42 mls/hr IV.SIG UNSCH PRN PRN Reason: For Phosphorus < 2.5 mg/dL Sodium Chloride 154 meq/ (Dextrose) 1,038.5 mls @ 50 mls/hr IV.CONT .[id number] [facility] Last Admin: 04/28/18 11:01 Dose: 50 mls/hr Labetalol HCl (Trandate Inj) 10 mg IV.PUSH Q1H PRN PRN Reason: Sbp>165, Dbp>90, Hr>65 Magnesium Oxide (Mag-Ox) 800 mg PO UNSCH PRN PRN Reason: For Magnesium 1.2 - 1.6 mg/dL Naloxone HCl (Narcan Inj) 0.4 mg IV.PUSH PRN PRN PRN Reason: SEE LABEL COMMENTS Nitroglycerin (Nitro-Bid 2% Oint) 2 inch TOPICAL Q6HR PRN PRN Reason: Sbp>165, Dbp>90 Ondansetron HCl (Zofran Inj) 4 mg IV.PUSH Q6H PRN PRN Reason: MILD NAUSEA Stop: 04/30/18 23:59 Last Admin: 04/26/18 18:10 Dose: 4 mg Oxycodone/Acetaminophen (Percocet 7.5/325 Mg) 1 tab PO Q4H PRN PRN Reason: Pain 5-10 Last Admin: 04/28/18 17:06 Dose: 1 tab Pantoprazole Sodium (Protonix Inj) 40 mg IV.PUSH Q24H [facility] Last Admin: 04/28/18 17:08 Dose: 40 mg Sennosides (Senna Liq) 8.8 mg NG/OG BID [facility] Last Admin: 04/28/18 08:52 Dose: Not Given Sodium Chloride (Ns Flush) 2 ml IV.FLUSH BID [facility] Last Admin: 04/28/18 08:53 Dose: 2 ml Sodium Chloride (Ns Flush) 2 ml IV.FLUSH PRN PRN PRN Reason: FLUSH AFTER USING IV ACCESS Vancomycin HCl (Vancomycin Po) 125 mg PO QID [facility] Stop: 05/07/18 08:59 Last Admin: 04/28/18 17:06 Dose: 125 mg Allergies Allergy/AdvReac Type Severity Reaction Status Date / Time No Known Allergies Allergy Verified 04/15/18 07:21 Home Medications Medication Instructions Recorded Confirmed Type hydrocodone-acetaminophen 1 tab PO Q4-6H PRN 01/30/18 04/15/18 History morphine 30 mg PO Q8H 01/30/18 04/15/18 History ondansetron [Zofran ODT] 4 mg PO Q6-8H PRN 01/30/18 04/15/18 History gabapentin 300 mg PO BID 03/26/18 04/15/18 History Physical Exam Vital signs: Vital Signs 04/27/18 23:33 04/28/18 00:00 04/28/18 03:41 Temperature 98.0 F Pulse Rate 74 Respiratory Rate 20 18 20 Blood Pressure 112/62 Pulse Oximetry 98 04/28/18 06:13 04/28/18 08:00 04/28/18 12:00 Temperature 98.4 F 98.6 F Pulse Rate 74 90 Respiratory Rate 20 14 18 Blood Pressure 121/74 130/73 Pulse Oximetry 97 97 04/28/18 16:00 Temperature 98.2 F Pulse Rate 82 Respiratory Rate 16 Blood Pressure 126/74 Pulse Oximetry 96 Intake & Output 04/28/18 04/28/18 04/29/18 06:59 18:59 06:59 Intake Total 2200 / 2200 Output Total 1300 / 1300 Balance -1300 / -1300 2200 / 2200 Weight 48.6 kg Intake: IV 1000 / 1000 Sodium Chloride 23.4% Inj 154 1000 / 1000 MEQ In D10W Inj 1,000 ML @ 50 mls/hr IV.CONT .[id number] [facility] Rx# :[id number] Oral 1200 / 1200 Output: Urine 1300 / 1300 Other: Date of Last Bowel Movement 04/28/18 - Constitutional cachectic, chronically ill appearing (Middle aged male, sitting up in bed, appears frail. Appears to be uncomfortable.) - Routine HEENT Exam Head: Absent: normocephalic, atraumatic Eye: Present: EOMI, PERRL. Absent: conjunctival icterus ENT: Absent: mucous membranes moist, mucous membranes dry - Routine Neck Exam Present: supple, full ROM. Absent: JVD, lymphadenopathy - Routine Respiratory Exam Present: decreased breath sounds, prolonged expiratory phase, distant breath sounds. Absent: accessory muscle use, wheezes, crackles - Routine Cardiovascular Exam Present: RRR, S1, S2. Absent: murmur, gallop, rubs - Routine Abdominal Exam Present: normoactive bowel sounds, tenderness, guarding, firm. Absent: soft, distended, organomegaly, mass Comments: Thin ABD pain, infra umbilical surgical incision with vasquez in. Urostomy in place with stent drains emptying into the urostomy bag. Urine is clear and straw colored. NO hematuria. - Routine Extremities Exam Present: pulses intact. Absent: cyanosis, clubbing, edema, normal capillary refill Comments: Left upper extremity edema noted. - Routine Skin Exam Present: intact, dry, pallor, wounds. Absent: cyanosis, erythema, rash - Routine Neurological Exam Present: alert, oriented X3, CN II-XII intact, sensory deficit, motor deficit Upper extremities: Generally weak with decreased muscle mass and 4/5 strength. Lower extremities: Decreased strength, unable to fully flex or extend at the knees and ankles. - Detailed Neurological Exam: Coma Scale Eye Opening: Spontaneous Verbal Response: Oriented Motor Response: Obey commands Jermyn Coma Scale Total: 15 - Routine Psychiatric Exam Present: normal affect, anxious - Urinary Catheter Management Indwelling Urethral Catheter Cath placed during this visit: yes, but has since been removed by the nurse Reason for continuing: Not indwelling catheter Insertion date: 04/15/18 Insertion time: 14:20 Removal date: 04/15/18 Removal time: 13:08 Right ileal conduit Cath placed during this visit: yes Reason for continuing: Not indwelling catheter Insertion date: 04/15/18 Assessment and Plan - Plan Mr. Herr is a 62 yr old male with a diagnosis of a high grade urothelial cell carcinoma of the bladder, ypT3 ypN0 cM0. He has completed neoadjuvant chemotherapy with Cisplatin/Gemcitabine followed by a radical cystoprostatectomy with lymph node sampling. Final pathology indicates positive margins, operative note reflects gross total resection (R1). He is now post operative day 13; post operative course complicated by physical deconditioning, c.diff colitis and severe pain. He does have significant medical comorbid conditions including advanced COPD/Emphysema and degenerative joint disease and chronic pain requiring considerable doses of oral opioids for pain control. Should he regain functional status, he will be a candidate for combined chemoRT targeting the positive surgical margins in the pelvi Recommendations: 1. Physical deconditioning: I have requested the nurses to engage physical and occupational therapy to help this man regain some of his lost physical strength. He had an ECOG performance status of 1-2 prior to surgery and has the potential to recover. 2. Pain control: He has chronic pain issues and was on long and short acting opioids in the out patient setting, he tells me poor pain control has limited his ability to participate in PT. I offered him long acting MS contin at a dose of 15mg po BID and he declined. He may need extra pain medications just prior to working with PT. 3. Left upper extremity swelling: US doppler ordered to rule out DVT/SVT. 4. Palpable L axillary LAD: monitor these may be reactive, may need a biopsy to rule out metastasis if these persist. 5. Urothelial cell carcinoma of the bladder: He will need time to recover from a functional status prior discussing postoperative chemoRT.
--- NOTE | 2018-04-28 21:19 | US ---
EXAM DATE: 04/28/2018 12:00 AM EDT AGE/SEX: 62 years / Male INDICATIONS: Left arm swelling. CLINICAL DATA: This is the patient's initial encounter. Patient reports that signs and symptoms have been present for 4 - 6 days and indicates a pain score of 4/10. MEDICAL/SURGICAL HISTORY: Chronic obstructive pulmonary disease. Bladder cancer. Anxiety. Abdom inal pain. Depression. Chemotherapy. Scarlet fever. . Bladder surgery. COMPARISON: No prior exams available for comparison. FINDINGS: Extensive deep venous thrombosis is noted involving the internal jugular vein, subclavian, axillary and brachial vein. Nonocclusive thrombus is present in the basilic vein. There is no color flow vessels are enlarged. There was augmentation response. Other: None. CONCLUSION: 1. Extensive deep venous thrombosis. Electronically signed by: Maksim Estrada MD 04/28/2018 9:18 PM EDT
[2018-04-28] MEDS: Enoxaparin Inj 60 MG/0.6 ML Syringe SQ SCH (23:59)
[2018-04-29] MEDS: HYDROmorphone PF Inj 2 MG/ML Vial IV.PUSH PRN ×5 (03:34→21:48)
[2018-04-29] MEDS: Sodium Chloride 23.4% Inj 154 MEQ in Dextrose 10% in Water Inj 1,000 ML IV.CONT SCH ×2 (07:58)
[2018-04-29] MEDS: Sennosides Liq 8.8 MG/5 ML UDC NG/OG SCH ×3 (10:12→21:49)
[2018-04-29] MEDS: Enoxaparin Inj 60 MG/0.6 ML Syringe SQ SCH ×2 (10:12→20:45)
[2018-04-29] MEDS: Gabapentin 300 MG Capsule PO SCH ×2 (10:12→20:42)
[2018-04-29] MEDS: Docusate Sodium Liq 100 MG/10 ML UDC NG/OG SCH ×2 (10:12→20:46)
[2018-04-29] MEDS: Sodium Chloride 0.9% 2 ML Flush BID IV.FLUSH SCH ×2 (10:13→20:47)
--- NOTE | 2018-04-29 11:07 | P.PN ---
Subjective Interval history: Follow-up for chronic pain, status post radical cystectomy, C. difficile colitis. Patient is doing well. Resting in bed. Appetite is still poor. No fever , chills. Physical Exam Vital signs: Vital Signs 04/28/18 12:00 04/28/18 16:00 04/28/18 20:00 Temperature 98.6 F 98.2 F 98.7 F Pulse Rate 90 82 71 Respiratory Rate 18 Blood Pressure 130/73 126/74 123/71 Pulse Oximetry 97 96 98 04/29/18 00:00 04/29/18 04:00 04/29/18 08:00 Temperature 97.6 F 98.2 F Pulse Rate 78 64 Respiratory Rate 18 Blood Pressure 127/74 115/61 Pulse Oximetry 98 97 Intake & Output 04/28/18 04/29/18 04/29/18 18:59 06:59 18:59 Intake Total 2200 / 2200 1038.5 / 1038.5 Output Total 2200 / 2200 Balance 2200 / 2200 -2200 / -2200 1038.5 / 1038.5 Weight 49.4 kg Intake: IV 1000 / 1000 1038.5 / 1038.5 Sodium Chloride 23.4% Inj 154 1000 / 1000 1038.5 / 1038.5 MEQ In D10W Inj 1,000 ML @ 50 mls/hr IV.CONT .[id number] [facility] Rx# :[id number] Oral 1200 / 1200 Output: Urine 2200 / 2200 Other: Date of Last Bowel Movement 04/28/18 04/28/18 Narrative: GENERAL: This is a well-nourished, well-developed patient, in no apparent distress. CARDIOVASCULAR: Regular rate and rhythm without murmurs, gallops, or rubs. RESPIRATORY: Clear to auscultation. Breath sounds equal bilaterally. No wheezes , rales, or rhonchi. GASTROINTESTINAL: Abdomen soft, clean surgical wound. Significant tenderness to palpation. MUSCULOSKELETAL: Extremities without clubbing, cyanosis, or edema. NEURO: Alert & Oriented x4 to person, place, time, situation. Moves all ext x4 - Urinary Catheter Management Indwelling Urethral Catheter Cath placed during this visit: yes, but has since been removed by the nurse Reason for continuing: Not indwelling catheter Insertion date: 04/15/18 Insertion time: 14:20 Removal date: 04/15/18 Removal time: 13:08 Right ileal conduit Cath placed during this visit: yes Reason for continuing: Not indwelling catheter Insertion date: 04/15/18 Results - Labs CBC & Chem 7: 04/28/18 03:55 04/28/18 03:55 Microbiology 04/25/18 18:23 Blood - Peripheral Aerobic Blood Culture - Preliminary No growth in 4 days 04/25/18 18:23 Blood - Peripheral Anaerobic Blood Culture - Preliminary No growth in 4 days 04/25/18 18:28 Blood - Peripheral Aerobic Blood Culture - Preliminary No growth in 4 days 04/25/18 18:28 Blood - Peripheral Anaerobic Blood Culture - Preliminary No growth in 4 days 04/26/18 04:25 Catheterized Urine Urine Culture - Final Dia albicans - Imaging Impressions Venous Doppler Study 04/28/18 00:00 CONCLUSION: 1. Extensive deep venous thrombosis. Assessment and Plan - Plan Mr. Herr is a 62-year-old male with a history of muscle invasive bladder cancer status post neoadjuvant chemotherapy who underwent radical cystectomy with bilateral pelvic lymph node dissection with creation of ileal conduit on . He required 3 units of blood transfusion perioperatively largely because of anemia preop. Patient was subsequently managed in the critical care unit. Patient's care was transferred to hospitalist service on 04/22/2018. Muscle invasive bladder cancer Chronic pain syndrome -Status post neoadjuvant chemotherapy and radical cystectomy -Currently on Percocet as needed and Dilaudid 1 mg IV for breakthrough. -He is now on oral diet. He was on TPN before. -Discussed with Urology and Oncology (Dr. Mathews). We will consult Dr. Mathews. -Encouraged patient to get up and move around a bit more. -Appreciate Oncology input. Deconditioning Depression Loss of appetite -Will request PT to see patient 7 days a week -Start Mirtazapine 15mg QHS for depression and as an appetite stimulant. -Encouraged patient to drink Boost (Supplementation). Left upper ext DVT -Currently on Lovenox 50mg Q12hrs. COPD Pulmonary nodule -Lung biopsy 2017 revealed inflammatory changes no malignancy -Continue albuterol nebulizer treatments, supplemental oxygen as needed. Hypokalemia - resolved. C. Diff colitis -Vancomycin PO 125mg QID X 10 days. -Diarrhea improving. Full code. Lovenox 50mg BID.
--- NOTE | 2018-04-29 11:24 | P.PNURO ---
Subjective Patient symptoms today: Pt seen and examined. Pt with extensive Left upper extremity DVT noted on US. On Lovenox Objective Vital Signs: Vital Signs 04/28/18 12:00 04/28/18 16:00 04/28/18 20:00 Temperature 98.6 F 98.2 F 98.7 F Pulse Rate 90 82 71 Respiratory Rate 18 16 18 Blood Pressure 130/73 126/74 123/71 Pulse Oximetry 97 96 98 04/29/18 00:00 04/29/18 04:00 04/29/18 08:00 Temperature 97.6 F 98.2 F Pulse Rate 78 64 Respiratory Rate 18 18 18 Blood Pressure 127/74 115/61 Pulse Oximetry 98 97 Intake & Output 04/28/18 04/29/18 04/29/18 18:59 06:59 18:59 Intake Total 2200 / 2200 1038.5 / 1038.5 Output Total 2200 / 2200 Balance 2200 / 2200 -2200 / -2200 1038.5 / 1038.5 Weight 49.4 kg Intake: IV 1000 / 1000 1038.5 / 1038.5 Sodium Chloride 23.4% Inj 154 1000 / 1000 1038.5 / 1038.5 MEQ In D10W Inj 1,000 ML @ 50 mls/hr IV.CONT .[id number] [facility] Rx# :[id number] Oral 1200 / 1200 Output: Urine 2200 / 2200 Other: Date of Last Bowel Movement 04/28/18 04/28/18 Result Diagrams: 04/28/18 03:55 04/28/18 03:55 Imaging: Impressions Venous Doppler Study 04/28/18 00:00 CONCLUSION: 1. Extensive deep venous thrombosis. Medications and IVs: Active Medications Generic Name Dose Route Start Last Admin Trade Name Freq PRN Reason Stop Dose Admin Acetaminophen 650 mg 04/16/18 08:55 Tylenol Liq PO Q6H PRN FEVER Albuterol 2.5 mg 04/16/18 08:54 Albuterol Neb (Prn) NEB Q2HR NEB PRN DYSPNEA Diphenhydramine HCl 25 mg 04/16/18 09:02 Benadryl Inj IV.PUSH Q6H PRN for itching Docusate Sodium 100 mg 04/16/18 21:00 04/29/18 10:12 Colace Liq NG/OG 100 mg BID NADINE Administration Enoxaparin Sodium 50 mg 04/28/18 23:15 04/29/18 10:12 Lovenox Inj SQ 50 mg Q12HR NADINE Administration Gabapentin 300 mg 04/24/18 21:00 04/29/18 10:12 Neurontin PO 300 mg BID NADINE Administration Hydromorphone HCl 1 mg 04/28/18 10:23 04/29/18 07:27 Dilaudid Pf Inj IV.PUSH 1 mg Q4H PRN Administration BREAKTHROUGH PAIN Sodium Chloride 500 mls @ 30 mls/hr 04/15/18 07:00 04/15/18 07:25 Ns Inj IV.SIG Not Given .Q10H NADINE Magnesium Sulfate 4 gm/ Sodium 100 mls @ 50 mls/hr 04/16/18 08:32 Chloride IV.SIG UNSCH PRN For Magnesium 0.9 - 1.1 mg/dL Magnesium Sulfate 2 gm/ Sodium 100 mls @ 50 mls/hr 04/16/18 08:32 Chloride IV.SIG UNSCH PRN For Magnesium 1.2 - 1.6 mg/dL Sodium Phosphate 30 mmol/ 260 mls @ 42 mls/hr 04/16/18 08:32 Sodium Chloride IV.SIG UNSCH PRN For Phosphorus < 2.5 mg/dL Sodium Chloride 154 meq/ 1,038.5 mls @ 50 mls/hr 04/23/18 07:00 04/29/18 07: 58 Dextrose IV.CONT 50 mls/hr .[id number] NADINE Administration Labetalol HCl 10 mg 04/18/18 10:09 Trandate Inj IV.PUSH Q1H PRN Sbp>165, Dbp>90, Hr>65 Magnesium Oxide 800 mg 04/16/18 08:32 Mag-Ox PO UNSCH PRN For Magnesium 1.2 - 1.6 mg/dL Mirtazapine 15 mg 04/29/18 21:00 Remeron PO HS NADINE Naloxone HCl 0.4 mg 04/16/18 09:02 Narcan Inj IV.PUSH PRN PRN SEE LABEL COMMENTS Nitroglycerin 2 inch 04/18/18 10:10 Nitro-Bid 2% Oint TOPICAL Q6HR PRN Sbp>165, Dbp>90 Ondansetron HCl 4 mg 04/15/18 15:26 04/26/18 18:10 Zofran Inj IV.PUSH 04/30/18 23:59 4 mg Q6H PRN Administration MILD NAUSEA Oxycodone/Acetaminophen 1 tab 04/22/18 12:00 04/29/18 10:11 Percocet 7.5/325 Mg PO 1 tab Q4H PRN Administration Pain 5-10 Pantoprazole Sodium 40 mg 04/15/18 16:00 04/28/18 17:08 Protonix Inj IV.PUSH 40 mg Q24H NADINE Administration Sennosides 8.8 mg 04/16/18 21:00 04/29/18 10:19 Senna Liq NG/OG Not Given BID NADINE Sodium Chloride 2 ml 04/16/18 21:00 04/29/18 10:13 Ns Flush IV.FLUSH 2 ml BID NADINE Administration Sodium Chloride 2 ml 04/16/18 09:14 Ns Flush IV.FLUSH PRN PRN FLUSH AFTER USING IV ACCESS Vancomycin HCl 125 mg 04/27/18 09:00 04/29/18 10:13 Vancomycin Po PO 05/07/18 08:59 125 mg QID NADINE Administration Objective Remarks: CV: RRR Lungs: decreased BS Abd:soft,nd,tender one exam Stoma: pink and viable Dale Pelvic drain: bloody Ext: neg C/C/E 04/17 CV: RRR Lungs: decreased BS Abd:soft,nd,tender Stoma: pink and viable Wound: clean and dry Dale Pelvic drain: bloody Ext: neg C/C/E 04/18 CV: RRR Lungs: CTA Abd:soft,nd,tender Stoma: pink and viable Wound: Dressing intact Dale Pelvic drain: bloody Ext: neg C/C/E 04/19 Abd:soft,nt,nd Dressing intact Stoma: pink and viable Pelvic drain removed at bedside Ext: neg 04/20 Abd:soft,nt,nd Dressing intact Stoma: pink and viable Ext: neg C/C/E 04/21 Abd:soft,nt,nd Stoma: pink and viable Stents in place Wound: clean and dry Ext:neg C/C/E 04/22 Abd:soft,nt,nd Stoma: pink and viable Stents in place Wound: clean and dry Ext:neg C/C/E 04/23 Abd:soft,nt,nd Stoma: pink and viable Stents in place Wound: clean and dry Ext:neg C/C/E 04/24 Abd:soft,nt,nd Stoma: pink and viable Stents in place Wound: clean and dry Ext:neg C/C/E 04/25 Abd:soft,nt,nd Stoma:pink and viable Stents in place Wound: clean and dry Leakage from prior central line site is noted Ext: neg C/C/E 04/28 Abd:soft,nt,nd Drain tube removed-red rubber Stents in place and will remove one tomorrow Wound: Clean and dry Ext: neg C/C/E 04/29 Abd:soft,nt,nd One JJ stent removed today Wound: C&D Left UE DVT Assessment and Plan - Plan Stable s/p radical cystectomy with ileal conduit OOB to chair Start TPN 10 Stable s/p radical cystectomy with ileal conduit Continue TPN OOB to chair NGT to gravity drainage Encourage incentive sphirometer 04/18 Stable s/p radical cystectomy with ileal conduit POD#3 Continue TPN OOB to chair/ambulate NGT to gravity drainage Will d/c pelvic drain in next day or two as drainage continues to decline 10 Stable s/p radical cystectomy with ileal conduit POD#4 OOB to chair Pelvic drain removed Continue NGT to gravity Continue TPN Path noted: T3b 04/20 Stable POD#5 s/p radical cystectomy with ileal conduit OOB today/Ambulate Path reviewed with pt today Will plan to remove NGT this Saturday and start clear liquids Continue TPN 10/ Stable POD#6 s/p radical cystectomy with ileal conduit NGT removed; ice chips today OOB Continue TPN 04/22 Stable POD#7 s/p radical cystectomy with ileal conduit 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 Will start PO pain meds. OOB Continue TPN 04/23 Stable POD#8 s/p radical cystectomy with ileal conduit Regular diet OOB Ween off TPN 04/24 Stable POD#9 s/p radical cystectomy with ileal conduit OOB/Ambulate Off TPN Tolerating Regular diet. 04/25 Stable POD#10 s/p radical cystectomy with ileal conduit OOB/Ambulate Off TPN; calorie count, ? PPN; nutrition evaluation Tolerating Regular diet. 04/28 Stable POD#13 s/p radical cystectomy with ileal conduit OOB/Ambulate Off TPN; calorie count, ? PPN; nutrition evaluation Tolerating Regular diet some Continue abx for C. Diff 04/29 Stable s/p radical cystectomy with ileal conduit POD#14 Pt with extensive left UE DVT Continue Lovenox Poor intake Oncology input appreciated.
--- NOTE | 2018-04-29 15:05 | P.PNPAL ---
Reason for Visit Reason for visit: a. To assist with evaluation and management of symptoms including: Pain, diarrhea b. To assist medical decision maker(s) with: better understanding of current medical conditions; weighing benefits/burdens of medical treatment options; making medical treatment decisions. 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 Mathews since November 2017. He received 3 cycles of cisplatin/gemcitabine however his treatment was then discontinued because he was tolerating this poorly. PET scan performed in February 2018 showed an abnormal appearance of the urinary bladder however a decrease in soft tissue mass burden involving the bladder as well as hypermetabolic activity in bilateral lung apices associated with scar like tissue densities. After review by the multidisciplinary thoracic oncology tumor board February [address]-guided biopsy a direct marketing representative lesion in the right upper lobe was recommended. That biopsy was performed showing pathologic findings consistent with inflammatory changes. Per Dr. Mathews's 03/18/18 note, felt that if the lesion in the lung were anything except metastatic bladder cancer, the patient would be a candidate for curative intent therapy with resection of the primary tumor of the bladder while he was not tolerant of chemotherapy in the past, recommendations by Dr. Mathews on 04/01/2018 recommended , first, surgical resection or if surgical complication rates felt to be too high, then combined modality chemoradiotherapy. At this time the patient is too weak and debilitated to undergo chemotherapy. In his prior chemotherapy treatments, he stated he laid in bed and vomited continuously for days. He was admitted to [facility] 04/15/18 for radical cystectomy and postoperatively was transferred to intensive care due to his fragile respiratory status where he received 3 units of blood, secondary to preoperative anemia and treated for acute and chronic pain. Once stabilized he was transferred to the hospitalist service, who consulted palliative care to assist in symptom management and goals of care as patient has chronic pain, aggressive weakness and acute diarrhea secondary to a C. difficile infection. Patient is significantly debilitated as evidenced by progressively increased weakness, poor appetite and ongoing pain. He developed diarrhea on 04/24/2018 with 2-3 liquid stools daily, non-cramping, non-bloody with no modifying factors. C. difficile positive. He is being treated with oral vancomycin 125 mg p.o. 4 times daily. The patient wanted to speak to Dr. Mathews before making any decisions regarding medical treatment goals. Dr. Mathews does not feel the patient is ready for hospice at this time, and the patient agrees stating "as long as I can do something different, I am doing it." He complains of diffuse, aching abdominal pain that is severe. Current orders for Percocet and IV Dilaudid q4 hours PRN which to patient is using to regularly. Will need to transition to oral medication prior to discharged. Discussed with Dr. Cuenca. We will discontinue IV Dilaudid and start the patient on Oxycodone SR 40mg PO q12 ATC. Patient will remain on Percocet 7.5/325mg PO q4 hours PRN for breakthrough pain. Past medical history Muscle invasive high-grade bladder cancer, T3b N0 M0; stage IIIa status post chemotherapy with cisplatin and gemcitabine x3 cycles Pulmonary nodules/scarring Hemorrhoids COPD Emphysema Seizure 2000 Chronic pain Scarlet fever Surgical history Transurethral resection of bladder tumor in 2018 Radical cystectomy with bilateral pelvic lymph node dissection and creation of ileal conduit Social history Former heavy alcohol use none at this time. Has smoked 1 pack/day for over 45 years. 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 Family history Both parents . Father in a motor vehicle accident, mother had cancer. Advance Directives Health Care Surrogate Name and Number: Holly Levine Objective Vital Signs: Vital Signs 04/28/18 16:00 04/28/18 20:00 04/29/18 00:00 Temperature 98.2 F 98.7 F 97.6 F Pulse Rate 82 71 78 Respiratory Rate 18 Blood Pressure 126/74 123/71 127/74 Pulse Oximetry 96 98 98 04/29/18 04:00 04/29/18 08:00 04/29/18 12:00 Temperature 98.2 F 98.1 F Pulse Rate 64 88 Respiratory Rate 18 18 18 Blood Pressure 115/61 113/71 Pulse Oximetry 97 100 Intake & Output 04/28/18 04/29/18 04/29/18 18:59 06:59 18:59 Intake Total 2200 / 2200 1038.5 / 1038.5 Output Total 2200 / 2200 Balance 2200 / 2200 -2200 / -2200 1038.5 / 1038.5 Weight 49.4 kg Intake: IV 1000 / 1000 1038.5 / 1038.5 Sodium Chloride 23.4% Inj 154 1000 / 1000 1038.5 / 1038.5 MEQ In D10W Inj 1,000 ML @ 50 mls/hr IV.CONT .[id number] [facility] Rx# :[id number] Oral 1200 / 1200 Output: Urine 0 / 2200 Other: Date of Last Bowel Movement 04/28/18 04/28/18 Physical Exam: CONSTITUTIONAL/GENERAL: This is a cachectic male sitting upright in recliner, complaining of diffuse aching abdominal pain that is severe. TUBES/LINES/DRAINS: PIV SKIN: No jaundice, rashes, or lesions. Ecchymoses on upper extremities. No wounds seen anteriorly. Skin temperature appropriate. Not diaphoretic. HEAD: Atraumatic. Normocephalic. EYES: Pupils equal and round and reactive. Extraocular motions intact. No scleral icterus. No injection or drainage. Fundi not examined. ENT: Hearing grossly normal. Nose without bleeding or purulent drainage. Throat without visible erythema, exudates, masses, or lesions. NECK: Trachea midline. Supple, nontender. No palpable thyroid enlargement or nodularity. CARDIOVASCULAR: Regular rate and rhythm without murmurs, gallops, or rubs. No JVD. Peripheral pulses symmetric. RESPIRATORY/CHEST: Symmetric, unlabored respirations. Scattered rhonchi. Breath sounds equal bilaterally. GASTROINTESTINAL: Abdomen soft, tender to palpation, nondistended. No guarding. Bowel sounds present. GENITOURINARY: Ileal conduit in place draining to bedside drainage. MUSCULOSKELETAL: Extremities without clubbing, cyanosis, or edema. No mottling or clubbing. LYMPHATICS: No palpable cervical or supraclavicular adenopathy. NEUROLOGICAL: Awake and alert. Motor and sensory grossly within normal limits. Follows commands. Cognitively sharp. Moves all extremities. PSYCHIATRIC: Anxious related to his diagnosis of cancer as well as his recent decline in functional status. No apparent hallucinations or other psychotic thought process. Diagnostic Tests Laboratory: Laboratory Results - last 72 hr 04/26/18 04/28/18 04/28/18 06:26 03:55 03:55 WBC 9.4 RBC 3.36 L Hgb 9.2 L Hct 28.4 L MCV 84.5 MCH 27.5 MCHC 32.5 RDW 17.2 Plt Count 398 MPV 8.3 Neut % (Auto) 75.3 H Lymph % (Auto) 12.3 [place] % (Auto) 7.1 Eos % (Auto) 4.6 H Baso % (Auto) 0.7 Neut # (Auto) 7.1 Lymph # (Auto) 1.2 [place] # (Auto) 0.7 Eos # (Auto) 0.4 Baso # (Auto) 0.1 WBC Differential . Differential Comment Auto diff final Sodium 140 Potassium 3.7 Chloride 107 Carbon Dioxide 24.3 Anion Gap 9 BUN 12 Creatinine 0.60 Estimated GFR Greater than 89 Random Glucose 69 L Calcium 7.8 L Stool C.difficile Ag Positive H Stool C.difficile Toxin Positive H Result Diagrams: 04/28/18 03:55 04/28/18 03:55 Microbiology: Microbiology 04/25/18 18:23 Aerobic Blood Culture - Preliminary Blood - Peripheral No growth in 4 days Anaerobic Blood Culture - Preliminary No growth in 4 days 04/25/18 18:28 Aerobic Blood Culture - Preliminary Blood - Peripheral No growth in 4 days Anaerobic Blood Culture - Preliminary No growth in 4 days 04/26/18 04:25 Urine Culture - Final Catheterized Urine Dia albicans Imaging: Abdomen X-Ray 04/18/18 00:00 CONCLUSION: Compared to the study of 04/15/2018 with slight increase the amount of bowel distention. Stents and drain appear to remain in good position. Chest X-Ray 04/25/18 00:00 CONCLUSION: Right apical pleural parenchymal change again noted which appears mildly increased from the prior study. There is volume loss and mediastinal shift to the right. Venous Doppler Study 04/28/18 00:00 CONCLUSION: 1. Extensive deep venous thrombosis. Procedures: 04/15: Radical cystectomy . Assessment and Plan - Disease Oriented Problem List (1) COPD (chronic obstructive pulmonary disease) (2) Bladder cancer (3) Chronic pain Pertinent Non-Medical Issues: Psychosocial: He was born in [place] and moved to [place] 3 years ago with his girlfriend of many years. 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 He has 1 daughter from whom he is estranged. 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 Legal: No advance directives completed. Healthcare surrogate completed at this assessment. Ethical issues impacting care: None noted. . Important Contacts: Significant other: Holly Levien . Prognosis: His prognosis is guarded. Margins of the tumor resection were positive and the patient is not tolerant of chemotherapy. He received 3 rounds of chemotherapy previously and was unable to receive the fourth due to poor tolerance, extreme nausea and vomiting rapid weight loss and poor performance status. He was informed by the urologist that the cancer had invaded the muscle wall and as his performance status is so poor, he would not be a candidate for chemotherapy even if it was tolerated. He wishes for pain relief as his primary treatment. Given his positive cancer diagnosis, poor performance status and progressive decline, he would be hospice appropriate if goals were consistent. . Code Status: Full Code Plan: PLAN: Legal decision maker: Patient currently has good insight and judgment related to his medical conditions. Patient has designated his significant other , Holly Levine, as his healthcare surrogate decision-maker. Goals: Goals remain aggressive. Patient states, "as long as I can do something to bite, I am doing it." CODE STATUS: FULL CODE SYMPTOMS: * Pain: Patient complaining of diffuse, achy abdominal pain that is severe. Current orders for Percocet and IV Dilaudid q4 hours PRN which to patient is using to regularly. Will need to transition to oral medication prior to discharged. Discussed with Dr. Cuenca. We will discontinue IV Dilaudid and start the patient on Oxycodone SR 40mg PO q12 ATC. Patient will remain on Percocet 7.5/325mg PO q4 hours PRN for breakthrough pain. * Diarrhea: Patient developed diarrhea on 04/24/2018 with 2-3 liquid stools daily, non-cramping, non-bloody with no modifying factors. C. difficile positive. He is being treated with oral vancomycin 125mg PO 4 times daily. On contact isolation. SUMMARY This is a 62-year-old male with a long history of tobacco abuse, environmental pollutants exposure with COPD, bladder cancer, now status post radical cystectomy with ileal conduit. He did not tolerate chemotherapy well and received only 3 of the [address] of the lungs indicated hypermetabolic activity which was subsequently biopsied showing inflammatory changes. His appetite is poor and he is generally depressed. His prognosis is guarded. The cancer has invaded the muscle wall and his performance status is too poor to undergo recurrent chemotherapy. He has severe uncontrolled pain and wishes primarily for pain relief restore his quality of life. He would be appropriate for hospice if goals were consistent. Palliative care will continue to follow the patient during hospital course as condition evolves, to assist patient/decision-maker with understanding of their medical conditions, weighing benefits/burdens of treatment options, for clarification of goals of treatment. Additionally will assist with any symptoms of palliative concern. . Attestation Attestation: To help prompt me to consider important information that might be impacting today's encounter and assessment, information from prior notes written by myself or my colleagues may have been "brought forward" into today's note. My signature on this note, however, is an attestation that I personally performed the exam, history, and/or decision-making noted today, and, unless otherwise indicated, the interactions with patient, family, and staff as well as the review of records all occurred today. I also attest that the listed assessment and stated plan reflect my best clinical judgment today based on the combination of historical information, prior notes, and today's exam/ interactions. When time spent is documented, it refers only to time spent today by the signer, or if indicated, combined time spent today by collaborating physician/nurse practitioner.
--- NOTE | 2018-04-29 15:59 | P.PNWCN ---
Wound Care Nurse Consult Description: Patient seen for follow up of ostomy teaching and care Communicated with: RN Eli Esposito [place] and Doctor Jose Degroot Recommendation: Please monitor for urine output, stoma appearance and color. Change urostomy appliance if leaking occurs. Do not reinforce with tape, please change. Urinary Diversion - Urinary Stoma Ileal Conduit Stent(s) Present: Yes Number of Stents: 2 Stoma Edema: No Stoma Diameter: 29 (mm) Stoma Appearance: Beefy Red, Protruding, Round Collection Device: Two-piece Drainage Description: Yellow Wafer Size: 1 3/4 Moldable 45mm - Additional Information Patient seen on for follow up of evaluation and teaching of new urostomy ileal conduit to RUQ of abdomen. Patient was instructed on prevention of ostomy appliance leaks. Two stents are still noted coming from stoma lumen. Output is yellow with sediment and no odor.Per patient urostomy appliance was changed again due to leaking. Patient appears uninterested in teaching of care of new ostomy due to pain level at this time. Will see patient at a later time when pain is controlled for continued teaching.
[2018-04-29] MEDS: Pantoprazole Inj 40 MG Vial IV.PUSH SCH (16:04)
[2018-04-29] MEDS: oxyCODONE HCL 40 MG Controlled Release Tablet PO SCH (20:42)
[2018-04-29] MEDS: Mirtazapine 15 MG Tablet PO SCH (20:42)
[2018-04-30] MEDS: HYDROmorphone PF Inj 2 MG/ML Vial IV.PUSH PRN ×6 (01:25→22:43)
[2018-04-30] MEDS: Sodium Chloride 23.4% Inj 154 MEQ in Dextrose 10% in Water Inj 1,000 ML IV.CONT SCH ×4 (01:27→04:33)
--- NOTE | 2018-04-30 08:49 | P.PNURO ---
Subjective Patient symptoms today: Pt seen and examined. Still with pain across abdomen. Soft BM's. Objective Vital Signs: Vital Signs 04/29/18 12:00 04/29/18 16:00 04/29/18 20:00 Temperature 98.1 F 99.3 F 98.0 F Pulse Rate 88 75 90 Respiratory Rate 18 18 17 Blood Pressure 113/71 121/72 132/73 Pulse Oximetry 100 93 L 98 04/30/18 00:00 Temperature 98.4 F Pulse Rate 70 Respiratory Rate 17 Blood Pressure 122/72 Pulse Oximetry 98 Intake & Output 04/29/18 04/30/18 04/30/18 18:59 06:59 18:59 Intake Total 1038.5 / 1038.5 1438.5 / 1438.5 Output Total 800 / 800 Balance 1038.5 / 1038.5 638.5 / 638.5 Weight 49.4 kg Intake: IV 1038.5 / 1038.5 1038.5 / 1038.5 Sodium Chloride 23.4% Inj 154 1038.5 / 1038.5 1038.5 / 1038.5 MEQ In D10W Inj 1,000 ML @ 50 mls/hr IV.CONT .[id number] [facility] Rx# :[id number] Oral 400 / 400 Output: Urine Amount (Catheter) 800 / 800 Right ileal conduit 800 / 800 Other: # Voids 3 Date of Last Bowel Movement 04/28/18 04/28/18 # Bowel Movements 0 Result Diagrams: 04/28/18 03:55 04/28/18 03:55 Medications and IVs: Active Medications Generic Name Dose Route Start Last Admin Trade Name Freq PRN Reason Stop Dose Admin Acetaminophen 650 mg 04/16/18 08:55 Tylenol Liq PO Q6H PRN FEVER Albuterol 2.5 mg 04/16/18 08:54 Albuterol Neb (Prn) NEB Q2HR NEB PRN DYSPNEA Diphenhydramine HCl 25 mg 04/16/18 09:02 Benadryl Inj IV.PUSH Q6H PRN for itching Docusate Sodium 100 mg 04/16/18 21:00 04/29/18 20:46 Colace Liq NG/OG Not Given BID NADINE Enoxaparin Sodium 50 mg 04/28/18 23:15 04/29/18 20:45 Lovenox Inj SQ 50 mg Q12HR NADINE Administration Gabapentin 300 mg 04/24/18 21:00 04/29/18 20:42 Neurontin PO 300 mg BID NADINE Administration Hydromorphone HCl 1 mg 04/29/18 16:08 04/30/18 06:33 Dilaudid Pf Inj IV.PUSH 1 mg Q4H PRN Administration BREAKTHROUGH PAIN Sodium Chloride 500 mls @ 30 mls/hr 04/15/18 07:00 04/15/18 07:25 Ns Inj IV.SIG Not Given .Q10H NADINE Magnesium Sulfate 4 gm/ Sodium 100 mls @ 50 mls/hr 04/16/18 08:32 Chloride IV.SIG UNSCH PRN For Magnesium 0.9 - 1.1 mg/dL Magnesium Sulfate 2 gm/ Sodium 100 mls @ 50 mls/hr 04/16/18 08:32 Chloride IV.SIG UNSCH PRN For Magnesium 1.2 - 1.6 mg/dL Sodium Phosphate 30 mmol/ 260 mls @ 42 mls/hr 04/16/18 08:32 Sodium Chloride IV.SIG UNSCH PRN For Phosphorus < 2.5 mg/dL Sodium Chloride 154 meq/ 1,038.5 mls @ 50 mls/hr 04/23/18 07:00 04/30/18 04: 33 Dextrose IV.CONT Not Given .[id number] NADINE Labetalol HCl 10 mg 04/18/18 10:09 Trandate Inj IV.PUSH Q1H PRN Sbp>165, Dbp>90, Hr>65 Magnesium Oxide 800 mg 04/16/18 08:32 Mag-Ox PO UNSCH PRN For Magnesium 1.2 - 1.6 mg/dL Mirtazapine 15 mg 04/29/18 21:00 04/29/18 20:42 Remeron PO 15 mg HS NADINE Administration Naloxone HCl 0.4 mg 04/16/18 09:02 Narcan Inj IV.PUSH PRN PRN SEE LABEL COMMENTS Nitroglycerin 2 inch 04/18/18 10:10 Nitro-Bid 2% Oint TOPICAL Q6HR PRN Sbp>165, Dbp>90 Ondansetron HCl 4 mg 04/15/18 15:26 04/26/18 18:10 Zofran Inj IV.PUSH 04/30/18 23:59 4 mg Q6H PRN Administration MILD NAUSEA Oxycodone HCl 40 mg 04/29/18 21:00 04/29/18 20:42 Oxycontin Cr PO 40 mg Q12HR NADINE Administration Oxycodone/Acetaminophen 1 tab 04/22/18 12:00 04/30/18 04:25 Percocet 7.5/325 Mg PO 1 tab Q4H PRN Administration Pain 5-10 Pantoprazole Sodium 40 mg 04/15/18 16:00 04/29/18 16:04 Protonix Inj IV.PUSH 40 mg Q24H NADINE Administration Sennosides 8.8 mg 04/16/18 21:00 04/29/18 21:49 Senna Liq NG/OG Not Given BID NADINE Sodium Chloride 2 ml 04/16/18 21:00 04/29/18 20:47 Ns Flush IV.FLUSH 2 ml BID NADINE Administration Sodium Chloride 2 ml 04/16/18 09:14 Ns Flush IV.FLUSH PRN PRN FLUSH AFTER USING IV ACCESS Vancomycin HCl 125 mg 04/27/18 09:00 04/29/18 20:43 Vancomycin Po PO 05/07/18 08:59 125 mg QID NADINE Administration Objective Remarks: CV: RRR Lungs: decreased BS Abd:soft,nd,tender one exam Stoma: pink and viable Dale Pelvic drain: bloody Ext: neg C/C/E 04/17 CV: RRR Lungs: decreased BS Abd:soft,nd,tender Stoma: pink and viable Wound: clean and dry Dale Pelvic drain: bloody Ext: neg C/C/E 04/18 CV: RRR Lungs: CTA Abd:soft,nd,tender Stoma: pink and viable Wound: Dressing intact Dale Pelvic drain: bloody Ext: neg C/C/E 04/19 Abd:soft,nt,nd Dressing intact Stoma: pink and viable Pelvic drain removed at bedside Ext: neg 04/20 Abd:soft,nt,nd Dressing intact Stoma: pink and viable Ext: neg C/C/E 04/21 Abd:soft,nt,nd Stoma: pink and viable Stents in place Wound: clean and dry Ext:neg C/C/E 04/22 Abd:soft,nt,nd Stoma: pink and viable Stents in place Wound: clean and dry Ext:neg C/C/E 04/23 Abd:soft,nt,nd Stoma: pink and viable Stents in place Wound: clean and dry Ext:neg C/C/E 04/24 Abd:soft,nt,nd Stoma: pink and viable Stents in place Wound: clean and dry Ext:neg C/C/E 04/25 Abd:soft,nt,nd Stoma:pink and viable Stents in place Wound: clean and dry Leakage from prior central line site is noted Ext: neg C/C/E 04/28 Abd:soft,nt,nd Drain tube removed-red rubber Stents in place and will remove one tomorrow Wound: Clean and dry Ext: neg C/C/E 04/29 Abd:soft,nt,nd One JJ stent removed today Wound: C&D Left UE DVT 04/30 Abd:soft,nt,nd Remaining stent removed Left UE DVT Urine clear Assessment and Plan - Plan Stable s/p radical cystectomy with ileal conduit OOB to chair Start TPN 10/ Stable s/p radical cystectomy with ileal conduit Continue TPN OOB to chair NGT to gravity drainage Encourage incentive sphirometer 10 Stable s/p radical cystectomy with ileal conduit POD#3 Continue TPN OOB to chair/ambulate NGT to gravity drainage Will d/c pelvic drain in next day or two as drainage continues to decline 10 Stable s/p radical cystectomy with ileal conduit POD#4 OOB to chair Pelvic drain removed Continue NGT to gravity Continue TPN Path noted: T3b 04/20 Stable POD#5 s/p radical cystectomy with ileal conduit OOB today/Ambulate Path reviewed with pt today Will plan to remove NGT this Saturday and start clear liquids Continue TPN 04/21 Stable POD#6 s/p radical cystectomy with ileal conduit NGT removed; ice chips today OOB Continue TPN 04/22 Stable POD#7 s/p radical cystectomy with ileal conduit Clear liquid diet D/C [employer]. Will start PO pain meds. OOB Continue TPN 04/23 Stable POD#8 s/p radical cystectomy with ileal conduit Regular diet OOB Ween off TPN 04/24 Stable POD#9 s/p radical cystectomy with ileal conduit OOB/Ambulate Off TPN Tolerating Regular diet. 04/25 Stable POD#10 s/p radical cystectomy with ileal conduit OOB/Ambulate Off TPN; calorie count, ? PPN; nutrition evaluation Tolerating Regular diet. 04/28 Stable POD#13 s/p radical cystectomy with ileal conduit OOB/Ambulate Off TPN; calorie count, ? PPN; nutrition evaluation Tolerating Regular diet some Continue abx for C. Diff 04/29 Stable s/p radical cystectomy with ileal conduit POD#14 Pt with extensive left UE DVT Continue Lovenox Poor intake Oncology input appreciated. 04/30 Stable s/p radical cystectomy with ileal conduit POD#!5 OOB/Ambulate Encourage PO intake and ambulation
[2018-04-30] MEDS: Docusate Sodium Liq 100 MG/10 ML UDC NG/OG SCH ×2 (09:05→21:07)
[2018-04-30] MEDS: oxyCODONE HCL 40 MG Controlled Release Tablet PO SCH ×2 (09:05→21:06)
[2018-04-30] MEDS: Gabapentin 300 MG Capsule PO SCH ×2 (09:05→21:06)
[2018-04-30] MEDS: Enoxaparin Inj 60 MG/0.6 ML Syringe SQ SCH ×2 (09:06→21:07)
[2018-04-30] MEDS: Sennosides Liq 8.8 MG/5 ML UDC NG/OG SCH ×2 (09:06→21:07)
[2018-04-30] MEDS: Sodium Chloride 0.9% 2 ML Flush BID IV.FLUSH SCH ×2 (09:07→21:07)
--- NOTE | 2018-04-30 15:07 | P.PNONC ---
Subjective Interval history: Patient resting in bed. Eager to regain strength for continued cancer treatment. Reports continued pain and abdominal tenderness. Objective Vital Signs/Intake & Output: Vital Signs 04/29/18 16:00 04/29/18 20:00 04/30/18 00:00 Temperature 99.3 F 98.0 F 98.4 F Pulse Rate 75 90 70 Respiratory Rate 18 17 17 Blood Pressure 121/72 132/73 122/72 Pulse Oximetry 93 L 98 98 04/30/18 08:00 Temperature 98.0 F Pulse Rate 68 Respiratory Rate 19 Blood Pressure 125/71 Pulse Oximetry 98 Intake & Output 04/29/18 04/30/18 04/30/18 18:59 06:59 18:59 Intake Total 1038.5 / 1038.5 1438.5 / 1438.5 Output Total 800 / 800 1000 / 1000 Balance 1038.5 / 1038.5 638.5 / 638.5 -1000 / -1000 Weight 49.4 kg Intake: IV 1038.5 / 1038.5 1038.5 / 1038.5 Sodium Chloride 23.4% Inj 154 1038.5 / 1038.5 1038.5 / 1038.5 MEQ In D10W Inj 1,000 ML @ 50 mls/hr IV.CONT .[id number] [facility] Rx# :[id number] Oral 400 / 400 Output: Urine Amount (Catheter) 800 / 800 Right ileal conduit 800 / 800 Urine Amount (Stoma) 1000 / 1000 Ileal Conduit Right 1000 / 1000 Other: # Voids 3 Date of Last Bowel Movement 04/28/18 04/28/18 # Bowel Movements 0 Result Diagrams: 04/28/18 03:55 04/28/18 03:55 Laboratory Results: Laboratory Results - last 24 hr 04/25/18 04/25/18 18:23 18:23 WBC 23.2 H RBC 3.53 L Hgb 9.5 L Hct 29.2 L MCV 82.7 MCH 26.9 L MCHC 32.6 RDW 17.4 H Plt Count 377 MPV 8.9 Neut % (Auto) 89.8 H Lymph % (Auto) 3.9 L [place] % (Auto) 4.9 Eos % (Auto) 1.2 Baso % (Auto) 0.2 Neut # (Auto) 20.8 H Lymph # (Auto) 0.9 L [place] # (Auto) 1.1 H Eos # (Auto) 0.3 Baso # (Auto) 0.1 Differential Comment Auto diff final Sodium 137 Potassium 3.6 Chloride 103 Carbon Dioxide 23.4 Anion Gap 11 BUN 15 Creatinine 0.84 Estimated GFR Greater than 89 Random Glucose 100 Calcium 8.2 L Culture Results: Microbiology 04/25/18 18:28 Aerobic Blood Culture - Final Blood - Peripheral No growth in 5 days Anaerobic Blood Culture - Final No growth in 5 days 04/25/18 18:23 Aerobic Blood Culture - Preliminary Blood - Peripheral gram positive cocci Anaerobic Blood Culture - Final No growth in 5 days 04/26/18 04:25 Urine Culture - Final Catheterized Urine Dia albicans Medications: Active Medications Generic Name Dose Route Start Last Admin Trade Name Freq PRN Reason Stop Dose Admin Docusate Sodium 100 mg 04/16/18 21:00 04/30/18 09:05 Colace Liq NG/OG 100 mg BID NADINE Administration Enoxaparin Sodium 50 mg 04/28/18 23:15 04/30/18 09:06 Lovenox Inj SQ 50 mg Q12HR NADINE Administration Gabapentin 300 mg 04/24/18 21:00 04/30/18 09:05 Neurontin PO 300 mg BID NADINE Administration Hydromorphone HCl 1 mg 04/29/18 16:08 04/30/18 14:35 Dilaudid Pf Inj IV.PUSH 1 mg Q4H PRN Administration BREAKTHROUGH PAIN Sodium Chloride 500 mls @ 30 mls/hr 04/15/18 07:00 04/15/18 07:25 Ns Inj IV.SIG Not Given .Q10H NADINE Sodium Chloride 154 meq/ 1,038.5 mls @ 50 mls/hr 04/23/18 07:00 04/30/18 04: 33 Dextrose IV.CONT Not Given .[id number] NADINE Mirtazapine 15 mg 04/29/18 21:00 04/29/18 20:42 Remeron PO 15 mg HS NADINE Administration Ondansetron HCl 4 mg 04/15/18 15:26 04/26/18 18:10 Zofran Inj IV.PUSH 04/30/18 23:59 4 mg Q6H PRN Administration MILD NAUSEA Oxycodone HCl 40 mg 04/29/18 21:00 04/30/18 09:05 Oxycontin Cr PO 40 mg Q12HR NADINE Administration Oxycodone/Acetaminophen 1 tab 04/22/18 12:00 04/30/18 04:25 Percocet 7.5/325 Mg PO 1 tab Q4H PRN Administration Pain 5-10 Pantoprazole Sodium 40 mg 04/15/18 16:00 04/29/18 16:04 Protonix Inj IV.PUSH 40 mg Q24H NADINE Administration Sennosides 8.8 mg 04/16/18 21:00 04/30/18 09:06 Senna Liq NG/OG 8.8 mg BID NADINE Administration Sodium Chloride 2 ml 04/16/18 21:00 04/30/18 09:07 Ns Flush IV.FLUSH 2 ml BID NADINE Administration Vancomycin HCl 125 mg 04/27/18 09:00 04/30/18 13:45 Vancomycin Po PO 05/07/18 08:59 125 mg QID NADINE Administration Objective Remarks: GENERAL: Cachectic male patient, in no acute distress. SKIN: Warm and dry. HEAD: Normocephalic. EYES: No scleral icterus. No injection or drainage. NECK: Supple, trachea midline. No JVD or lymphadenopathy. LYMPHATIC: Left axilla adenopathy. CARDIOVASCULAR: Regular rate and rhythm without murmurs. RESPIRATORY: Breath sounds equal bilaterally. Nonlabored at rest. GASTROINTESTINAL: Abdomen tender, nondistended. Surgical incision line with vasquez, intact no erythema or bruising noted. Urostomy in place, bag draining clear yellow fluid. EXTREMITIES: No cyanosis. LUE edema. MUSCULOSKELETAL: Decreased muscle tone. 4/5 strength all extremities. NEUROLOGICAL: No obvious focal deficit. Awake, alert, and oriented x3. PSYCHIATRIC: Appropriate mood and affect; insight and judgment normal. Assessment/Plan - Plan Mr. 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 He has completed neoadjuvant chemotherapy with cisplatin/gemcitabine followed by radical cystoprostatectomy with lymph node sampling. Final pathology revealed positive margins. His postoperative recovery has been further complicated by physical deconditioning, C. difficile colitis and severe pain. Plan: 1. Urothelial cell carcinoma of the bladder, pending recovery of his functional status, the patient would need postoperative chemo/radiation for positive margin treatment. 2. Encourage patient to continue to work with physical therapy. Discussed with physical therapy, physical therapist reported the patient did well yesterday and she plans to go and work with him again today. 3. Left arm DVT, continue on therapeutic Lovenox. 4. Continue supportive care.
--- NOTE | 2018-04-30 16:41 | P.PNPAL ---
Reason for Visit Reason for visit: a. To assist with evaluation and management of symptoms including: Pain, diarrhea b. To assist medical decision maker(s) with: better understanding of current medical conditions; weighing benefits/burdens of medical treatment options; making medical treatment decisions. Subjective Subjective/Interval History: Patient seen for follow-up of symptom management for pain and diarrhea as well as assisting with goals of medical treatment. He is receiving hydromorphone 1 mg every 4 hours IV as needed and has been using it every 4 hours as well as oxycodone CR, 40 mg orally every 12 hours and Percocet 7.5/325 mg 1 tab every 4 hours as needed, but has used 1 dose thus far today. His pain remains at 7 out of 10, sharp, stabbing in both the right abdominal area extending from right kidney to right groin as well as right knee. The pain is constant, severe, worsening with movement or standing, relieved only by pain medications. Left upper extremity is swollen and an extensive deep vein thrombosis is seen on venous Doppler to include the internal jugular vein, subclavian, axillary and brachial vein with nonocclusive thrombus present in the basilic vein. He is receiving Lovenox 50 mg subcu every 12 hours. Diarrhea appears to have resolved with no bowel movements recorded in the last 4 days. He remains on oral vancomycin at 125 mg p.o. 4 times daily until 05/07 for treatment of Clostridium difficile infection. . Family/Friend Interactions: There is no family at bedside. I did offer to communicate with his longtime girlfriend he states that he is giving her any update that she would need and would prefer that he do all the communication with her. . Advance Directives Living Will: Never completed Health Care Surrogate: Copy in medical record Durable Power of Medical Records Director: Never completed Health Care Surrogate Name and Number: Holly Levine Objective Vital Signs: Vital Signs 04/29/18 20:00 04/30/18 00:00 04/30/18 08:00 Temperature 98.0 F 98.4 F 98.0 F Pulse Rate 90 70 68 Respiratory Rate 17 17 19 Blood Pressure 132/73 122/72 125/71 Pulse Oximetry 98 98 98 04/30/18 12:00 Temperature 98.4 F Pulse Rate 79 Respiratory Rate 18 Blood Pressure 124/73 Pulse Oximetry 97 Intake & Output 04/29/18 04/30/18 04/30/18 18:59 06:59 18:59 Intake Total 1038.5 / 1038.5 1438.5 / 1438.5 Output Total 800 / 800 1000 / 1000 Balance 1038.5 / 1038.5 638.5 / 638.5 -1000 / -1000 Weight 108 lb 14.534 oz Intake: IV 1038.5 / 1038.5 1038.5 / 1038.5 Sodium Chloride 23.4% Inj 154 1038.5 / 1038.5 1038.5 / 1038.5 MEQ In D10W Inj 1,000 ML @ 50 mls/hr IV.CONT .[id number] [facility] Rx# :[id number] Oral 400 / 400 Output: Urine Amount (Catheter) 800 / 800 Right ileal conduit 800 / 800 Urine Amount (Stoma) 1000 / 1000 Ileal Conduit Right 1000 / 1000 Other: # Voids 3 Date of Last Bowel Movement 04/28/18 04/28/18 # Bowel Movements 0 Physical Exam: CONSTITUTIONAL/GENERAL: This is a cachectic male lying in bed, complaining of sharp abdominal pain and sharp right knee pain that is severe. TUBES/LINES/DRAINS: PIV NECK: Trachea midline. Supple, nontender. No palpable thyroid enlargement or nodularity. CARDIOVASCULAR: Regular rate and rhythm without murmurs, gallops, or rubs. No JVD. Peripheral pulses symmetric. RESPIRATORY/CHEST: Symmetric, unlabored respirations. Scattered rhonchi. Breath sounds equal bilaterally. GASTROINTESTINAL: Abdomen soft, tender to palpation, nondistended. No guarding. Bowel sounds present. GENITOURINARY: Ileal conduit in place draining to bedside drainage. MUSCULOSKELETAL: Left upper extremity with swelling, venous Doppler showing extensive DVT in the internal jugular vein, subclavian, axillary and brachial vein. Generalized weakness in bilateral lower extremities, creating difficulty with him being able to walk. LYMPHATICS: Left axillary lymphadenopathy. NEUROLOGICAL: Awake and mildly lethargic. Motor and sensory grossly within normal limits. Follows commands. PSYCHIATRIC: Anxious related to his diagnosis of cancer, severe pain as well as his recent decline in functional status. No apparent hallucinations or other psychotic thought process. Diagnostic Tests Laboratory: Laboratory Results - last 72 hr 04/25/18 04/25/18 04/28/18 18:23 18:23 03:55 WBC 23.2 H 9.4 RBC 3.53 L 3.36 L Hgb 9.5 L 9.2 L Hct 29.2 L 28.4 L MCV 82.7 84.5 MCH 26.9 L 27.5 MCHC 32.6 32.5 RDW 17.4 H 17.2 Plt Count 377 398 MPV 8.9 8.3 Neut % (Auto) 89.8 H 75.3 H Lymph % (Auto) 3.[address] [place] % (Auto) 4.9 7.1 Eos % (Auto) 1.2 4.6 H Baso % (Auto) 0.2 0.7 Neut # (Auto) 20.8 H 7.1 Lymph # (Auto) 0.[address] [place] # (Auto) 1.1 H 0.7 Eos # (Auto) 0.3 0.4 Baso # (Auto) 0.1 0.1 WBC Differential . Differential Comment Auto diff final Auto diff final Sodium 137 Potassium 3.6 Chloride 103 Carbon Dioxide 23.4 Anion Gap 11 BUN 15 Creatinine 0.84 Estimated GFR Greater than 89 Random Glucose 100 Calcium 8.2 L 04/28/18 03:55 WBC RBC Hgb Hct MCV MCH MCHC RDW Plt Count MPV Neut % (Auto) Lymph % (Auto) [place] % (Auto) Eos % (Auto) Baso % (Auto) Neut # (Auto) Lymph # (Auto) [place] # (Auto) Eos # (Auto) Baso # (Auto) WBC Differential Differential Comment Sodium 140 Potassium 3.7 Chloride 107 Carbon Dioxide 24.3 Anion Gap 9 BUN 12 Creatinine 0.60 Estimated GFR Greater than 89 Random Glucose 69 L Calcium 7.8 L Result Diagrams: 04/28/18 03:55 04/28/18 03:55 Microbiology: Microbiology 04/25/18 18:28 Aerobic Blood Culture - Final Blood - Peripheral No growth in 5 days Anaerobic Blood Culture - Final No growth in 5 days 04/25/18 18:23 Aerobic Blood Culture - Preliminary Blood - Peripheral gram positive cocci Anaerobic Blood Culture - Final No growth in 5 days 04/26/18 04:25 Urine Culture - Final Catheterized Urine Dia albicans Imaging: Abdomen X-Ray 04/15/18 00:00 CONCLUSION: 1. Surgical changes status post ileal conduit placement with bilateral stent catheters. 2. Nonspecific bowel gas pattern most likely representing a postoperative ileus. Chest X-Ray 04/15/18 00:00 CONCLUSION: Persistent abnormal bilateral upper lobe opacity previously evaluated on PET/CT. Abdomen X-Ray 04/18/18 00:00 CONCLUSION: Compared to the study of 04/15/2018 with slight increase the amount of bowel distention. Stents and drain appear to remain in good position. Chest X-Ray 04/25/18 00:00 CONCLUSION: Right apical pleural parenchymal change again noted which appears mildly increased from the prior study. There is volume loss and mediastinal shift to the right. Venous Doppler Study 04/28/18 00:00 CONCLUSION: 1. Extensive deep venous thrombosis. Procedures: 04/15: Radical cystectomy . Assessment and Plan - Disease Oriented Problem List (1) COPD (chronic obstructive pulmonary disease) (2) Bladder cancer (3) Chronic pain Pertinent Non-Medical Issues: Psychosocial: He was born in [place] and moved to [place] 3 years ago with his girlfriend of many years. 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 He has 1 daughter from whom he is estranged. Spiritual: Mdm Sr available. Legal: No advance directives completed. Healthcare surrogate completed at this assessment. Ethical issues impacting care: None noted. . Important Contacts: Significant other: Holly Levine . Prognosis: His prognosis is guarded. Margins of the tumor resection were positive and the patient is not tolerant of chemotherapy. He received 3 rounds of chemotherapy previously and was unable to receive the fourth due to poor tolerance, extreme nausea and vomiting rapid weight loss and poor performance status. He was informed by the urologist that the cancer had invaded the muscle wall and as his performance status is so poor, he would not be a candidate for chemotherapy even if it was tolerated. He wishes for pain relief as his primary treatment. Given his positive cancer diagnosis, poor performance status and progressive decline, he would be hospice appropriate if goals were consistent. . Code Status: Full Code Plan: PLAN: Legal decision maker: Patient currently has good insight and judgment related to his medical conditions. Patient has designated his significant other , Holly Levine, as his healthcare surrogate decision-maker. Goals: Goals remain aggressive. Patient states, "as long as I can do something to bite, I am doing it." CODE STATUS: FULL CODE SYMPTOMS: * Pain: Patient complaining of sharp abdominal pain and right knee pain that is severe. Current orders for Percocet and IV Dilaudid q4 hours PRN which to patient is using to regularly. Will need to transition to oral medication prior to discharged. Discussed with Dr. Cuenca. We will continue IV Dilaudid at a lower rate for severe breakthrough. And start the patient on Oxycodone SR 40mg PO q12 ATC. Patient will remain on Percocet 7.5/325mg PO q4 hours PRN for breakthrough pain. * Diarrhea: Patient developed diarrhea on 04/24/2018 with 2-3 liquid stools daily, non-cramping, non-bloody with no modifying factors. C. difficile positive. He is being treated with oral vancomycin 125mg PO 4 times daily until 05/07. On contact isolation. No recurrent bowel movements times 4 days. Palliative care will continue to follow the patient during hospital course as condition evolves, to assist patient/decision-maker with understanding of their medical conditions, weighing benefits/burdens of treatment options, for clarification of goals of treatment. Additionally will assist with any symptoms of palliative concern. . Attestation Attestation: To help prompt me to consider important information that might be impacting today's encounter and assessment, information from prior notes written by myself or my colleagues may have been "brought forward" into today's note. My signature on this note, however, is an attestation that I personally performed the exam, history, and/or decision-making noted today, and, unless otherwise indicated, the interactions with patient, family, and staff as well as the review of records all occurred today. I also attest that the listed assessment and stated plan reflect my best clinical judgment today based on the combination of historical information, prior notes, and today's exam/ interactions. When time spent is documented, it refers only to time spent today by the signer, or if indicated, combined time spent today by collaborating physician/nurse practitioner. .
--- NOTE | 2018-04-30 17:57 | P.PN ---
Subjective Interval history: Follow-up for chronic pain, status post radical cystectomy, C. difficile colitis. Patient is resting in bed. He is participating with physical therapy. Continues to have significant pain. Remains afebrile. Tolerating diet. Physical Exam Vital signs: Vital Signs 04/29/18 20:00 04/30/18 00:00 04/30/18 08:00 Temperature 98.0 F 98.4 F 98.0 F Pulse Rate 90 70 68 Respiratory Rate 17 17 19 Blood Pressure 132/73 122/72 125/71 Pulse Oximetry 98 98 98 04/30/18 12:00 Temperature 98.4 F Pulse Rate 79 Respiratory Rate 18 Blood Pressure 124/73 Pulse Oximetry 97 Intake & Output 04/29/18 04/30/18 04/30/18 18:59 06:59 18:59 Intake Total 1038.5 / 1038.5 1438.5 / 1438.5 Output Total 800 / 800 1000 / 1000 Balance 1038.5 / 1038.5 638.5 / 638.5 -1000 / -1000 Weight 49.4 kg Intake: IV 1038.5 / 1038.5 1038.5 / 1038.5 Sodium Chloride 23.4% Inj 154 1038.5 / 1038.5 1038.5 / 1038.5 MEQ In D10W Inj 1,000 ML @ 50 mls/hr IV.CONT .[id number] [facility] Rx# :[id number] Oral 400 / 400 Output: Urine Amount (Catheter) 800 / 800 Right ileal conduit 800 / 800 Urine Amount (Stoma) 1000 / 1000 Ileal Conduit Right 1000 / 1000 Other: # Voids 3 Date of Last Bowel Movement 04/28/18 04/28/18 # Bowel Movements 0 Narrative: GENERAL: This is a well-nourished, well-developed patient, in no apparent distress. CARDIOVASCULAR: Regular rate and rhythm without murmurs, gallops, or rubs. RESPIRATORY: Clear to auscultation. Breath sounds equal bilaterally. No wheezes , rales, or rhonchi. GASTROINTESTINAL: Abdomen soft, clean surgical wound. Significant tenderness to palpation. MUSCULOSKELETAL: Extremities without clubbing, cyanosis, or edema. NEURO: Alert & Oriented x4 to person, place, time, situation. Moves all ext x4 - Urinary Catheter Management Indwelling Urethral Catheter Cath placed during this visit: yes, but has since been removed by the nurse Reason for continuing: Not indwelling catheter Insertion date: 04/15/18 Insertion time: 14:20 Removal date: 04/15/18 Removal time: 13:08 Right ileal conduit Cath placed during this visit: yes Reason for continuing: Not indwelling catheter Insertion date: 04/15/18 Results - Labs CBC & Chem 7: 04/28/18 03:55 04/28/18 03:55 Laboratory Results - last 24 hr 04/25/18 04/25/18 18:23 18:23 WBC 23.2 H RBC 3.53 L Hgb 9.5 L Hct 29.2 L MCV 82.7 MCH 26.9 L MCHC 32.6 RDW 17.4 H Plt Count 377 MPV 8.9 Neut % (Auto) 89.8 H Lymph % (Auto) 3.9 L Hodgeman % (Auto) 4.9 Eos % (Auto) 1.2 Baso % (Auto) 0.2 Neut # (Auto) 20.8 H Lymph # (Auto) 0.9 L Hodgeman # (Auto) 1.1 H Eos # (Auto) 0.3 Baso # (Auto) 0.1 Differential Comment Auto diff final Sodium 137 Potassium 3.6 Chloride 103 Carbon Dioxide 23.4 Anion Gap 11 BUN 15 Creatinine 0.84 Estimated GFR Greater than 89 Random Glucose 100 Calcium 8.2 L Microbiology 04/25/18 18:28 Blood - Peripheral Aerobic Blood Culture - Final No growth in 5 days 04/25/18 18:28 Blood - Peripheral Anaerobic Blood Culture - Final No growth in 5 days 04/25/18 18:23 Blood - Peripheral Aerobic Blood Culture - Preliminary gram positive cocci 04/25/18 18:23 Blood - Peripheral Anaerobic Blood Culture - Final No growth in 5 days Assessment and Plan - Plan Mr. Herr is a 62-year-old male with a history of muscle invasive bladder cancer status post neoadjuvant chemotherapy who underwent radical cystectomy with bilateral pelvic lymph node dissection with creation of ileal conduit on . He required 3 units of blood transfusion perioperatively largely because of anemia preop. Patient was subsequently managed in the critical care unit. Patient's care was transferred to hospitalist service on 04/22/2018. Muscle invasive bladder cancer Chronic pain syndrome -Status post neoadjuvant chemotherapy and radical cystectomy -Currently on long acting oral pain meds as needed and Dilaudid 1 mg IV for breakthrough. -He is now on oral diet. He was on TPN before. -Appreciate Oncology and Urology input. -Encouraged patient to get up and move around a bit more. Deconditioning Depression Loss of appetite -PT to see patient 7 days a week -Mirtazapine 15mg QHS for depression and as an appetite stimulant. -Encouraged patient to drink Boost (Supplementation). Left upper ext DVT -Currently on Lovenox 50mg Q12hrs. COPD Pulmonary nodule -Lung biopsy 2017 revealed inflammatory changes no malignancy -Continue albuterol nebulizer treatments, supplemental oxygen as needed. Hypokalemia - resolved. C. Diff colitis -Vancomycin PO 125mg QID X 10 days. -Diarrhea improving. Full code. Lovenox 50mg BID.
[2018-04-30] MEDS: Pantoprazole Inj 40 MG Vial IV.PUSH SCH (18:27)
[2018-04-30] MEDS: Mirtazapine 15 MG Tablet PO SCH (21:06)
[2018-05-01] MEDS: Sodium Chloride 23.4% Inj 154 MEQ in Dextrose 10% in Water Inj 1,000 ML IV.CONT SCH ×2 (04:08)
[2018-05-01] MEDS: Enoxaparin Inj 60 MG/0.6 ML Syringe SQ SCH ×2 (10:07→21:10)
[2018-05-01] MEDS: Docusate Sodium Liq 100 MG/10 ML UDC NG/OG SCH ×3 (10:08→21:13)
[2018-05-01] MEDS: Sodium Chloride 0.9% 2 ML Flush BID IV.FLUSH SCH ×2 (10:08→21:00)
[2018-05-01] MEDS: Gabapentin 300 MG Capsule PO SCH ×2 (10:08→20:58)
[2018-05-01] MEDS: oxyCODONE HCL 40 MG Controlled Release Tablet PO SCH ×2 (10:08→23:36)
[2018-05-01] MEDS: Sennosides Liq 8.8 MG/5 ML UDC NG/OG SCH ×2 (10:09→21:00)
--- NOTE | 2018-05-01 11:39 | P.PNURO ---
Subjective Patient symptoms today: Pt seen and examined. Not motivated. c/o not getting pain medication on time. + BM's Objective Vital Signs: Vital Signs 04/30/18 12:00 04/30/18 20:00 04/30/18 23:48 Temperature 98.4 F 99.4 F 99.9 F H Pulse Rate 79 74 82 Respiratory Rate 18 18 18 Blood Pressure 124/73 123/8 L 132/70 Pulse Oximetry 97 97 96 05/01/18 08:00 Temperature 97.9 F Pulse Rate 71 Respiratory Rate 17 Blood Pressure 122/74 Pulse Oximetry 98 Intake & Output 04/30/18 05/01/18 05/01/18 18:59 06:59 18:59 Intake Total 1518.5 / 1518.5 Output Total 1000 / 1000 3000 / 3000 Balance -1000 / -1000 -1481.5 / -1481.5 Weight 49.4 kg Intake: IV 1038.5 / 1038.5 Sodium Chloride 23.4% Inj 154 1038.5 / 1038.5 MEQ In D10W Inj 1,000 ML @ 50 mls/hr IV.CONT .[id number] [facility] Rx# :[id number] Oral 480 / 480 Output: Urine 3000 / 3000 Urine Amount (Stoma) 1000 / 1000 Ileal Conduit Right 1000 / 1000 Other: Date of Last Bowel Movement 04/29/18 04/29/18 Result Diagrams: 04/28/18 03:55 04/28/18 03:55 Medications and IVs: Active Medications Generic Name Dose Route Start Last Admin Trade Name Freq PRN Reason Stop Dose Admin Acetaminophen 650 mg 04/16/18 08:55 05/01/18 04:08 Tylenol Liq PO 650 mg Q6H PRN Administration FEVER Albuterol 2.5 mg 04/16/18 08:54 Albuterol Neb (Prn) NEB Q2HR NEB PRN [id number] Diphenhydramine HCl 25 mg 04/16/18 09:02 Benadryl Inj IV.PUSH Q6H PRN for itching Docusate Sodium 100 mg 04/16/18 21:00 05/01/18 10:08 Colace Liq NG/OG Not Given BID NADINE Enoxaparin Sodium 50 mg 04/28/18 23:15 05/01/18 10:07 Lovenox Inj SQ 50 mg Q12HR NADINE Administration Gabapentin 300 mg 04/24/18 21:00 05/01/18 10:08 Neurontin PO 300 mg BID NADINE Administration Hydromorphone HCl 1 mg 04/29/18 16:08 04/30/18 22:43 Dilaudid Pf Inj IV.PUSH 1 mg Q4H PRN Administration BREAKTHROUGH PAIN Sodium Chloride 500 mls @ 30 mls/hr 04/15/18 07:00 04/15/18 07:25 Ns Inj IV.SIG Not Given .Q10H NADINE Magnesium Sulfate 4 gm/ Sodium 100 mls @ 50 mls/hr 04/16/18 08:32 Chloride IV.SIG UNSCH PRN For Magnesium 0.9 - 1.1 mg/dL Magnesium Sulfate 2 gm/ Sodium 100 mls @ 50 mls/hr 04/16/18 08:32 Chloride IV.SIG UNSCH PRN For Magnesium 1.2 - 1.6 mg/dL Sodium Phosphate 30 mmol/ 260 mls @ 42 mls/hr 04/16/18 08:32 Sodium Chloride IV.SIG UNSCH PRN For Phosphorus < 2.5 mg/dL Sodium Chloride 154 meq/ 1,038.5 mls @ 50 mls/hr 04/23/18 07:00 05/01/18 04: 08 Dextrose IV.CONT 50 mls/hr .[id number] NADINE Administration Labetalol HCl 10 mg 04/18/18 10:09 Trandate Inj IV.PUSH Q1H PRN Sbp>165, Dbp>90, Hr>65 Magnesium Oxide 800 mg 04/16/18 08:32 Mag-Ox PO UNSCH PRN For Magnesium 1.2 - 1.6 mg/dL Mirtazapine 15 mg 04/29/18 21:00 04/30/18 21:06 Remeron PO 15 mg HS NADINE Administration Naloxone HCl 0.4 mg 04/16/18 09:02 Narcan Inj IV.PUSH PRN PRN SEE LABEL COMMENTS Nitroglycerin 2 inch 04/18/18 10:10 Nitro-Bid 2% Oint TOPICAL Q6HR PRN Sbp>165, Dbp>90 Oxycodone HCl 40 mg 04/29/18 21:00 05/01/18 10:08 Oxycontin Cr PO 40 mg Q12HR NADINE Administration Oxycodone/Acetaminophen 1 tab 04/22/18 12:00 05/01/18 04:11 Percocet 7.5/325 Mg PO 1 tab Q4H PRN Administration Pain 5-10 Pantoprazole Sodium 40 mg 04/15/18 16:00 04/30/18 18:27 Protonix Inj IV.PUSH 40 mg Q24H NADINE Administration Sennosides 8.8 mg 04/16/18 21:00 05/01/18 10:09 Senna Liq NG/OG Not Given BID NADINE Sodium Chloride 2 ml 04/16/18 21:00 05/01/18 10:08 Ns Flush IV.FLUSH Not Given BID NADINE Sodium Chloride 2 ml 04/16/18 09:14 Ns Flush IV.FLUSH PRN PRN FLUSH AFTER USING IV ACCESS Vancomycin HCl 125 mg 04/27/18 09:00 05/01/18 10:09 Vancomycin Po PO 05/07/18 08:59 125 mg QID NADINE Administration Objective Remarks: CV: RRR Lungs: decreased BS Abd:soft,nd,tender one exam Stoma: pink and viable Dale Pelvic drain: bloody Ext: neg C/C/E 04/17 CV: RRR Lungs: decreased BS Abd:soft,nd,tender Stoma: pink and viable Wound: clean and dry Dale Pelvic drain: bloody Ext: neg C/C/E 04/18 CV: RRR Lungs: CTA Abd:soft,nd,tender Stoma: pink and viable Wound: Dressing intact Dale Pelvic drain: bloody Ext: neg C/C/E 04/19 Abd:soft,nt,nd Dressing intact Stoma: pink and viable Pelvic drain removed at bedside Ext: neg 04/20 Abd:soft,nt,nd Dressing intact Stoma: pink and viable Ext: neg C/C/E 04/21 Abd:soft,nt,nd Stoma: pink and viable Stents in place Wound: clean and dry Ext:neg C/C/E 04/22 Abd:soft,nt,nd Stoma: pink and viable Stents in place Wound: clean and dry Ext:neg C/C/E 04/23 Abd:soft,nt,nd Stoma: pink and viable Stents in place Wound: clean and dry Ext:neg C/C/E 04/24 Abd:soft,nt,nd Stoma: pink and viable Stents in place Wound: clean and dry Ext:neg C/C/E 04/25 Abd:soft,nt,nd Stoma:pink and viable Stents in place Wound: clean and dry Leakage from prior central line site is noted Ext: neg C/C/E 04/28 Abd:soft,nt,nd Drain tube removed-red rubber Stents in place and will remove one tomorrow Wound: Clean and dry Ext: neg C/C/E 04/29 Abd:soft,nt,nd One JJ stent removed today Wound: C&D Left UE DVT 04/30 Abd:soft,nt,nd Remaining stent removed Left UE DVT Urine clear 05/01 Abd:soft,nd, tender with palpation Stoma with clear urine Wound: clean and dry Assessment and Plan - Plan Stable s/p radical cystectomy with ileal conduit OOB to chair Start TPN 10 Stable s/p radical cystectomy with ileal conduit Continue TPN OOB to chair NGT to gravity drainage Encourage incentive sphirometer 04/18 Stable s/p radical cystectomy with ileal conduit POD#3 Continue TPN OOB to chair/ambulate NGT to gravity drainage Will d/c pelvic drain in next day or two as drainage continues to decline 10 Stable s/p radical cystectomy with ileal conduit POD#4 OOB to chair Pelvic drain removed Continue NGT to gravity Continue TPN Path noted: T3b 04/20 Stable POD#5 s/p radical cystectomy with ileal conduit OOB today/Ambulate Path reviewed with pt today Will plan to remove NGT this Saturday and start clear liquids Continue TPN 10 Stable POD#6 s/p radical cystectomy with ileal conduit NGT removed; ice chips today OOB Continue TPN 04/22 Stable POD#7 s/p radical cystectomy with ileal conduit 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 Will start PO pain meds. OOB Continue TPN 04/23 Stable POD#8 s/p radical cystectomy with ileal conduit Regular diet OOB Ween off TPN 04/24 Stable POD#9 s/p radical cystectomy with ileal conduit OOB/Ambulate Off TPN Tolerating Regular diet. 04/25 Stable POD#10 s/p radical cystectomy with ileal conduit OOB/Ambulate Off TPN; calorie count, ? PPN; nutrition evaluation Tolerating Regular diet. 04/28 Stable POD#13 s/p radical cystectomy with ileal conduit OOB/Ambulate Off TPN; calorie count, ? PPN; nutrition evaluation Tolerating Regular diet some Continue abx for C. Diff 04/29 Stable s/p radical cystectomy with ileal conduit POD#14 Pt with extensive left UE DVT Continue Lovenox Poor intake Oncology input appreciated. 04/30 Stable s/p radical cystectomy with ileal conduit POD#!5 OOB/Ambulate Encourage PO intake and ambulation 05/01 Stable s/p radical cystectomy with ileal conduit POD#16 Continue with aggressive rehab Ween pain medications Encourage PO intake
[2018-05-01] MEDS: HYDROmorphone PF Inj 2 MG/ML Vial IV.PUSH PRN ×3 (11:54→21:00)
--- NOTE | 2018-05-01 11:58 | P.PN ---
Subjective Interval history: Follow-up for chronic pain, status post radical cystectomy, C. difficile colitis. Patient is resting in bed. No fever or chills. Diarrhea much improved. He was able to participate better with physical therapy but he complains of significant pain at the end of physical therapy session. Physical Exam Vital signs: Vital Signs 04/30/18 12:00 04/30/18 20:00 04/30/18 23:48 Temperature 98.4 F 99.4 F 99.9 F H Pulse Rate 79 74 82 Respiratory Rate 18 Blood Pressure 124/73 123/8 L 132/70 Pulse Oximetry 97 97 96 05/01/18 08:00 Temperature 97.9 F Pulse Rate 71 Respiratory Rate 17 Blood Pressure 122/74 Pulse Oximetry 98 Intake & Output 04/30/18 05/01/18 05/01/18 18:59 06:59 18:59 Intake Total 1518.5 / 1518.5 Output Total 1000 / 1000 3000 / 3000 Balance -1000 / -1000 -1481.5 / -1481.5 Weight 49.4 kg Intake: IV 1038.5 / 1038.5 Sodium Chloride 23.4% Inj 154 1038.5 / 1038.5 MEQ In D10W Inj 1,000 ML @ 50 mls/hr IV.CONT .[id number] [facility] Rx# :[id number] Oral 480 / 480 Output: Urine 3000 / 3000 Urine Amount (Stoma) 1000 / 1000 Ileal Conduit Right 1000 / 1000 Other: Date of Last Bowel Movement 04/29/18 04/29/18 Narrative: GENERAL: This is a well-nourished, well-developed patient, in no apparent distress. CARDIOVASCULAR: Regular rate and rhythm without murmurs, gallops, or rubs. RESPIRATORY: Clear to auscultation. Breath sounds equal bilaterally. No wheezes , rales, or rhonchi. GASTROINTESTINAL: Abdomen soft, clean surgical wound. Significant tenderness to palpation. MUSCULOSKELETAL: Extremities without clubbing, cyanosis, or edema. NEURO: Alert & Oriented x4 to person, place, time, situation. Moves all ext x4 - Urinary Catheter Management Indwelling Urethral Catheter Cath placed during this visit: yes, but has since been removed by the nurse Reason for continuing: Not indwelling catheter Insertion date: 04/15/18 Insertion time: 14:20 Removal date: 04/15/18 Removal time: 13:08 Right ileal conduit Cath placed during this visit: yes Reason for continuing: Not indwelling catheter Insertion date: 04/15/18 Results - Labs CBC & Chem 7: 04/28/18 03:55 04/28/18 03:55 Laboratory Results - last 24 hr 04/25/18 04/25/18 18:23 18:23 WBC 23.2 H RBC 3.53 L Hgb 9.5 L Hct 29.2 L MCV 82.7 MCH 26.9 L MCHC 32.6 RDW 17.4 H Plt Count 377 MPV 8.9 Neut % (Auto) 89.8 H Lymph % (Auto) 3.9 L Cottle % (Auto) 4.9 Eos % (Auto) 1.2 Baso % (Auto) 0.2 Neut # (Auto) 20.8 H Lymph # (Auto) 0.9 L Cottle # (Auto) 1.1 H Eos # (Auto) 0.3 Baso # (Auto) 0.1 Differential Comment Auto diff final Sodium 137 Potassium 3.6 Chloride 103 Carbon Dioxide 23.4 Anion Gap 11 BUN 15 Creatinine 0.84 Estimated GFR Greater than 89 Random Glucose 100 Calcium 8.2 L Microbiology 04/25/18 18:28 Blood - Peripheral Aerobic Blood Culture - Final No growth in 5 days 04/25/18 18:28 Blood - Peripheral Anaerobic Blood Culture - Final No growth in 5 days 04/25/18 18:23 Blood - Peripheral Aerobic Blood Culture - Preliminary gram positive cocci 04/25/18 18:23 Blood - Peripheral Anaerobic Blood Culture - Final No growth in 5 days Assessment and Plan - Plan Mr. Herr is a 62-year-old male with a history of muscle invasive bladder cancer status post neoadjuvant chemotherapy who underwent radical cystectomy with bilateral pelvic lymph node dissection with creation of ileal conduit on . He required 3 units of blood transfusion perioperatively largely because of anemia preop. Patient was subsequently managed in the critical care unit. Patient's care was transferred to hospitalist service on 04/22/2018. Muscle invasive bladder cancer Chronic pain syndrome -Status post neoadjuvant chemotherapy and radical cystectomy -Currently on long acting oral pain meds as needed and Dilaudid 1 mg IV for breakthrough. -He is now on oral diet. He was on TPN before. -Appreciate Oncology and Urology input. -Encouraged patient to get up and move around a bit more. Deconditioning Depression Loss of appetite -PT to see patient 7 days a week -Mirtazapine 15mg QHS for depression and as an appetite stimulant. -Encouraged patient to drink Boost (Supplementation). Left upper ext DVT -Currently on Lovenox 50mg Q12hrs. COPD Pulmonary nodule -Lung biopsy 2017 revealed inflammatory changes no malignancy -Continue albuterol nebulizer treatments, supplemental oxygen as needed. Hypokalemia - resolved. C. Diff colitis -Vancomycin PO 125mg QID X 10 days. -Diarrhea improving. Full code. Lovenox 50mg BID. Discharge plan: No acute changes in management. Patient is encouraged to participate with physical therapy better. I discussed with oncology. Even if patient's functional status improves to ECOG 1 or 2, he may not be able to tolerate chemotherapy well. However radiation therapy alone is an option.
[2018-05-01] MEDS: Pantoprazole Inj 40 MG Vial IV.PUSH SCH (15:00)
--- NOTE | 2018-05-01 15:52 | P.PNPAL ---
Reason for Visit Reason for visit: a. To assist with evaluation and management of symptoms including: Pain, weakness b. To assist medical decision maker(s) with: better understanding of current medical conditions; weighing benefits/burdens of medical treatment options; making medical treatment decisions. Subjective Subjective/Interval History: Patient seen for follow-up of symptom management for pain and weakness as well as assisting with goals of medical treatment. Patient remains painful with his primary complaint being unable to get pain medication once requested. He received 1 dose of Percocet 7.5/325 mg at 4 AM and when he asked for a second dose at 8 AM he was told that it was too close to the time of receiving his long acting oxycodone, scheduled for 9 AM. His long-acting oxycodone was not administered until 10:15 AM, leaving the patient in pain for over 2 hours, allowing the pain to escalate from 8/10 when he asked to 10/10 when pain medication was finally administered. Over the past 24 hours he has received 6 doses of 7.5/325 mg Percocet (67.5 oral morphine equivalents) , 80 mg of long-acting oxycodone (120 oral morphine equivalents) and 6 mg of Dilaudid (39 mg oral morphine equivalents) with his lowest pain score 6/10 after administration of medication. His total oral morphine equivalents was 226.5 mg over the prior 24 hours. He has lost muscle mass and has been sedentary secondary to pain and illness, exacerbating his muscle weakness. He is able to ambulate with a walker short distances, bed to bathroom and back, but remains significantly weak. Physical therapy has been ordered for 7 days a week. . Family/Friend Interactions: No family at bedside. Patient states he wishes to do all family communication himself. . Advance Directives Living Will: Never completed Health Care Surrogate: Copy in medical record Durable Power of Engagement Manager: Never completed Health Care Surrogate Name and Number: Holly Levine Objective Vital Signs: Vital Signs 04/30/18 20:00 04/30/18 23:48 05/01/18 08:00 Temperature 99.4 F 99.9 F H 97.9 F Pulse Rate 74 82 71 Respiratory Rate 18 18 17 Blood Pressure 123/8 L 132/70 122/74 Pulse Oximetry 97 96 98 05/01/18 12:00 Temperature 98.4 F Pulse Rate 80 Respiratory Rate 17 Blood Pressure 114/74 Pulse Oximetry 98 Intake & Output 04/30/18 05/01/18 05/01/18 18:59 06:59 18:59 Intake Total 1518.5 / 1518.5 Output Total 1000 / 1000 3000 / 3000 Balance -1000 / -1000 -1481.5 / -1481.5 Weight 108 lb 14.534 oz Intake: IV 1038.5 / 1038.5 Sodium Chloride 23.4% Inj 154 1038.5 / 1038.5 MEQ In D10W Inj 1,000 ML @ 50 mls/hr IV.CONT .[id number] [facility] Rx# :[id number] Oral 480 / 480 Output: Urine 3000 / 3000 Urine Amount (Stoma) 1000 / 1000 Ileal Conduit Right 1000 / 1000 Other: Date of Last Bowel Movement 04/29/18 04/29/18 Physical Exam: CONSTITUTIONAL/GENERAL: This is a cachectic male lying in bed, complaining of sharp abdominal pain that is severe. TUBES/LINES/DRAINS: PIV NECK: Trachea midline. Supple, nontender. No palpable thyroid enlargement or nodularity. CARDIOVASCULAR: Regular rate and rhythm without murmurs, gallops, or rubs. No JVD. Peripheral pulses symmetric. RESPIRATORY/CHEST: Symmetric, unlabored respirations. Lungs clear, diminished. Breath sounds equal bilaterally. GASTROINTESTINAL: Abdomen soft, tender to palpation, nondistended. No guarding. Bowel sounds present. GENITOURINARY: Ileal conduit in place draining to bedside drainage. MUSCULOSKELETAL: Left upper extremity with swelling, venous Doppler showing extensive DVT in the internal jugular vein, subclavian, axillary and brachial vein. Generalized weakness in bilateral lower extremities, creating difficulty with him being able to walk. LYMPHATICS: Left axillary lymphadenopathy. NEUROLOGICAL: Awake and mildly lethargic. Motor and sensory grossly within normal limits. Follows commands. PSYCHIATRIC: Anxious related to his diagnosis of cancer, severe pain as well as his recent decline in functional status. No apparent hallucinations or other psychotic thought process. . Diagnostic Tests Laboratory: Laboratory Results - last 72 hr 04/25/18 04/25/18 18:23 18:23 WBC 23.2 H RBC 3.53 L Hgb 9.5 L Hct 29.2 L MCV 82.7 MCH 26.9 L MCHC 32.6 RDW 17.4 H Plt Count 377 MPV 8.9 Neut % (Auto) 89.8 H Lymph % (Auto) 3.9 L Eagle % (Auto) 4.9 Eos % (Auto) 1.2 Baso % (Auto) 0.2 Neut # (Auto) 20.8 H Lymph # (Auto) 0.9 L Eagle # (Auto) 1.1 H Eos # (Auto) 0.3 Baso # (Auto) 0.1 Differential Comment Auto diff final Sodium 137 Potassium 3.6 Chloride 103 Carbon Dioxide 23.4 Anion Gap 11 BUN 15 Creatinine 0.84 Estimated GFR Greater than 89 Random Glucose 100 Calcium 8.2 L Result Diagrams: 04/28/18 03:55 04/28/18 03:55 Microbiology: Microbiology 04/25/18 18:28 Aerobic Blood Culture - Final Blood - Peripheral No growth in 5 days Anaerobic Blood Culture - Final No growth in 5 days 04/25/18 18:23 Aerobic Blood Culture - Preliminary Blood - Peripheral gram positive cocci Anaerobic Blood Culture - Final No growth in 5 days Imaging: Abdomen X-Ray 04/15/18 00:00 CONCLUSION: 1. Surgical changes status post ileal conduit placement with bilateral stent catheters. 2. Nonspecific bowel gas pattern most likely representing a postoperative ileus. Chest X-Ray 04/15/18 00:00 CONCLUSION: Persistent abnormal bilateral upper lobe opacity previously evaluated on PET/CT. Abdomen X-Ray 04/18/18 00:00 CONCLUSION: Compared to the study of 04/15/2018 with slight increase the amount of bowel distention. Stents and drain appear to remain in good position. Chest X-Ray 04/25/18 00:00 CONCLUSION: Right apical pleural parenchymal change again noted which appears mildly increased from the prior study. There is volume loss and mediastinal shift to the right. Venous Doppler Study 04/28/18 00:00 CONCLUSION: 1. Extensive deep venous thrombosis. Procedures: 04/15: Radical cystectomy . Assessment and Plan - Disease Oriented Problem List (1) COPD (chronic obstructive pulmonary disease) (2) Bladder cancer (3) Chronic pain Pertinent Non-Medical Issues: Psychosocial: He was born in [place] and moved to [place] 3 years ago with his girlfriend of many years. 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 He has 1 daughter from whom he is estranged. 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 Legal: No advance directives completed. Healthcare surrogate completed at this assessment. Ethical issues impacting care: None noted. . Important Contacts: Significant other: Holly Levine . Prognosis: His prognosis is guarded. Margins of the tumor resection were positive and the patient is not tolerant of chemotherapy. He received 3 rounds of chemotherapy previously and was unable to receive the fourth due to poor tolerance, extreme nausea and vomiting rapid weight loss and poor performance status. He was informed by the urologist that the cancer had invaded the muscle wall and as his performance status is so poor, he would not be a candidate for chemotherapy even if it was tolerated. He wishes for pain relief as his primary treatment. Given his positive cancer diagnosis, poor performance status and progressive decline, he would be hospice appropriate if goals were consistent. . Code Status: Full Code Plan: PLAN: Legal decision maker: Patient currently has good insight and judgment related to his medical conditions. Patient has designated his significant other , Holly Levine, as his healthcare surrogate decision-maker. Goals: Goals remain aggressive. Patient states, "I do not want to ." CODE STATUS: FULL CODE SYMPTOMS: * Pain: Patient complaining of sharp abdominal pain and right knee pain that is severe. Current pain orders include Percocet 7.5/325 every 4 hours as needed, Dilaudid 1 mg IV every 4 hours as needed and oxycodone sustained release 40 mg p.o. twice daily. Calculation of his 24-hour oral morphine equivalent dosing indicates that he has taken 226.5 mg morphine equivalent. As this has been inadequate to relieve his pain, consideration may be given in the coming days to converting to methadone which has been shown to be effective on neuropathic and bone pain. Also to be considered is outpatient follow-up planned with Dr. Mathews for oncology. Would recommend seeking Dr. Mathews's input on pain medication as patient states Dr. Mathews will be managing his pain medications once patient is discharged. * Weakness: Appetite is fair and he continues to work with physical therapy. He is limited by loss of muscle mass and uncontrolled pain. Physical therapy 7 days weekly has been ordered. Recommend nutritional supplements. No further recommendations. Palliative care will continue to follow the patient during hospital course as condition evolves, to assist patient/decision-maker with understanding of their medical conditions, weighing benefits/burdens of treatment options, for clarification of goals of treatment. Additionally will assist with any symptoms of palliative concern. . Attestation Attestation: To help prompt me to consider important information that might be impacting today's encounter and assessment, information from prior notes written by myself or my colleagues may have been "brought forward" into today's note. My signature on this note, however, is an attestation that I personally performed the exam, history, and/or decision-making noted today, and, unless otherwise indicated, the interactions with patient, family, and staff as well as the review of records all occurred today. I also attest that the listed assessment and stated plan reflect my best clinical judgment today based on the combination of historical information, prior notes, and today's exam/ interactions. When time spent is documented, it refers only to time spent today by the signer, or if indicated, combined time spent today by collaborating physician/nurse practitioner. .
--- NOTE | 2018-05-01 16:42 | P.PNWCN ---
Wound Care Nurse Consult Description: Patient seen for follow up of ostomy teaching and care Communicated with: RN Aure Duke and patient Recommendation: Please monitor for urine output, stoma appearance and color. Change urostomy appliance if leaking occurs. Do not reinforce with tape, please change. Urinary Diversion - Urinary Stoma Ileal Conduit Stent(s) Present: No Stoma Edema: No Stoma Diameter: 29 (mm) Stoma Appearance: Beefy Red, Protruding, Round Collection Device: Two-piece, Moldable Wafer Drainage Description: Yellow Wafer Size: 2 1/4 Moldable 57mm (2 1/4 accordion flage moldable fits stoma sizes 22 mm to 32 mm) Stoma Care: Pouch and Wafer Changed, Skin Care Loni-Stomal Skin Appearance: Irritated and Inflammed - Additional Information Patient seen on for follow up of evaluation and teaching of new urostomy ileal conduit to RUQ of abdomen. Patient was instructed on prevention of ostomy appliance leaks. Stents were removed by surgeon yesterday per patient. Output is yellow with sediment and no odor.Urostomy appliance is leaking. Removed urostomy appliance in place to reveal round red stoma that is well protruding measuring 29mm Two piece moldable Convatec 2 1/4 accordion flange Durahesive wafer fitting stoma sizes from 22 mm to 32 mm with 2 1/4 urostomy pouch was placed over stoma. Patient tolerated ostomy appliance change well. Patient still has vasquez in place to midline abdomen. Adhesive border to wafer was cut to avoid vasquez. Patient was given step by step instruction during change.
[2018-05-01] MEDS: Mirtazapine 15 MG Tablet PO SCH (20:58)
[2018-05-02] MEDS: HYDROmorphone PF Inj 2 MG/ML Vial IV.PUSH PRN ×4 (01:27→17:41)
[2018-05-02] MEDS: Sodium Chloride 23.4% Inj 154 MEQ in Dextrose 10% in Water Inj 1,000 ML IV.CONT SCH ×4 (05:48→18:53)
[2018-05-02 08:08] LABS: Anion Gap 6 meq/L (5-15); Blood Urea Nitrogen 12 mg/dL (7-18); Calcium 8.6 mg/dL (8.5-10.1); Carbon Dioxide 28.8 meq/L (21.0-32.0); Chloride 103 meq/L (98-107); Glomerular Filtration Rate Greater Than 89 mL/min (>89); Glucose,Random 90 mg/dL (74-106); Potassium 4.3 meq/L (3.5-5.1); Sodium 138 meq/L (136-145)
--- NOTE | 2018-05-02 09:40 | P.PNURO ---
Subjective Patient symptoms today: Pt seen and examined. Feeling better. Objective Vital Signs: Vital Signs 05/01/18 12:00 05/01/18 16:00 05/01/18 20:00 Temperature 98.4 F 98.5 F 98.0 F Pulse Rate 80 79 84 Respiratory Rate 17 17 15 Blood Pressure 114/74 109/66 148/68 H Pulse Oximetry 98 98 99 05/02/18 00:00 05/02/18 08:00 Temperature 97.9 F 97.9 F Pulse Rate 85 67 Respiratory Rate 15 17 Blood Pressure 125/73 117/75 Pulse Oximetry 98 98 Intake & Output 05/01/18 05/02/18 05/02/18 18:59 06:59 18:59 Intake Total 1184 / 1184 1538.5 / 1538.5 Output Total 1500 / 1500 2200 / 2200 Balance -316 / -316 -661.5 / -661.5 Weight 50.1 kg Intake: IV 1038.5 / 1038.5 Sodium Chloride 23.4% Inj 154 1038.5 / 1038.5 MEQ In D10W Inj 1,000 ML @ 50 mls/hr IV.CONT .[id number] [facility] Rx# :[id number] Oral 1184 / 1184 500 / 500 Output: Urine 1500 / 1500 2200 / 2200 Other: Date of Last Bowel Movement 04/30/18 04/30/18 Result Diagrams: 04/28/18 03:55 05/02/18 05:48 Medications and IVs: Active Medications Generic Name Dose Route Start Last Admin Trade Name Freq PRN Reason Stop Dose Admin Acetaminophen 650 mg 04/16/18 08:55 05/01/18 04:08 Tylenol Liq PO 650 mg Q6H PRN Administration FEVER Albuterol 2.5 mg 04/16/18 08:54 Albuterol Neb (Prn) NEB Q2HR NEB PRN DYSPNEA Diphenhydramine HCl 25 mg 04/16/18 09:02 Benadryl Inj IV.PUSH Q6H PRN for itching Docusate Sodium 100 mg 04/16/18 21:00 05/01/18 21:13 Colace Liq NG/OG 100 mg BID NADINE Administration Enoxaparin Sodium 50 mg 04/28/18 23:15 05/01/18 21:10 Lovenox Inj SQ 50 mg Q12HR NADINE Administration Gabapentin 300 mg 10/11/18 21:00 05/01/18 20:58 Neurontin PO 300 mg BID NADINE Administration Hydromorphone HCl 1 mg 04/29/18 16:08 05/02/18 07:45 Dilaudid Pf Inj IV.PUSH 1 mg Q4H PRN Administration BREAKTHROUGH PAIN Sodium Chloride 500 mls @ 30 mls/hr 04/15/18 07:00 04/15/18 07:25 Ns Inj IV.SIG Not Given .Q10H NADINE Magnesium Sulfate 4 gm/ Sodium 100 mls @ 50 mls/hr 04/16/18 08:32 Chloride IV.SIG UNSCH PRN For Magnesium 0.9 - 1.1 mg/dL Magnesium Sulfate 2 gm/ Sodium 100 mls @ 50 mls/hr 04/16/18 08:32 Chloride IV.SIG UNSCH PRN For Magnesium 1.2 - 1.6 mg/dL Sodium Phosphate 30 mmol/ 260 mls @ 42 mls/hr 04/16/18 08:32 Sodium Chloride IV.SIG UNSCH PRN For Phosphorus < 2.5 mg/dL Sodium Chloride 154 meq/ 1,038.5 mls @ 50 mls/hr 04/23/18 07:00 05/02/18 06: 07 Dextrose IV.CONT Infused .[id number] [facility] Infusion Labetalol HCl 10 mg 04/18/18 10:09 Trandate Inj IV.PUSH Q1H PRN Sbp>165, Dbp>90, Hr>65 Magnesium Oxide 800 mg 04/16/18 08:32 Mag-Ox PO UNSCH PRN For Magnesium 1.2 - 1.6 mg/dL Mirtazapine 15 mg 04/29/18 21:00 05/01/18 20:58 Remeron PO 15 mg HS NADINE Administration Naloxone HCl 0.4 mg 04/16/18 09:02 Narcan Inj IV.PUSH PRN PRN SEE LABEL COMMENTS Nitroglycerin 2 inch 04/18/18 10:10 Nitro-Bid 2% Oint TOPICAL Q6HR PRN Sbp>165, Dbp>90 Oxycodone HCl 40 mg 04/29/18 21:00 05/01/18 23:36 Oxycontin Cr PO 40 mg Q12HR NADINE Administration Oxycodone/Acetaminophen 1 tab 04/22/18 12:00 05/02/18 05:51 Percocet 7.5/325 Mg PO 1 tab Q4H PRN Administration Pain 5-10 Pantoprazole Sodium 40 mg 04/15/18 16:00 05/01/18 15:00 Protonix Inj IV.PUSH 40 mg Q24H NADINE Administration Sennosides 8.8 mg 04/16/18 21:00 05/01/18 21:00 Senna Liq NG/OG Not Given BID NADINE Sodium Chloride 2 ml 04/16/18 21:00 05/01/18 21:00 Ns Flush IV.FLUSH Not Given BID NADINE Sodium Chloride 2 ml 04/16/18 09:14 Ns Flush IV.FLUSH PRN PRN FLUSH AFTER USING IV ACCESS Vancomycin HCl 125 mg 04/27/18 09:00 05/01/18 20:58 Vancomycin Po PO 05/07/18 08:59 125 mg QID NADINE Administration Objective Remarks: CV: RRR Lungs: decreased BS Abd:soft,nd,tender one exam Stoma: pink and viable Dale Pelvic drain: bloody Ext: neg C/C/E 04/17 CV: RRR Lungs: decreased BS Abd:soft,nd,tender Stoma: pink and viable Wound: clean and dry Dale Pelvic drain: bloody Ext: neg C/C/E 04/18 CV: RRR Lungs: CTA Abd:soft,nd,tender Stoma: pink and viable Wound: Dressing intact Dale Pelvic drain: bloody Ext: neg C/C/E 04/19 Abd:soft,nt,nd Dressing intact Stoma: pink and viable Pelvic drain removed at bedside Ext: neg 04/20 Abd:soft,nt,nd Dressing intact Stoma: pink and viable Ext: neg C/C/E 04/21 Abd:soft,nt,nd Stoma: pink and viable Stents in place Wound: clean and dry Ext:neg C/C/E 04/22 Abd:soft,nt,nd Stoma: pink and viable Stents in place Wound: clean and dry Ext:neg C/C/E 04/23 Abd:soft,nt,nd Stoma: pink and viable Stents in place Wound: clean and dry Ext:neg C/C/E 04/24 Abd:soft,nt,nd Stoma: pink and viable Stents in place Wound: clean and dry Ext:neg C/C/E 04/25 Abd:soft,nt,nd Stoma:pink and viable Stents in place Wound: clean and dry Leakage from prior central line site is noted Ext: neg C/C/E 04/28 Abd:soft,nt,nd Drain tube removed-red rubber Stents in place and will remove one tomorrow Wound: Clean and dry Ext: neg C/C/E 04/29 Abd:soft,nt,nd One JJ stent removed today Wound: C&D Left UE DVT 04/30 Abd:soft,nt,nd Remaining stent removed Left UE DVT Urine clear 05/01 Abd:soft,nd, tender with palpation Stoma with clear urine Wound: clean and dry 05/02 Abd:soft,nt,nd Stoma: pink and viable;'Urine clear Ext: RUE DVT Wound: C&D Assessment and Plan - Plan Stable s/p radical cystectomy with ileal conduit OOB to chair Start TPN 10/ Stable s/p radical cystectomy with ileal conduit Continue TPN OOB to chair NGT to gravity drainage Encourage incentive sphirometer 04/18 Stable s/p radical cystectomy with ileal conduit POD#3 Continue TPN OOB to chair/ambulate NGT to gravity drainage Will d/c pelvic drain in next day or two as drainage continues to decline 10 Stable s/p radical cystectomy with ileal conduit POD#4 OOB to chair Pelvic drain removed Continue NGT to gravity Continue TPN Path noted: T3b 04/20 Stable POD#5 s/p radical cystectomy with ileal conduit OOB today/Ambulate Path reviewed with pt today Will plan to remove NGT this Saturday and start clear liquids Continue TPN 04/21 Stable POD#6 s/p radical cystectomy with ileal conduit NGT removed; ice chips today OOB Continue TPN 04/22 Stable POD#7 s/p radical cystectomy with ileal conduit Clear liquid diet D/C LEGAL 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 Will start PO pain meds. OOB Continue TPN 04/23 Stable POD#8 s/p radical cystectomy with ileal conduit Regular diet OOB Ween off TPN 04/24 Stable POD#9 s/p radical cystectomy with ileal conduit OOB/Ambulate Off TPN Tolerating Regular diet. 04/25 Stable POD#10 s/p radical cystectomy with ileal conduit OOB/Ambulate Off TPN; calorie count, ? PPN; nutrition evaluation Tolerating Regular diet. 10 Stable POD#13 s/p radical cystectomy with ileal conduit OOB/Ambulate Off TPN; calorie count, ? PPN; nutrition evaluation Tolerating Regular diet some Continue abx for C. Diff 04/29 Stable s/p radical cystectomy with ileal conduit POD#14 Pt with extensive left UE DVT Continue Lovenox Poor intake Oncology input appreciated. 04/30 Stable s/p radical cystectomy with ileal conduit POD#!5 OOB/Ambulate Encourage PO intake and ambulation 05/01 Stable s/p radical cystectomy with ileal conduit POD#16 Continue with aggressive rehab Ween pain medications Encourage PO intake 05/02 Stable s/p radical cystectomy with ileal conduit POD#17 Continue current Rx.
[2018-05-02] MEDS: oxyCODONE HCL 40 MG Controlled Release Tablet PO SCH ×2 (10:03→21:47)
[2018-05-02] MEDS: Enoxaparin Inj 60 MG/0.6 ML Syringe SQ SCH ×2 (10:04→21:47)
[2018-05-02] MEDS: Gabapentin 300 MG Capsule PO SCH ×2 (10:04→21:47)
[2018-05-02] MEDS: Docusate Sodium Liq 100 MG/10 ML UDC NG/OG SCH ×2 (10:05→21:47)
[2018-05-02] MEDS: Sodium Chloride 0.9% 2 ML Flush BID IV.FLUSH SCH ×2 (10:17→22:22)
[2018-05-02] MEDS: Sennosides Liq 8.8 MG/5 ML UDC NG/OG SCH ×2 (10:17→21:47)
[2018-05-02] MEDS: Pantoprazole Inj 40 MG Vial IV.PUSH SCH (15:20)
--- NOTE | 2018-05-02 17:09 | P.PNWCN ---
Wound Care Nurse Consult Description: Patient seen for follow up of ostomy teaching and care Communicated with: RN Claribel Duke [address] [place] [address], RN Nora [place] Recommendation: Please monitor for urine output, stoma appearance and color. Change urostomy appliance if leaking occurs. Do not reinforce with tape, please change. Urinary Diversion - Urinary Stoma Ileal Conduit Stent(s) Present: No Stoma Edema: No Stoma Diameter: 29 Stoma Appearance: Beefy Red, Protruding, Round Collection Device: Two-piece Drainage Description: Yellow Wafer Size: 2 1/4 Moldable 57mm (Patient is wearing a modable accordion flange 2 1/4 two piece appliance. Accordion flange fits stoma sizes 01/19 to 07/28) Stoma Care: Pouch and Wafer Changed Loni-Stomal Skin Appearance: Rash, Irritated and Inflammed - Additional Information Patient seen on for follow up of evaluation and teaching of new urostomy ileal conduit to RUQ of abdomen. Patient was instructed on prevention of ostomy appliance leaks. Output is yellow with sediment and no odor.Per patient, he rolled over in bed and pulled urostomy appliance loose last night.Urostomy appliance is leaking. Removed urostomy appliance in place to reveal round red stoma that is well protruding measuring 29mm Two piece moldable Convatec 2 1/4 accordion flange Durahesive wafer fitting stoma sizes from 22 mm to 32 mm with 2 1/4 urostomy pouch was placed over stoma. Patient tolerated ostomy appliance change well. Patient still has vasquez in place to midline abdomen. Adhesive border to wafer was cut to avoid vasquez. Patient was given step by step instruction during change.
--- NOTE | 2018-05-02 18:01 | P.PN ---
Subjective Interval history: Follow-up for chronic pain, status post radical cystectomy, C. difficile colitis. Patient is doing well, sitting in his chair. No fever, chills. He is improving well and tolerating PT better. Still complains of significant pain. Tolerating diet better. Physical Exam Vital signs: Vital Signs 05/01/18 20:00 05/02/18 00:00 05/02/18 08:00 Temperature 98.0 F 97.9 F 97.9 F Pulse Rate 84 85 67 Respiratory Rate 15 15 17 Blood Pressure 148/68 H 125/73 117/75 Pulse Oximetry 99 98 98 05/02/18 12:00 05/02/18 16:00 Temperature 98.8 F 98 F Pulse Rate 87 74 Respiratory Rate 17 17 Blood Pressure 115/67 115/69 Pulse Oximetry 97 97 Intake & Output 05/01/18 05/02/18 05/02/18 18:59 06:59 18:59 Intake Total 1184 / 1184 1538.5 / 1538.5 Output Total 1500 / 1500 2200 / 2200 Balance -316 / -316 -661.5 / -661.5 Weight 50.1 kg Intake: IV 1038.5 / 1038.5 Sodium Chloride 23.4% Inj 154 1038.5 / 1038.5 MEQ In D10W Inj 1,000 ML @ 50 mls/hr IV.CONT .[id number] [facility] Rx# :[id number] Oral 1184 / 1184 500 / 500 Output: Urine 1500 / 1500 2200 / 2200 Other: Date of Last Bowel Movement 04/30/18 04/30/18 Narrative: GENERAL: This is a well-nourished, well-developed patient, in no apparent distress. CARDIOVASCULAR: Regular rate and rhythm without murmurs, gallops, or rubs. RESPIRATORY: Clear to auscultation. Breath sounds equal bilaterally. No wheezes , rales, or rhonchi. GASTROINTESTINAL: Abdomen soft, clean surgical wound. Significant tenderness to palpation. MUSCULOSKELETAL: Extremities without clubbing, cyanosis, or edema. NEURO: Alert & Oriented x4 to person, place, time, situation. Moves all ext x4 - Urinary Catheter Management Indwelling Urethral Catheter Cath placed during this visit: yes, but has since been removed by the nurse Reason for continuing: Not indwelling catheter Insertion date: 04/15/18 Insertion time: 14:20 Removal date: 04/15/18 Removal time: 13:08 Right ileal conduit Cath placed during this visit: yes Reason for continuing: Not indwelling catheter Insertion date: 04/15/18 Results - Labs CBC & Chem 7: 04/28/18 03:55 05/02/18 05:48 Laboratory Results - last 24 hr 05/02/18 05:48 Sodium 138 Potassium 4.3 Chloride 103 Carbon Dioxide 28.8 Anion Gap 6 BUN 12 Creatinine 0.76 Estimated GFR Greater than 89 Random Glucose 90 Calcium 8.6 Microbiology 04/25/18 18:23 Blood - Peripheral Aerobic Blood Culture - Final Micrococcus species 04/25/18 18:23 Blood - Peripheral Anaerobic Blood Culture - Final No growth in 5 days Assessment and Plan - Plan Mr. Herr is a 62-year-old male with a history of muscle invasive bladder cancer status post neoadjuvant chemotherapy who underwent radical cystectomy with bilateral pelvic lymph node dissection with creation of ileal conduit on . He required 3 units of blood transfusion perioperatively largely because of anemia preop. Patient was subsequently managed in the critical care unit. Patient's care was transferred to hospitalist service on 04/22/2018. Muscle invasive bladder cancer Chronic pain syndrome -Status post neoadjuvant chemotherapy and radical cystectomy -Currently on long acting oral pain meds as needed and Dilaudid 1 mg IV for breakthrough. -He is tolerating diet better. -Appreciate Oncology and Urology input. -Encouraged patient to get up and move around a bit more. Deconditioning Depression Loss of appetite -PT to see patient 7 days a week -Mirtazapine 15mg QHS for depression and as an appetite stimulant. -Encouraged patient to drink Boost (Supplementation). Left upper ext DVT -Currently on Lovenox 50mg Q12hrs. COPD Pulmonary nodule -Lung biopsy 2018 revealed inflammatory changes no malignancy -Continue albuterol nebulizer treatments, supplemental oxygen as needed. Hypokalemia - resolved. C. Diff colitis -Vancomycin PO 125mg QID X 10 days. -Diarrhea improving. Full code. Lovenox 50mg BID. Discharge plan: Patient will likely stay in the hospital for sometime (maybe weeks) since he is unable to go to SNF. With daily PT, hopefully patient will improve enough to be able to undergo ChemoRT.
[2018-05-02] MEDS: Mirtazapine 15 MG Tablet PO SCH (21:47)
[2018-05-03] MEDS: HYDROmorphone PF Inj 2 MG/ML Vial IV.PUSH PRN ×5 (01:28→22:29)
[2018-05-03] MEDS: oxyCODONE HCL 40 MG Controlled Release Tablet PO SCH ×2 (09:08→21:28)
[2018-05-03] MEDS: Sodium Chloride 0.9% 2 ML Flush BID IV.FLUSH SCH ×2 (09:09→21:35)
[2018-05-03] MEDS: Gabapentin 300 MG Capsule PO SCH ×2 (09:09→21:29)
[2018-05-03] MEDS: Sennosides Liq 8.8 MG/5 ML UDC NG/OG SCH ×2 (09:09→21:28)
[2018-05-03] MEDS: Docusate Sodium Liq 100 MG/10 ML UDC NG/OG SCH ×2 (09:09→21:28)
[2018-05-03] MEDS: Enoxaparin Inj 60 MG/0.6 ML Syringe SQ SCH ×2 (09:15→21:32)
--- NOTE | 2018-05-03 13:11 | P.PN ---
Subjective Interval history: Follow-up bladder cancer status post radical cystectomy May 03, 2018-patient seen and examined; denies any abdominal pain, shortness of breath. Currently afebrile Physical Exam Vital signs: Vital Signs 05/02/18 16:00 05/02/18 20:00 05/03/18 00:00 Temperature 98 F 98.7 F 98.5 F Pulse Rate 74 74 77 Respiratory Rate 17 18 18 Blood Pressure 115/69 112/64 118/65 Pulse Oximetry 97 98 97 05/03/18 08:00 05/03/18 10:03 05/03/18 11:27 Temperature 97.8 F Pulse Rate 82 Respiratory Rate 18 20 16 Blood Pressure 122/63 Pulse Oximetry 100 Intake & Output 05/02/18 05/03/18 05/03/18 18:59 06:59 18:59 Intake Total 1552 / 1552 480 / 480 Output Total 1000 / 1000 1601 / 1601 Balance 552 / 552 -1121 / -1121 Weight 44.5 kg Intake: Oral 1552 / 1552 480 / 480 Output: Urine 1000 / 1000 Stool 1 / Urine Amount (Catheter) 1600 / 1600 Right ileal conduit 1600 / 1600 Other: # Voids 450 Date of Last Bowel Movement 04/30/18 Narrative: GENERAL: NAD CARDIOVASCULAR: Regular rate and rhythm without murmurs, gallops, or rubs. RESPIRATORY: Clear to auscultation. Breath sounds equal bilaterally. No wheezes , rales, or rhonchi. GASTROINTESTINAL: Abdomen soft, clean surgical wound. Significant tenderness to palpation. Urostomy in place MUSCULOSKELETAL: Extremities without clubbing, cyanosis, or edema. NEURO: Alert & Oriented x4 to person, place, time, situation. Moves all ext x4 - Urinary Catheter Management Indwelling Urethral Catheter Cath placed during this visit: yes, but has since been removed by the nurse Reason for continuing: Not indwelling catheter Insertion date: 04/15/18 Insertion time: 14:20 Removal date: 04/15/18 Removal time: 13:08 Right ileal conduit Cath placed during this visit: yes Reason for continuing: Not indwelling catheter Insertion date: 04/15/18 Results - Labs CBC & Chem 7: 05/09/18 05:34 05/09/18 05:34 Microbiology 04/25/18 18:23 Blood - Peripheral Aerobic Blood Culture - Final Micrococcus species 04/25/18 18:23 Blood - Peripheral Anaerobic Blood Culture - Final No growth in 5 days - Procedures Status post radical cystectomy with ileal conduit Assessment and Plan - Assessment (1) Bladder cancer Code(s): C67.9 - Malignant neoplasm of bladder, unspecified Status: Acute - Plan 62-year-old man with Invasive bladder cancer-High grade III urethral cancer Chronic pain syndrome -Status post neoadjuvant chemotherapy and radical cystectomy with ileoconduit -Continue current pain management -Appreciate Oncology and Urology input. -Pathology report with High Grade III urethral cancer Deconditioning Depression Loss of appetite -PT to see patient 7 days a week -Mirtazapine 15mg QHS for depression and as an appetite stimulant. Left upper ext DVT -Currently on Lovenox 50mg Q12hrs. COPD Pulmonary nodule -Lung biopsy 2017 revealed inflammatory changes no malignancy -Continue albuterol nebulizer treatments, 18 oxygen saturation above 92%. Hypokalemia - resolved. C. Diff colitis -Vancomycin PO 125mg QID X 10 days. -Diarrhea improving. Full code. Lovenox 50mg BID. delete urethral cancer to match pathology report of urothelial cancer Patient correctly had urothelial cancer and had a cystectomy with ileal conduit with positive margins and the pathology will need chemotherapy and radiation and follow-up with oncology
[2018-05-03] MEDS: Pantoprazole Inj 40 MG Vial IV.PUSH SCH ×2 (15:36→15:38)
[2018-05-03] MEDS: Sodium Chloride 23.4% Inj 154 MEQ in Dextrose 10% in Water Inj 1,000 ML IV.CONT SCH ×2 (15:39)
[2018-05-03] MEDS: Mirtazapine 15 MG Tablet PO SCH (21:33)
[2018-05-04] MEDS: HYDROmorphone PF Inj 2 MG/ML Vial IV.PUSH PRN ×4 (02:24→21:06)
[2018-05-04] MEDS: Docusate Sodium Liq 100 MG/10 ML UDC NG/OG SCH ×2 (08:54→21:09)
[2018-05-04] MEDS: Gabapentin 300 MG Capsule PO SCH ×2 (08:55→21:08)
[2018-05-04] MEDS: Sennosides Liq 8.8 MG/5 ML UDC NG/OG SCH ×2 (08:55→21:10)
[2018-05-04] MEDS: Enoxaparin Inj 60 MG/0.6 ML Syringe SQ SCH ×2 (08:55→21:09)
[2018-05-04] MEDS: oxyCODONE HCL 40 MG Controlled Release Tablet PO SCH ×2 (08:55→21:08)
[2018-05-04] MEDS: Sodium Chloride 0.9% 2 ML Flush BID IV.FLUSH SCH ×2 (08:56→21:09)
--- NOTE | 2018-05-04 09:42 | P.PN ---
Subjective Interval history: Follow-up bladder cancer status post radical cystectomy, as we know he has Chronic pain syndrome, Depression Anxiety disorder, COPD/Pulmonary Nodule, Severe protein calorie malnutrition. 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 had status post blood transfusion in OR 05/04: Stable in his bedroom, no nausea, vomit or diarrhea. as per crime specialist Urothelial Cell carcinoma of the bladder, pending recovery status, will need post op chemo and radiation for positive margins treatment, had Neoadjuvant chemotherapy with Cisplatin/gemcitabine followed by radical cystoprostatectomy with lymph node sampling. Physical Exam Vital signs: Vital Signs 05/03/18 10:03 05/03/18 11:27 05/03/18 12:00 Temperature 98.8 F Pulse Rate 82 Respiratory Rate 20 16 18 Blood Pressure 112/66 Pulse Oximetry 97 05/03/18 16:00 05/03/18 20:00 05/04/18 08:00 Temperature 98.0 F 98.5 F 98.4 F Pulse Rate 73 70 71 Respiratory Rate 16 16 17 Blood Pressure 108/63 112/59 L 113/70 Pulse Oximetry 98 97 99 Intake & Output 05/03/18 05/04/18 05/04/18 18:59 06:59 18:59 Intake Total 1998.5 / 1998.5 480 / 480 Output Total 1400 / 1400 1200 / 1200 Balance 598.5 / 598.5 -720 / -720 Weight 44.5 kg Intake: IV 1038.5 / 1038.5 Sodium Chloride 23.4% Inj 154 1038.5 / 1038.5 MEQ In D10W Inj 1,000 ML @ 50 mls/hr IV.CONT .[id number] [facility] Rx# :[id number] Oral 960 / 960 480 / 480 Output: Urine 1400 / 1400 Urine Amount (Catheter) 1200 / 1200 Right ileal conduit 1200 / 1200 Narrative: GENERAL: NAD CARDIOVASCULAR: Regular rate and rhythm without murmurs, gallops, or rubs. RESPIRATORY: Clear to auscultation. Breath sounds equal bilaterally. No wheezes , rales, or rhonchi. GASTROINTESTINAL: Abdomen soft, clean surgical wound. Significant tenderness to palpation. Urostomy in place MUSCULOSKELETAL: Extremities without clubbing, cyanosis, or edema. NEURO: Alert & Oriented x4 to person, place, time, situation. Moves all ext x4 - Urinary Catheter Management Indwelling Urethral Catheter Cath placed during this visit: yes, but has since been removed by the nurse Reason for continuing: Not indwelling catheter Insertion date: 04/15/18 Insertion time: 14:20 Removal date: 04/15/18 Removal time: 13:08 Right ileal conduit Cath placed during this visit: yes Reason for continuing: Not indwelling catheter Insertion date: 04/15/18 Results - Labs CBC & Chem 7: 04/28/18 03:55 05/02/18 05:48 - Procedures Status post radical cystectomy with ileal conduit Assessment and Plan - Assessment (1) Bladder cancer Code(s): C67.9 - Malignant neoplasm of bladder, unspecified Status: Acute - Plan 62-year-old man with Invasive bladder cancer -05/04: Urothelial Cell carcinoma of the bladder, pending recovery status, will need post op chemo and radiation for positive margins treatment, had Neoadjuvant chemotherapy with Cisplatin/gemcitabine followed by radical cystoprostatectomy with lymph node sampling. Anemia acute blood loss anemia status post blood transfusion 3 units of PRBCs. in OR Chronic pain syndrome -continue pain management. Deconditioning Depression Loss of appetite -PT to see patient 7 days a week -Mirtazapine 15mg QHS for depression and as an appetite stimulant. Left upper ext DVT -Currently on Lovenox 50mg Q12hrs. COPD Pulmonary nodule -Lung biopsy 2017 revealed inflammatory changes no malignancy -Continue albuterol nebulizer treatments, 18 oxygen saturation above 92%. Hypokalemia - resolved. C. Diff colitis -Vancomycin PO 125mg QID X 10 days. -Diarrhea improving. Full code. Lovenox 50mg BID. Code Status: Full Code. Discussed Condition With: Patient and Nurse Miss Valladares. Discharge Planning: Once cleared by specialists.
[2018-05-04] MEDS: Pantoprazole Inj 40 MG Vial IV.PUSH SCH (15:13)
[2018-05-04] MEDS: Sodium Chloride 23.4% Inj 154 MEQ in Dextrose 10% in Water Inj 1,000 ML IV.CONT SCH ×2 (15:17)
[2018-05-04] MEDS: Mirtazapine 15 MG Tablet PO SCH (21:08)
--- NOTE | 2018-05-05 08:41 | P.PNURO ---
Subjective Patient symptoms today: Pt seen and examined. Some pain noted. Objective Vital Signs: Vital Signs 05/04/18 12:00 05/04/18 16:00 05/04/18 20:00 Temperature 98.8 F 97.9 F 98.8 F Pulse Rate 75 97 H 75 Respiratory Rate 16 17 16 Blood Pressure 103/59 L 131/71 108/64 Pulse Oximetry 97 97 97 05/05/18 00:00 Temperature 98.6 F Pulse Rate 65 Respiratory Rate 16 Blood Pressure 118/63 Pulse Oximetry 98 Intake & Output 05/04/18 05/05/18 05/05/18 18:59 06:59 18:59 Intake Total 2038.5 / 2038.5 Output Total 1550 / 1550 Balance 2038.5 / 2038.5 -1550 / -1550 Weight 44.5 kg Intake: IV 2038.5 / 2038.5 Sodium Chloride 23.4% Inj 154 2038.5 / 2038.5 MEQ In D10W Inj 1,000 ML @ 50 mls/hr IV.CONT .[id number] [facility] Rx# :[id number] Output: Urine Amount (Catheter) 1550 / 1550 Right ileal conduit 1550 / 1550 Result Diagrams: 04/28/18 03:55 05/02/18 05:48 Medications and IVs: Active Medications Generic Name Dose Route Start Last Admin Trade Name Freq PRN Reason Stop Dose Admin Acetaminophen 650 mg 04/16/18 08:55 05/01/18 04:08 Tylenol Liq PO 650 mg Q6H PRN Administration FEVER Albuterol 2.5 mg 04/16/18 08:54 Albuterol Neb (Prn) NEB Q2HR NEB PRN DYSPNEA Diphenhydramine HCl 25 mg 04/16/18 09:02 Benadryl Inj IV.PUSH Q6H PRN for itching Docusate Sodium 100 mg 04/16/18 21:00 05/04/18 21:09 Colace Liq NG/OG 100 mg BID NADINE Administration Enoxaparin Sodium 50 mg 04/28/18 23:15 05/04/18 21:09 Lovenox Inj SQ 50 mg Q12HR NADINE Administration Gabapentin 300 mg 04/24/18 21:00 05/04/18 21:08 Neurontin PO 300 mg BID NADINE Administration Hydromorphone HCl 1 mg 04/29/18 16:08 05/04/18 21:06 Dilaudid Pf Inj IV.PUSH 1 mg Q4H PRN Administration BREAKTHROUGH PAIN Sodium Chloride 500 mls @ 30 mls/hr 04/15/18 07:00 04/15/18 07:25 Ns Inj IV.SIG Not Given .Q10H NADINE Magnesium Sulfate 4 gm/ Sodium 100 mls @ 50 mls/hr 04/16/18 08:32 Chloride IV.SIG UNSCH PRN For Magnesium 0.9 - 1.1 mg/dL Magnesium Sulfate 2 gm/ Sodium 100 mls @ 50 mls/hr 04/16/18 08:32 Chloride IV.SIG UNSCH PRN For Magnesium 1.2 - 1.6 mg/dL Sodium Phosphate 30 mmol/ 260 mls @ 42 mls/hr 04/16/18 08:32 Sodium Chloride IV.SIG UNSCH PRN For Phosphorus < 2.5 mg/dL Sodium Chloride 154 meq/ 1,038.5 mls @ 50 mls/hr 04/23/18 07:00 05/04/18 15: 17 Dextrose IV.CONT 50 mls/hr .[id number] NADINE Administration Labetalol HCl 10 mg 04/18/18 10:09 Trandate Inj IV.PUSH Q1H PRN Sbp>165, Dbp>90, Hr>65 Magnesium Oxide 800 mg 04/16/18 08:32 Mag-Ox PO UNSCH PRN For Magnesium 1.2 - 1.6 mg/dL Mirtazapine 15 mg 04/29/18 21:00 05/04/18 21:08 Remeron PO 15 mg HS NADINE Administration Naloxone HCl 0.4 mg 04/16/18 09:02 Narcan Inj IV.PUSH PRN PRN SEE LABEL COMMENTS Nitroglycerin 2 inch 04/18/18 10:10 Nitro-Bid 2% Oint TOPICAL Q6HR PRN Sbp>165, Dbp>90 Oxycodone HCl 40 mg 04/29/18 21:00 05/04/18 21:08 Oxycontin Cr PO 40 mg Q12HR NADINE Administration Oxycodone/Acetaminophen 1 tab 04/22/18 12:00 05/05/18 08:20 Percocet 7.5/325 Mg PO 1 tab Q4H PRN Administration Pain 5-10 Pantoprazole Sodium 40 mg 04/15/18 16:00 05/04/18 15:13 Protonix Inj IV.PUSH 40 mg Q24H NADINE Administration Sennosides 8.8 mg 04/16/18 21:00 05/04/18 21:10 Senna Liq NG/OG 8.8 mg BID NADINE Administration Sodium Chloride 2 ml 04/16/18 21:00 05/04/18 21:09 Ns Flush IV.FLUSH Not Given BID NADINE Sodium Chloride 2 ml 04/16/18 09:14 Ns Flush IV.FLUSH PRN PRN FLUSH AFTER USING IV ACCESS Vancomycin HCl 125 mg 04/27/18 09:00 05/04/18 21:09 Vancomycin Po PO 05/07/18 08:59 125 mg QID NADINE Administration Objective Remarks: CV: RRR Lungs: decreased BS Abd:soft,nd,tender one exam Stoma: pink and viable Dale Pelvic drain: bloody Ext: neg C/C/E 04/17 CV: RRR Lungs: decreased BS Abd:soft,nd,tender Stoma: pink and viable Wound: clean and dry Dale Pelvic drain: bloody Ext: neg C/C/E 04/18 CV: RRR Lungs: CTA Abd:soft,nd,tender Stoma: pink and viable Wound: Dressing intact Dale Pelvic drain: bloody Ext: neg C/C/E 04/19 Abd:soft,nt,nd Dressing intact Stoma: pink and viable Pelvic drain removed at bedside Ext: neg 04/20 Abd:soft,nt,nd Dressing intact Stoma: pink and viable Ext: neg C/C/E 04/21 Abd:soft,nt,nd Stoma: pink and viable Stents in place Wound: clean and dry Ext:neg C/C/E 04/22 Abd:soft,nt,nd Stoma: pink and viable Stents in place Wound: clean and dry Ext:neg C/C/E 04/23 Abd:soft,nt,nd Stoma: pink and viable Stents in place Wound: clean and dry Ext:neg C/C/E 04/24 Abd:soft,nt,nd Stoma: pink and viable Stents in place Wound: clean and dry Ext:neg C/C/E 04/25 Abd:soft,nt,nd Stoma:pink and viable Stents in place Wound: clean and dry Leakage from prior central line site is noted Ext: neg C/C/E 04/28 Abd:soft,nt,nd Drain tube removed-red rubber Stents in place and will remove one tomorrow Wound: Clean and dry Ext: neg C/C/E 04/29 Abd:soft,nt,nd One JJ stent removed today Wound: C&D Left UE DVT 04/30 Abd:soft,nt,nd Remaining stent removed Left UE DVT Urine clear 05/01 Abd:soft,nd, tender with palpation Stoma with clear urine Wound: clean and dry 05/02 Abd:soft,nt,nd Stoma: pink and viable;'Urine clear Ext: RUE DVT Wound: C&D 1022 05/02 Abd:soft,nt,nd Stoma: pink and viable;'Urine clear Ext: RUE DVT Wound: C&D Assessment and Plan - Plan Stable s/p radical cystectomy with ileal conduit OOB to chair Start TPN 10/ Stable s/p radical cystectomy with ileal conduit Continue TPN OOB to chair NGT to gravity drainage Encourage incentive sphirometer 04/18 Stable s/p radical cystectomy with ileal conduit POD#3 Continue TPN OOB to chair/ambulate NGT to gravity drainage Will d/c pelvic drain in next day or two as drainage continues to decline 10 Stable s/p radical cystectomy with ileal conduit POD#4 OOB to chair Pelvic drain removed Continue NGT to gravity Continue TPN Path noted: T3b 04/20 Stable POD#5 s/p radical cystectomy with ileal conduit OOB today/Ambulate Path reviewed with pt today Will plan to remove NGT this Saturday and start clear liquids Continue TPN 04/21 Stable POD#6 s/p radical cystectomy with ileal conduit NGT removed; ice chips today OOB Continue TPN 04/22 Stable POD#7 s/p radical cystectomy with ileal conduit Clear liquid diet D/C [employer]. Will start PO pain meds. OOB Continue TPN 04/23 Stable POD#8 s/p radical cystectomy with ileal conduit Regular diet OOB Ween off TPN 04/24 Stable POD#9 s/p radical cystectomy with ileal conduit OOB/Ambulate Off TPN Tolerating Regular diet. 04/25 Stable POD#10 s/p radical cystectomy with ileal conduit OOB/Ambulate Off TPN; calorie count, ? PPN; nutrition evaluation Tolerating Regular diet. 04/28 Stable POD#13 s/p radical cystectomy with ileal conduit OOB/Ambulate Off TPN; calorie count, ? PPN; nutrition evaluation Tolerating Regular diet some Continue abx for C. Diff 04/29 Stable s/p radical cystectomy with ileal conduit POD#14 Pt with extensive left UE DVT Continue Lovenox Poor intake Oncology input appreciated. 04/30 Stable s/p radical cystectomy with ileal conduit POD#!5 OOB/Ambulate Encourage PO intake and ambulation 05/01 Stable s/p radical cystectomy with ileal conduit POD#16 Continue with aggressive rehab Ween pain medications Encourage PO intake 05/02 Stable s/p radical cystectomy with ileal conduit POD#17 Continue current Rx. 05/05 Stable s/p radical cystectomy with ileal conduit POD#20 Recommend transfer to SNF
[2018-05-05] MEDS: Docusate Sodium Liq 100 MG/10 ML UDC NG/OG SCH ×2 (09:50→21:13)
[2018-05-05] MEDS: oxyCODONE HCL 40 MG Controlled Release Tablet PO SCH ×2 (09:51→21:13)
[2018-05-05] MEDS: Gabapentin 300 MG Capsule PO SCH ×2 (09:51→21:13)
[2018-05-05] MEDS: Enoxaparin Inj 60 MG/0.6 ML Syringe SQ SCH ×2 (09:53→21:13)
[2018-05-05] MEDS: Sennosides Liq 8.8 MG/5 ML UDC NG/OG SCH ×2 (09:54→21:15)
[2018-05-05] MEDS: HYDROmorphone PF Inj 2 MG/ML Vial IV.PUSH PRN ×3 (11:21→22:08)
[2018-05-05] MEDS: Sodium Chloride 0.9% 2 ML Flush BID IV.FLUSH SCH ×2 (12:33→21:14)
[2018-05-05] MEDS: Sodium Chloride 23.4% Inj 154 MEQ in Dextrose 10% in Water Inj 1,000 ML IV.CONT SCH ×2 (13:29)
--- NOTE | 2018-05-05 15:50 | P.PNIM ---
Subjective Interval history: 05-04 Follow-up bladder cancer status post radical cystectomy, as we know he has Chronic pain syndrome, Depression Anxiety disorder, COPD/Pulmonary Nodule, Severe protein calorie malnutrition. 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 had status post blood transfusion in OR 05/04: Stable in his bedroom, no nausea, vomit or diarrhea. as per registration scheduling specialist Urothelial Cell carcinoma of the bladder, pending recovery status, will need post op chemo and radiation for positive margins treatment, had Neoadjuvant chemotherapy with Cisplatin/gemcitabine followed by radical cystoprostatectomy with lymph node sampling. 05-05 SP RADICAL CYSTECTOMY WITH ILEAL CONDUIT POD #20 DOES NOT HAVE SNF BENEFITS WILL NEED TO GO HOME AFTER DISCHARGE NOT MOVING MUCH STATES STOOL IS NOT DIARRHEA ANYMORE PATIENT HAS CHRONIC PAIN AND BLADDER CANCER A.m. labs Continue on vancomycin orally increased to 250 mg p.o. 4 times daily will need for at least 21 days Physical Exam Vital signs: Vital Signs 05/04/18 16:00 05/04/18 20:00 05/05/18 00:00 Temperature 97.9 F 98.8 F 98.6 F Pulse Rate 97 H 75 65 Respiratory Rate 17 16 16 Blood Pressure 131/71 108/64 118/63 Pulse Oximetry 97 97 98 05/05/18 08:00 05/05/18 12:00 Temperature 98.5 F 98.1 F Pulse Rate 67 75 Respiratory Rate 19 18 Blood Pressure 127/68 106/63 Pulse Oximetry 98 96 Intake & Output 05/04/18 05/05/18 05/05/18 18:59 06:59 18:59 Intake Total 2038.5 / 2038.5 1000 / 1000 Output Total 1550 / 1550 Balance 2038.5 / 2038.5 -1550 / -1550 1000 / 1000 Weight 44.5 kg Intake: IV 2038.5 / 2038.5 1000 / 1000 Sodium Chloride 23.4% Inj 154 2038.5 / 2038.5 1000 / 1000 MEQ In D10W Inj 1,000 ML @ 50 mls/hr IV.CONT .[id number] [facility] Rx# :[id number] Output: Urine Amount (Catheter) 1550 / 1550 Right ileal conduit 1550 / 1550 Narrative: Awake alert and oriented x3 talkative and cooperative appears quite cachectic and thin GENERAL: NAD Head normocephalic atraumatic Eyes PERRLA EOMI no scleral icterus Tongue is midline no JVD Neck is supple no obvious thyromegaly CARDIOVASCULAR: Regular rate and rhythm without murmurs, gallops, or rubs. RESPIRATORY: Clear to auscultation. Breath sounds equal bilaterally. No wheezes , rales, or rhonchi. GASTROINTESTINAL: Abdomen soft, clean surgical wound. Significant tenderness to palpation. Urostomy in place MUSCULOSKELETAL: Extremities without clubbing, cyanosis, or edema. NEURO: Alert & Oriented x4 to person, place, time, situation. Moves all ext x4 Insight and judgment is good. mood and behavior is appropriate - Urinary Catheter Management Indwelling Urethral Catheter Cath placed during this visit: yes, but has since been removed by the nurse Reason for continuing: Not indwelling catheter Insertion date: 04/15/18 Insertion time: 14:20 Removal date: 04/15/18 Removal time: 13:08 Right ileal conduit Cath placed during this visit: yes Reason for continuing: Not indwelling catheter Insertion date: 04/15/18 Results - Labs CBC & Chem 7: 04/28/18 03:55 05/02/18 05:48 - Imaging ITS Impressions Abdomen X-Ray 04/18/18 00:00 CONCLUSION: Compared to the study of 04/15/2018 with slight increase the amount of bowel distention. Stents and drain appear to remain in good position. Chest X-Ray 04/25/18 00:00 CONCLUSION: Right apical pleural parenchymal change again noted which appears mildly increased from the prior study. There is volume loss and mediastinal shift to the right. Venous Doppler Study 04/28/18 00:00 CONCLUSION: 1. Extensive deep venous thrombosis. - Procedures Status post radical cystectomy with ileal conduit Assessment and Plan - Assessment (1) Bladder cancer Code(s): C67.9 - Malignant neoplasm of bladder, unspecified Status: Acute - Plan 62-year-old man with Invasive bladder cancer -05/04: Urothelial Cell carcinoma of the bladder, pending recovery status, will need post op chemo and radiation for positive margins treatment, had Neoadjuvant chemotherapy with Cisplatin/gemcitabine followed by radical cystoprostatectomy with lymph node sampling. - Patient has poor performance status at this time Anemia acute blood loss anemia status post blood transfusion 3 units of PRBCs. in [place] Chronic pain syndrome -continue pain management. Will probably need help with pain medications at discharge Deconditioning-has decreased performance status at this time Depression Loss of appetite -PT to see patient 7 days a week -Mirtazapine 15mg QHS for depression and as an appetite stimulant. Left upper ext DVT -Currently on Lovenox 50mg Q12hrs. COPD Pulmonary nodule -Lung biopsy 2017 revealed inflammatory changes no malignancy -Continue albuterol nebulizer treatments, keep oxygen saturation above 92%. Hypokalemia - resolved. C. Diff colitis -Vancomycin PO 250mg QID X 20 days. -Diarrhea improving. Full code. Lovenox 50mg BID. Code Status: Full code Discussed Condition With: RN and patient and case management Discharge Planning: Pending improvement in safe discharge
[2018-05-05] MEDS: Pantoprazole Inj 40 MG Vial IV.PUSH SCH (16:32)
[2018-05-05] MEDS: Mirtazapine 15 MG Tablet PO SCH (21:14)
[2018-05-06] MEDS: HYDROmorphone PF Inj 2 MG/ML Vial IV.PUSH PRN ×4 (02:41→22:31)
[2018-05-06 05:19] LABS: Baso % (Auto) 0.9 % (0.0-2.0); Eos # (Auto) 0.3 th/mm3 (0.0-0.4); Eos % (Auto) 5.4 % (0.0-4.0); Hematocrit 26.8 % (39.0-51.0); Hemoglobin 8.9 gm/dL (13.0-17.0); Lymph # (Auto) 1.1 th/mm3 (1.0-4.8); Lymph % (Auto) 23.3 % (9.0-44.0); Mean Corpuscular HGB Conc 33.3 % (32.0-36.0); Mean Corpuscular Hemoglobin 27.9 pg (27.0-34.0); Mean Corpuscular Volume 83.7 fL (80.0-100.0); Mean Platelet Volume 7.8 fL (7.0-11.0); Mono # (Auto) 0.5 th/mm3 (0.0-0.9); Mono % (Auto) 10.7 % (0.0-8.0); Neut # (Auto) 2.9 th/mm3 (1.8-7.7); Neut % (Auto) 59.7 % (16.0-70.0); Platelet Count 328 th/mm3 (150-450); Red Blood Count 3.21 mil/mm3 (4.50-5.90); Red Cell Distribution Width 17.3 % (11.6-17.2); White Blood Count 4.9 th/mm3 (4.0-11.0)
[2018-05-06 05:44] LABS: Anion Gap 6 meq/L (5-15); Aspartate Aminotransferase 21 U/L (15-37); Blood Urea Nitrogen 16 mg/dL (7-18); Calcium 8.5 mg/dL (8.5-10.1); Carbon Dioxide 28.2 meq/L (21.0-32.0); Chloride 106 meq/L (98-107); Glomerular Filtration Rate Greater Than 89 mL/min (>89); Glucose,Random 91 mg/dL (74-106); Magnesium 2.1 mg/dL (1.5-2.5); Potassium 4.4 meq/L (3.5-5.1); Sodium 140 meq/L (136-145)
[2018-05-06 05:55] LABS: Alanine Aminotransferase 32 U/L (12-78); Alkaline Phosphatase 111 U/L (45-117); Free T4 (Free Thyroxine) 0.97 ng/dL (0.76-1.46); Phosphorus 4.5 mg/dL (2.5-4.9); Total Protein 6.5 g/dL (6.4-8.2)
[2018-05-06] MEDS: Sodium Chloride 23.4% Inj 154 MEQ in Dextrose 10% in Water Inj 1,000 ML IV.CONT SCH ×2 (09:37)
[2018-05-06] MEDS: oxyCODONE HCL 40 MG Controlled Release Tablet PO SCH ×2 (09:39→20:40)
[2018-05-06] MEDS: Gabapentin 300 MG Capsule PO SCH ×2 (09:39→20:41)
[2018-05-06] MEDS: Docusate Sodium Liq 100 MG/10 ML UDC NG/OG SCH ×2 (09:39→20:42)
[2018-05-06] MEDS: Sodium Chloride 0.9% 2 ML Flush BID IV.FLUSH SCH ×2 (09:40→20:41)
[2018-05-06] MEDS: Enoxaparin Inj 60 MG/0.6 ML Syringe SQ SCH ×2 (09:40→20:41)
[2018-05-06] MEDS: Sennosides Liq 8.8 MG/5 ML UDC NG/OG SCH ×2 (09:41→20:41)
[2018-05-06] MEDS: Levothyroxine 50 MCG Tablet PO SCH (13:01)
--- NOTE | 2018-05-06 13:39 | P.PNURO ---
Subjective Patient symptoms today: Pt lying in bed. Not motivated. Has not been OOB today. Objective Vital Signs: Vital Signs 05/05/18 16:00 05/05/18 20:00 05/06/18 00:00 Temperature 97.9 F 97.4 F L 98.3 F Pulse Rate 92 H 82 63 Respiratory Rate 18 17 17 Blood Pressure 138/80 127/73 118/62 Pulse Oximetry 100 92 L 96 05/06/18 08:00 05/06/18 11:53 Temperature 97.7 F 97.8 F Pulse Rate 59 L 67 Respiratory Rate 16 17 Blood Pressure 119/67 118/60 Pulse Oximetry 97 97 Intake & Output 05/05/18 05/06/18 05/06/18 18:59 06:59 18:59 Intake Total 2192 / 2192 800 / 800 1000 / 1000 Output Total 1999 / 1999 1200 / 1200 Balance 192 / 192 -400 / -400 1000 / 1000 Weight 44.5 kg Intake: IV 1000 / 1000 1000 / 1000 Sodium Chloride 23.4% Inj 154 1000 / 1000 1000 / 1000 MEQ In D10W Inj 1,000 ML @ 50 mls/hr IV.CONT .[id number] [facility] Rx# :[id number] Oral 1192 / 1192 800 / 800 Output: Urine 1999 1200 / 1200 Other: Date of Last Bowel Movement 05/05/18 # Bowel Movements 3 Result Diagrams: 05/06/18 04:51 05/06/18 04:51 Medications and IVs: Active Medications Generic Name Dose Route Start Last Admin Trade Name Freq PRN Reason Stop Dose Admin Acetaminophen 650 mg 04/16/18 08:55 05/01/18 04:08 Tylenol Liq PO 650 mg Q6H PRN Administration FEVER Albuterol 2.5 mg 04/16/18 08:54 Albuterol Neb (Prn) NEB Q2HR NEB PRN [id number] Diphenhydramine HCl 25 mg 04/16/18 09:02 Benadryl Inj IV.PUSH Q6H PRN for itching Docusate Sodium 100 mg 04/16/18 21:00 05/06/18 09:39 Colace Liq NG/OG 100 mg BID NADINE Administration Enoxaparin Sodium 50 mg 04/28/18 23:15 05/06/18 09:40 Lovenox Inj SQ 50 mg Q12HR NADINE Administration Gabapentin 300 mg 04/24/18 21:00 05/06/18 09:39 Neurontin PO 300 mg BID NADINE Administration Hydromorphone HCl 1 mg 04/29/18 16:08 05/06/18 12:46 Dilaudid Pf Inj IV.PUSH 1 mg Q4H PRN Administration BREAKTHROUGH PAIN Sodium Chloride 500 mls @ 30 mls/hr 04/15/18 07:00 04/15/18 07:25 Ns Inj IV.SIG Not Given .Q10H NADINE Magnesium Sulfate 4 gm/ Sodium 100 mls @ 50 mls/hr 04/16/18 08:32 Chloride IV.SIG UNSCH PRN For Magnesium 0.9 - 1.1 mg/dL Magnesium Sulfate 2 gm/ Sodium 100 mls @ 50 mls/hr 04/16/18 08:32 Chloride IV.SIG UNSCH PRN For Magnesium 1.2 - 1.6 mg/dL Sodium Phosphate 30 mmol/ 260 mls @ 42 mls/hr 04/16/18 08:32 Sodium Chloride IV.SIG UNSCH PRN For Phosphorus < 2.5 mg/dL Sodium Chloride 154 meq/ 1,038.5 mls @ 50 mls/hr 04/23/18 07:00 05/06/18 09: 37 Dextrose IV.CONT 50 mls/hr .[id number] [facility] Administration Labetalol HCl 10 mg 04/18/18 10:09 Trandate Inj IV.PUSH Q1H PRN Sbp>165, Dbp>90, Hr>65 Levothyroxine Sodium 50 mcg 05/06/18 09:35 05/06/18 13:01 Synthroid PO 50 mcg DAILY@0600 [facility] Administration Magnesium Oxide 800 mg 04/16/18 08:32 Mag-Ox PO UNSCH PRN For Magnesium 1.2 - 1.6 mg/dL Mirtazapine 15 mg 04/29/18 21:00 05/05/18 21:14 Remeron PO 15 mg HS [facility] Administration Naloxone HCl 0.4 mg 04/16/18 09:02 Narcan Inj IV.PUSH PRN PRN SEE LABEL COMMENTS Nitroglycerin 2 inch 04/18/18 10:10 Nitro-Bid 2% Oint TOPICAL Q6HR PRN Sbp>165, Dbp>90 Oxycodone HCl 40 mg 04/29/18 21:00 05/06/18 09:39 Oxycontin Cr PO 40 mg Q12HR NADINE Administration Oxycodone/Acetaminophen 1 tab 04/22/18 12:00 05/06/18 10:38 Percocet 7.5/325 Mg PO 1 tab Q4H PRN Administration Pain 5-10 Pantoprazole Sodium 40 mg 04/15/18 16:00 05/05/18 16:32 Protonix Inj IV.PUSH 40 mg Q24H NADINE Administration Sennosides 8.8 mg 04/16/18 21:00 05/06/18 09:41 Senna Liq NG/OG Not Given BID NADINE Sodium Chloride 2 ml 04/16/18 21:00 05/06/18 09:40 Ns Flush IV.FLUSH Not Given BID NADINE Sodium Chloride 2 ml 04/16/18 09:14 Ns Flush IV.FLUSH PRN PRN FLUSH AFTER USING IV ACCESS Vancomycin HCl 250 mg 05/05/18 09:21 05/06/18 12:50 Vancomycin Po PO 05/18/18 08:59 250 mg QID NADINE Administration Objective Remarks: CV: RRR Lungs: decreased BS Abd:soft,nd,tender one exam Stoma: pink and viable Dale Pelvic drain: bloody Ext: neg C/C/E 04/17 CV: RRR Lungs: decreased BS Abd:soft,nd,tender Stoma: pink and viable Wound: clean and dry Dale Pelvic drain: bloody Ext: neg C/C/E 04/18 CV: RRR Lungs: CTA Abd:soft,nd,tender Stoma: pink and viable Wound: Dressing intact Dale Pelvic drain: bloody Ext: neg C/C/E 04/19 Abd:soft,nt,nd Dressing intact Stoma: pink and viable Pelvic drain removed at bedside Ext: neg 04/20 Abd:soft,nt,nd Dressing intact Stoma: pink and viable Ext: neg C/C/E 04/21 Abd:soft,nt,nd Stoma: pink and viable Stents in place Wound: clean and dry Ext:neg C/C/E 04/22 Abd:soft,nt,nd Stoma: pink and viable Stents in place Wound: clean and dry Ext:neg C/C/E 04/23 Abd:soft,nt,nd Stoma: pink and viable Stents in place Wound: clean and dry Ext:neg C/C/E 04/24 Abd:soft,nt,nd Stoma: pink and viable Stents in place Wound: clean and dry Ext:neg C/C/E 04/25 Abd:soft,nt,nd Stoma:pink and viable Stents in place Wound: clean and dry Leakage from prior central line site is noted Ext: neg C/C/E 04/28 Abd:soft,nt,nd Drain tube removed-red rubber Stents in place and will remove one tomorrow Wound: Clean and dry Ext: neg C/C/E 04/29 Abd:soft,nt,nd One JJ stent removed today Wound: C&D Left UE DVT 04/30 Abd:soft,nt,nd Remaining stent removed Left UE DVT Urine clear 05/01 Abd:soft,nd, tender with palpation Stoma with clear urine Wound: clean and dry 05/02 Abd:soft,nt,nd Stoma: pink and viable;'Urine clear Ext: RUE DVT Wound: C&D 1022 05/02 Abd:soft,nt,nd Stoma: pink and viable;'Urine clear Ext: RUE DVT Wound: C&D 05/06 Abd:soft,nt,nd Stoma: pink and viable Assessment and Plan - Plan Stable s/p radical cystectomy with ileal conduit OOB to chair Start TPN 10 Stable s/p radical cystectomy with ileal conduit Continue TPN OOB to chair NGT to gravity drainage Encourage incentive sphirometer 04/18 Stable s/p radical cystectomy with ileal conduit POD#3 Continue TPN OOB to chair/ambulate NGT to gravity drainage Will d/c pelvic drain in next day or two as drainage continues to decline 04/19 Stable s/p radical cystectomy with ileal conduit POD#4 OOB to chair Pelvic drain removed Continue NGT to gravity Continue TPN Path noted: T3b 04/20 Stable POD#5 s/p radical cystectomy with ileal conduit OOB today/Ambulate Path reviewed with pt today Will plan to remove NGT this Saturday and start clear liquids Continue TPN 04/21 Stable POD#6 s/p radical cystectomy with ileal conduit NGT removed; ice chips today OOB Continue TPN 04/22 Stable POD#7 s/p radical cystectomy with ileal conduit 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 Will start PO pain meds. OOB Continue TPN 10/10 Stable POD#8 s/p radical cystectomy with ileal conduit Regular diet OOB Ween off TPN 04/24 Stable POD#9 s/p radical cystectomy with ileal conduit OOB/Ambulate Off TPN Tolerating Regular diet. 04/25 Stable POD#10 s/p radical cystectomy with ileal conduit OOB/Ambulate Off TPN; calorie count, ? PPN; nutrition evaluation Tolerating Regular diet. 04/28 Stable POD#13 s/p radical cystectomy with ileal conduit OOB/Ambulate Off TPN; calorie count, ? PPN; nutrition evaluation Tolerating Regular diet some Continue abx for C. Diff 04/29 Stable s/p radical cystectomy with ileal conduit POD#14 Pt with extensive left UE DVT Continue Lovenox Poor intake Oncology input appreciated. 04/30 Stable s/p radical cystectomy with ileal conduit POD#!5 OOB/Ambulate Encourage PO intake and ambulation 05/01 Stable s/p radical cystectomy with ileal conduit POD#16 Continue with aggressive rehab Ween pain medications Encourage PO intake 05/02 Stable s/p radical cystectomy with ileal conduit POD#17 Continue current Rx. 05/05 Stable s/p radical cystectomy with ileal conduit POD#20 Recommend transfer to SNF 05/06 Stable s/p radical cystectomy with ileal conduit POD#21 Recommend transfer to SNF if possible, if not, home soon.
--- NOTE | 2018-05-06 14:05 | P.PNIM ---
Subjective Interval history: 05-04 Follow-up bladder cancer status post radical cystectomy, as we know he has Chronic pain syndrome, Depression Anxiety disorder, COPD/Pulmonary Nodule, Severe protein calorie malnutrition. 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 had status post blood transfusion in OR 05/04: Stable in his bedroom, no nausea, vomit or diarrhea. as per insurance verification specialist Urothelial Cell carcinoma of the bladder, pending recovery status, will need post op chemo and radiation for positive margins treatment, had Neoadjuvant chemotherapy with Cisplatin/gemcitabine followed by radical cystoprostatectomy with lymph node sampling. 05-05 SP RADICAL CYSTECTOMY WITH ILEAL CONDUIT POD #20 DOES NOT HAVE SNF BENEFITS WILL NEED TO GO HOME AFTER DISCHARGE NOT MOVING MUCH STATES STOOL IS NOT DIARRHEA ANYMORE PATIENT HAS CHRONIC PAIN AND BLADDER CANCER A.m. labs Continue on vancomycin orally increased to 250 mg p.o. 4 times daily will need for at least 21 days 05-06 NOT VERY MOBILE HAS HYPOTHYROIDISM STARTED ON SYNTHROID TODAY AM LABS DW UROLOGY INCREASE ACTIVITY WILL HAVE TO GO HOME AT DC START MARINOL Physical Exam Vital signs: Vital Signs 05/05/18 16:00 05/05/18 20:00 05/06/18 00:00 Temperature 97.9 F 97.4 F L 98.3 F Pulse Rate 92 H 82 63 Respiratory Rate 18 17 17 Blood Pressure 138/80 127/73 118/62 Pulse Oximetry 100 92 L 96 05/06/18 08:00 05/06/18 11:53 Temperature 97.7 F 97.8 F Pulse Rate 59 L 67 Respiratory Rate 16 17 Blood Pressure 119/67 118/60 Pulse Oximetry 97 97 Intake & Output 05/05/18 05/06/18 05/06/18 18:59 06:59 18:59 Intake Total 2192 / 2192 800 / 800 1000 / 1000 Output Total 1999 / 1999 1200 / 1200 Balance 192 / 192 -400 / -400 1000 / 1000 Weight 44.5 kg Intake: IV 1000 / 1000 1000 / 1000 Sodium Chloride 23.4% Inj 154 1000 / 1000 1000 / 1000 MEQ In D10W Inj 1,000 ML @ 50 mls/hr IV.CONT .[id number] NADINE Rx# :[id number] Oral 1192 / 1192 800 / 800 Output: Urine 1999 / 1999 1200 / 1200 Other: Date of Last Bowel Movement 05/05/18 # Bowel Movements 3 Narrative: Awake alert and oriented x3 talkative and cooperative appears quite cachectic and thin GENERAL: NAD Head normocephalic atraumatic Eyes PERRLA EOMI no scleral icterus Tongue is midline no JVD Neck is supple no obvious thyromegaly CARDIOVASCULAR: Regular rate and rhythm without murmurs, gallops, or rubs. RESPIRATORY: Clear to auscultation. Breath sounds equal bilaterally. No wheezes , rales, or rhonchi. GASTROINTESTINAL: Abdomen soft, clean surgical wound. Significant tenderness to palpation. Urostomy in place MUSCULOSKELETAL: Extremities without clubbing, cyanosis, or edema. NEURO: Alert & Oriented x4 to person, place, time, situation. Moves all ext x4 Insight and judgment is good. mood and behavior is appropriate - Urinary Catheter Management Indwelling Urethral Catheter Cath placed during this visit: yes, but has since been removed by the nurse Reason for continuing: Not indwelling catheter Insertion date: 04/15/18 Insertion time: 14:20 Removal date: 04/15/18 Removal time: 13:08 Right ileal conduit Cath placed during this visit: yes Reason for continuing: Not indwelling catheter Insertion date: 04/15/18 Results - Labs CBC & Chem 7: 05/06/18 04:51 05/06/18 04:51 Laboratory Results - last 24 hr 05/06/18 05/06/18 04:51 04:51 WBC 4.9 RBC 3.21 L Hgb 8.9 L Hct 26.8 L MCV 83.7 MCH 27.9 MCHC 33.3 RDW 17.3 H Plt Count 328 MPV 7.8 Neut % (Auto) 59.7 Lymph % (Auto) 23.3 Rabun % (Auto) 10.7 H Eos % (Auto) 5.4 H Baso % (Auto) 0.9 Neut # (Auto) 2.9 Lymph # (Auto) 1.1 Rabun # (Auto) 0.5 Eos # (Auto) 0.3 Baso # (Auto) 0.0 WBC Differential . Differential Comment Auto diff final Sodium 140 Potassium 4.4 Chloride 106 Carbon Dioxide 28.2 Anion Gap 6 BUN 16 Creatinine 0.77 Estimated GFR Greater than 89 Random Glucose 91 Calcium 8.5 Phosphorus 4.5 Magnesium 2.1 Total Bilirubin 0.2 AST 21 ALT 32 Alkaline Phosphatase 111 Total Protein 6.5 Albumin 2.0 L TSH 8.180 H Free T4 0.97 - Imaging ITS Impressions Abdomen X-Ray 04/18/18 00:00 CONCLUSION: Compared to the study of 04/15/2018 with slight increase the amount of bowel distention. Stents and drain appear to remain in good position. Chest X-Ray 04/25/18 00:00 CONCLUSION: Right apical pleural parenchymal change again noted which appears mildly increased from the prior study. There is volume loss and mediastinal shift to the right. Venous Doppler Study 04/28/18 00:00 CONCLUSION: 1. Extensive deep venous thrombosis. - Procedures Status post radical cystectomy with ileal conduit Assessment and Plan - Assessment (1) Bladder cancer Code(s): C67.9 - Malignant neoplasm of bladder, unspecified Status: Acute - Plan 62-year-old man with Invasive bladder cancer -05/04: Urothelial Cell carcinoma of the bladder, pending recovery status, will need post op chemo and radiation for positive margins treatment, had Neoadjuvant chemotherapy with Cisplatin/gemcitabine followed by radical cystoprostatectomy with lymph node sampling. - Patient has poor performance status at this time Anemia acute blood loss anemia status post blood transfusion 3 units of PRBCs. in OR Chronic pain syndrome -continue pain management. Will probably need help with pain medications at discharge Deconditioning-has decreased performance status at this time Depression Loss of appetite -PT to see patient 7 days a week -Mirtazapine 15mg QHS for depression and as an appetite stimulant. Left upper ext DVT -Currently on Lovenox 50mg Q12hrs. COPD Pulmonary nodule -Lung biopsy 2017 revealed inflammatory changes no malignancy -Continue albuterol nebulizer treatments, keep oxygen saturation above 92%. Hypokalemia - resolved. C. Diff colitis -Vancomycin PO 250mg QID X 20 days. -Diarrhea improving. HYPOTHYROIDISM- SYNTHROID 50MCG PO DAILY POOR APPETITE START MARINOL NEEDS PT AND OT DAILY AM LABS INCREASE ACTIVITY Full code. Lovenox 50mg BID. Code Status: FULL CODE Discussed Condition With: RN AND PT AND CM Discharge Planning: Pending improvement in safe discharge
[2018-05-06] MEDS: Pantoprazole Inj 40 MG Vial IV.PUSH SCH (15:21)
--- NOTE | 2018-05-06 18:47 | P.DIET ---
Nutritional Evaluation Type of nutrition evaluation: follow-up Nutrition screening: [facility] Screening comments: 04/25/18 [facility] Poor PO Intake; needs calorie count; ? PPN Subjective Subjective Comments: Pt receiving Marinol from RN when visited. Says he'll need "double portions" after he gets the Marinol. Pt says he is not drinking the Ensure Enlive. Pt receptive to trying Mighty Shake. Pt requests that he receive the food he orders , not a substitution. Brought forward from previous note:Pt says he has never been a "big eater". States his usual wt in his adult life at 125 to 130-lb. Pt does not care for the Ensure Clear Supplement. Food preferences taken during this visit. Partially eaten lunch tray in pt's room w/approximately 25% po intake. Objective - Diagnosis Cystectomy - Objective Reynolds body weight: 65 kg % IBW: 77 (IBW = 142#) Body Weight Used for Calculations: Actual (50 kg) Energy Needs - Lower Range (kCal/kg): 35 Energy Needs - Upper Range (kCal/kg): 40 Lower Limit kCal/kg (kCals): 1,750 Upper Limit kCal/kg (kCals): 2,000 Lower Limit Protein Factor (Grams per Kg): 1.2 Upper Limit Protein Factor (Grams per Kg): 1.5 Lower Protein Needs (Protein): 60 Upper Protein Needs (Protein): 75 Dietitian Reviewed in Medical Record: Current diet, Curent medications, Intake & Output, Labs, Medical history Diet Order: Regular Oral Diet Intake Amount: Fair 50-75% Objective Comments: PMH: Anxiety, Depression, Bladder Cancer h/o chemo, chronic abdominal pain, Scarlet Fever Skin/Integumentary: midine coccyx pressure injury Meds include: Marinol started 05/06/18 LBM 05/05 Feeding - Current PO Supplement Current Supplement: Ensure Enlive Current Frequency of Supplement: Three times a day Current kCals Provided by Supplement: 350 Current Protein Provided by Supplement: 20 Assessment Assessment: Pt remains at high nutrition risk w/history of bladder cancer s/p radical cystectomy w/ileal conduit. Post-op pt received TPN which was weaned 04/23 and central line has been discontinued. Diet has been advanced. Pt now w/c-diff colitis receiving Vancomycin 04/27 through 05/07. [facility] for Calorie Count 04/25 through 04/28 w/INADEQUATE PO INTAKE. Pt w/low BMI 17.3. Pt w/improved po intake 50% or greater for most meals. Discontinue Ensure Enlive r/t pt is not drinking this. Send a TRIAL of Mighty Shake TID(300 kcal and 9g protein per serving). Continue to honor pt's food preferences and address his meal service concerns. Labs reviewed. Wt changes noted. Dietitian following. Recommendations: 1. Discontinue Ensure Enlive r/t pt is not drinking this 2. Send a TRIAL of Mighty Shake TID 3. Continue to honor pt's food preferences and address his meal service concerns 4. Dietitian following Dietitian to Monitor: Lab values, Supplement acceptance, Intake & Output, Diet tolerance, Weight change, PO Intake, Wound/skin status, Medical course
[2018-05-06 20:24] LABS: Hemoglobin A1c 5.8 % (4.3-6.0)
[2018-05-06] MEDS: Mirtazapine 15 MG Tablet PO SCH (20:41)
[2018-05-07] MEDS: HYDROmorphone PF Inj 2 MG/ML Vial IV.PUSH PRN ×3 (02:38→12:24)
[2018-05-07] MEDS: Levothyroxine 50 MCG Tablet PO SCH (06:02)
[2018-05-07] MEDS: Sodium Chloride 23.4% Inj 154 MEQ in Dextrose 10% in Water Inj 1,000 ML IV.CONT SCH ×2 (06:03)
[2018-05-07] MEDS: Sennosides Liq 8.8 MG/5 ML UDC NG/OG SCH ×2 (08:13→20:11)
[2018-05-07] MEDS: Sodium Chloride 0.9% 2 ML Flush BID IV.FLUSH SCH ×2 (08:13→20:11)
[2018-05-07] MEDS: Gabapentin 300 MG Capsule PO SCH ×2 (08:13→20:06)
[2018-05-07] MEDS: Docusate Sodium Liq 100 MG/10 ML UDC NG/OG SCH ×2 (08:13→20:12)
[2018-05-07 08:37] LABS: Baso # (Auto) 0.1 th/mm3 (0.0-0.2); Baso % (Auto) 1.3 % (0.0-2.0); Eos # (Auto) 0.2 th/mm3 (0.0-0.4); Hematocrit 27.9 % (39.0-51.0); Hemoglobin 9.2 gm/dL (13.0-17.0); Lymph % (Auto) 17.5 % (9.0-44.0); Mean Corpuscular HGB Conc 33.1 % (32.0-36.0); Mean Corpuscular Hemoglobin 27.6 pg (27.0-34.0); Mean Corpuscular Volume 83.4 fL (80.0-100.0); Mean Platelet Volume 8.2 fL (7.0-11.0); Mono # (Auto) 0.6 th/mm3 (0.0-0.9); Mono % (Auto) 10.6 % (0.0-8.0); Neut # (Auto) 3.9 th/mm3 (1.8-7.7); Neut % (Auto) 66.6 % (16.0-70.0); Platelet Count 335 th/mm3 (150-450); Red Blood Count 3.34 mil/mm3 (4.50-5.90); Red Cell Distribution Width 17.5 % (11.6-17.2); White Blood Count 5.8 th/mm3 (4.0-11.0)
[2018-05-07 09:00] LABS: Anion Gap 7 meq/L (5-15); Aspartate Aminotransferase 20 U/L (15-37); Blood Urea Nitrogen 14 mg/dL (7-18); Calcium 8.7 mg/dL (8.5-10.1); Carbon Dioxide 27.7 meq/L (21.0-32.0); Chloride 105 meq/L (98-107); Glomerular Filtration Rate Greater Than 89 mL/min (>89); Glucose,Random 80 mg/dL (74-106); Potassium 4.4 meq/L (3.5-5.1); Sodium 140 meq/L (136-145)
[2018-05-07 09:01] LABS: Alanine Aminotransferase 31 U/L (12-78); Magnesium 2.2 mg/dL (1.5-2.5); Phosphorus 4.7 mg/dL (2.5-4.9)
[2018-05-07 09:03] LABS: Alkaline Phosphatase 106 U/L (45-117); Total Protein 6.6 g/dL (6.4-8.2)
[2018-05-07] MEDS: oxyCODONE HCL 40 MG Controlled Release Tablet PO SCH ×2 (09:11→20:06)
[2018-05-07] MEDS: Enoxaparin Inj 60 MG/0.6 ML Syringe SQ SCH (12:13)
--- NOTE | 2018-05-07 13:50 | P.PNURO ---
Subjective Patient symptoms today: Pt seen and examined. Feels OK. Objective Vital Signs: Vital Signs 05/06/18 15:55 05/06/18 20:00 05/06/18 21:41 Temperature 99.9 F H 98.4 F Pulse Rate 70 73 Respiratory Rate 18 15 18 Blood Pressure 113/64 120/67 Pulse Oximetry 94 L 98 05/06/18 21:42 05/07/18 00:00 05/07/18 04:05 Temperature 99.3 F Pulse Rate 79 Respiratory Rate 18 15 20 Blood Pressure 124/69 Pulse Oximetry 96 05/07/18 08:00 05/07/18 12:00 Temperature 98.1 F 98.3 F Pulse Rate 61 65 Respiratory Rate 16 16 Blood Pressure 115/61 113/61 Pulse Oximetry 98 100 Intake & Output 05/06/18 05/07/18 05/07/18 18:59 06:59 18:59 Intake Total 1660 / 1660 1638.5 / 1638.5 Output Total 1700 / 1700 1999 Balance -40 / -40 -361.5 / -361.5 Weight 48.9 kg Intake: IV 1000 / 1000 1038.5 / 1038.5 Sodium Chloride 23.4% Inj 154 1000 / 1000 1038.5 / 1038.5 MEQ In D10W Inj 1,000 ML @ 50 mls/hr IV.CONT .[id number] [facility] Rx# :[id number] Oral 660 / 660 600 / 600 Output: Urine 900 / 900 1999 Urine Amount (Catheter) 800 / 800 Right ileal conduit 800 / 800 Other: Date of Last Bowel Movement 05/06/18 Result Diagrams: 05/07/18 07:41 05/07/18 07:41 Medications and IVs: Active Medications Generic Name Dose Route Start Last Admin Trade Name Freq PRN Reason Stop Dose Admin Acetaminophen 650 mg 04/16/18 08:55 05/01/18 04:08 Tylenol Liq PO 650 mg Q6H PRN Administration FEVER Albuterol 2.5 mg 04/16/18 08:54 Albuterol Neb (Prn) NEB Q2HR NEB PRN DYSPNEA Apixaban 5 mg 05/07/18 14:00 Eliquis PO BID [facility] Diphenhydramine HCl 25 mg 04/16/18 09:02 Benadryl Inj IV.PUSH Q6H PRN for itching Docusate Sodium 100 mg 04/16/18 21:00 05/07/18 08:13 Colace Liq NG/OG Not Given BID [facility] Dronabinol 5 mg 05/06/18 16:00 05/07/18 10:50 Marinol PO 5 mg BID@1100,1600 NADINE Administration Gabapentin 300 mg 04/24/18 21:00 05/07/18 08:13 Neurontin PO 300 mg BID NADINE Administration Hydromorphone HCl 1 mg 04/29/18 16:08 05/07/18 12:24 Dilaudid Pf Inj IV.PUSH 1 mg Q4H PRN Administration BREAKTHROUGH PAIN Sodium Chloride 500 mls @ 30 mls/hr 04/15/18 07:00 04/15/18 07:25 Ns Inj IV.SIG Not Given .Q10H NADINE Magnesium Sulfate 4 gm/ Sodium 100 mls @ 50 mls/hr 04/16/18 08:32 Chloride IV.SIG UNSCH PRN For Magnesium 0.9 - 1.1 mg/dL Magnesium Sulfate 2 gm/ Sodium 100 mls @ 50 mls/hr 04/16/18 08:32 Chloride IV.SIG UNSCH PRN For Magnesium 1.2 - 1.6 mg/dL Sodium Phosphate 30 mmol/ 260 mls @ 42 mls/hr 04/16/18 08:32 Sodium Chloride IV.SIG UNSCH PRN For Phosphorus < 2.5 mg/dL Sodium Chloride 154 meq/ 1,038.5 mls @ 50 mls/hr 04/23/18 07:00 05/07/18 06: 03 Dextrose IV.CONT 50 mls/hr .[id number] [facility] Administration Labetalol HCl 10 mg 04/18/18 10:09 Trandate Inj IV.PUSH Q1H PRN Sbp>165, Dbp>90, Hr>65 Levothyroxine Sodium 50 mcg 05/06/18 09:35 05/07/18 06:02 Synthroid PO 50 mcg DAILY@0600 [facility] Administration Magnesium Oxide 800 mg 04/16/18 08:32 Mag-Ox PO UNSCH PRN For Magnesium 1.2 - 1.6 mg/dL Mirtazapine 15 mg 04/29/18 21:00 05/06/18 20:41 Remeron PO 15 mg HS NADINE Administration Naloxone HCl 0.4 mg 04/16/18 09:02 Narcan Inj IV.PUSH PRN PRN SEE LABEL COMMENTS Nitroglycerin 2 inch 04/18/18 10:10 Nitro-Bid 2% Oint TOPICAL Q6HR PRN Sbp>165, Dbp>90 Oxycodone HCl 40 mg 04/29/18 21:00 05/07/18 09:11 Oxycontin Cr PO 40 mg Q12HR NADINE Administration Oxycodone/Acetaminophen 1 tab 04/22/18 12:00 05/07/18 10:50 Percocet 7.5/325 Mg PO 1 tab Q4H PRN Administration Pain 5-10 Pantoprazole Sodium 40 mg 04/15/18 16:00 05/06/18 15:21 Protonix Inj IV.PUSH 40 mg Q24H NADINE Administration Sennosides 8.8 mg 04/16/18 21:00 05/07/18 08:13 Senna Liq NG/OG Not Given BID NADINE Sodium Chloride 2 ml 04/16/18 21:00 05/07/18 08:13 Ns Flush IV.FLUSH Not Given BID NADINE Sodium Chloride 2 ml 04/16/18 09:14 Ns Flush IV.FLUSH PRN PRN FLUSH AFTER USING IV ACCESS Vancomycin HCl 250 mg 05/05/18 09:21 05/07/18 12:24 Vancomycin Po PO 05/18/18 08:59 250 mg QID NADINE Administration Objective Remarks: CV: RRR Lungs: decreased BS Abd:soft,nd,tender one exam Stoma: pink and viable Dale Pelvic drain: bloody Ext: neg C/C/E 04/17 CV: RRR Lungs: decreased BS Abd:soft,nd,tender Stoma: pink and viable Wound: clean and dry Dale Pelvic drain: bloody Ext: neg C/C/E 04/18 CV: RRR Lungs: CTA Abd:soft,nd,tender Stoma: pink and viable Wound: Dressing intact Dale Pelvic drain: bloody Ext: neg C/C/E 04/19 Abd:soft,nt,nd Dressing intact Stoma: pink and viable Pelvic drain removed at bedside Ext: neg 04/20 Abd:soft,nt,nd Dressing intact Stoma: pink and viable Ext: neg C/C/E 04/21 Abd:soft,nt,nd Stoma: pink and viable Stents in place Wound: clean and dry Ext:neg C/C/E 04/22 Abd:soft,nt,nd Stoma: pink and viable Stents in place Wound: clean and dry Ext:neg C/C/E 04/23 Abd:soft,nt,nd Stoma: pink and viable Stents in place Wound: clean and dry Ext:neg C/C/E 04/24 Abd:soft,nt,nd Stoma: pink and viable Stents in place Wound: clean and dry Ext:neg C/C/E 04/25 Abd:soft,nt,nd Stoma:pink and viable Stents in place Wound: clean and dry Leakage from prior central line site is noted Ext: neg C/C/E 04/28 Abd:soft,nt,nd Drain tube removed-red rubber Stents in place and will remove one tomorrow Wound: Clean and dry Ext: neg C/C/E 04/29 Abd:soft,nt,nd One JJ stent removed today Wound: C&D Left UE DVT 04/30 Abd:soft,nt,nd Remaining stent removed Left UE DVT Urine clear 05/01 Abd:soft,nd, tender with palpation Stoma with clear urine Wound: clean and dry 05/02 Abd:soft,nt,nd Stoma: pink and viable;'Urine clear Ext: RUE DVT Wound: C&D 1022 05/02 Abd:soft,nt,nd Stoma: pink and viable;'Urine clear Ext: RUE DVT Wound: C&D 05/06 Abd:soft,nt,nd Stoma: pink and viable 05/07 Abd:soft,nt,nd Stoma: pink and viable Assessment and Plan - Plan Stable s/p radical cystectomy with ileal conduit OOB to chair Start TPN 04/17 Stable s/p radical cystectomy with ileal conduit Continue TPN OOB to chair NGT to gravity drainage Encourage incentive sphirometer 04/18 Stable s/p radical cystectomy with ileal conduit POD#3 Continue TPN OOB to chair/ambulate NGT to gravity drainage Will d/c pelvic drain in next day or two as drainage continues to decline 04/19 Stable s/p radical cystectomy with ileal conduit POD#4 OOB to chair Pelvic drain removed Continue NGT to gravity Continue TPN Path noted: T3b 04/20 Stable POD#5 s/p radical cystectomy with ileal conduit OOB today/Ambulate Path reviewed with pt today Will plan to remove NGT this Saturday and start clear liquids Continue TPN 04/21 Stable POD#6 s/p radical cystectomy with ileal conduit NGT removed; ice chips today OOB Continue TPN 04/22 Stable POD#7 s/p radical cystectomy with ileal conduit 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 OOB Continue TPN 04/23 Stable POD#8 s/p radical cystectomy with ileal conduit Regular diet OOB Ween off TPN 04/24 Stable POD#9 s/p radical cystectomy with ileal conduit OOB/Ambulate Off TPN Tolerating Regular diet. 04/25 Stable POD#10 s/p radical cystectomy with ileal conduit OOB/Ambulate Off TPN; calorie count, ? PPN; nutrition evaluation Tolerating Regular diet. 04/28 Stable POD#13 s/p radical cystectomy with ileal conduit OOB/Ambulate Off TPN; calorie count, ? PPN; nutrition evaluation Tolerating Regular diet some Continue abx for C. Diff 04/29 Stable s/p radical cystectomy with ileal conduit POD#14 Pt with extensive left UE DVT Continue Lovenox Poor intake Oncology input appreciated. 04/30 Stable s/p radical cystectomy with ileal conduit POD#!5 OOB/Ambulate Encourage PO intake and ambulation 05/01 Stable s/p radical cystectomy with ileal conduit POD#16 Continue with aggressive rehab Ween pain medications Encourage PO intake 05/02 Stable s/p radical cystectomy with ileal conduit POD#17 Continue current Rx. 05/05 Stable s/p radical cystectomy with ileal conduit POD#20 Recommend transfer to SNF 05/06 Stable s/p radical cystectomy with ileal conduit POD#21 Recommend transfer to SNF if possible, if not, home soon. 05/07 Stable s/p radical cystectomy with ileal conduit POD#22 Recommend transfer to SNF if possible, if not, home soon. Pt wishes to change to Coumadin therapy for Lovenox injections
--- NOTE | 2018-05-07 13:51 | P.PNIM ---
Subjective Interval history: 05-04 Follow-up bladder cancer status post radical cystectomy, as we know he has Chronic pain syndrome, Depression Anxiety disorder, COPD/Pulmonary Nodule, Severe protein calorie malnutrition. 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 had status post blood transfusion in OR 05/04: Stable in his bedroom, no nausea, vomit or diarrhea. 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 05-05 SP RADICAL CYSTECTOMY WITH ILEAL CONDUIT POD #20 DOES NOT HAVE SNF BENEFITS WILL NEED TO GO HOME AFTER DISCHARGE NOT MOVING MUCH STATES STOOL IS NOT DIARRHEA ANYMORE PATIENT HAS CHRONIC PAIN AND BLADDER CANCER A.m. labs Continue on vancomycin orally increased to 250 mg p.o. 4 times daily will need for at least 21 days 05-06 NOT VERY MOBILE HAS HYPOTHYROIDISM STARTED ON SYNTHROID TODAY AM LABS DW UROLOGY INCREASE ACTIVITY WILL HAVE TO GO HOME AT DC START MARINOL 05-07 moved with PT AND OT INCREASE ACTIVITY DOES NOT WANT LOVENOX WILL START ELIQUIS 5MG BID AM LABS INCREASE ACTIVITY DC PLANNING IN A FEW DAYS DW RN AND PT AND CM REFUSED LOVENOX Physical Exam Vital signs: Vital Signs 05/06/18 15:55 05/06/18 20:00 05/06/18 21:41 Temperature 99.9 F H 98.4 F Pulse Rate 70 73 Respiratory Rate 18 15 18 Blood Pressure 113/64 120/67 Pulse Oximetry 94 L 98 05/06/18 21:42 05/07/18 00:00 05/07/18 04:05 Temperature 99.3 F Pulse Rate 79 Respiratory Rate 18 15 20 Blood Pressure 124/69 Pulse Oximetry 96 05/07/18 08:00 05/07/18 12:00 Temperature 98.1 F 98.3 F Pulse Rate 61 65 Respiratory Rate 16 16 Blood Pressure 115/61 113/61 Pulse Oximetry 98 100 Intake & Output 05/06/18 05/07/18 05/07/18 18:59 06:59 18:59 Intake Total 1660 / 1660 1638.5 / 1638.5 Output Total 1700 / 1700 1999 / 1999 Balance -40 / -40 -361.5 / -361.5 Weight 48.9 kg Intake: IV 1000 / 1000 1038.5 / 1038.5 Sodium Chloride 23.4% Inj 154 1000 / 1000 1038.5 / 1038.5 MEQ In D10W Inj 1,000 ML @ 50 mls/hr IV.CONT .[id number] [facility] Rx# :[id number] Oral 660 / 660 600 / 600 Output: Urine 900 / 900 2000 / 1999 Urine Amount (Catheter) 800 / 800 Right ileal conduit 800 / 800 Other: Date of Last Bowel Movement 05/06/18 Narrative: Awake alert and oriented x3 talkative and cooperative appears quite cachectic and thin GENERAL: NAD Head normocephalic atraumatic Eyes PERRLA EOMI no scleral icterus Tongue is midline no JVD Neck is supple no obvious thyromegaly CARDIOVASCULAR: Regular rate and rhythm without murmurs, gallops, or rubs. RESPIRATORY: Clear to auscultation. Breath sounds equal bilaterally. No wheezes , rales, or rhonchi. GASTROINTESTINAL: Abdomen soft, clean surgical wound. Significant tenderness to palpation. Urostomy in place MUSCULOSKELETAL: Extremities without clubbing, cyanosis, or edema. NEURO: Alert & Oriented x4 to person, place, time, situation. Moves all ext x4 Insight and judgment is good. mood and behavior is appropriate - Urinary Catheter Management Indwelling Urethral Catheter Cath placed during this visit: yes, but has since been removed by the nurse Reason for continuing: Not indwelling catheter Insertion date: 04/15/18 Insertion time: 14:20 Removal date: 04/15/18 Removal time: 13:08 Right ileal conduit Cath placed during this visit: yes Reason for continuing: Not indwelling catheter Insertion date: 04/15/18 Results - Labs CBC & Chem 7: 05/07/18 07:41 05/07/18 07:41 Laboratory Results - last 24 hr 05/06/18 05/07/18 05/07/18 04:51 07:41 07:41 WBC 5.8 RBC 3.34 L Hgb 9.2 L Hct 27.9 L MCV 83.4 MCH 27.6 MCHC 33.1 RDW 17.5 H Plt Count 335 MPV 8.2 Neut % (Auto) 66.6 Lymph % (Auto) 17.5 [place] % (Auto) 10.6 H Eos % (Auto) 4.0 Baso % (Auto) 1.3 Neut # (Auto) 3.9 Lymph # (Auto) 1.0 [place] # (Auto) 0.6 Eos # (Auto) 0.2 Baso # (Auto) 0.1 WBC Differential . Differential Comment Auto diff final Sodium 140 Potassium 4.4 Chloride 105 Carbon Dioxide 27.7 Anion Gap 7 BUN 14 Creatinine 0.71 Estimated GFR Greater than 89 Random Glucose 80 Hemoglobin A1c 5.8 Calcium 8.7 Phosphorus 4.7 Magnesium 2.2 Total Bilirubin 0.2 AST 20 ALT 31 Alkaline Phosphatase 106 Total Protein 6.6 Albumin 2.0 L - Imaging ITS Impressions Abdomen X-Ray 04/18/18 00:00 CONCLUSION: Compared to the study of 04/15/2018 with slight increase the amount of bowel distention. Stents and drain appear to remain in good position. Chest X-Ray 04/25/18 00:00 CONCLUSION: Right apical pleural parenchymal change again noted which appears mildly increased from the prior study. There is volume loss and mediastinal shift to the right. Venous Doppler Study 04/28/18 00:00 CONCLUSION: 1. Extensive deep venous thrombosis. - Procedures Status post radical cystectomy with ileal conduit Assessment and Plan - Assessment (1) Bladder cancer Code(s): C67.9 - Malignant neoplasm of bladder, unspecified Status: Acute - Plan 62-year-old man with Invasive bladder cancer -05/04: Urothelial Cell carcinoma of the bladder, pending recovery status, will need post op chemo and radiation for positive margins treatment, had Neoadjuvant chemotherapy with Cisplatin/gemcitabine followed by radical cystoprostatectomy with lymph node sampling. - Patient has poor performance status at this time Anemia acute blood loss anemia status post blood transfusion 3 units of PRBCs. in OR Chronic pain syndrome -continue pain management. Will probably need help with pain medications at discharge Deconditioning-has decreased performance status at this time Depression Loss of appetite -PT to see patient 7 days a week -Mirtazapine 15mg QHS for depression and as an appetite stimulant. Left upper ext DVT -Currently on Lovenox 50mg Q12hrs. -- SWITCH TO ELIQUIS 5MG PO BID SUSPECT DUE TO HYPERCOAGUABLE STATE DUE OT CANCER COPD Pulmonary nodule -Lung biopsy 2017 revealed inflammatory changes no malignancy -Continue albuterol nebulizer treatments, keep oxygen saturation above 92%. Hypokalemia - resolved. C. Diff colitis -Vancomycin PO 250mg QID X 20 days. -Diarrhea improving. HYPOTHYROIDISM- SYNTHROID 50MCG PO DAILY POOR APPETITE START MARINOL NEEDS PT AND OT DAILY AM LABS INCREASE ACTIVITY Full code. HOPEFULLY HOME IN NEXT FEW DAYS AM LABS Code Status: FULL CODE Discussed Condition With: GUERO RN AND PT AND CM Discharge Planning: Pending improvement in safe discharge
--- NOTE | 2018-05-07 14:51 | P.PNPAL ---
Reason for Visit Reason for visit: a. To assist with evaluation and management of symptoms including: Pain, weakness b. To assist medical decision maker(s) with: better understanding of current medical conditions; weighing benefits/burdens of medical treatment options; making medical treatment decisions. Subjective Subjective/Interval History: Patient seen for follow-up of symptom management for pain and weakness as well as assisting with goals of medical treatment. Patient remains painful and is using Dilaudid 1 mg every 4 hours as needed, averaging 4 doses daily, in addition to oxycodone CR 40 mg p.o. twice daily and Percocet 7.5/325 every 4 hours as needed, also averaging 4 doses daily. Remains generally weak refused physical therapy on 05/04, and . Ambulatory in the room. No benefits for rehab at discharge. Plans to go home with assistance from his significant other. . Family/Friend Interactions: No family at bedside. . Advance Directives Living Will: Never completed Health Care Surrogate: Copy in medical record Durable Power of Public Affairs Officer: Never completed Health Care Surrogate Name and Number: Holly Levine Objective Vital Signs: Vital Signs 05/06/18 15:55 05/06/18 20:00 05/06/18 21:41 Temperature 99.9 F H 98.4 F Pulse Rate 70 73 Respiratory Rate 18 15 18 Blood Pressure 113/64 120/67 Pulse Oximetry 94 L 98 05/06/18 21:42 05/07/18 00:00 05/07/18 04:05 Temperature 99.3 F Pulse Rate 79 Respiratory Rate 18 15 20 Blood Pressure 124/69 Pulse Oximetry 96 05/07/18 08:00 05/07/18 12:00 Temperature 98.1 F 98.3 F Pulse Rate 61 65 Respiratory Rate 16 16 Blood Pressure 115/61 113/61 Pulse Oximetry 98 100 Intake & Output 05/06/18 05/07/18 05/07/18 18:59 06:59 18:59 Intake Total 1660 / 1660 1638.5 / 1638.5 Output Total 1700 / 1700 1999 Balance -40 / -40 -361.5 / -361.5 Weight 107 lb 12.897 oz Intake: IV 1000 / 1000 1038.5 / 1038.5 Sodium Chloride 23.4% Inj 154 1000 / 1000 1038.5 / 1038.5 MEQ In D10W Inj 1,000 ML @ 50 mls/hr IV.CONT .[id number] [facility] Rx# :[id number] Oral 660 / 660 600 / 600 Output: Urine 900 / 900 2000 / 1999 Urine Amount (Catheter) 800 / 800 Right ileal conduit 800 / 800 Other: Date of Last Bowel Movement 05/06/18 Physical Exam: CONSTITUTIONAL/GENERAL: This is a cachectic male lying in bed, complaining of sharp abdominal pain that is severe. TUBES/LINES/DRAINS: PIV CARDIOVASCULAR: Regular rate and rhythm without murmurs, gallops, or rubs. No JVD. Peripheral pulses symmetric. RESPIRATORY/CHEST: Symmetric, unlabored respirations. Lungs clear, diminished. Breath sounds equal bilaterally. GASTROINTESTINAL: Abdomen soft, tender to palpation, nondistended. No guarding. Bowel sounds present. GENITOURINARY: Ileal conduit in place draining to bedside drainage. MUSCULOSKELETAL: Left upper extremity with swelling, venous Doppler showing extensive DVT in the internal jugular vein, subclavian, axillary and brachial vein. Generalized weakness in bilateral lower extremities, creating difficulty with him being able to walk. NEUROLOGICAL: Awake and mildly lethargic. Motor and sensory grossly within normal limits. Follows commands. PSYCHIATRIC: Anxious related to his diagnosis of cancer, severe pain as well as his recent decline in functional status. No apparent hallucinations or other psychotic thought process. . Diagnostic Tests Laboratory: Laboratory Results - last 72 hr 05/06/18 05/06/18 05/06/18 04:51 04:51 04:51 WBC 4.9 RBC 3.21 L Hgb 8.9 L Hct 26.8 L MCV 83.7 MCH 27.9 MCHC 33.3 RDW 17.3 H Plt Count 328 MPV 7.8 Neut % (Auto) 59.7 Lymph % (Auto) 23.3 [place] % (Auto) 10.7 H Eos % (Auto) 5.4 H Baso % (Auto) 0.9 Neut # (Auto) 2.9 Lymph # (Auto) 1.1 [place] # (Auto) 0.5 Eos # (Auto) 0.3 Baso # (Auto) 0.0 WBC Differential . Differential Comment Auto diff final Sodium 140 Potassium 4.4 Chloride 106 Carbon Dioxide 28.2 Anion Gap 6 BUN 16 Creatinine 0.77 Estimated GFR Greater than 89 Random Glucose 91 Hemoglobin A1c 5.8 Calcium 8.5 Phosphorus 4.5 Magnesium 2.1 Total Bilirubin 0.2 AST 21 ALT 32 Alkaline Phosphatase 111 Total Protein 6.5 Albumin 2.0 L TSH 8.180 H Free T4 0.97 05/07/18 05/07/18 07:41 07:41 WBC 5.8 RBC 3.34 L Hgb 9.2 L Hct 27.9 L MCV 83.4 MCH 27.6 MCHC 33.1 RDW 17.5 H Plt Count 335 MPV 8.2 Neut % (Auto) 66.6 Lymph % (Auto) 17.5 [place] % (Auto) 10.6 H Eos % (Auto) 4.0 Baso % (Auto) 1.3 Neut # (Auto) 3.9 Lymph # (Auto) 1.0 [place] # (Auto) 0.6 Eos # (Auto) 0.2 Baso # (Auto) 0.1 WBC Differential . Differential Comment Auto diff final Sodium 140 Potassium 4.4 Chloride 105 Carbon Dioxide 27.7 Anion Gap 7 BUN 14 Creatinine 0.71 Estimated GFR Greater than 89 Random Glucose 80 Hemoglobin A1c Calcium 8.7 Phosphorus 4.7 Magnesium 2.2 Total Bilirubin 0.2 AST 20 ALT 31 Alkaline Phosphatase 106 Total Protein 6.6 Albumin 2.0 L TSH Free T4 Result Diagrams: 05/07/18 07:41 05/07/18 07:41 Imaging: Abdomen X-Ray 04/15/18 00:00 CONCLUSION: 1. Surgical changes status post ileal conduit placement with bilateral stent catheters. 2. Nonspecific bowel gas pattern most likely representing a postoperative ileus. Chest X-Ray 04/15/18 00:00 CONCLUSION: Persistent abnormal bilateral upper lobe opacity previously evaluated on PET/CT. Abdomen X-Ray 04/18/18 00:00 CONCLUSION: Compared to the study of 04/15/2018 with slight increase the amount of bowel distention. Stents and drain appear to remain in good position. Chest X-Ray 04/25/18 00:00 CONCLUSION: Right apical pleural parenchymal change again noted which appears mildly increased from the prior study. There is volume loss and mediastinal shift to the right. Venous Doppler Study 04/28/18 00:00 CONCLUSION: 1. Extensive deep venous thrombosis. Procedures: 04/15: Radical cystectomy . Assessment and Plan - Disease Oriented Problem List (1) COPD (chronic obstructive pulmonary disease) (2) Bladder cancer (3) Chronic pain Pertinent Non-Medical Issues: Psychosocial: He was born in [place] and moved to [place] 3 years ago with his girlfriend of many years. 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 He has 1 daughter from whom he is estranged. 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 Legal: No advance directives completed. Healthcare surrogate completed at this assessment. Ethical issues impacting care: None noted. . Important Contacts: Significant other: Holly Levine . Prognosis: His prognosis is guarded. Margins of the tumor resection were positive and the patient is not tolerant of chemotherapy. He received 3 rounds of chemotherapy previously and was unable to receive the fourth due to poor tolerance, extreme nausea and vomiting rapid weight loss and poor performance status. He was informed by the urologist that the cancer had invaded the muscle wall and as his performance status is so poor, he would not be a candidate for chemotherapy even if it was tolerated. He wishes for pain relief as his primary treatment. Given his positive cancer diagnosis, poor performance status and progressive decline, he would be hospice appropriate if goals were consistent. . Code Status: Full Code Plan: PLAN: Legal decision maker: Patient currently has good insight and judgment related to his medical conditions. Patient has designated his significant other , Holly Levine, as his healthcare surrogate decision-maker. Goals: Goals remain aggressive. Patient states, "I do not want to ." CODE STATUS: FULL CODE SYMPTOMS: * Pain: Patient complaining of sharp abdominal pain and right knee pain that is severe. Current pain orders include Percocet 7.5/325 every 4 hours as needed, Dilaudid 1 mg IV every 4 hours as needed and oxycodone sustained release 40 mg p.o. twice daily. In preparation for d/c home, IV dilaudid discontinued. To more effectively manage pain, percocet 7.5/325 mg q4h PRN pain was increased to 10/325mg q4h PRN pain. D/W Dr. Thomas. * Weakness: Appetite is fair and he intermittently works with physical therapy. He is limited by loss of muscle mass and uncontrolled pain. He has refused physical therapy 3 days in a row but is reportedly ambulatory in the room. Recommend nutritional supplements. No further recommendations. Palliative care will continue to follow the patient during hospital course as condition evolves, to assist patient/decision-maker with understanding of their medical conditions, weighing benefits/burdens of treatment options, for clarification of goals of treatment. Additionally will assist with any symptoms of palliative concern. . Attestation Attestation: To help prompt me to consider important information that might be impacting today's encounter and assessment, information from prior notes written by myself or my colleagues may have been "brought forward" into today's note. My signature on this note, however, is an attestation that I personally performed the exam, history, and/or decision-making noted today, and, unless otherwise indicated, the interactions with patient, family, and staff as well as the review of records all occurred today. I also attest that the listed assessment and stated plan reflect my best clinical judgment today based on the combination of historical information, prior notes, and today's exam/ interactions. When time spent is documented, it refers only to time spent today by the signer, or if indicated, combined time spent today by collaborating physician/nurse practitioner. .
[2018-05-07] MEDS: oxyCODONE/Acetaminophen 10/325 Tablet PO PRN ×2 (15:21→20:05)
[2018-05-07] MEDS: Pantoprazole Inj 40 MG Vial IV.PUSH SCH (15:21)
[2018-05-07] MEDS: Mirtazapine 15 MG Tablet PO SCH (20:06)
[2018-05-08] MEDS: oxyCODONE/Acetaminophen 10/325 Tablet PO PRN ×4 (03:32→21:48)
[2018-05-08] MEDS: Levothyroxine 50 MCG Tablet PO SCH (06:34)
[2018-05-08] MEDS: Sodium Chloride 23.4% Inj 154 MEQ in Dextrose 10% in Water Inj 1,000 ML IV.CONT SCH ×4 (06:36→20:57)
[2018-05-08 07:29] LABS: Baso # (Auto) 0.1 th/mm3 (0.0-0.2); Baso % (Auto) 0.8 % (0.0-2.0); Eos # (Auto) 0.4 th/mm3 (0.0-0.4); Eos % (Auto) 5.4 % (0.0-4.0); Hematocrit 27.8 % (39.0-51.0); Hemoglobin 9.2 gm/dL (13.0-17.0); Lymph # (Auto) 1.3 th/mm3 (1.0-4.8); Lymph % (Auto) 19.9 % (9.0-44.0); Mean Corpuscular HGB Conc 32.9 % (32.0-36.0); Mean Corpuscular Hemoglobin 27.4 pg (27.0-34.0); Mean Corpuscular Volume 83.3 fL (80.0-100.0); Mean Platelet Volume 8.2 fL (7.0-11.0); Mono # (Auto) 0.6 th/mm3 (0.0-0.9); Mono % (Auto) 9.5 % (0.0-8.0); Neut # (Auto) 4.3 th/mm3 (1.8-7.7); Neut % (Auto) 64.4 % (16.0-70.0); Platelet Count 336 th/mm3 (150-450); Red Blood Count 3.34 mil/mm3 (4.50-5.90); Red Cell Distribution Width 17.7 % (11.6-17.2); White Blood Count 6.6 th/mm3 (4.0-11.0)
[2018-05-08 07:43] LABS: Albumin 2.2 g/dL (3.4-5.0); Anion Gap 7 meq/L (5-15); Aspartate Aminotransferase 15 U/L (15-37); Blood Urea Nitrogen 15 mg/dL (7-18); Calcium 8.7 mg/dL (8.5-10.1); Carbon Dioxide 29.2 meq/L (21.0-32.0); Chloride 105 meq/L (98-107); Glomerular Filtration Rate Greater Than 89 mL/min (>89); Glucose,Random 83 mg/dL (74-106); Magnesium 2.3 mg/dL (1.5-2.5); Potassium 4.2 meq/L (3.5-5.1); Sodium 141 meq/L (136-145)
[2018-05-08 07:47] LABS: Alanine Aminotransferase 25 U/L (12-78); Alkaline Phosphatase 108 U/L (45-117); Total Protein 6.6 g/dL (6.4-8.2)
[2018-05-08] MEDS: Sennosides Liq 8.8 MG/5 ML UDC NG/OG SCH ×2 (08:20→20:56)
[2018-05-08] MEDS: Gabapentin 300 MG Capsule PO SCH ×2 (08:20→20:56)
[2018-05-08] MEDS: Docusate Sodium Liq 100 MG/10 ML UDC NG/OG SCH ×2 (08:21→20:56)
[2018-05-08] MEDS: oxyCODONE HCL 40 MG Controlled Release Tablet PO SCH ×2 (08:21→20:56)
--- NOTE | 2018-05-08 10:17 | P.PNURO ---
Subjective Patient symptoms today: Pt seen and examined. Feels better. He was walking up stairs yesterday. Objective Vital Signs: Vital Signs 05/07/18 12:00 05/07/18 16:00 05/07/18 20:00 Temperature 98.3 F 98.7 F 98.5 F Pulse Rate 65 78 79 Respiratory Rate 16 16 18 Blood Pressure 113/61 115/61 108/60 Pulse Oximetry 100 97 96 05/07/18 23:39 05/08/18 00:00 05/08/18 07:50 Temperature 98.4 F 97.9 F Pulse Rate 68 60 Respiratory Rate 20 18 17 Blood Pressure 100/62 118/62 Pulse Oximetry 97 95 Intake & Output 05/07/18 05/08/18 05/08/18 18:59 06:59 18:59 Intake Total 1300 / 1300 1638.5 / 1638.5 Output Total 700 / 700 300 / 300 Balance 600 / 600 1638.5 / 1638.5 -300 / -300 Weight 47.7 kg Intake: IV 1038.5 / 1038.5 Sodium Chloride 23.4% Inj 154 1038.5 / 1038.5 MEQ In D10W Inj 1,000 ML @ 50 mls/hr IV.CONT .[id number] [facility] Rx# :[id number] Oral 1300 / 1300 600 / 600 Output: Urine 700 / 700 Urine Amount (Catheter) 300 / 300 Right ileal conduit 300 / 300 Other: # Voids 1,500 # Bowel Movements 2 Result Diagrams: 05/08/18 06:43 05/08/18 06:43 Medications and IVs: Active Medications Generic Name Dose Route Start Last Admin Trade Name Freq PRN Reason Stop Dose Admin Acetaminophen 650 mg 04/16/18 08:55 05/01/18 04:08 Tylenol Liq PO 650 mg Q6H PRN Administration FEVER Albuterol 2.5 mg 04/16/18 08:54 Albuterol Neb (Prn) NEB Q2HR NEB PRN DYSPNEA Apixaban 5 mg 05/07/18 14:00 05/08/18 08:20 Eliquis PO 5 mg BID NADINE Administration Diphenhydramine HCl 25 mg 04/16/18 09:02 Benadryl Inj IV.PUSH Q6H PRN for itching Docusate Sodium 100 mg 04/16/18 21:00 05/08/18 08:21 Colace Liq NG/OG 100 mg BID NADINE Administration Dronabinol 5 mg 05/06/18 16:00 05/07/18 15:21 Marinol PO 5 mg BID@1100,1600 NADINE Administration Gabapentin 300 mg 04/24/18 21:00 05/08/18 08:20 Neurontin PO 300 mg BID NADINE Administration Sodium Chloride 500 mls @ 30 mls/hr 04/15/18 07:00 04/15/18 07:25 Ns Inj IV.SIG Not Given .Q10H NADINE Magnesium Sulfate 4 gm/ Sodium 100 mls @ 50 mls/hr 04/16/18 08:32 Chloride IV.SIG UNSCH PRN For Magnesium 0.9 - 1.1 mg/dL Magnesium Sulfate 2 gm/ Sodium 100 mls @ 50 mls/hr 04/16/18 08:32 Chloride IV.SIG UNSCH PRN For Magnesium 1.2 - 1.6 mg/dL Sodium Phosphate 30 mmol/ 260 mls @ 42 mls/hr 04/16/18 08:32 Sodium Chloride IV.SIG UNSCH PRN For Phosphorus < 2.5 mg/dL Sodium Chloride 154 meq/ 1,038.5 mls @ 50 mls/hr 04/23/18 07:00 05/08/18 06: 36 Dextrose IV.CONT 50 mls/hr .[id number] NADINE Administration Labetalol HCl 10 mg 04/18/18 10:09 Trandate Inj IV.PUSH Q1H PRN Sbp>165, Dbp>90, Hr>65 Levothyroxine Sodium 50 mcg 05/06/18 09:35 05/08/18 06:34 Synthroid PO 50 mcg DAILY@0600 NADINE Administration Magnesium Oxide 800 mg 04/16/18 08:32 Mag-Ox PO UNSCH PRN For Magnesium 1.2 - 1.6 mg/dL Mirtazapine 15 mg 04/29/18 21:00 05/07/18 20:06 Remeron PO 15 mg HS NADINE Administration Naloxone HCl 0.4 mg 04/16/18 09:02 Narcan Inj IV.PUSH PRN PRN SEE LABEL COMMENTS Nitroglycerin 2 inch 04/18/18 10:10 Nitro-Bid 2% Oint TOPICAL Q6HR PRN Sbp>165, Dbp>90 Oxycodone HCl 40 mg 04/29/18 21:00 05/08/18 08:21 Oxycontin Cr PO 40 mg Q12HR NADINE Administration Oxycodone/Acetaminophen 1 tab 05/07/18 14:16 05/08/18 08:20 Percocet 10/325 Mg PO 1 tab Q4H PRN Administration PAIN SCALE 6 TO 10 Pantoprazole Sodium 40 mg 04/15/18 16:00 05/07/18 15:21 Protonix Inj IV.PUSH 40 mg Q24H NADINE Administration Sennosides 8.8 mg 04/16/18 21:00 05/08/18 08:20 Senna Liq NG/OG 8.8 mg BID NADINE Administration Sodium Chloride 2 ml 04/16/18 21:00 05/07/18 20:11 Ns Flush IV.FLUSH Not Given BID NADINE Sodium Chloride 2 ml 04/16/18 09:14 Ns Flush IV.FLUSH PRN PRN FLUSH AFTER USING IV ACCESS Vancomycin HCl 250 mg 05/05/18 09:21 05/08/18 08:20 Vancomycin Po PO 05/18/18 08:59 250 mg QID NADINE Administration Objective Remarks: CV: RRR Lungs: decreased BS Abd:soft,nd,tender one exam Stoma: pink and viable Dale Pelvic drain: bloody Ext: neg C/C/E 04/17 CV: RRR Lungs: decreased BS Abd:soft,nd,tender Stoma: pink and viable Wound: clean and dry Dale Pelvic drain: bloody Ext: neg C/C/E 04/18 CV: RRR Lungs: CTA Abd:soft,nd,tender Stoma: pink and viable Wound: Dressing intact Dale Pelvic drain: bloody Ext: neg C/C/E 04/19 Abd:soft,nt,nd Dressing intact Stoma: pink and viable Pelvic drain removed at bedside Ext: neg 04/20 Abd:soft,nt,nd Dressing intact Stoma: pink and viable Ext: neg C/C/E 04/21 Abd:soft,nt,nd Stoma: pink and viable Stents in place Wound: clean and dry Ext:neg C/C/E 04/22 Abd:soft,nt,nd Stoma: pink and viable Stents in place Wound: clean and dry Ext:neg C/C/E 04/23 Abd:soft,nt,nd Stoma: pink and viable Stents in place Wound: clean and dry Ext:neg C/C/E 04/24 Abd:soft,nt,nd Stoma: pink and viable Stents in place Wound: clean and dry Ext:neg C/C/E 04/25 Abd:soft,nt,nd Stoma:pink and viable Stents in place Wound: clean and dry Leakage from prior central line site is noted Ext: neg C/C/E 04/28 Abd:soft,nt,nd Drain tube removed-red rubber Stents in place and will remove one tomorrow Wound: Clean and dry Ext: neg C/C/E 04/29 Abd:soft,nt,nd One JJ stent removed today Wound: C&D Left UE DVT 04/30 Abd:soft,nt,nd Remaining stent removed Left UE DVT Urine clear 05/01 Abd:soft,nd, tender with palpation Stoma with clear urine Wound: clean and dry 05/02 Abd:soft,nt,nd Stoma: pink and viable;'Urine clear Ext: RUE DVT Wound: C&D 1022 05/02 Abd:soft,nt,nd Stoma: pink and viable;'Urine clear Ext: RUE DVT Wound: C&D 05/06 Abd:soft,nt,nd Stoma: pink and viable 05/07 Abd:soft,nt,nd Stoma: pink and viable 05/08 Abd:soft,nt,nd Stoma: pink and viable Assessment and Plan - Plan Stable s/p radical cystectomy with ileal conduit OOB to chair Start TPN 10 Stable s/p radical cystectomy with ileal conduit Continue TPN OOB to chair NGT to gravity drainage Encourage incentive sphirometer 04/18 Stable s/p radical cystectomy with ileal conduit POD#3 Continue TPN OOB to chair/ambulate NGT to gravity drainage Will d/c pelvic drain in next day or two as drainage continues to decline 04/19 Stable s/p radical cystectomy with ileal conduit POD#4 OOB to chair Pelvic drain removed Continue NGT to gravity Continue TPN Path noted: T3b 04/20 Stable POD#5 s/p radical cystectomy with ileal conduit OOB today/Ambulate Path reviewed with pt today Will plan to remove NGT this Saturday and start clear liquids Continue TPN 04/21 Stable POD#6 s/p radical cystectomy with ileal conduit NGT removed; ice chips today OOB Continue TPN 04/22 Stable POD#7 s/p radical cystectomy with ileal conduit 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 Will start PO pain meds. OOB Continue TPN 04/23 Stable POD#8 s/p radical cystectomy with ileal conduit Regular diet OOB Ween off TPN 04/24 Stable POD#9 s/p radical cystectomy with ileal conduit OOB/Ambulate Off TPN Tolerating Regular diet. 04/25 Stable POD#10 s/p radical cystectomy with ileal conduit OOB/Ambulate Off TPN; calorie count, ? PPN; nutrition evaluation Tolerating Regular diet. 04/28 Stable POD#13 s/p radical cystectomy with ileal conduit OOB/Ambulate Off TPN; calorie count, ? PPN; nutrition evaluation Tolerating Regular diet some Continue abx for C. Diff 04/29 Stable s/p radical cystectomy with ileal conduit POD#14 Pt with extensive left UE DVT Continue Lovenox Poor intake Oncology input appreciated. 04/30 Stable s/p radical cystectomy with ileal conduit POD#!5 OOB/Ambulate Encourage PO intake and ambulation 05/01 Stable s/p radical cystectomy with ileal conduit POD#16 Continue with aggressive rehab Ween pain medications Encourage PO intake 05/02 Stable s/p radical cystectomy with ileal conduit POD#17 Continue current Rx. 05/05 Stable s/p radical cystectomy with ileal conduit POD#20 Recommend transfer to SNF 05/06 Stable s/p radical cystectomy with ileal conduit POD#21 Recommend transfer to SNF if possible, if not, home soon. 05/07 Stable s/p radical cystectomy with ileal conduit POD#22 Recommend transfer to SNF if possible, if not, home soon. Pt wishes to change to Coumadin therapy for Lovenox injections 05/07 Stable s/p radical cystectomy with ileal conduit POD#23 D/C home when stable and cleared by PT
[2018-05-08] MEDS: Sodium Chloride 0.9% 2 ML Flush BID IV.FLUSH SCH ×2 (11:50→20:56)
--- NOTE | 2018-05-08 12:42 | P.PNIM ---
Subjective Interval history: 05-04 Follow-up bladder cancer status post radical cystectomy, as we know he has Chronic pain syndrome, Depression Anxiety disorder, COPD/Pulmonary Nodule, Severe protein calorie malnutrition. 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 had status post blood transfusion in OR 05/04: Stable in his bedroom, no nausea, vomit or diarrhea. 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 05-05 SP RADICAL CYSTECTOMY WITH ILEAL CONDUIT POD #20 DOES NOT HAVE SNF BENEFITS WILL NEED TO GO HOME AFTER DISCHARGE NOT MOVING MUCH STATES STOOL IS NOT DIARRHEA ANYMORE PATIENT HAS CHRONIC PAIN AND BLADDER CANCER A.m. labs Continue on vancomycin orally increased to 250 mg p.o. 4 times daily will need for at least 21 days 05-06 NOT VERY MOBILE HAS HYPOTHYROIDISM STARTED ON SYNTHROID TODAY AM LABS DW UROLOGY INCREASE ACTIVITY WILL HAVE TO GO HOME AT DC START MARINOL 05-07 moved with PT AND OT INCREASE ACTIVITY DOES NOT WANT LOVENOX WILL START ELIQUIS 5MG BID AM LABS INCREASE ACTIVITY DC PLANNING IN A FEW DAYS DW RN AND PT AND CM REFUSED LOVENOX - MEDS ADJUSTED BY PALLIATIVE CARE AND MYSELF HOPEFULLY HOME TOMORROW WILL NEED CM FOR HELP WITH DC GUERO RN AND PT AND CM Physical Exam Vital signs: Vital Signs 05/07/18 16:00 05/07/18 20:00 05/07/18 23:39 Temperature 98.7 F 98.5 F Pulse Rate 78 79 Respiratory Rate 16 18 20 Blood Pressure 115/61 108/60 Pulse Oximetry 97 96 05/08/18 00:00 05/08/18 07:50 Temperature 98.4 F 97.9 F Pulse Rate 68 60 Respiratory Rate 18 17 Blood Pressure 100/62 118/62 Pulse Oximetry 97 95 Intake & Output 05/07/18 05/08/18 05/08/18 18:59 06:59 18:59 Intake Total 1300 / 1300 1638.5 / 1638.5 Output Total 700 / 700 300 / 300 Balance 600 / 600 1638.5 / 1638.5 -300 / -300 Weight 47.7 kg Intake: IV 1038.5 / 1038.5 Sodium Chloride 23.4% Inj 154 1038.5 / 1038.5 MEQ In D10W Inj 1,000 ML @ 50 mls/hr IV.CONT .[id number] [facility] Rx# :[id number] Oral 1300 / 1300 600 / 600 Output: Urine 700 / 700 Urine Amount (Catheter) 300 / 300 Right ileal conduit 300 / 300 Other: # Voids 1,500 Date of Last Bowel Movement 05/07/18 # Bowel Movements 2 Narrative: Awake alert and oriented x3 talkative and cooperative appears quite cachectic and thin GENERAL: NAD Head normocephalic atraumatic Eyes PERRLA EOMI no scleral icterus Tongue is midline no JVD Neck is supple no obvious thyromegaly CARDIOVASCULAR: Regular rate and rhythm without murmurs, gallops, or rubs. RESPIRATORY: Clear to auscultation. Breath sounds equal bilaterally. No wheezes , rales, or rhonchi. GASTROINTESTINAL: Abdomen soft, clean surgical wound. Significant tenderness to palpation. Urostomy in place MUSCULOSKELETAL: Extremities without clubbing, cyanosis, or edema. NEURO: Alert & Oriented x4 to person, place, time, situation. Moves all ext x4 Insight and judgment is good. mood and behavior is appropriate - Urinary Catheter Management Indwelling Urethral Catheter Cath placed during this visit: yes, but has since been removed by the nurse Reason for continuing: Not indwelling catheter Insertion date: 04/15/18 Insertion time: 14:20 Removal date: 04/15/18 Removal time: 13:08 Right ileal conduit Cath placed during this visit: yes Reason for continuing: Not indwelling catheter Insertion date: 04/15/18 Results - Labs CBC & Chem 7: 05/08/18 06:43 05/08/18 06:43 Laboratory Results - last 24 hr 05/08/18 05/08/18 06:43 06:43 WBC 6.6 RBC 3.34 L Hgb 9.2 L Hct 27.8 L MCV 83.3 MCH 27.4 MCHC 32.9 RDW 17.7 H Plt Count 336 MPV 8.2 Neut % (Auto) 64.4 Lymph % (Auto) 19.9 Dade % (Auto) 9.5 H Eos % (Auto) 5.4 H Baso % (Auto) 0.8 Neut # (Auto) 4.3 Lymph # (Auto) 1.3 Dade # (Auto) 0.6 Eos # (Auto) 0.4 Baso # (Auto) 0.1 WBC Differential . Differential Comment Auto diff final Sodium 141 Potassium 4.2 Chloride 105 Carbon Dioxide 29.2 Anion Gap 7 BUN 15 Creatinine 0.68 Estimated GFR Greater than 89 Random Glucose 83 Calcium 8.7 Phosphorus 5.0 H Magnesium 2.3 Total Bilirubin 0.3 AST 15 ALT 25 Alkaline Phosphatase 108 Total Protein 6.6 Albumin 2.2 L - Imaging ITS Impressions Abdomen X-Ray 04/18/18 00:00 CONCLUSION: Compared to the study of 04/15/2018 with slight increase the amount of bowel distention. Stents and drain appear to remain in good position. Chest X-Ray 04/25/18 00:00 CONCLUSION: Right apical pleural parenchymal change again noted which appears mildly increased from the prior study. There is volume loss and mediastinal shift to the right. Venous Doppler Study 04/28/18 00:00 CONCLUSION: 1. Extensive deep venous thrombosis. - Procedures Status post radical cystectomy with ileal conduit Assessment and Plan - Assessment (1) Bladder cancer Code(s): C67.9 - Malignant neoplasm of bladder, unspecified Status: Acute - Plan 62-year-old man with Invasive bladder cancer -05/04: Urothelial Cell carcinoma of the bladder, pending recovery status, will need post op chemo and radiation for positive margins treatment, had Neoadjuvant chemotherapy with Cisplatin/gemcitabine followed by radical cystoprostatectomy with lymph node sampling. - Patient has poor performance status at this time Anemia acute blood loss anemia status post blood transfusion 3 units of PRBCs. in OR Chronic pain syndrome -continue pain management. Will probably need help with pain medications at discharge Deconditioning-has decreased performance status at this time Depression Loss of appetite -PT to see patient 7 days a week -Mirtazapine 15mg QHS for depression and as an appetite stimulant. Left upper ext DVT -Currently on Lovenox 50mg Q12hrs. -- SWITCH TO ELIQUIS 5MG PO BID SUSPECT DUE TO HYPERCOAGUABLE STATE DUE OT CANCER COPD Pulmonary nodule -Lung biopsy 2017 revealed inflammatory changes no malignancy -Continue albuterol nebulizer treatments, keep oxygen saturation above 92%. Hypokalemia - resolved. C. Diff colitis -Vancomycin PO 250mg QID X 20 days. -Diarrhea improving. HYPOTHYROIDISM- SYNTHROID 50MCG PO DAILY POOR APPETITE START MARINOL MEDICAL NONCOMPLIANCE-REFUSING MEDICATIONS AND TREATMENTS WHILE IN THE HOSPITAL NEEDS PT AND OT DAILY AM LABS INCREASE ACTIVITY Full code. HOPEFULLY HOME IN NEXT FEW DAYS AM LABS Code Status: FULL COED Discussed Condition With: RN AND PT AND CM AND PALLIATIVE CARE Discharge Planning: Pending improvement in safe discharge HOPEFULLY HOME TOMORROW
[2018-05-08] MEDS: Pantoprazole Inj 40 MG Vial IV.PUSH SCH (17:27)
[2018-05-08] MEDS: Mirtazapine 15 MG Tablet PO SCH (20:56)
[2018-05-09 01:59] VITALS: O2SAT 97
[2018-05-09] MEDS: Levothyroxine 50 MCG Tablet PO SCH (05:38)
[2018-05-09] MEDS: oxyCODONE/Acetaminophen 10/325 Tablet PO PRN ×3 (05:38→16:56)
[2018-05-09 07:44] LABS: Baso # (Auto) 0.1 th/mm3 (0.0-0.2); Eos # (Auto) 0.3 th/mm3 (0.0-0.4); Eos % (Auto) 4.9 % (0.0-4.0); Hematocrit 32.2 % (39.0-51.0); Hemoglobin 10.2 gm/dL (13.0-17.0); Lymph # (Auto) 1.2 th/mm3 (1.0-4.8); Lymph % (Auto) 20.1 % (9.0-44.0); Mean Corpuscular HGB Conc 31.7 % (32.0-36.0); Mean Corpuscular Hemoglobin 27.2 pg (27.0-34.0); Mean Corpuscular Volume 85.7 fL (80.0-100.0); Mean Platelet Volume 8.7 fL (7.0-11.0); Mono # (Auto) 0.5 th/mm3 (0.0-0.9); Mono % (Auto) 9.1 % (0.0-8.0); Neut # (Auto) 3.9 th/mm3 (1.8-7.7); Neut % (Auto) 64.9 % (16.0-70.0); Platelet Count 351 th/mm3 (150-450); Red Blood Count 3.76 mil/mm3 (4.50-5.90); Red Cell Distribution Width 18.1 % (11.6-17.2); White Blood Count 5.9 th/mm3 (4.0-11.0)
[2018-05-09 08:03] LABS: Alanine Aminotransferase 33 U/L (12-78); Albumin 2.5 g/dL (3.4-5.0); Anion Gap 9 meq/L (5-15); Aspartate Aminotransferase 30 U/L (15-37); Blood Urea Nitrogen 17 mg/dL (7-18); Calcium 9.4 mg/dL (8.5-10.1); Carbon Dioxide 28.1 meq/L (21.0-32.0); Chloride 103 meq/L (98-107); Glomerular Filtration Rate Greater Than 89 mL/min (>89); Glucose,Random 64 mg/dL (74-106); Magnesium 2.6 mg/dL (1.5-2.5); Potassium 4.8 meq/L (3.5-5.1); Sodium 140 meq/L (136-145)
[2018-05-09 08:07] LABS: Alkaline Phosphatase 116 U/L (45-117); Phosphorus 5.4 mg/dL (2.5-4.9); Total Protein 7.2 g/dL (6.4-8.2)
--- NOTE | 2018-05-09 08:35 | P.PNURO ---
Subjective Patient symptoms today: Pt doing better. Eating more. Objective Vital Signs: Vital Signs 05/08/18 12:00 05/08/18 16:00 05/08/18 20:00 Temperature 98.2 F 97.9 F 98.4 F Pulse Rate 70 79 69 Respiratory Rate 17 18 17 Blood Pressure 117/65 132/65 155/70 H Pulse Oximetry 95 97 98 05/09/18 00:00 Temperature 98.4 F Pulse Rate 69 Respiratory Rate 17 Blood Pressure 132/62 Pulse Oximetry 97 Intake & Output 05/08/18 05/09/18 05/09/18 18:59 06:59 18:59 Intake Total 760 / 760 38.5 / 38.5 Output Total 1300 / 1300 1600 / 1600 Balance -540 / -540 -1561.5 / -1561.5 Weight 46.4 kg Intake: IV 38.5 / 38.5 Sodium Chloride 23.4% Inj 154 38.5 / 38.5 MEQ In D10W Inj 1,000 ML @ 50 mls/hr IV.CONT .[id number] [facility] Rx# :[id number] Oral 760 / 760 Output: Urine 1000 / 1000 1600 / 1600 Urine Amount (Catheter) 300 / 300 Right ileal conduit 300 / 300 Other: Date of Last Bowel Movement 05/07/18 05/08/18 # Bowel Movements 1 1 Result Diagrams: 05/09/18 05:34 05/09/18 05:34 Medications and IVs: Active Medications Generic Name Dose Route Start Last Admin Trade Name Freq PRN Reason Stop Dose Admin Acetaminophen 650 mg 04/16/18 08:55 05/01/18 04:08 Tylenol Liq PO 650 mg Q6H PRN Administration FEVER Albuterol 2.5 mg 04/16/18 08:54 Albuterol Neb (Prn) NEB Q2HR NEB PRN DYSPNEA Apixaban 5 mg 05/07/18 14:00 05/08/18 20:56 Eliquis PO 5 mg BID NADINE Administration Diphenhydramine HCl 25 mg 04/16/18 09:02 Benadryl Inj IV.PUSH Q6H PRN for itching Docusate Sodium 100 mg 04/16/18 21:00 05/08/18 20:56 Colace Liq NG/OG Not Given BID NADINE Dronabinol 5 mg 05/06/18 16:00 05/08/18 18:50 Marinol PO Not Given BID@1100,1600 NADINE Gabapentin 300 mg 04/24/18 21:00 05/08/18 20:56 Neurontin PO 300 mg BID NADINE Administration Sodium Chloride 500 mls @ 30 mls/hr 04/15/18 07:00 04/15/18 07:25 Ns Inj IV.SIG Not Given .Q10H NADINE Magnesium Sulfate 4 gm/ Sodium 100 mls @ 50 mls/hr 04/16/18 08:32 Chloride IV.SIG UNSCH PRN For Magnesium 0.9 - 1.1 mg/dL Magnesium Sulfate 2 gm/ Sodium 100 mls @ 50 mls/hr 04/16/18 08:32 Chloride IV.SIG UNSCH PRN For Magnesium 1.2 - 1.6 mg/dL Sodium Phosphate 30 mmol/ 260 mls @ 42 mls/hr 04/16/18 08:32 Sodium Chloride IV.SIG UNSCH PRN For Phosphorus < 2.5 mg/dL Sodium Chloride 154 meq/ 1,038.5 mls @ 50 mls/hr 04/23/18 07:00 05/08/18 21: 00 Dextrose IV.CONT Infused .[id number] [facility] Infusion Labetalol HCl 10 mg 04/18/18 10:09 Trandate Inj IV.PUSH Q1H PRN Sbp>165, Dbp>90, Hr>65 Levothyroxine Sodium 50 mcg 05/06/18 09:35 05/09/18 05:38 Synthroid PO 50 mcg DAILY@0600 [facility] Administration Magnesium Oxide 800 mg 04/16/18 08:32 Mag-Ox PO UNSCH PRN For Magnesium 1.2 - 1.6 mg/dL Mirtazapine 15 mg 04/29/18 21:00 05/08/18 20:56 Remeron PO 15 mg HS NADINE Administration Naloxone HCl 0.4 mg 04/16/18 09:02 Narcan Inj IV.PUSH PRN PRN SEE LABEL COMMENTS Nitroglycerin 2 inch 04/18/18 10:10 Nitro-Bid 2% Oint TOPICAL Q6HR PRN Sbp>165, Dbp>90 Oxycodone HCl 40 mg 04/29/18 21:00 05/08/18 20:56 Oxycontin Cr PO 40 mg Q12HR NDAINE Administration Oxycodone/Acetaminophen 1 tab 05/07/18 14:16 05/09/18 05:38 Percocet 10/325 Mg PO 1 tab Q4H PRN Administration PAIN SCALE 6 TO 10 Pantoprazole Sodium 40 mg 04/15/18 16:00 05/08/18 17:27 Protonix Inj IV.PUSH 40 mg Q24H NADINE Administration Sennosides 8.8 mg 04/16/18 21:00 05/08/18 20:56 Senna Liq NG/OG Not Given BID NADINE Sodium Chloride 2 ml 04/16/18 21:00 05/08/18 20:56 Ns Flush IV.FLUSH Not Given BID NADINE Sodium Chloride 2 ml 04/16/18 09:14 Ns Flush IV.FLUSH PRN PRN FLUSH AFTER USING IV ACCESS Vancomycin HCl 250 mg 05/05/18 09:21 05/08/18 20:56 Vancomycin Po PO 05/18/18 08:59 250 mg QID NADINE Administration Objective Remarks: CV: RRR Lungs: decreased BS Abd:soft,nd,tender one exam Stoma: pink and viable Dale Pelvic drain: bloody Ext: neg C/C/E 04/17 CV: RRR Lungs: decreased BS Abd:soft,nd,tender Stoma: pink and viable Wound: clean and dry Dale Pelvic drain: bloody Ext: neg C/C/E 04/18 CV: RRR Lungs: CTA Abd:soft,nd,tender Stoma: pink and viable Wound: Dressing intact Dale Pelvic drain: bloody Ext: neg C/C/E 04/19 Abd:soft,nt,nd Dressing intact Stoma: pink and viable Pelvic drain removed at bedside Ext: neg 04/20 Abd:soft,nt,nd Dressing intact Stoma: pink and viable Ext: neg C/C/E 04/21 Abd:soft,nt,nd Stoma: pink and viable Stents in place Wound: clean and dry Ext:neg C/C/E 04/22 Abd:soft,nt,nd Stoma: pink and viable Stents in place Wound: clean and dry Ext:neg C/C/E 04/23 Abd:soft,nt,nd Stoma: pink and viable Stents in place Wound: clean and dry Ext:neg C/C/E 04/24 Abd:soft,nt,nd Stoma: pink and viable Stents in place Wound: clean and dry Ext:neg C/C/E 04/25 Abd:soft,nt,nd Stoma:pink and viable Stents in place Wound: clean and dry Leakage from prior central line site is noted Ext: neg C/C/E 04/28 Abd:soft,nt,nd Drain tube removed-red rubber Stents in place and will remove one tomorrow Wound: Clean and dry Ext: neg C/C/E 04/29 Abd:soft,nt,nd One JJ stent removed today Wound: C&D Left UE DVT 04/30 Abd:soft,nt,nd Remaining stent removed Left UE DVT Urine clear 05/01 Abd:soft,nd, tender with palpation Stoma with clear urine Wound: clean and dry 05/02 Abd:soft,nt,nd Stoma: pink and viable;'Urine clear Ext: RUE DVT Wound: C&D 1022 05/02 Abd:soft,nt,nd Stoma: pink and viable;'Urine clear Ext: RUE DVT Wound: C&D 05/06 Abd:soft,nt,nd Stoma: pink and viable 05/07 Abd:soft,nt,nd Stoma: pink and viable 05/08 Abd:soft,nt,nd Stoma: pink and viable 05/08 Abd:soft,nt,nd Stoma: pink and viable Kira removed. Assessment and Plan - Plan Stable s/p radical cystectomy with ileal conduit OOB to chair Start TPN 10 Stable s/p radical cystectomy with ileal conduit Continue TPN OOB to chair NGT to gravity drainage Encourage incentive sphirometer 04/18 Stable s/p radical cystectomy with ileal conduit POD#3 Continue TPN OOB to chair/ambulate NGT to gravity drainage Will d/c pelvic drain in next day or two as drainage continues to decline 04/19 Stable s/p radical cystectomy with ileal conduit POD#4 OOB to chair Pelvic drain removed Continue NGT to gravity Continue TPN Path noted: T3b 04/20 Stable POD#5 s/p radical cystectomy with ileal conduit OOB today/Ambulate Path reviewed with pt today Will plan to remove NGT this Saturday and start clear liquids Continue TPN 04/21 Stable POD#6 s/p radical cystectomy with ileal conduit NGT removed; ice chips today OOB Continue TPN 04/22 Stable POD#7 s/p radical cystectomy with ileal conduit 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 Will start PO pain meds. OOB Continue TPN 04/23 Stable POD#8 s/p radical cystectomy with ileal conduit Regular diet OOB Ween off TPN 04/24 Stable POD#9 s/p radical cystectomy with ileal conduit OOB/Ambulate Off TPN Tolerating Regular diet. 10 Stable POD#10 s/p radical cystectomy with ileal conduit OOB/Ambulate Off TPN; calorie count, ? PPN; nutrition evaluation Tolerating Regular diet. 10 Stable POD#13 s/p radical cystectomy with ileal conduit OOB/Ambulate Off TPN; calorie count, ? PPN; nutrition evaluation Tolerating Regular diet some Continue abx for C. Diff 04/29 Stable s/p radical cystectomy with ileal conduit POD#14 Pt with extensive left UE DVT Continue Lovenox Poor intake Oncology input appreciated. 04/30 Stable s/p radical cystectomy with ileal conduit POD#!5 OOB/Ambulate Encourage PO intake and ambulation 05/01 Stable s/p radical cystectomy with ileal conduit POD#16 Continue with aggressive rehab Ween pain medications Encourage PO intake 05/02 Stable s/p radical cystectomy with ileal conduit POD#17 Continue current Rx. 05/05 Stable s/p radical cystectomy with ileal conduit POD#20 Recommend transfer to SNF 05/06 Stable s/p radical cystectomy with ileal conduit POD#21 Recommend transfer to SNF if possible, if not, home soon. 05/07 Stable s/p radical cystectomy with ileal conduit POD#22 Recommend transfer to SNF if possible, if not, home soon. Pt wishes to change to Coumadin therapy for Lovenox injections 05/07 Stable s/p radical cystectomy with ileal conduit POD#23 D/C home when stable and cleared by PT 05/08 Stable s/p radical cystectomy with ileal conduit POD#24 D/C home F/U in office in 2 weeks
[2018-05-09 08:58] VITALS: RESP 14
[2018-05-09] MEDS: Docusate Sodium Liq 100 MG/10 ML UDC NG/OG SCH (10:12)
[2018-05-09] MEDS: Gabapentin 300 MG Capsule PO SCH (10:12)
[2018-05-09] MEDS: oxyCODONE HCL 40 MG Controlled Release Tablet PO SCH (10:12)
[2018-05-09] MEDS: Sodium Chloride 0.9% 2 ML Flush BID IV.FLUSH SCH (10:13)
[2018-05-09] MEDS: Sennosides Liq 8.8 MG/5 ML UDC NG/OG SCH (10:13)
--- NOTE | 2018-05-09 10:14 | P.DCO ---
- Physical Therapy Order: Evaluate and treat, Improve ambulation, Strength and gait training - Home Health Nursing Order: Medical education, Signs/symptoms of disease process, Medication education-adverse effect, Wound care and dressing changes (NEW ILEOSTOMY AND HELP WITH CARE AND SUPPLIES), Nursing assessment with vital signs - Case Management Consult Yes - Certification I have seen patient Marc Herr on 05/09/18. My clinical findings support the need for the requested home health care services because: Limited mobility due to disease progression, Deconditioned with increased weakness, Medication compliance is questionable, Limited ability to care for self, Need for psychosocial assistance, Impaired cognition/judgement I certify that my clinical findings support that this patient is homebound because: Post-op weakness, Impaired cognitive ability/safety, Unsteady gait/balance, Need for psychosocial assistance
[2018-05-09 13:05] VITALS: BP 108/57; PULSE 75; TEMP 98.3
--- NOTE | 2018-05-09 15:04 | P.PNIM ---
Subjective Interval history: 05-04 Follow-up bladder cancer status post radical cystectomy, as we know he has Chronic pain syndrome, Depression Anxiety disorder, COPD/Pulmonary Nodule, Severe protein calorie malnutrition. 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 had status post blood transfusion in OR 05/04: Stable in his bedroom, no nausea, vomit or diarrhea. as per help desk support specialist Urothelial Cell carcinoma of the bladder, pending recovery status, will need post op chemo and radiation for positive margins treatment, had Neoadjuvant chemotherapy with Cisplatin/gemcitabine followed by radical cystoprostatectomy with lymph node sampling. 05-05 SP RADICAL CYSTECTOMY WITH ILEAL CONDUIT POD #20 DOES NOT HAVE SNF BENEFITS WILL NEED TO GO HOME AFTER DISCHARGE NOT MOVING MUCH STATES STOOL IS NOT DIARRHEA ANYMORE PATIENT HAS CHRONIC PAIN AND BLADDER CANCER A.m. labs Continue on vancomycin orally increased to 250 mg p.o. 4 times daily will need for at least 21 days 05-06 NOT VERY MOBILE HAS HYPOTHYROIDISM STARTED ON SYNTHROID TODAY AM LABS DW UROLOGY INCREASE ACTIVITY WILL HAVE TO GO HOME AT DC START MARINOL 05-07 moved with PT AND OT INCREASE ACTIVITY DOES NOT WANT LOVENOX WILL START ELIQUIS 5MG BID AM LABS INCREASE ACTIVITY DC PLANNING IN A FEW DAYS DW RN AND PT AND CM REFUSED LOVENOX 05-08 MEDS ADJUSTED BY PALLIATIVE CARE AND MYSELF HOPEFULLY HOME TOMORROW WILL NEED CM FOR HELP WITH DC GUERO RN AND PT AND CM 05-09 CLEARED BY ALL FOR DC DC TO HOME TODAY FOLLOW UP WITH ONCOLOGY AND UROLOGY AND PCP Physical Exam Vital signs: Vital Signs 05/08/18 16:00 05/08/18 20:00 05/09/18 00:00 Temperature 97.9 F 98.4 F 98.4 F Pulse Rate 79 69 69 Respiratory Rate 18 17 17 Blood Pressure 132/65 155/70 H 132/62 Pulse Oximetry 97 98 97 05/09/18 08:00 05/09/18 12:00 Temperature 98.1 F 98.3 F Pulse Rate 61 75 Respiratory Rate 14 14 Blood Pressure 143/63 H 108/57 L Pulse Oximetry 97 97 Intake & Output 05/08/18 05/09/18 05/09/18 18:59 06:59 18:59 Intake Total 760 / 760 38.5 / 38.5 Output Total 1300 / 1300 1600 / 1600 Balance -540 / -540 -1561.5 / -1561.5 Weight 46.4 kg Intake: IV 38.5 / 38.5 Sodium Chloride 23.4% Inj 154 38.5 / 38.5 MEQ In D10W Inj 1,000 ML @ 50 mls/hr IV.CONT .[id number] [facility] Rx# :[id number] Oral 760 / 760 Output: Urine 1000 / 1000 1600 / 1600 Urine Amount (Catheter) 300 / 300 Right ileal conduit 300 / 300 Other: Date of Last Bowel Movement 05/07/18 05/08/18 # Bowel Movements 1 1 Narrative: Awake alert and oriented x3 talkative and cooperative appears quite cachectic and thin GENERAL: NAD Head normocephalic atraumatic Eyes PERRLA EOMI no scleral icterus Tongue is midline no JVD Neck is supple no obvious thyromegaly CARDIOVASCULAR: Regular rate and rhythm without murmurs, gallops, or rubs. RESPIRATORY: Clear to auscultation. Breath sounds equal bilaterally. No wheezes , rales, or rhonchi. GASTROINTESTINAL: Abdomen soft, clean surgical wound. Significant tenderness to palpation. Urostomy in place MUSCULOSKELETAL: Extremities without clubbing, cyanosis, or edema. NEURO: Alert & Oriented x4 to person, place, time, situation. Moves all ext x4 Insight and judgment is good. mood and behavior is appropriate - Urinary Catheter Management Indwelling Urethral Catheter Cath placed during this visit: yes, but has since been removed by the nurse Reason for continuing: Not indwelling catheter Insertion date: 04/15/18 Insertion time: 14:20 Removal date: 04/15/18 Removal time: 13:08 Right ileal conduit Cath placed during this visit: yes Reason for continuing: Not indwelling catheter Insertion date: 04/15/18 Results - Labs CBC & Chem 7: 05/09/18 05:34 05/09/18 05:34 Laboratory Results - last 24 hr 05/09/18 05/09/18 05:34 05:34 WBC 5.9 RBC 3.76 L Hgb 10.2 L Hct 32.2 L MCV 85.7 MCH 27.2 MCHC 31.7 L RDW 18.1 H Plt Count 351 MPV 8.7 Neut % (Auto) 64.9 Lymph % (Auto) 20.1 [place] % (Auto) 9.1 H Eos % (Auto) 4.9 H Baso % (Auto) 1.0 Neut # (Auto) 3.9 Lymph # (Auto) 1.2 [place] # (Auto) 0.5 Eos # (Auto) 0.3 Baso # (Auto) 0.1 WBC Differential . Differential Comment Auto diff final Sodium 140 Potassium 4.8 Chloride 103 Carbon Dioxide 28.1 Anion Gap 9 BUN 17 Creatinine 0.69 Estimated GFR Greater than 89 Random Glucose 64 L Calcium 9.4 Phosphorus 5.4 H Magnesium 2.6 H Total Bilirubin 0.2 AST 30 ALT 33 Alkaline Phosphatase 116 Total Protein 7.2 D Albumin 2.5 L - Imaging ITS Impressions Abdomen X-Ray 04/18/18 00:00 CONCLUSION: Compared to the study of 04/15/2018 with slight increase the amount of bowel distention. Stents and drain appear to remain in good position. Chest X-Ray 04/25/18 00:00 CONCLUSION: Right apical pleural parenchymal change again noted which appears mildly increased from the prior study. There is volume loss and mediastinal shift to the right. Venous Doppler Study 04/28/18 00:00 CONCLUSION: 1. Extensive deep venous thrombosis. - Procedures Status post radical cystectomy with ileal conduit Assessment and Plan - Assessment (1) Bladder cancer Code(s): C67.9 - Malignant neoplasm of bladder, unspecified Status: Acute - Plan 62-year-old man with Invasive bladder cancer -05/04: Urothelial Cell carcinoma of the bladder, pending recovery status, will need post op chemo and radiation for positive margins treatment, had Neoadjuvant chemotherapy with Cisplatin/gemcitabine followed by radical cystoprostatectomy with lymph node sampling. - Patient has poor performance status at this time Anemia acute blood loss anemia status post blood transfusion 3 units of PRBCs. in OR Chronic pain syndrome -continue pain management. Will need help with pain medications at discharge Deconditioning-has decreased performance status at this time Depression Loss of appetite -PT to see patient 7 days a week -Mirtazapine 15mg QHS for depression and as an appetite stimulant. Left upper ext DVT -Currently on Lovenox 50mg Q12hrs. -- SWITCH TO ELIQUIS 5MG PO BID SUSPECT DUE TO HYPERCOAGUABLE STATE DUE OT CANCER COPD Pulmonary nodule -Lung biopsy 2017 revealed inflammatory changes no malignancy -Continue albuterol nebulizer treatments, keep oxygen saturation above 92%. Hypokalemia - resolved. C. Diff colitis -Vancomycin PO 250mg QID X 20 days. -Diarrhea improving. HYPOTHYROIDISM- SYNTHROID 50MCG PO DAILY POOR APPETITE START [place] MEDICAL NONCOMPLIANCE-REFUSING MEDICATIONS AND TREATMENTS WHILE IN THE HOSPITAL NEEDS PT AND OT DAILY AM LABS INCREASE ACTIVITY Full code. DC TO HOME TODAY Code Status: FULL CODE Discussed Condition With: RN AND PT AND CM Discharge Planning: HOME TODAY
--- NOTE | 2018-05-09 15:23 | P.DS ---
Date of admission: 04/15/18 06:09 Primary care physician: No Primary Care Physician Attending physician on discharge: Mustapha Means Anticipated date of discharge: 05/09/18 Brief History from admission: This 62-year-old gentleman underwent cystectomy and ileal conduit construction earlier today. Preoperative CAT scan of the chest and bone marrow scan was negative for metastatic disease. He has a large barrel chest and obvious long- term respiratory problems. The procedure went well and he is normotensive on arrival. He is a present breathing comfortably moving air well. He required 3 units of blood transfusion perioperatively, largely because of an anemia preop. His past medical history is relatively uncomplicated aside from his marginal nutritional status. His only prior surgery is to have the tumor biopsied on a previous cystoscopy. He has been on oral morphine 3 times a day for considerable period of time and it is anticipated that he will be tolerant to pain medicine. For this reason we will use a basal continuous rate of fentanyl to help control his postoperative pain. Patient update on day of discharge: This 62-year-old gentleman underwent cystectomy and ileal conduit construction earlier today. Preoperative CAT scan of the chest and bone marrow scan was negative for metastatic disease. He has a large barrel chest and obvious long- term respiratory problems. The procedure went well and he is normotensive on arrival. He is a present breathing comfortably moving air well. He required 3 units of blood transfusion perioperatively, largely because of an anemia preop. His past medical history is relatively uncomplicated aside from his marginal nutritional status. His only prior surgery is to have the tumor biopsied on a previous cystoscopy. He has been on oral morphine 3 times a day for considerable period of time and it is anticipated that he will be tolerant to pain medicine. For this reason we will use a basal continuous rate of fentanyl to help control his postoperative pain. 05-04 Follow-up bladder cancer status post radical cystectomy, as we know he has Chronic pain syndrome, Depression Anxiety disorder, COPD/Pulmonary Nodule, Severe protein calorie malnutrition. 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 had status post blood transfusion in OR 05/04: Stable in his bedroom, no nausea, vomit or diarrhea. as per transcription specialist Urothelial Cell carcinoma of the bladder, pending recovery status, will need post op chemo and radiation for positive margins treatment, had Neoadjuvant chemotherapy with Cisplatin/gemcitabine followed by radical cystoprostatectomy with lymph node sampling. 10-22 SP RADICAL CYSTECTOMY WITH ILEAL CONDUIT POD #20 DOES NOT HAVE SNF BENEFITS WILL NEED TO GO HOME AFTER DISCHARGE NOT MOVING MUCH STATES STOOL IS NOT DIARRHEA ANYMORE PATIENT HAS CHRONIC PAIN AND BLADDER CANCER A.m. labs Continue on vancomycin orally increased to 250 mg p.o. 4 times daily will need for at least 21 days 05-06 NOT VERY MOBILE HAS HYPOTHYROIDISM STARTED ON SYNTHROID TODAY AM LABS DW UROLOGY INCREASE ACTIVITY WILL HAVE TO GO HOME AT DC START MARINOL 05-07 moved with PT AND OT INCREASE ACTIVITY DOES NOT WANT LOVENOX WILL START ELIQUIS 5MG BID AM LABS INCREASE ACTIVITY DC PLANNING IN A FEW DAYS DW RN AND PT AND CM REFUSED LOVENOX 05-08 MEDS ADJUSTED BY PALLIATIVE CARE AND MYSELF HOPEFULLY HOME TOMORROW WILL NEED CM FOR HELP WITH DC DW RN AND PT AND CM 05-09 CLEARED BY ALL FOR DC DC TO HOME TODAY FOLLOW UP WITH ONCOLOGY AND UROLOGY AND PCP DS: Diagnosis - Discharge Diagnosis (1) Bladder cancer Status: Acute (2) Noncompliance Status: Chronic (3) Cachexia Status: Chronic (4) COPD (chronic obstructive pulmonary disease) Status: Chronic (5) Chronic pain Status: Chronic (6) Depression Status: Chronic (7) Asthma Status: Chronic (8) Lung mass Status: Chronic DS: Medications - Discharge Medications Prescriptions: apixaban [Eliquis] 5 mg PO BID #60 tab dronabinol 5 mg PO BID@1100,1600 #60 cap gabapentin 300 mg PO BID #60 cap levothyroxine [Synthroid] 50 mcg PO DAILY@0600 #30 tab mirtazapine 15 mg PO HS #30 tab ondansetron [Zofran ODT] 4 mg PO Q6-8H PRN #30 tab PRN Reason: Nausea oxycodone [OxyContin] 40 mg PO Q12HR #60 tab oxycodone-acetaminophen 1 tab PO Q4H PRN #60 tab PRN Reason: Pain pantoprazole [Protonix] 40 mg PO DAILY #30 tab sennosides-docusate sodium [Lax Stool Softener With Senna] 2 tab PO BID PRN # 120 tab PRN Reason: Constipation vancomycin 250 mg PO QID #120 ea DS: Summary Hospital Course: This 62-year-old gentleman underwent cystectomy and ileal conduit construction earlier today. Preoperative CAT scan of the chest and bone marrow scan was negative for metastatic disease. He has a large barrel chest and obvious long- term respiratory problems. The procedure went well and he is normotensive on arrival. He is a present breathing comfortably moving air well. He required 3 units of blood transfusion perioperatively, largely because of an anemia preop. His past medical history is relatively uncomplicated aside from his marginal nutritional status. His only prior surgery is to have the tumor biopsied on a previous cystoscopy. He has been on oral morphine 3 times a day for considerable period of time and it is anticipated that he will be tolerant to pain medicine. For this reason we will use a basal continuous rate of fentanyl to help control his postoperative pain. 05-04 Follow-up bladder cancer status post radical cystectomy, as we know he has Chronic pain syndrome, Depression Anxiety disorder, COPD/Pulmonary Nodule, Severe protein calorie malnutrition. 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 had status post blood transfusion in OR 05/04: Stable in his bedroom, no nausea, vomit or diarrhea. as per transcription specialist Urothelial Cell carcinoma of the bladder, pending recovery status, will need post op chemo and radiation for positive margins treatment, had Neoadjuvant chemotherapy with Cisplatin/gemcitabine followed by radical cystoprostatectomy with lymph node sampling. 05-05 SP RADICAL CYSTECTOMY WITH ILEAL CONDUIT POD #20 DOES NOT HAVE SNF BENEFITS WILL NEED TO GO HOME AFTER DISCHARGE NOT MOVING MUCH STATES STOOL IS NOT DIARRHEA ANYMORE PATIENT HAS CHRONIC PAIN AND BLADDER CANCER A.m. labs Continue on vancomycin orally increased to 250 mg p.o. 4 times daily will need for at least 21 days 05-06 NOT VERY MOBILE HAS HYPOTHYROIDISM STARTED ON SYNTHROID TODAY AM LABS DW UROLOGY INCREASE ACTIVITY WILL HAVE TO GO HOME AT DC START MARINOL 05-07 moved with PT AND OT INCREASE ACTIVITY DOES NOT WANT LOVENOX WILL START ELIQUIS 5MG BID AM LABS INCREASE ACTIVITY DC PLANNING IN A FEW DAYS GUERO RN AND PT AND CM REFUSED LOVENOX 05-08 MEDS ADJUSTED BY PALLIATIVE CARE AND MYSELF HOPEFULLY HOME TOMORROW WILL NEED CM FOR HELP WITH DC GUERO RN AND PT AND CM 05-09 CLEARED BY ALL FOR DC DC TO HOME TODAY FOLLOW UP WITH ONCOLOGY AND UROLOGY AND PCP E-FORCSE Prescription Drug Monitoring Database has been queried and verified prior to prescribing the controlled substance. Acute pain exception. This patient has normal, predicted, physiological, and time limited response to an adverse mechanical stimulus associated with surgery, trauma, or acute illness as described in my notes. There is a lack of alternative treatment options other than to include the prescribed narcotic treatment for this condition. checked before RX WRITTEN - Time Spent with Patient Total time spent providing and/or coordinating discharge services: Greater than 30 minutes - Quality: VTE Deep Vein Thrombosis/Pulmonary Embolism Present on Admission: No Exam Vital signs: Vital Signs 05/08/18 16:00 05/08/18 20:00 05/09/18 00:00 Temperature 97.9 F 98.4 F 98.4 F Pulse Rate 79 69 69 Respiratory Rate 18 17 17 Blood Pressure 132/65 155/70 H 132/62 Pulse Oximetry 97 98 97 05/09/18 08:00 05/09/18 12:00 Temperature 98.1 F 98.3 F Pulse Rate 61 75 Respiratory Rate 14 14 Blood Pressure 143/63 H 108/57 L Pulse Oximetry 97 97 Intake & Output 05/08/18 05/09/18 05/09/18 18:59 06:59 18:59 Intake Total 760 / 760 38.5 / 38.5 Output Total 1300 / 1300 1600 / 1600 Balance -540 / -540 -1561.5 / -1561.5 Weight 46.4 kg Intake: IV 38.5 / 38.5 Sodium Chloride 23.4% Inj 154 38.5 / 38.5 MEQ In D10W Inj 1,000 ML @ 50 mls/hr IV.CONT .[id number] [facility] Rx# :[id number] Oral 760 / 760 Output: Urine 1000 / 1000 1600 / 1600 Urine Amount (Catheter) 300 / 300 Right ileal conduit 300 / 300 Other: Date of Last Bowel Movement 05/07/18 05/08/18 # Bowel Movements 1 1 Narrative: Awake alert and oriented x3 talkative and cooperative appears quite cachectic and thin GENERAL: NAD Head normocephalic atraumatic Eyes PERRLA EOMI no scleral icterus Tongue is midline no JVD Neck is supple no obvious thyromegaly CARDIOVASCULAR: Regular rate and rhythm without murmurs, gallops, or rubs. RESPIRATORY: Clear to auscultation. Breath sounds equal bilaterally. No wheezes , rales, or rhonchi. GASTROINTESTINAL: Abdomen soft, clean surgical wound. Significant tenderness to palpation. Urostomy in place MUSCULOSKELETAL: Extremities without clubbing, cyanosis, or edema. NEURO: Alert & Oriented x4 to person, place, time, situation. Moves all ext x4 Insight and judgment is good. mood and behavior is appropriate Results Procedures completed during hospitalization: Status post radical cystectomy with ileal conduit Completed studies during hospitalization: Pending at discharge 04/15/18 11:04 Surgical [PTH] Stat Labs on day of discharge: Labs from last 24 hours 05/09/18 05/09/18 05:34 05:34 WBC 5.9 RBC 3.76 L Hgb 10.2 L Hct 32.2 L MCV 85.7 MCH 27.2 MCHC 31.7 L RDW 18.1 H Plt Count 351 MPV 8.7 Neut % (Auto) 64.9 Lymph % (Auto) 20.1 [place] % (Auto) 9.1 H Eos % (Auto) 4.9 H Baso % (Auto) 1.0 Neut # (Auto) 3.9 Lymph # (Auto) 1.2 [place] # (Auto) 0.5 Eos # (Auto) 0.3 Baso # (Auto) 0.1 WBC Differential . Differential Comment Auto diff final Sodium 140 Potassium 4.8 Chloride 103 Carbon Dioxide 28.1 Anion Gap 9 BUN 17 Creatinine 0.69 Estimated GFR Greater than 89 Random Glucose 64 L Calcium 9.4 Phosphorus 5.4 H Magnesium 2.6 H Total Bilirubin 0.2 AST 30 ALT 33 Alkaline Phosphatase 116 Total Protein 7.2 D Albumin 2.5 L - Impressions ITS Impressions Abdomen X-Ray 04/18/18 00:00 CONCLUSION: Compared to the study of 04/15/2018 with slight increase the amount of bowel distention. Stents and drain appear to remain in good position. Chest X-Ray 04/25/18 00:00 CONCLUSION: Right apical pleural parenchymal change again noted which appears mildly increased from the prior study. There is volume loss and mediastinal shift to the right. Venous Doppler Study 04/28/18 00:00 CONCLUSION: 1. Extensive deep venous thrombosis. Discharge Plan - Discharge Disposition Patient Disposition: W/Home Health Service - Discharge Condition Condition: Good - Discharge Order Discharge Orders: Discharge Order (Routine); Ordered 05/09/18 Ordered By: Mustapha Means - Discharge Details Anticipated Discharge Date: 05/09/18 Discharge Comment: DC TO HOME WITH [facility] - Physicians Team Primary Care Provider: Primary Care Physici,No Attending Provider: Mustapha Means Other Providers: Ridge Lopez MD ; Ximena Reza MD ; Alexey Mathews MD - Rxs /Orders / Referrals /Forms Prescriptions: New apixaban [Eliquis] 5 mg Tablet 5 mg PO BID Qty: 60 RF: 0 dronabinol 5 mg Capsule 5 mg PO BID@1100,1600 Qty: 60 RF: 0 levothyroxine [Synthroid] 50 mcg Tablet 50 mcg PO DAILY@0600 Qty: 30 RF: 0 mirtazapine 15 mg Tablet 15 mg PO HS Qty: 30 RF: 0 oxycodone [OxyContin] 40 mg Tablet,Oral Only,Ext.Rel.12 Hr 40 mg PO Q12HR Qty: 60 RF: 0 oxycodone-acetaminophen 10-325 mg Tablet 1 tab PO Q4H PRN (Reason: Pain) Qty: 60 RF: 0 pantoprazole [Protonix] 40 mg Tablet,Delayed Release (Dr/Ec) 40 mg PO DAILY Qty: 30 RF: 0 sennosides-docusate sodium [Lax Stool Softener With Senna] 8.6-50 mg Tablet 2 tab PO BID PRN (Reason: Constipation) Qty: 120 RF: 0 vancomycin 500 mg Recon Soln 250 mg PO QID Qty: 120 RF: 0 Continue gabapentin 300 mg Capsule 300 mg PO BID Qty: 60 ondansetron [Zofran ODT] 4 mg Tablet,Disintegrating 4 mg PO Q6-8H PRN (Reason: Nausea) Qty: 30 Discontinued hydrocodone-acetaminophen 10-325 mg Tablet 1 tab PO Q4-6H PRN (Reason: Pain) morphine 30 mg Tablet Extended Release 30 mg PO Q8H Referrals: Primary Care Melissa Brito [Primary Care Provider] - See Instructions (2 TO 3 DAYS) Jose Degroot DO [UROLOGY] - See Instructions (1 TO 2 WEEKS) Alexey Mathews MD [Physician] - See Instructions (1 WEEK) - Discharge Instructions Patient Printed Instructions: Hydrocodone/Acetaminophen (By mouth), Cystectomy with Ileal Conduit (DC)
--- NOTE | 2018-05-09 16:28 | P.PNWCN ---
Wound Care Nurse Consult Description: Patient seen for follow up of ostomy teaching and care Communicated with: [facility] [address] [place] [address] and patient Recommendation: Please monitor for urine output, stoma appearance and color. Change urostomy appliance if leaking occurs. Do not reinforce with tape, please change. Patient given extra supplies to go home with. Urinary Diversion - Urinary Stoma Ileal Conduit Stent(s) Present: No Stoma Edema: No Stoma Diameter: 22 (mm) Stoma Appearance: Beefy Red, Pale, Protruding, Round Collection Device: Two-piece, Moldable Wafer Wafer Size: 1 3/4 Moldable 45mm Stoma Care: Pouch and Wafer Changed, Skin Care Loni-Stomal Skin Appearance: Intact, Moist - Additional Information Patient seen on [address] [place] [address] for follow up teaching and urostomy care. Patient laying in bed, to weak to stand for urostomy appliance change Removed appliance in place to reveal red, protruding ilial conduit stoma. Peristomal skin is intact.Yellow colored urine is emptying into bedside drainage bag. Patient reports urostomy appliance has not been changed since 05/01/2018.Old appliance was intact without leaks. Instructed patient that urostomy appliance should be changed every 3 to 5 days, 5 days at the most, or as needed if leaking. Patient seems uninterested in applying his own urostomy appliance. Applied giorgio seal for leaks to peristomal skin and then applied urostomy two piece 1 [address]. Removed [address] to midline incision per order from Doctor Degroot. Steri strips were then applied. Patient needs continued urostomy support and teaching at home.
== END 2018-05-09 17:48 | disposition home health service (06) ==
LOC: HSDI 06:09 → N03 16:13 → N07 04-25 10:35
PROVIDERS: ADMIT Hospitalist; ATTEND Hospitalist

== ENCOUNTER 2018-07-16 11:59 | Inpatient (IN) ==
[2018-07-16] MEDS ORDERED: Sod Chloride 0.9% Inj 1,000 ML IV.SIG ONE (14:00)
[2018-07-16] MEDS ORDERED: HYDROmorphone PF Inj 2 MG/ML Vial IV.PUSH ONE (14:00)
--- NOTE | 2018-07-16 14:01 | ED ---
HPI General Chief complaint: Abdominal Pain Stated complaint: abd pain Time Seen by Provider: 07/16/18 13:56 History of Present Illness HPI narrative: 62-year-old male with history of bladder carcinoma status post surgical resection, chemotherapy, presents for evaluation of worsening lower abdominal pain. He reports over the past few weeks he has had gradually worsening severe lower abdominal pain which is unrelieved with his prescribed morphine and oxycodone acetaminophen tablets. He reports that he has had an approximately 6 pound weight loss over the past 2 weeks as well as lack of appetite, nausea, fatigue, malaise. The patient was seen by his radiation oncologist Dr. Tepmle on July 10 and he was given a prescription for prednisone and told to increase his morphine to 60 mg twice daily which has not been helping. He had outpatient orders for CT of the abdomen pelvis, PET scan, CBC, CMP and urinalysis however because his pain was worsening he called Dr. Temple's office and was referred to the emergency room for further evaluation. He reports that his oncologist is Dr. Mathews. He has no other complaints at this time. Related Data Home Medications Medication Instructions Recorded Confirmed morphine 30 mg PO DAILY 07/16/18 07/16/18 Previous Rx's Medication Instructions Recorded dronabinol 5 mg PO BID@1100,1600 #60 cap 05/09/18 levothyroxine [Synthroid] 50 mcg PO DAILY@0600 #30 tab 05/09/18 ondansetron [Zofran ODT] 4 mg PO Q6-8H PRN #30 tab 05/09/18 oxycodone-acetaminophen 1 tab PO Q4H PRN #60 tab 05/09/18 sennosides-docusate sodium [Lax 2 tab PO BID PRN #120 tab 05/09/18 Stool Softener With Senna] Allergies Allergy/AdvReac Type Severity Reaction Status Date / Time No Known Allergies Allergy Verified 07/16/18 14:00 Review of Systems ROS: all other systems reviewed are negative [facility] Social History Social History Substance History: No History of Abuse Second Hand Smoke Exposure: No Smoking Status: Current some day smoker Tobacco Type: Cigarettes How Often Do You Have a Drink Containing Alcohol: Never Recent Travel in [facility] within the Last 8 Weeks: No Recent Out of Country Travel within the Last 8 Weeks: No Immunization History Tetanus Immunization: >5 Years Exam Narrative Exam Narrative: GENERAL: This is a thin chronically ill-appearing male who appears uncomfortable on initial examination. SKIN: Warm and dry. HEAD: Atraumatic. Normocephalic. EYES: Pupils equal and round. No scleral icterus. No injection or drainage. ENT: No nasal bleeding or discharge. Mucous membranes pink and moist. NECK: Trachea midline. No JVD. CARDIOVASCULAR: Regular rate and rhythm. No murmur appreciated. RESPIRATORY: No accessory muscle use. Clear to auscultation. Breath sounds equal bilaterally. GASTROINTESTINAL: Abdomen tender to palpation in the lower quadrants. Ileal stoma is in place with yellow urine in the bag. MUSCULOSKELETAL: No obvious deformities. No clubbing. No cyanosis. No edema. NEUROLOGICAL: Awake and alert. No obvious cranial nerve deficits. Motor grossly within normal limits. Normal speech. Course Initial Documented Vital Signs Temperature 98.2 F 07/16/18 12:32 Pulse Rate 80 07/16/18 12:32 Respiratory Rate 21 07/16/18 12:32 Blood Pressure 130/77 07/16/18 12:32 Pulse Oximetry 98 07/16/18 12:32 Last Documented Vital Signs Temperature 98.2 F 07/16/18 12:32 Pulse Rate 76 07/16/18 14:24 Respiratory Rate 18 07/16/18 14:24 Blood Pressure 144/88 H 07/16/18 14:24 Pulse Oximetry 100 07/16/18 14:24 Medical Decision Making ANAID Attestation ANAID supervised visit: Yes Attestation: I, Dr. Reich, have reviewed the advance practice practitioner' s documentation and am in agreement, met with the patient face to face, made the diagnosis, and the medical decision making was done by me. *My assessment and Findings: The patient is a 62-year-old male with a history of bladder cancer. The patient had a procedure performed by his urologist, Dr. Degroot, however, there were not clean margins with the surgical management. The patient has been followed by his medical oncologist, Dr. Mathews , as well as his radiation oncologist, Dr. Temple. The patient states he is not currently receiving chemotherapy or radiation therapy. The patient last saw his medical oncologist last week, has had progressing pain which she describes as "everywhere ", but mostly in the lower aspect of the abdomen. The patient does have a urostomy. The patient denies any chest pain or shortness of breath but does note increasing abdominal pain. Abdominal exam does reveal urostomy in the right lower aspect of the abdomen, well-healed midline surgical scar, and suprapubic and left lower quadrant tenderness. The patient was scheduled to have an outpatient CT of the abdomen and pelvis as well as a PET scan today, CT of the abdomen and pelvis was ordered. The patient was administered IV fluids, Dilaudid, and antiemetics. A call was placed to the patient's medical oncologist and his differential includes progressing cancer, perforation, UTI, and hypercalcemia. [facility] Narrative Medical decision making narrative: The patient was placed on ECG monitoring pulse oximetry. An IV was established, lab work was obtained and sent, CT abdomen pelvis ordered. The patient was given IV fluids, Zofran, Dilaudid. The patient's CBC reveals a WBC count of 20.3 with 90% neutrophils. Therefore lactic acid and blood cultures were added on and sent to the lab. The urinalysis reveals positive nitrates, moderate leukocytes, small blood, cultures pending. The patient was given IV Rocephin. CT abdomen pelvis reveals no acute ab normalities. At this point time the plan is to admit the patient for intractable pain, UTI, leukocytosis, I did also discuss with his oncologist Dr. Mathews. I discussed with Dr. Cuenca who is agreeable with admission. Medical Screen Exam Complete: Yes Emergency Medical Condition: Yes Differential Diagnosis Differential Diagnosis: Progressive metastatic disease versus hypercalcemia versus intractable pain versus urinary tract infection versus colitis Lab Data Result diagrams: 07/16/18 14:15 07/16/18 14:15 Lab Results 07/16/18 07/16/18 07/16/18 Range/Units 14:15 14:15 14:15 WBC 20.3 H (4.0-11.0) th/mm3 RBC 4.78 (4.50-5.90) mil/mm3 Hgb 13.4 (13.0-17.0) gm/dL Hct 40.5 (39.0-51.0) % MCV 84.6 (80.0-100.0) fL MCH 28.0 (27.0-34.0) pg MCHC 33.1 (32.0-36.0) % RDW 16.9 (11.6-17.2) % Plt Count 271 (150-450) th/mm3 MPV 8.4 (7.0-11.0) fL Neut % (Auto) 90.4 H (16.0-70.0) % Lymph % (Auto) 5.4 L (9.0-44.0) % Blaine % (Auto) 3.7 (0.0-8.0) % Eos % (Auto) 0.1 (0.0-4.0) % Baso % (Auto) 0.4 (0.0-2.0) % Neut # (Auto) 18.3 H (1.8-7.7) th/mm3 Lymph # (Auto) 1.1 (1.0-4.8) th/mm3 Blaine # (Auto) 0.7 (0.0-0.9) th/mm3 Eos # (Auto) 0.0 (0.0-0.4) th/mm3 Baso # (Auto) 0.1 (0.0-0.2) th/mm3 WBC Differential . Differential Comment Auto diff final PT 10.5 (9.8-11.6) sec INR 1.0 Ratio APTT 31.3 (23.4-31.7) sec Sodium 139 (136-145) meq/L Potassium 4.2 (3.5-5.1) meq/L Chloride 108 H (98-107) meq/L Carbon Dioxide 27.7 (21.0-32.0) meq/L Anion Gap 3 L (5-15) meq/L BUN 23 H (7-18) mg/dL Creatinine 0.67 (0.60-1.30) mg/dL Estimated GFR Greater than 89 (>89) mL/min Random Glucose 110 H (74-106) mg/dL Lactic Acid (0.4-2.0) mmol/L Calcium 9.2 (8.5-10.1) mg/dL Magnesium 2.4 (1.5-2.5) mg/dL Total Bilirubin 0.3 (0.2-1.0) mg/dL AST 9 L (15-37) U/L ALT 11 L (12-78) U/L Alkaline Phosphatase 144 H (45-117) U/L Total Protein 8.4 H (6.4-8.2) g/dL Albumin 3.3 L (3.4-5.0) g/dL Lipase 69 L (73-393) U/L Urine Color (Yellw/Straw) Urine Clarity (Clear) Urine pH (5.0-8.5) Ur Specific Hanna (1.002-1.035) Urine Protein (Neg-Trace) mg/dL Urine Glucose (UA) (Negative) mg/dL Urine Ketones (Negative) mg/dL Urine Occult Blood (Negative) Urine Nitrate (Negative) Urine Bilirubin (Negative) Urine Urobilinogen (Less than 2) mg/dL Ur Leukocyte Esterase (Negative) Urine RBC (0-3) /hpf Urine WBC (0-5) /hpf Urine Bacteria (None) /hpf Urine Mucus (Occasional) /lpf Micro UA Comment Ur Microscopic Review Urine Culture Comments 07/16/18 07/16/18 Range/Units 14:15 14:40 WBC (4.0-11.0) th/mm3 RBC (4.50-5.90) mil/mm3 Hgb (13.0-17.0) gm/dL Hct (39.0-51.0) % MCV (80.0-100.0) fL MCH (27.0-34.0) pg MCHC (32.0-36.0) % RDW (11.6-17.2) % Plt Count (150-450) th/mm3 MPV (7.0-11.0) fL Neut % (Auto) (16.0-70.0) % Lymph % (Auto) (9.0-44.0) % Blaine % (Auto) (0.0-8.0) % Eos % (Auto) (0.0-4.0) % Baso % (Auto) (0.0-2.0) % Neut # (Auto) (1.8-7.7) th/mm3 Lymph # (Auto) (1.0-4.8) th/mm3 Blaine # (Auto) (0.0-0.9) th/mm3 Eos # (Auto) (0.0-0.4) th/mm3 Baso # (Auto) (0.0-0.2) th/mm3 WBC Differential Differential Comment PT (9.8-11.6) sec INR Ratio APTT (23.4-31.7) sec Sodium (136-145) meq/L Potassium (3.5-5.1) meq/L Chloride (98-107) meq/L Carbon Dioxide (21.0-32.0) meq/L Anion Gap (5-15) meq/L BUN (7-18) mg/dL Creatinine (0.60-1.30) mg/dL Estimated GFR (>89) mL/min Random Glucose (74-106) mg/dL Lactic Acid 1.8 (0.4-2.0) mmol/L Calcium (8.5-10.1) mg/dL Magnesium (1.5-2.5) mg/dL Total Bilirubin (0.2-1.0) mg/dL AST (15-37) U/L ALT (12-78) U/L Alkaline Phosphatase (45-117) U/L Total Protein (6.4-8.2) g/dL Albumin (3.4-5.0) g/dL Lipase (73-393) U/L Urine Color Yellow (Yellw/Straw) Urine Clarity Hazy H (Clear) Urine pH 6.0 (5.0-8.5) Ur Specific Hanna 1.010 (1.002-1.035) Urine Protein Negative (Neg-Trace) mg/dL Urine Glucose (UA) Negative (Negative) mg/dL Urine Ketones Negative (Negative) mg/dL Urine Occult Blood Small H (Negative) Urine Nitrate Positive H (Negative) Urine Bilirubin Negative (Negative) Urine Urobilinogen Less than 2 (Less than 2) mg/dL Ur Leukocyte Esterase Moderate H (Negative) Urine RBC 2 (0-3) /hpf Urine WBC 15 H (0-5) /hpf Urine Bacteria Many H (None) /hpf Urine Mucus Many H (Occasional) /lpf Micro UA Comment Culture indicated Ur Microscopic Review Not Reportable Urine Culture Comments Culture indicated Imaging Data Radiologist's impression: Abdomen/Pelvis CT 07/16/18 14:00 CONCLUSION: Essentially unremarkable study except for tiny left renal stone. Discharge Plan Discharge Disposition Patient Disposition: ED Admit(ED Internal Use Only) Discharge Condition Condition: Stable Discharge Details Diagnosis: Intractable pain, Leukocytosis, UTI (urinary tract infection) Physicians Team ED Provider: Teddy Reich ED Midlevel Provider: Michael Wallace Primary Care Provider: Primary Care Melissa Brito Rxs /Orders / Referrals /Forms Prescriptions: No Action levothyroxine [Synthroid] 50 mcg Tablet 50 mcg PO DAILY@0600 Qty: 30 RF: 0 sennosides-docusate sodium [Lax Stool Softener With Senna] 8.6-50 mg Tablet 2 tab PO BID PRN (Reason: Constipation) Qty: 120 RF: 0 dronabinol 5 mg Capsule 5 mg PO BID@1100,1600 Qty: 60 RF: 0 oxycodone-acetaminophen 10-325 mg Tablet 1 tab PO Q4H PRN (Reason: Pain) Qty: 60 RF: 0 ondansetron [Zofran ODT] 4 mg Tablet,Disintegrating 4 mg PO Q6-8H PRN (Reason: Nausea) Qty: 30 RF: 0 morphine 30 mg Capsule, Er Multiphase 24 Hr 30 mg PO DAILY RF: 0 Discharge Interventions Interventions: Vital Signs Last Done: 07/16/18 14:24 Status ED Status: Pending Admission
[2018-07-16 14:34] LABS: Bacteria,Urine Many /hpf; Baso # (Auto) 0.1 th/mm3 (0.0-0.2); Baso % (Auto) 0.4 % (0.0-2.0); Bilirubin,Urine Negative (Negative); Clarity,Urine Hazy (Clear); Color,Urine Yellow (Yellw/Straw); Eos % (Auto) 0.1 % (0.0-4.0); Glucose,Urine (UA) Negative (Negative); Hematocrit 40.5 % (39.0-51.0); Hemoglobin 13.4 gm/dL (13.0-17.0); Leukocyte Esterase,Urine Moderate (Negative); Lymph # (Auto) 1.1 th/mm3 (1.0-4.8); Lymph % (Auto) 5.4 % (9.0-44.0); Mean Corpuscular HGB Conc 33.1 % (32.0-36.0); Mean Corpuscular Volume 84.6 fL (80.0-100.0); Mean Platelet Volume 8.4 fL (7.0-11.0); Mono # (Auto) 0.7 th/mm3 (0.0-0.9); Mono % (Auto) 3.7 % (0.0-8.0); Mucus,Urine Many /lpf (Occasional); Neut # (Auto) 18.3 th/mm3 (1.8-7.7); Neut % (Auto) 90.4 % (16.0-70.0); Nitrite,Urine Positive (Negative); Platelet Count 271 th/mm3 (150-450); Red Blood Count 4.78 mil/mm3 (4.50-5.90); Red Cell Distribution Width 16.9 % (11.6-17.2); White Blood Count 20.3 th/mm3 (4.0-11.0)
[2018-07-16 14:43] LABS: Activated Partial Thrombo Time 31.3 sec (23.4-31.7); Prothrombin Time 10.5 sec (9.8-11.6)
[2018-07-16 14:47] LABS: Alanine Aminotransferase 11 U/L (12-78); Albumin 3.3 g/dL (3.4-5.0); Anion Gap 3 meq/L (5-15); Aspartate Aminotransferase 9 U/L (15-37); Blood Urea Nitrogen 23 mg/dL (7-18); Calcium 9.2 mg/dL (8.5-10.1); Carbon Dioxide 27.7 meq/L (21.0-32.0); Chloride 108 meq/L (98-107); Glomerular Filtration Rate Greater Than 89 mL/min (>89); Glucose,Random 110 mg/dL (74-106); Lipase 69 U/L (73-393); Magnesium 2.4 mg/dL (1.5-2.5); Potassium 4.2 meq/L (3.5-5.1); Sodium 139 meq/L (136-145)
[2018-07-16 14:50] LABS: Alkaline Phosphatase 144 U/L (45-117); Total Protein 8.4 g/dL (6.4-8.2)
--- NOTE | 2018-07-16 16:25 | CT ---
EXAM DATE: 07/16/2018 4:11 PM EST AGE/SEX: 62 years / Male INDICATIONS: Abdominal pain. CLINICAL DATA: This is the patient's initial encounter. Patient reports that signs and symptoms have been present for 7 - 11 months and indicates a pain score of 8/10. MEDICAL/SURGICAL HISTORY: Carcinoma, bladder. Chronic obstructive pulmonary disease. . Urostom y. ORAL CONTRAST: No oral contrast ingested. RADIATION DOSE: 6.64 CTDI (mGy) COMPARISON: No prior exams available for comparison. TECHNIQUE: Multiple contiguous axial images were obtained through the abdomen and pelvis following b olus infusion of 90 ml Omnipaque 350 (iohexol) nonionic water-soluble contrast as a single exam dos e. No oral contrast ingested. Using automated exposure control and adjustment of the mA and/or kV ac cording to patient size, radiation dose was kept as low as reasonably achievable to obtain optimal di agnostic quality images. DICOM format image data is available electronically for review and comparis on. FINDINGS: Abdomen CT: The liver, spleen, pancreas, right kidney, adrenals are unremarkable. There is a tiny approximate 3 m m stone left lower pole kidney. There is no hydronephrosis or ureteral stone. The pancreatic duct i s slightly prominent measures 2 to 3 mm in size and etiology is not certain probably of no clinical s ignificance. There is no evidence for any appreciable pathological adenopathy, free fluid, or bowel o bstruction. There are atherosclerotic calcifications involving the aorta and iliac arteries chronic in nature. There are postsurgical changes in the abdomen or pelvis. There is moderate amount of stool in the colon. Pelvic CT: There is no evidence for mass, abscess formation, or any significant adenopathy within the pelvis. T here is compression fracture of L4 vertebrae compressed by approximately 30-40% present on the prior MRI from 05/2018. CONCLUSION: Essentially unremarkable study except for tiny left renal stone. Electronically signed by: Aneesh Nieves MD Board Certified Radiologist 07/16/2018 4:23 PM EST
[2018-07-16] MEDS ORDERED: Acetaminophen 325 MG Tablet PO PRN (16:54)
[2018-07-16] MEDS ORDERED: Bisacodyl 10 MG Supp RECTAL PRN (16:54)
--- NOTE | 2018-07-16 17:07 | P.HPIM ---
History of Present Illness Service: Hospitalist Primary Care Physician: No Primary Care Physician Chief Complaint: Severe abdominal pain History of Present Illness: Mr. Herr is a 62-year-old male with a history of bladder cancer status post radical cystectomy in April 2018, presents to the emergency department on 07/16/2018 due to severe abdominal pain that has been worsening over the last 7 days. His abdominal pain is particularly worse when he tries to eat or drink anything. He denies any chest pain, shortness of breath, fever or chills. He has a ileal conduit after radical cystectomy. He has not noticed any discoloration of his urine or any erythema around the ileal conduit. He does report constipation for the last 3- 4 days. He is last bowel movement was on 07/13/2018. Past medical history: Bladder cancer Past surgical history: Radical cystectomy Social history: Patient continues to smoke 1-2 cigarettes a day. He denies using alcohol or illicit drugs. Family history: Mother side of the family has history of cancer. He does not know much about his dad's side. Inpatient Certification Inpatient Certification: I certify that the inpatient services were ordered in accordance with Medicare regulations governing the order. This includes certification that hospital inpatient services are reasonable and necessary and in the case of services not specified as inpatient-only under 42 CFR 419.22(n), that they are appropriately provided as inpatient services in accordance to with the 2-midnight benchmark under 43 CFR 412.3(e) Estimated Total Length of Stay (Days): 3 Plans for Post Hospital Care: Home Review of Systems Review of Systems: all other systems reviewed are negative [facility] Social History Social History Substance History: No History of Abuse Second Hand Smoke Exposure: No Smoking Status: Current some day smoker Tobacco Type: Cigarettes How Often Do You Have a Drink Containing Alcohol: Never Recent Travel in [place] within the Last 8 Weeks: No Recent Out of Country Travel within the Last 8 Weeks: No Immunization History Tetanus Immunization: >5 Years Medications and Allergies Allergies Allergy/AdvReac Type Severity Reaction Status Date / Time No Known Allergies Allergy Verified 07/16/18 14:00 Home Medications Medication Instructions Recorded Confirmed Type morphine 30 mg PO DAILY 07/16/18 07/16/18 History Active Medications: Active Medications Acetaminophen (Tylenol) 650 mg PO Q4H PRN PRN Reason: Headache, fever, pain 1-4 Al Hydroxide/Mg Hydroxide (Milk Of Magnesia Liq) 30 ml PO Q12H PRN PRN Reason: Mild Constipation Bisacodyl (Dulcolax Supp) 10 mg RECTAL DAILY PRN PRN Reason: SEVERE CONSITIPATION Heparin Sodium (Porcine) (Heparin Inj) 5,000 units SQ Q12H NADINE Hydromorphone HCl (Dilaudid Pf Inj) 2 mg IV.PUSH Q4H PRN PRN Reason: BREAKTHROUGH PAIN Lactulose (Lactulose Liq) 30 ml PO DAILY PRN PRN Reason: SEVERE CONSITIPATION Ondansetron HCl (Zofran Inj) 4 mg IV.PUSH Q6H PRN PRN Reason: NAUSEA OR VOMITING Oxycodone/Acetaminophen (Percocet 7.5/325 Mg) 1 tab PO Q6H PRN PRN Reason: Pain 5-10 Sennosides (Senokot) 17.2 mg PO Q12H PRN PRN Reason: Moderate Constipation Sodium Chloride (Ns Flush) 2 ml IV.FLUSH PRN PRN PRN Reason: FLUSH AFTER USING IV ACCESS Sodium Chloride (Ns Flush) 2 ml IV.FLUSH BID NADINE Sodium Chloride (Ns Flush) 2 ml IV.FLUSH PRN PRN PRN Reason: FLUSH AFTER USING IV ACCESS Physical Exam Vital signs: Last Vital Signs Temp 98.2 F 07/16/18 12:32 Pulse 76 07/16/18 14:24 Resp 18 07/16/18 14:24 BP 144/88 H 07/16/18 14:24 Pulse Ox 100 07/16/18 14:24 Intake & Output 07/14/18 07/15/18 07/16/18 07/17/18 06:59 06:59 06:59 06:59 Intake Total 1100 / 1100 Balance 1100 / 1100 Weight 49.442 kg Narrative: GENERAL: This is a well-nourished, well-developed patient, in no apparent distress. SKIN: No rashes, ecchymoses or lesions. Warm and dry. HEAD: Atraumatic. Normocephalic. No temporal or scalp tenderness. EYES: Pupils equal round and reactive. No injection or drainage. ENT: Nose without bleeding, purulent drainage or septal hematoma. Airway patent. NECK: Trachea midline. No lymphadenopathy. Supple, nontender, no meningeal signs. CARDIOVASCULAR: Regular rate and rhythm without murmurs, gallops, or rubs. No JVD. RESPIRATORY: Clear to auscultation. Breath sounds equal bilaterally. No wheezes , rales, or rhonchi. GASTROINTESTINAL: Significant tenderness to palpation on the left side of the abdomen. On the right side of the abdomen, ileal conduit appears to be intact. No erythema or significant tenderness on palpation on the side. MUSCULOSKELETAL: Extremities without clubbing, cyanosis, or edema. NEUROLOGICAL: Awake and alert. Cranial nerves II through XII intact. No focal neurological deficits. Normal speech. Results Labs CBC & Chem 7: 07/16/18 14:15 07/16/18 14:15 Imaging Impressions Abdomen/Pelvis CT 07/16/18 14:00 CONCLUSION: Essentially unremarkable study except for tiny left renal stone. Caprini VTE Risk Assessment Caprini VTE Risk Assessment: Moderate/High Risk (score >= 2) Caprini Risk Assessment Model: Point Value = 1 Point Value = 2 Point Value = 3 Point Value = 5 Age 41-60 Minor surgery BMI > 25 kg/m2 Swollen legs Varicose veins or History of unexplained or recurrent spontaneous Oral contraceptives or hormone replacement Sepsis (< 1 month) Serious lung disease, including pneumonia (< 1 month) Abnormal pulmonary function Acute myocardial infarction Congestive heart failure (< 1 month) History of inflammatory bowel disease Medical patient at bed rest Age 61-74 Arthroscopic surgery Major open surgery (> 45 min) Laparoscopic surgery (> 45 min) Malignancy Confined to bed (> 72 hours) Immobilizing plaster cast Central venous access Age >= 75 History of VTE Family history of VTE Factor V Leiden Prothrombin [id number] Lupus anticoagulant Anticardiolipin antibodies Elevated serum homocysteine Heparin-induced thrombocytopenia Other congenital or acquired thrombophilia Stroke (< 1 month) Elective arthroplasty Hip, pelvis, or leg fracture Acute spinal cord injury (< 1 month) Prophylaxis Regimen: Total Risk Factor Score Risk Level Prophylaxis Regimen 0-1 Low Early ambulation 2 Moderate Order ONE of the following: *Sequential Compression Device (SCD) *Heparin 5000 units SQ BID 3-4 Higher Order ONE of the following medications: *Heparin 5000 units SQ TID *Enoxaparin/Lovenox 40 mg SQ daily (WT < 150 kg, CrCl > 30 mL/min) *Enoxaparin/Lovenox 30 mg SQ daily (WT < 150 kg, CrCl > 10-29 mL/min) *Enoxaparin/Lovenox 30 mg SQ BID (WT < 150 kg, CrCl > 30 mL/min) AND/OR *Sequential Compression Device (SCD) 5 or more Highest Order ONE of the following medications: *Heparin 5000 units SQ TID (Preferred with Epidurals) *Enoxaparin/Lovenox 40 mg SQ daily (WT < 150 kg, CrCl > 30 mL/min) *Enoxaparin/Lovenox 30 mg SQ daily (WT < 150 kg, CrCl > 10-29 mL/min) *Enoxaparin/Lovenox 30 mg SQ BID (WT < 150 kg, CrCl > 30 mL/min) AND *Sequential Compression Device (SCD) Assessment and Plan Plan Mr. Herr is a 62-year-old male with a history of bladder cancer status post radical cystectomy who presents to the emergency department due to 7 -day duration of worsening abdominal pain. His abdominal pain is worse when he tries to eat or drink anything. Patient denies any chest pain, shortness of breath, fever or chills. He has not had any bowel movement since Saturday, 2017. Acute abdominal pain Possibly due to constipation. CT scan indicates significant stool. We we will provide milk of magnesia and also possibly suppository or Fleet enema for constipation. -Due to leukocytosis and significant abdominal pain, empirically we will cover him with ceftriaxone 2 g every 24 hours. Percocet, hydromorphone for pain management History of bladder cancer Status post radical cystectomy. Appreciate urology evaluation by Dr. Lockett. Patient's pain does not appear to be of urological etiology. Hx of Upper ext DVT Continue apixaban 5 mg twice daily. Tobacco abuse - Patient counselled. Full code. Apixaban.
[2018-07-16] MEDS ORDERED: Mineral Oil Enema 118 ML Bottle RECTAL PRN (17:56)
[2018-07-16] MEDS ORDERED: Heparin - SQ 10,000 UNITS/ML Vial SQ SCH (18:00)
--- NOTE | 2018-07-16 18:31 | P.CONURO ---
History of Present Illness Service: [facility] Consult date: 07/16/18 Requesting Physician: Noah Cuenca Reason for Consult: History bladder cancer, post cystectomy, conduit Primary Care Provider: No Primary Care Physician Chief Complaint: Epigastric and left sided abd. pain, worse after eating History of Present Illness: 62 y/o male, post cystectomy, ileal conduit for previous bladder cancer. In ED with epigastric and LLQ pain, worse after eating. Receiving radiation Rx. No BM x 4 days. Normally pushes to have soft stools. Review of Systems Constitutional: Reports lack of energy Gastrointestinal: Reports abdominal pain (see HPI), Reports loose stools Genitourinary: Reports other (no problems with ileal conduit.) PMFSH - History History Provided By: Patient - Medical History Medical History: Medical History (Last Reviewed 07/16/18 @ 14:00 by Emma Rivera RN) Anxiety Bladder cancer COPD (chronic obstructive pulmonary disease) Cancer Chronic abdominal pain Depression History of chemotherapy Scarlet fever - Surgical History Surgical History: Surgical History (Last Reviewed 07/16/18 @ 14:00 by Emma Rivera RN) History of bladder surgery History of lung biopsy - Tobacco History Second Hand Smoke Exposure: No Tobacco Use In Past 30 Days: Yes Smoking Status: Current some day smoker Tobacco Type: Cigarettes - Alcohol History How Often Do You Have a Drink Containing Alcohol: Never - Substance Use History Substance History: No History of Abuse - Travel History Recent Travel in the [place] Within the Last 8 Weeks: No Recent Travel Out of the Country Within the Last 8 Weeks: No - Immunization History Tetanus Immunization: >5 Years Medications and Allergies Active Medications: Active Medications Acetaminophen (Tylenol) 650 mg PO Q4H PRN PRN Reason: Headache, fever, pain 1-4 Al Hydroxide/Mg Hydroxide (Milk Of Magnesia Liq) 30 ml PO Q12H PRN PRN Reason: Mild Constipation Apixaban (Eliquis) 5 mg PO BID NADINE Bisacodyl (Dulcolax Supp) 10 mg RECTAL DAILY PRN PRN Reason: SEVERE CONSITIPATION Hydromorphone HCl (Dilaudid Pf Inj) 2 mg IV.PUSH Q4H PRN PRN Reason: BREAKTHROUGH PAIN Ceftriaxone Sodium 2,000 mg/ (Sodium Chloride) 100 mls @ 200 mls/hr IV.SIG Q24H NADINE Lactulose (Lactulose Liq) 30 ml PO DAILY PRN PRN Reason: SEVERE CONSITIPATION Ondansetron HCl (Zofran Inj) 4 mg IV.PUSH Q6H PRN PRN Reason: NAUSEA OR VOMITING Oxycodone/Acetaminophen (Percocet 7.5/325 Mg) 1 tab PO Q6H PRN PRN Reason: Pain 5-10 Last Admin: 07/16/18 17:47 Dose: 1 tab Sennosides (Senokot) 17.2 mg PO Q12H PRN PRN Reason: Moderate Constipation Sodium Chloride (Ns Flush) 2 ml IV.FLUSH BID NADINE Sodium Chloride (Ns Flush) 2 ml IV.FLUSH UNSCH PRN PRN Reason: FLUSH AFTER USING IV ACCESS Allergies Allergy/AdvReac Type Severity Reaction Status Date / Time No Known Allergies Allergy Verified 07/16/18 14:00 Home Medications Medication Instructions Recorded Confirmed Type morphine 30 mg PO DAILY 07/16/18 07/16/18 History Physical Exam Vital Signs - 24 hr 07/16/18 12:32 07/16/18 14:24 07/16/18 17:17 Temperature 98.2 F Pulse Rate 80 76 71 Respiratory Rate 21 18 18 Blood Pressure 130/77 144/88 H 129/76 Pulse Oximetry 98 100 98 Physical Exam: GENERAL: This is a well-nourished, well-developed patient, in no apparent distress. SKIN: No rashes, ecchymoses or lesions. Cool and dry. HEAD: Atraumatic. Normocephalic. No temporal or scalp tenderness. EYES: Pupils equal round and reactive. Extraocular motions intact. No scleral icterus. No injection or drainage. ENT: Nose without bleeding, purulent drainage or septal hematoma. Throat without erythema, tonsillar hypertrophy or exudate. Uvula midline. Airway patent. NECK: Trachea midline. No JVD or lymphadenopathy. Supple, nontender, no meningeal signs. CARDIOVASCULAR: Regular rate and rhythm without murmurs, gallops, or rubs. RESPIRATORY: Clear to auscultation. Breath sounds equal bilaterally. No wheezes , rales, or rhonchi. GASTROINTESTINAL: Abdomen:RT side:soft, non-tender, nondistended. Stoma pink, healthy, no adjacent tenderness or mass. No hepato-splenomegaly, or palpable masses. LFT side: extreme guarding , reacts to light finger pressure. GENITOURINARY: Stoma pink, healthy. Bag in place. MUSCULOSKELETAL: Extremities without clubbing, cyanosis, or edema. No joint tenderness, effusion, or edema noted. No calf tenderness. Negative Homans sign bilaterally. NEUROLOGICAL: Awake and alert. Cranial nerves II through XII intact. Motor and sensory grossly within normal limits. Five out of 5 muscle strength in all muscle groups. Normal speech. Lab results reviewed: Yes Laboratory Results - last 24 hr 07/16/18 07/16/18 07/16/18 14:15 14:15 14:15 WBC 20.3 H RBC 4.78 Hgb 13.4 Hct 40.5 MCV 84.6 MCH 28.0 MCHC 33.1 RDW 16.9 Plt Count 271 MPV 8.4 Neut % (Auto) 90.4 H Lymph % (Auto) 5.4 L [place] % (Auto) 3.7 Eos % (Auto) 0.1 Baso % (Auto) 0.4 Neut # (Auto) 18.3 H Lymph # (Auto) 1.1 [place] # (Auto) 0.7 Eos # (Auto) 0.0 Baso # (Auto) 0.1 WBC Differential . Differential Comment Auto diff final PT 10.5 INR 1.0 APTT 31.3 Sodium 139 Potassium 4.2 Chloride 108 H Carbon Dioxide 27.7 Anion Gap 3 L BUN 23 H Creatinine 0.67 Estimated GFR Greater than 89 Random Glucose 110 H Lactic Acid Calcium 9.2 Magnesium 2.4 Total Bilirubin 0.3 AST 9 L ALT 11 L Alkaline Phosphatase 144 H Total Protein 8.4 H Albumin 3.3 L Lipase 69 L Urine Color Urine Clarity Urine pH Ur Specific [place] Urine Protein Urine Glucose (UA) Urine Ketones Urine Occult Blood Urine Nitrate Urine Bilirubin Urine Urobilinogen Ur Leukocyte Esterase Urine RBC Urine WBC Urine Bacteria Urine Mucus Micro UA Comment Ur Microscopic Review Urine Culture Comments 07/16/18 07/16/18 14:15 14:40 WBC RBC Hgb Hct MCV MCH MCHC RDW Plt Count MPV Neut % (Auto) Lymph % (Auto) [place] % (Auto) Eos % (Auto) Baso % (Auto) Neut # (Auto) Lymph # (Auto) [place] # (Auto) Eos # (Auto) Baso # (Auto) WBC Differential Differential Comment PT INR APTT Sodium Potassium Chloride Carbon Dioxide Anion Gap BUN Creatinine Estimated GFR Random Glucose Lactic Acid 1.8 Calcium Magnesium Total Bilirubin AST ALT Alkaline Phosphatase Total Protein Albumin Lipase Urine Color Yellow Urine Clarity Hazy H Urine pH 6.0 Ur Specific [place] 1.010 Urine Protein Negative Urine Glucose (UA) Negative Urine Ketones Negative Urine Occult Blood Small H Urine Nitrate Positive H Urine Bilirubin Negative Urine Urobilinogen Less than 2 Ur Leukocyte Esterase Moderate H Urine RBC 2 Urine WBC 15 H Urine Bacteria Many H Urine Mucus Many H Micro UA Comment Culture indicated Ur Microscopic Review Not Reportable Urine Culture Comments Culture indicated Result Diagrams: 07/16/18 14:15 07/16/18 14:15 Personally reviewed images: Yes Imaging: ITS Impressions Abdomen/Pelvis CT 07/16/18 14:00 CONCLUSION: Essentially unremarkable study except for tiny left renal stone. Assessment and Plan - Assessment (1) Bladder cancer Code(s): C67.9 - Malignant neoplasm of bladder, unspecified Status: Resolved (2) Abdominal pain of unknown cause Code(s): R10.9 - Unspecified abdominal pain Status: Acute - Plan Pain not apparently of Urological etiology. Is more compatible with GI pain: Colon, peritoneum. Rec: Gen. Surgery consult if symptoms persist. He may just need a BM. GI consult if colitis is suspected. Discussed Condition With: Dr. Cuenca, patient.
[2018-07-16] MEDS: HYDROmorphone PF Inj 2 MG/ML Vial IV.PUSH PRN (19:44)
[2018-07-16] MEDS ORDERED: Belladonna Alkaloid/Opium 60 MG Supp RECTAL ONE (21:21)
[2018-07-17] MEDS: HYDROmorphone PF Inj 2 MG/ML Vial IV.PUSH PRN ×5 (00:21→21:06)
[2018-07-17] MEDS ORDERED: HYDROmorphone PF Inj 2 MG/ML Vial IV.PUSH ONE ×2 (02:45→10:15)
[2018-07-17 07:30] LABS: Baso # (Auto) 0.1 th/mm3 (0.0-0.2); Baso % (Auto) 0.4 % (0.0-2.0); Eos # (Auto) 0.1 th/mm3 (0.0-0.4); Eos % (Auto) 0.6 % (0.0-4.0); Hematocrit 35.5 % (39.0-51.0); Hemoglobin 11.7 gm/dL (13.0-17.0); Lymph # (Auto) 1.3 th/mm3 (1.0-4.8); Lymph % (Auto) 9.8 % (9.0-44.0); Mean Corpuscular Hemoglobin 27.5 pg (27.0-34.0); Mean Corpuscular Volume 83.5 fL (80.0-100.0); Mean Platelet Volume 8.5 fL (7.0-11.0); Mono # (Auto) 0.7 th/mm3 (0.0-0.9); Mono % (Auto) 5.2 % (0.0-8.0); Neut # (Auto) 11.4 th/mm3 (1.8-7.7); Platelet Count 260 th/mm3 (150-450); Red Blood Count 4.25 mil/mm3 (4.50-5.90); Red Cell Distribution Width 16.8 % (11.6-17.2); White Blood Count 13.5 th/mm3 (4.0-11.0)
[2018-07-17 07:59] LABS: Anion Gap 4 meq/L (5-15); Blood Urea Nitrogen 14 mg/dL (7-18); Calcium 8.4 mg/dL (8.5-10.1); Carbon Dioxide 29.3 meq/L (21.0-32.0); Chloride 106 meq/L (98-107); Glomerular Filtration Rate Greater Than 89 mL/min (>89); Glucose,Random 123 mg/dL (74-106); Potassium 4.1 meq/L (3.5-5.1); Sodium 139 meq/L (136-145)
--- NOTE | 2018-07-17 09:28 | P.PNIM ---
Subjective Interval history: Follow-up for intractable abdominal pain in a patient with history of bladder cancer status post radical cystectomy. Patient is resting in bed. He complains of persistent abdominal pain. He has not had any bowel movement yet. He complains of significant abdominal pain. No fever or chills. Physical Exam Vital signs: Last Vital Signs Temp 98.5 F 07/17/18 07:26 Pulse 68 07/17/18 07:26 Resp 18 07/17/18 07:26 BP 140/79 07/17/18 07:26 Pulse Ox 99 07/17/18 07:26 Intake & Output 07/15/18 07/16/18 07/17/18 07/18/18 06:59 06:59 06:59 06:59 Intake Total 1820 / 1820 Output Total 1400 / 1400 Balance 420 / 420 Weight 48.081 kg Narrative: GENERAL: Alert, NAD. SKIN: Warm and dry. HEAD: Normocephalic. EYES: No scleral icterus. No injection or drainage. NECK: Supple, trachea midline. No JVD or lymphadenopathy. CARDIOVASCULAR: Regular rate and rhythm without murmurs, gallops, or rubs. RESPIRATORY: Breath sounds equal bilaterally. No accessory muscle use. GASTROINTESTINAL: Abdomen soft, exquisitely tender to palpation especially on the left side, nondistended. MUSCULOSKELETAL: No cyanosis, or edema. BACK: Nontender without obvious deformity. No CVA tenderness. Results Labs CBC & Chem 7: 07/17/18 06:40 07/17/18 06:40 Imaging Imaging: Impressions Abdomen/Pelvis CT 07/16/18 14:00 CONCLUSION: Essentially unremarkable study except for tiny left renal stone. Assessment and Plan (1) Bladder cancer: Code(s): C67.9 - Malignant neoplasm of bladder, unspecified Status: Resolved Onset Date: Unknown (2) Abdominal pain of unknown cause: Code(s): R10.9 - Unspecified abdominal pain Status: Acute Onset Date: Unknown Plan Mr. Herr is a 62-year-old male with a history of bladder cancer status post radical cystectomy who presents to the emergency department due to 7 -day duration of worsening abdominal pain. His abdominal pain is worse when he tries to eat or drink anything. Patient denies any chest pain, shortness of breath, fever or chills. He has not had any bowel movement since Saturday, 2017. Acute abdominal pain Possibly due to constipation. CT scan indicates significant stool. No bowel movement yet. Will provide magnesium citrate. -Due to leukocytosis and significant abdominal pain, empirically we will cover him with ceftriaxone 2 g every 24 hours. Leukocytosis is improved. WBC improved from 20.3-->13.5. Percocet, hydromorphone for pain management History of bladder cancer Status post radical cystectomy. Appreciate urology evaluation by Dr. Lockett. Patient's pain does not appear to be of urological etiology. Hx of Upper ext DVT Continue apixaban 5 mg twice daily. Tobacco abuse - Patient counselled. Full code. Apixaban. Progress Note: Quality VTE Deep Vein Thrombosis/Pulmonary Embolism Present on Admission: No _ (1) Bladder cancer Qualifiers: Bladder location:
[2018-07-17] MEDS ORDERED: Magnesium Citrate Liq 300 ML Bottle PO ONE (10:30)
--- NOTE | 2018-07-17 14:52 | P.DIET ---
Nutritional Evaluation Type of nutrition evaluation: initial Nutrition consult regarding: Diet Evaluation Nutrition screening: Poor PO Intake Screening comments: 07/17/18 MDC for Poor PO intake Subjective Subjective Comments: Pt stated he has poor PO intake d/t his chronic abd pain. Objective - Diagnosis intractable pain, UTI, leukocytosis - Objective Body Mass Index: 17.1 % IBW: 75 (IBW = 142lb) Body Weight Used for Calculations: Actual (48.081) Energy Needs - Lower Range (kCal/kg): 35 Energy Needs - Upper Range (kCal/kg): 40 Lower Limit kCal/kg (kCals): 1,683 Upper Limit kCal/kg (kCals): 1,923 Lower Limit Protein Factor (Grams per Kg): 1.2 Upper Limit Protein Factor (Grams per Kg): 1.4 Lower Protein Needs (Protein): 58 Upper Protein Needs (Protein): 67 Dietitian Reviewed in Medical Record: Current diet, Curent medications, Intake & Output, Labs, Medical history Diet Order: regular Oral Diet Intake Amount: Fair 50-75% Objective Comments: PMH: bladder CA, chronic abd pain, COPD, depression, hx of chemo, marissa fever Labs: random glucose 110 123 LBM 07/14, UOP 1400mL Assessment Assessment: Pt currently at nutritional risk r/t poor PO intake and low BMI. Pt has a malnourished appearance and states that he does not have a good appetite. Pt mentioned he finished 100% of breakfast today but is not able to eat lunch from abd pain. Pt mentioned he does not like any type of Ensure, he likes [place] instant breakfast. Plan to send [place] instant breakfast TID. Pt also stated he has multiple appetite stimulants but had never took them. Continue to monitor pts PO and supplement intake. Labs reviewed, dietitian following. Recommendations: 1. Plan to send [place] instant breakfast TID 2. Continue to monitor pts PO and supplement intake 3. Dietitian following Dietitian to Monitor: Lab values, Supplement acceptance, Intake & Output, Diet tolerance, Weight change, PO Intake, Medical course
[2018-07-18] MEDS: HYDROmorphone PF Inj 2 MG/ML Vial IV.PUSH PRN ×7 (00:54→20:06)
[2018-07-18 10:26] LABS: Baso # (Auto) 0.1 th/mm3 (0.0-0.2); Baso % (Auto) 0.5 % (0.0-2.0); Eos # (Auto) 0.1 th/mm3 (0.0-0.4); Eos % (Auto) 0.3 % (0.0-4.0); Hemoglobin 12.2 gm/dL (13.0-17.0); Lymph # (Auto) 1.5 th/mm3 (1.0-4.8); Lymph % (Auto) 9.3 % (9.0-44.0); Mean Corpuscular Hemoglobin 27.7 pg (27.0-34.0); Mean Corpuscular Volume 83.8 fL (80.0-100.0); Mean Platelet Volume 8.4 fL (7.0-11.0); Mono % (Auto) 6.2 % (0.0-8.0); Neut # (Auto) 13.3 th/mm3 (1.8-7.7); Neut % (Auto) 83.7 % (16.0-70.0); Platelet Count 278 th/mm3 (150-450); Red Blood Count 4.42 mil/mm3 (4.50-5.90); Red Cell Distribution Width 16.7 % (11.6-17.2); White Blood Count 15.9 th/mm3 (4.0-11.0)
--- NOTE | 2018-07-18 13:36 | P.PNIM ---
Subjective Interval history: Follow-up for intractable abdominal pain in a patient with history of bladder cancer status post radical cystectomy. Patient continues to have significant abdominal pain. No fever, chills. He had BM yesterday and today. Physical Exam Vital signs: Last Vital Signs Temp 97.8 F 07/18/18 12:00 Pulse 73 07/18/18 12:00 Resp 16 07/18/18 12:52 BP 122/73 07/18/18 12:00 Pulse Ox 98 07/18/18 12:00 Intake & Output 07/16/18 07/17/18 07/18/18 07/19/18 06:59 06:59 06:59 06:59 Intake Total 1820 / 1820 1100 / 1100 100 / 100 Output Total 1400 / 1400 1400 / 1400 Balance 420 / 420 -300 / -300 100 / 100 Weight 48.081 kg Narrative: GENERAL: Alert, NAD. SKIN: Warm and dry. HEAD: Normocephalic. EYES: No scleral icterus. No injection or drainage. NECK: Supple, trachea midline. No JVD or lymphadenopathy. CARDIOVASCULAR: Regular rate and rhythm without murmurs, gallops, or rubs. RESPIRATORY: Breath sounds equal bilaterally. No accessory muscle use. GASTROINTESTINAL: Abdomen soft, tender to palpation. No guarding. MUSCULOSKELETAL: No cyanosis, or edema. BACK: Nontender without obvious deformity. No CVA tenderness. Results Labs CBC & Chem 7: 07/18/18 09:42 07/17/18 06:40 Labs: Microbiology 07/16/18 14:35 Blood - Peripheral Aerobic Blood Culture - Preliminary No growth in 2 days 07/16/18 14:35 Blood - Peripheral Anaerobic Blood Culture - Preliminary No growth in 2 days 07/16/18 14:40 Blood - Peripheral Aerobic Blood Culture - Preliminary No growth in 2 days 07/16/18 14:40 Blood - Peripheral Anaerobic Blood Culture - Preliminary No growth in 2 days 07/16/18 14:15 Clean Catch Urine Urine Culture - Final Klebsiella pneumoniae Assessment and Plan (1) Bladder cancer: Code(s): C67.9 - Malignant neoplasm of bladder, unspecified Status: Resolved Onset Date: Unknown (2) Abdominal pain of unknown cause: Code(s): R10.9 - Unspecified abdominal pain Status: Acute Onset Date: Unknown Plan Mr. Herr is a 62-year-old male with a history of bladder cancer status post radical cystectomy who presents to the emergency department due to 7 -day duration of worsening abdominal pain. His abdominal pain is worse when he tries to eat or drink anything. Patient denies any chest pain, shortness of breath, fever or chills. He has not had any bowel movement since Saturday, 2017. Acute abdominal pain CT scan indicates significant stool. Had BM today and yesterday as well. -Due to leukocytosis and significant abdominal pain, empirically we will cover him with ceftriaxone 2 g every 24 hours. WBC improved from 20.3-->13.5 --> 15.9. CBC, BMP in the AM. If WBC continues to go up, we will consider an ID consult. Will increase Percocet to 10mg Q4hrs and continue hydromorphone for pain management History of bladder cancer Status post radical cystectomy. Appreciate urology evaluation by Dr. Lockett. Patient's pain does not appear to be of urological etiology. Hx of Upper ext DVT Continue apixaban 5 mg twice daily. Tobacco abuse - Patient counselled. Full code. Apixaban. Progress Note: Quality VTE Deep Vein Thrombosis/Pulmonary Embolism Present on Admission: No _ (1) Bladder cancer Qualifiers: Bladder location:
[2018-07-18] MEDS: oxyCODONE/Acetaminophen 10/325 Tablet PO PRN ×2 (14:09→20:01)
[2018-07-19] MEDS: oxyCODONE/Acetaminophen 10/325 Tablet PO PRN ×5 (00:52→19:36)
[2018-07-19] MEDS: HYDROmorphone PF Inj 2 MG/ML Vial IV.PUSH PRN ×6 (01:35→20:31)
[2018-07-19 06:14] LABS: Baso # (Auto) 0.1 th/mm3 (0.0-0.2); Baso % (Auto) 0.5 % (0.0-2.0); Eos # (Auto) 0.1 th/mm3 (0.0-0.4); Eos % (Auto) 0.5 % (0.0-4.0); Hematocrit 38.2 % (39.0-51.0); Hemoglobin 12.2 gm/dL (13.0-17.0); Lymph # (Auto) 1.5 th/mm3 (1.0-4.8); Lymph % (Auto) 9.1 % (9.0-44.0); Mean Corpuscular HGB Conc 32.1 % (32.0-36.0); Mean Corpuscular Hemoglobin 27.1 pg (27.0-34.0); Mean Corpuscular Volume 84.4 fL (80.0-100.0); Mean Platelet Volume 8.2 fL (7.0-11.0); Mono # (Auto) 0.9 th/mm3 (0.0-0.9); Mono % (Auto) 5.6 % (0.0-8.0); Neut % (Auto) 84.3 % (16.0-70.0); Platelet Count 300 th/mm3 (150-450); Red Blood Count 4.53 mil/mm3 (4.50-5.90); Red Cell Distribution Width 16.8 % (11.6-17.2); White Blood Count 16.6 th/mm3 (4.0-11.0)
[2018-07-19 06:57] LABS: Anion Gap 4 meq/L (5-15); Blood Urea Nitrogen 20 mg/dL (7-18); Calcium 8.8 mg/dL (8.5-10.1); Chloride 103 meq/L (98-107); Glomerular Filtration Rate Greater Than 89 mL/min (>89); Glucose,Random 80 mg/dL (74-106); Potassium 3.8 meq/L (3.5-5.1); Sodium 134 meq/L (136-145)
--- NOTE | 2018-07-19 11:32 | P.PNIM ---
Subjective Interval history: 62-year-old male with a history of bladder cancer who presented with an exacerbation of his pain that seems to be in the context of urinary tract infection causing inflammation in an area that is already troubled. His primary reason for admission is intractable pain. His complaint today is that his pain is still uncontrolled. Physical Exam Vital signs: Last Vital Signs Temp 98.0 F 07/19/18 07:53 Pulse 59 L 07/19/18 07:53 Resp 12 07/19/18 07:53 BP 135/73 07/19/18 07:53 Pulse Ox 99 07/19/18 07:53 Intake & Output 07/17/18 07/18/18 07/19/18 07/20/18 06:59 06:59 06:59 06:59 Intake Total 1820 / 1820 1100 / 1100 580 / 580 100 / 100 Output Total 1400 / 1400 1400 / 1400 Balance 420 / 420 -300 / -300 580 / 580 100 / 100 Weight 48.081 kg Narrative: GENERAL: Alert, NAD. SKIN: Warm and dry. HEAD: Normocephalic. EYES: No scleral icterus. No injection or drainage. NECK: Supple, trachea midline. No JVD or lymphadenopathy. CARDIOVASCULAR: Regular rate and rhythm without murmurs, gallops, or rubs. RESPIRATORY: Breath sounds equal bilaterally. No accessory muscle use. GASTROINTESTINAL: Abdomen soft, tender to palpation. No guarding. MUSCULOSKELETAL: No cyanosis, or edema. BACK: Nontender without obvious deformity. No CVA tenderness. Results Labs CBC & Chem 7: 07/19/18 05:36 07/19/18 05:36 Labs: Microbiology 07/16/18 14:35 Blood - Peripheral Aerobic Blood Culture - Preliminary No growth in 3 days 07/16/18 14:35 Blood - Peripheral Anaerobic Blood Culture - Preliminary No growth in 3 days 07/16/18 14:40 Blood - Peripheral Aerobic Blood Culture - Preliminary No growth in 3 days 07/16/18 14:40 Blood - Peripheral Anaerobic Blood Culture - Preliminary No growth in 3 days 07/16/18 14:15 Clean Catch Urine Urine Culture - Final Klebsiella pneumoniae Assessment and Plan (1) Bladder cancer: Code(s): C67.9 - Malignant neoplasm of bladder, unspecified Status: Resolved Onset Date: Unknown (2) Abdominal pain of unknown cause: Code(s): R10.9 - Unspecified abdominal pain Status: Acute Onset Date: Unknown Plan Mr. Herr is a 62-year-old male with a history of bladder cancer status post radical cystectomy who presents to the emergency department due to 7 -day duration of worsening abdominal pain. Acute abdominal pain CT scan indicates significant stool. Patient had BM today and yesterday as well. Pain persists. Due to complexity of bladder cancer, patient is being covered empirically with ceftriaxone 2 g every 24 hours Leukocytosis is trending downward Intractable pain, pain management Patient is taking Percocet 10 mg every 4 hours +2 mg of Dilaudid IV every 4 for breakthrough, still uncontrolled Adding long-acting oxycodone starting at 20 mg every 12 hours We will reevaluate this afternoon History of bladder cancer Status post radical cystectomy. Appreciate urology evaluation by Dr. Lockett. Hx of Upper ext DVT Continue apixaban 5 mg twice daily. Tobacco abuse Patient counseled to quit DVT prophylaxis Apixaban Progress Note: Quality VTE Deep Vein Thrombosis/Pulmonary Embolism Present on Admission: No _ (1) Bladder cancer Qualifiers: Bladder location:
[2018-07-19] MEDS: oxyCODONE HCL 20 MG Controlled Release Tablet PO SCH (11:49)
[2018-07-19] MEDS: Melatonin 5 MG Tablet PO PRN (21:15)
[2018-07-20] MEDS: oxyCODONE HCL 20 MG Controlled Release Tablet PO SCH ×5 (00:23→22:09)
[2018-07-20] MEDS: oxyCODONE/Acetaminophen 10/325 Tablet PO PRN ×6 (00:55→20:39)
[2018-07-20] MEDS: HYDROmorphone PF Inj 2 MG/ML Vial IV.PUSH PRN ×6 (02:26→21:42)
--- NOTE | 2018-07-20 13:04 | P.PNIM ---
Subjective Interval history: Follow-up visit intractable pain, UTI, bladder cancer. Follow-up abdominal pain. States that he needed more pain medication. States that if he does not get the pain medication regularly of the nurse he gets nauseous and with severe cramping pain. Discussed with patient will increase long-acting pain medication and to avoid IV use since he is not to use IV medications at home. We will continue to adjust medications as needed. Verbalized understanding and agrees with plan. Denies any fevers, chills, nausea, vomiting, diarrhea. Reports constipation. Started on bowel regimen. Physical Exam Vital signs: Vital Signs 07/19/18 16:00 07/19/18 20:00 07/19/18 20:36 Temperature 98.2 F 98.0 F Pulse Rate 66 66 Respiratory Rate 16 18 16 Blood Pressure 108/72 142/77 H Pulse Oximetry 100 96 07/19/18 23:39 07/19/18 23:40 07/20/18 00:00 Temperature 98.0 F Pulse Rate 66 Respiratory Rate 16 16 18 Blood Pressure 142/77 H Pulse Oximetry 96 07/20/18 00:53 07/20/18 01:25 07/20/18 02:56 Temperature Pulse Rate Respiratory Rate 16 16 16 Blood Pressure Pulse Oximetry 07/20/18 04:00 07/20/18 05:23 07/20/18 06:14 Temperature 98.1 F Pulse Rate 65 Respiratory Rate 18 16 16 Blood Pressure 134/78 Pulse Oximetry 98 07/20/18 08:00 07/20/18 10:10 Temperature 97.9 F Pulse Rate 59 L 91 H Respiratory Rate 18 Blood Pressure 132/78 156/71 H Pulse Oximetry 100 Intake & Output 07/19/18 07/20/18 07/20/18 18:59 06:59 18:59 Intake Total 100 / 100 200 / 200 100 / 100 Output Total 1899 Balance 100 / 100 -1700 / -1700 100 / 100 Weight 47.3 kg Intake: IV 100 / 100 100 / 100 Rocephin Inj 2,000 MG In NS Inj 100 / 100 100 / 100 100 ML @ 200 mls/hr IV.SIG Q24H [facility] Rx#:[id number] Oral 200 / 200 Output: Urine Amount (Stoma) 1899 Continent Urostomy Right 1899 Other: Date of Last Bowel Movement 07/18/18 07/18/18 Narrative: GENERAL: This is a thin appearing, chronically ill patient, in no apparent distress. SKIN: Warm and dry HEENT: Normocephalic. Pupils equal round and reactive. Nose without bleeding. Airway patent. NECK: Trachea midline. CARDIOVASCULAR: Regular rate and rhythm without murmurs, gallops, or rubs. RESPIRATORY: Clear to auscultation. Breath sounds equal bilaterally. No wheezes , rales, or rhonchi. GASTROINTESTINAL: Abdomen soft, nondistended. Bowel Sounds normoactive x4. Tenderness light touch : Ileal conduit draining clear urine. Tender to palpate. MUSCULOSKELETAL: Extremities without clubbing, cyanosis, or edema. NEUROLOGICAL: Awake and alert. No focal neuro deficit. Moves all extremities. Normal speech. Results - Labs CBC & Chem 7: 07/19/18 05:36 07/19/18 05:36 Microbiology 07/16/18 14:35 Blood - Peripheral Aerobic Blood Culture - Preliminary No growth in 4 days 07/16/18 14:35 Blood - Peripheral Anaerobic Blood Culture - Preliminary No growth in 4 days 07/16/18 14:40 Blood - Peripheral Aerobic Blood Culture - Preliminary No growth in 4 days 07/16/18 14:40 Blood - Peripheral Anaerobic Blood Culture - Preliminary No growth in 4 days Assessment and Plan - Assessment (1) Abdominal pain of unknown cause Code(s): R10.9 - Unspecified abdominal pain Status: Acute Onset Date: Unknown (2) UTI due to Klebsiella species Code(s): N39.0 - Urinary tract infection, site not specified; B96.1 - Klebsiella pneumoniae [K. pneumoniae] as the cause of diseases classified elsewhere Status: Acute (3) Bladder cancer Code(s): C67.9 - Malignant neoplasm of bladder, unspecified Status: Resolved Onset Date: Unknown - Plan Mr. Herr is a 62-year-old male with a history of bladder cancer status post radical cystectomy who presents to the emergency department due to 7 -day duration of worsening abdominal pain. His abdominal pain is worse when he tries to eat or drink anything. Patient denies any chest pain, shortness of breath, fever or chills. He has not had any bowel movement since Saturday, 2017. Acute abdominal pain Intractable pain CT scan indicates significant stool. -Due to complexity of bladder cancer, patient is being covered empirically with ceftriaxone 2 g every 24 hours -WBC trending down -Adjust pain medication, Percocet, IV Dilaudid for breakthrough pain, oxycodone 20 mg every 8 hours, add bowel regimen Urinary Tract Infection -Cultures came back positive for Proteus, sensitive to ceftriaxone -Continue ceftriaxone for now Constipation -Bowel regimen added. Lactulose x1 dose today. History of bladder cancer Status post radical cystectomy. Appreciate urology evaluation by Dr. Lockett. Appreciate urology evaluation by Dr. Lockett. Hx of Upper ext DVT Continue apixaban 5 mg twice daily. Tobacco abuse -Patient counselled. Full code. Apixaban. Discussed Condition With: Patient, nursing Discharge Planning: Plan to DC home when clinically improved
[2018-07-20] MEDS ORDERED: Magnesium Citrate Liq 300 ML Bottle PO ONE (14:20)
[2018-07-21] MEDS: HYDROmorphone PF Inj 2 MG/ML Vial IV.PUSH PRN ×6 (00:52→20:34)
[2018-07-21] MEDS: oxyCODONE/Acetaminophen 10/325 Tablet PO PRN ×6 (01:55→23:18)
[2018-07-21] MEDS: oxyCODONE HCL 20 MG Controlled Release Tablet PO SCH (06:06)
[2018-07-21 07:13] LABS: Baso # (Auto) 0.1 th/mm3 (0.0-0.2); Baso % (Auto) 0.6 % (0.0-2.0); Eos # (Auto) 0.1 th/mm3 (0.0-0.4); Eos % (Auto) 0.8 % (0.0-4.0); Hematocrit 35.3 % (39.0-51.0); Hemoglobin 11.3 gm/dL (13.0-17.0); Lymph # (Auto) 1.6 th/mm3 (1.0-4.8); Lymph % (Auto) 9.7 % (9.0-44.0); Mean Corpuscular HGB Conc 32.1 % (32.0-36.0); Mean Corpuscular Hemoglobin 27.1 pg (27.0-34.0); Mean Corpuscular Volume 84.5 fL (80.0-100.0); Mean Platelet Volume 8.6 fL (7.0-11.0); Mono # (Auto) 0.9 th/mm3 (0.0-0.9); Mono % (Auto) 5.8 % (0.0-8.0); Neut # (Auto) 13.3 th/mm3 (1.8-7.7); Neut % (Auto) 83.1 % (16.0-70.0); Platelet Count 289 th/mm3 (150-450); Red Blood Count 4.18 mil/mm3 (4.50-5.90); Red Cell Distribution Width 16.6 % (11.6-17.2)
[2018-07-21 07:27] LABS: Alanine Aminotransferase 15 U/L (12-78); Albumin 2.5 g/dL (3.4-5.0); Alkaline Phosphatase 114 U/L (45-117); Anion Gap 5 meq/L (5-15); Aspartate Aminotransferase 29 U/L (15-37); Blood Urea Nitrogen 15 mg/dL (7-18); Calcium 8.6 mg/dL (8.5-10.1); Carbon Dioxide 23.4 meq/L (21.0-32.0); Chloride 107 meq/L (98-107); Glomerular Filtration Rate Greater Than 89 mL/min (>89); Glucose,Random 72 mg/dL (74-106); Sodium 135 meq/L (136-145)
--- NOTE | 2018-07-21 11:21 | P.PNIM ---
Subjective Interval history: Follow-up visit intractable abdominal pain, UTI, bladder cancer. Patient seen and examined. States that he vomited last. The wounds that we are giving to him is no active pain medication is going to outpatient. Discussed with patient he could go back to his pain medication Dr. Mathews for pain management. Verbalized understanding. Refused magcitrate yesterday, cont bowel regimen. Denies any fevers, chills, nausea, vomiting, diarrhea. Physical Exam Vital signs: Vital Signs 07/20/18 12:00 07/20/18 13:41 07/20/18 16:00 Temperature 97.8 F 98.4 F Pulse Rate 63 72 Respiratory Rate 17 17 17 Blood Pressure 127/75 132/85 Pulse Oximetry 100 100 07/20/18 20:00 07/20/18 21:09 07/20/18 22:12 Temperature 98.6 F Pulse Rate 77 Respiratory Rate 16 16 16 Blood Pressure 132/67 Pulse Oximetry 96 07/20/18 22:39 07/21/18 00:06 07/21/18 01:22 Temperature 98.7 F Pulse Rate 70 Respiratory Rate 16 16 16 Blood Pressure 123/66 Pulse Oximetry 97 07/21/18 02:25 07/21/18 05:35 07/21/18 06:36 Temperature Pulse Rate Respiratory Rate 16 17 17 Blood Pressure Pulse Oximetry 07/21/18 08:00 Temperature 98.5 F Pulse Rate 75 Respiratory Rate 17 Blood Pressure 123/70 Pulse Oximetry 100 Intake & Output 07/20/18 07/21/18 07/21/18 18:59 06:59 18:59 Intake Total 725 / 725 480 / 480 340 / 340 Output Total 900 / 900 1000 / 1000 300 / 300 Balance -175 / -175 -520 / -520 40 / 40 Weight 47 kg Intake: IV 100 / 100 100 / 100 Rocephin Inj 2,000 MG In NS Inj 100 / 100 100 / 100 100 ML @ 200 mls/hr IV.SIG Q24H [facility] Rx#:[id number] Oral 625 / 625 480 / 480 240 / 240 Output: Urine 300 / 300 Urine Amount (Stoma) 900 / 900 1000 / 1000 Continent Urostomy Right 900 / 900 1000 / 1000 Other: # Voids 2 Date of Last Bowel Movement 07/18/18 07/20/18 # Bowel Movements 3 Narrative: GENERAL: This is a thin appearing, chronically ill patient, in no apparent distress. SKIN: Warm and dry HEENT: Normocephalic. Pupils equal round and reactive. Nose without bleeding. Airway patent. NECK: Trachea midline. CARDIOVASCULAR: Regular rate and rhythm without murmurs, gallops, or rubs. RESPIRATORY: Clear to auscultation. Breath sounds equal bilaterally. No wheezes , rales, or rhonchi. GASTROINTESTINAL: Abdomen soft, nondistended. Bowel Sounds normoactive x4. Tenderness light touch : urostomy draining clear urine. Tender to palpate. MUSCULOSKELETAL: Extremities without clubbing, cyanosis, or edema. NEUROLOGICAL: Awake and alert. No focal neuro deficit. Moves all extremities. Normal speech. Results - Labs CBC & Chem 7: 07/21/18 05:59 07/21/18 05:59 Laboratory Results - last 24 hr 07/21/18 07/21/18 05:59 05:59 WBC 16.0 H RBC 4.18 L Hgb 11.3 L Hct 35.3 L MCV 84.5 MCH 27.1 MCHC 32.1 RDW 16.6 Plt Count 289 MPV 8.6 Neut % (Auto) 83.1 H Lymph % (Auto) 9.7 [place] % (Auto) 5.8 Eos % (Auto) 0.8 Baso % (Auto) 0.6 Neut # (Auto) 13.3 H Lymph # (Auto) 1.6 [place] # (Auto) 0.9 Eos # (Auto) 0.1 Baso # (Auto) 0.1 WBC Differential . Differential Comment Auto diff final Sodium 135 L Potassium 5.0 Chloride 107 Carbon Dioxide 23.4 Anion Gap 5 BUN 15 Creatinine 0.54 L Estimated GFR Greater than 89 Random Glucose 72 L Calcium 8.6 Total Bilirubin 0.3 AST 29 ALT 15 Alkaline Phosphatase 114 Total Protein 7.0 D Albumin 2.5 L Microbiology 07/16/18 14:35 Blood - Peripheral Aerobic Blood Culture - Final No growth in 5 days 07/16/18 14:35 Blood - Peripheral Anaerobic Blood Culture - Final No growth in 5 days 07/16/18 14:40 Blood - Peripheral Aerobic Blood Culture - Final No growth in 5 days 07/16/18 14:40 Blood - Peripheral Anaerobic Blood Culture - Final No growth in 5 days Assessment and Plan - Assessment (1) Abdominal pain of unknown cause Code(s): R10.9 - Unspecified abdominal pain Status: Acute Onset Date: Unknown (2) UTI due to Klebsiella species Code(s): N39.0 - Urinary tract infection, site not specified; B96.1 - Klebsiella pneumoniae [K. pneumoniae] as the cause of diseases classified elsewhere Status: Acute - Plan Mr. Herr is a 62-year-old male with a history of bladder cancer status post radical cystectomy who presents to the emergency department due to 7 -day duration of worsening abdominal pain. His abdominal pain is worse when he tries to eat or drink anything. Patient denies any chest pain, shortness of breath, fever or chills. He has not had any bowel movement since Saturday, 2017. Acute abdominal pain Intractable pain CT scan indicates significant stool. -Due to complexity of bladder cancer, patient is being covered empirically with ceftriaxone 2 g every 24 hours -WBC trending down -Percocet PRN, Morphine 30mg b0plsal, IV Dilaudid for breakthrough pain. May increase Morphine ER to 60mg BID when DC -[facility] Prescription Drug Monitoring Database has been queried and verified prior to prescribing the controlled substance. He is being prescribed 30 mg of morphine, 90 tabs for 30 days. Percocet 10/325 120 tabs for [address] Mathews. Last prescription 06/24/18, refilled at [facility] outpatient pharmacy Urinary Tract Infection -Cultures came back positive for Proteus, pansensitive -Previously on ceftriaxone, switch over to cipro, may DC on Cipro x6 days Constipation -Bowel regimen added. History of bladder cancer Status post radical cystectomy. Appreciate urology evaluation by Dr. Lockett. Appreciate urology evaluation by Dr. Lockett. Hx of Upper ext DVT Continue apixaban 5 mg twice daily. Tobacco abuse -Patient counselled. Full code. Apixaban. Discussed Condition With: patient, nursing Discharge Planning: Plan to DC home when clinically improved
--- NOTE | 2018-07-21 13:11 | P.PNWCN ---
Wound Care Nurse Consult Description: Received Ostomy Management consult from Valencia Seals APRN Communicated with: ALEX mota and patient Recommendation: Please change urostomy appliance every 3 days or as needed if saturated or dislodged. Empty pouch when 1/3 to 1/2 full or attach to drainage bag when in bed. Please use giorgio seal if needed for extra leak protection. Additional information: Patient seen today for Urostomy management. Patient has been seen previously for new urostomy teaching and management on prior admission. Patient now cares for urostomy independently. Supplies were ordered and delivered to patient's room. Patient reports pouch and wafer are dry, intact,and appliance was changed recently.Patient requires no assistance, or any new teaching at this time.
[2018-07-21] MEDS: Morphine Sulfate 30 MG SR Tablet PO SCH ×3 (13:59→21:34)
[2018-07-21] MEDS: Ciprofloxacin 500 MG Tablet PO SCH ×2 (19:29→21:33)
[2018-07-21] MEDS: Melatonin 5 MG Tablet PO PRN (23:21)
[2018-07-22] MEDS: HYDROmorphone PF Inj 2 MG/ML Vial IV.PUSH PRN ×8 (00:06→23:08)
[2018-07-22] MEDS: oxyCODONE/Acetaminophen 10/325 Tablet PO PRN ×5 (04:01→21:24)
[2018-07-22] MEDS: Morphine Sulfate 30 MG SR Tablet PO SCH ×4 (06:03→23:18)
[2018-07-22] MEDS: Ciprofloxacin 500 MG Tablet PO SCH ×2 (08:07→20:18)
--- NOTE | 2018-07-22 19:12 | P.PNIM ---
Subjective Interval history: Pt seen and examined + pain in abdomen no emesis + bowel movements says he thinks hes tolerant to opiate medications. Physical Exam Vital signs: Last Vital Signs Temp 97.3 F L 07/22/18 16:00 Pulse 82 07/22/18 16:00 Resp 17 07/22/18 16:00 BP 145/80 H 07/22/18 16:00 Pulse Ox 97 07/22/18 16:00 Intake & Output 07/20/18 07/21/18 07/22/18 07/23/18 06:59 06:59 06:59 06:59 Intake Total 300 / 300 1205 / 1205 620 / 620 240 / 240 Output Total 1900 / 1900 1900 / 1900 2049 / 2049 550 / 550 Balance -1600 / -1600 -695 / -695 -1430 / -1430 -310 / -310 Weight 47.3 kg 47 kg 49.3 kg Narrative: GENERAL: NAD, cachetic . SKIN: Warm and dry HEENT: Normocephalic. Pupils equal round and reactive. Nose without bleeding. Airway patent. NECK: Trachea midline. CARDIOVASCULAR: Regular rate and rhythm without murmurs, gallops, or rubs. RESPIRATORY: Clear to auscultation. Breath sounds equal bilaterally. No wheezes , rales, or rhonchi. GASTROINTESTINAL: Abdomen soft, nondistended. Bowel Sounds normoactive x4. Tenderness light touch : urostomy draining clear urine. MUSCULOSKELETAL: Extremities without clubbing, cyanosis, or edema. NEUROLOGICAL: Awake and alert. No focal neuro deficit. Moves all extremities. Normal speech. Results Labs CBC & Chem 7: 07/21/18 05:59 07/21/18 05:59 Assessment and Plan (1) Abdominal pain of unknown cause: Code(s): R10.9 - Unspecified abdominal pain Status: Acute Onset Date: Unknown (2) UTI due to Klebsiella species: Code(s): N39.0 - Urinary tract infection, site not specified; B96.1 - Klebsiella pneumoniae [K. pneumoniae] as the cause of diseases classified elsewhere Status: Acute (3) Bladder cancer: Code(s): C67.9 - Malignant neoplasm of bladder, unspecified Status: Inactive Onset Date: Unknown Plan Patient is a 62-year-old male with a history of bladder cancer status post radical cystectomy who presents to the emergency department due to 7-day duration of worsening abdominal pain. Gastroenterology: intractable abdominal pain CT scan indicates significant stool from CT scan 07/16. Also noted compression fx again noted. No neurological complaints by patient and no new backpain. -Percocet PRN, Morphine 30mg [id number], IV Dilaudid for breakthrough pain. May increase Morphine ER to 60mg BID when DC -[facility] Prescription Drug Monitoring Database has been queried and verified prior to prescribing the controlled substance. He is prescribed 30 mg of morphine, 90 tabs for 30 days. Percocet 10/325 120 tabs for [address] Mathews. Last prescription 06/24/18, refilled at [facility] outpatient pharmacy Urinary Tract Infection -Cultures came back positive for Proteus, pansensitive -Previously on ceftriaxone, switch over to cipro, may DC on Cipro x6 days (07/21-->) Constipation -Bowel regimen: senna 7.2mg PO q12hr History of bladder cancer ( urothelial cell ca) Status post radical cystectomy. Appreciate urology evaluation by Dr. Lockett. Unlikely urological in etiology Hx of Upper ext DVT Continue apixaban 5 mg twice daily. Tobacco abuse -Patient counselled. code: Full code. dvt ppx: Apixaba dispo: med surg. Progress Note: Quality VTE Deep Vein Thrombosis/Pulmonary Embolism Present on Admission: No _ (1) Bladder cancer Qualifiers: Bladder location:
[2018-07-23] MEDS: oxyCODONE/Acetaminophen 10/325 Tablet PO PRN ×6 (01:41→21:19)
[2018-07-23] MEDS: HYDROmorphone PF Inj 2 MG/ML Vial IV.PUSH PRN ×5 (03:07→19:41)
[2018-07-23] MEDS: Morphine Sulfate 30 MG SR Tablet PO SCH ×3 (05:31→19:41)
[2018-07-23] MEDS: Ciprofloxacin 500 MG Tablet PO SCH ×2 (09:02→19:41)
--- NOTE | 2018-07-23 14:45 | P.PNPAL ---
This is a 62 y/o male with hx high grade muscle invasive bladder ca s/p radical cystectomy & ileal conduit 04/2018 known to our service who presented to ER for severe abd pain with a 1 wk hx. He was initiatlly treated for constipation. CT showed significant stool. His initial labs were notable for WBC 20.3 and he was given antibiotics. Urology was consulted and felt his pain was GI in nature. He continued to have severe abd pain even after having several bowel movements. He was followed by our service during his previous 2017 admission, at which time recommendation was made to have Dr Mathews manage pt 's pain. If needed, we can make recommendations for managing this pts pain but that would not extend to post d/c. He may be a candidate for methadone but would defer to Dr Mathews if pt is still following with him.
--- NOTE | 2018-07-23 16:38 | P.PNIM ---
Physical Exam Vital signs: Vital Signs 07/22/18 20:00 07/23/18 00:00 07/23/18 01:04 Temperature 98.8 F 98.1 F Pulse Rate 82 71 Respiratory Rate 24 20 20 Blood Pressure 149/67 H 120/71 Pulse Oximetry 100 100 07/23/18 05:34 07/23/18 06:29 07/23/18 07:28 Temperature Pulse Rate Respiratory Rate 20 20 20 Blood Pressure Pulse Oximetry 07/23/18 08:00 07/23/18 12:00 07/23/18 14:08 Temperature 98.0 F 98.2 F Pulse Rate 70 78 Respiratory Rate 19 17 16 Blood Pressure 126/66 119/69 Pulse Oximetry 100 99 07/23/18 14:12 Temperature Pulse Rate Respiratory Rate 16 Blood Pressure Pulse Oximetry Intake & Output 07/22/18 07/23/18 07/23/18 18:59 06:59 18:59 Intake Total 240 / 240 Output Total 550 / 550 Balance -310 / -310 Intake: Oral 240 / 240 Output: Urine 550 / 550 Other: Date of Last Bowel Movement 07/23/18 07/22/18 General: No acute distress, cachectic Cardiovascular: S1/S2 Respiratory: Clear to auscultation Gastroneurology: Mild tenderness in epigastric region, soft, no guarding or rebound Extremity: No lower extremity edema Results Labs CBC & Chem 7: 07/21/18 05:59 07/21/18 05:59 Assessment and Plan (1) Abdominal pain of unknown cause: Code(s): R10.9 - Unspecified abdominal pain Status: Acute Onset Date: Unknown (2) UTI due to Klebsiella species: Code(s): N39.0 - Urinary tract infection, site not specified; B96.1 - Klebsiella pneumoniae [K. pneumoniae] as the cause of diseases classified elsewhere Status: Acute (3) Bladder cancer: Code(s): C67.9 - Malignant neoplasm of bladder, unspecified Status: Inactive Onset Date: Unknown Plan Patient is a 62-year-old male with a history of bladder cancer status post radical cystectomy who presents to the emergency department due to 7-day duration of worsening abdominal pain. Gastroenterology: intractable abdominal pain CT scan indicates significant stool from CT scan 07/16. Also noted compression fx again noted. No neurological complaints by patient and no new backpain. -Percocet PRN, Morphine 30mg [id number], IV Dilaudid for breakthrough pain. -[employer] Prescription Drug Monitoring Database has been queried and verified prior to prescribing the controlled substance. He is prescribed 30 mg of morphine, 90 tabs for 30 days. Percocet 10/325 120 tabs for [address] Mathews. Last prescription 06/24/18, refilled at [facility] outpatient pharmacy -Oral morphine 60 mg twice daily -Reduce Dilaudid to 2 mg every 6 hours IV. -Will need to discuss patient outpatient regimen for pain with outpatient oncologist who has been actively involved and patient's care outside of the hospital. 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 Appreciate urology evaluation by Dr. Lockett. Unlikely urological in etiology -I suspect the patient's leukocytosis may be a leukemoid reaction seen occasionally in patients with malignancy. Patient remains afebrile. Hx of Upper ext DVT Continue apixaban 5 mg twice daily. Tobacco abuse -Patient counselled. code: Full code. dvt ppx: Apixaban dispo: med surg. Progress Note: Quality VTE Deep Vein Thrombosis/Pulmonary Embolism Present on Admission: No _ (1) Bladder cancer Qualifiers: Bladder location:
[2018-07-24] MEDS: oxyCODONE/Acetaminophen 10/325 Tablet PO PRN ×4 (01:07→14:22)
[2018-07-24] MEDS: Ciprofloxacin 500 MG Tablet PO SCH ×2 (01:20→08:58)
[2018-07-24] MEDS: Morphine Sulfate 30 MG SR Tablet PO SCH ×2 (01:22→08:59)
[2018-07-24] MEDS: HYDROmorphone PF Inj 2 MG/ML Vial IV.PUSH PRN ×2 (02:08→08:55)
[2018-07-24 13:10] VITALS: BP 131/75; PULSE 80; RESP 19; TEMP 98.9; O2SAT 97
--- NOTE | 2018-07-24 13:28 | P.DS ---
DS: Providers Date of admission: 07/16/18 16:59 Primary care physician: PCP Consults: 07/16/18 16:54 Consult to Urology Routine Consulting Provider: Randy Lockett Reason for Consultation: Oncologist recommended an Urology evaluation. Patient with bladder cancer, receiving radiation treatment. Coming in with intractable pain. Notified:: Service Spoke with:: Gertrudis Date Notified:: 07/16/18 Time Notified:: 17:01 Ordering Provider: SAMANTHA Brief History from admission: Mr. Herr is a 62-year-old male with a history of bladder cancer status post radical cystectomy in April 2018, presents to the emergency department on 07/16/2018 due to severe abdominal pain that has been worsening over the last 7 days. His abdominal pain is particularly worse when he tries to eat or drink anything. He denies any chest pain, shortness of breath, fever or chills. He has a ileal conduit after radical cystectomy. He has not noticed any discoloration of his urine or any erythema around the ileal conduit. He does report constipation for the last 3- 4 days. He is last bowel movement was on 07/13/2018. Past medical history: Bladder cancer Past surgical history: Radical cystectomy Social history: Patient continues to smoke 1-2 cigarettes a day. He denies using alcohol or illicit drugs. Family history: Mother side of the family has history of cancer. He does not know much about his dad's side. DS: Diagnosis Discharge Diagnosis (1) Abdominal pain of unknown cause: Status: Acute (2) UTI due to Klebsiella species: Status: Acute (3) Bladder cancer: Status: Inactive DS: Summary Patient is a 62-year-old male with past medical history of urothelial cell cancer status post chronic pain syndrome who presents to [place] emergency department for intractable abdominal pain. Patient was admitted to hospital with the following treatments and services were provided in his care. E force was checked and patient regimen for pain was reevaluated and upgraded. Patient was slowly transitioned to morphine oral 60 mg twice daily from his outpatient regimen of morphine oral 30 mg 3 times daily. Patient was continued on breakthrough medication. CT abdomen was obtained during presentation which showed large stool burden for which patient was given aggressive bowel regimen with passing of his stool. Brief evaluation obtained by palliative care for pain management recommendations. Patient pain has been managed outpatient by his oncologist. Patient to be given trial of new pain medication regimen with close follow-up outpatient with oncology upon discharge. This was communicated verbally to outpatient oncology and they are in agreement to assume care of the patient's pain regimen once discharged from the hospital. During hospitalization neurology was consulted for evaluation but it was deemed unlikely that patient symptoms were in relation to a urological etiology. Lab work stable. Patient otherwise clinically stable for discharge with close outpatient follow-up of chronic pain syndrome. Time Spent with Patient Total time spent providing and/or coordinating discharge services: > 30 min Patient is a 62-year-old male with past medical history of urothelial cell cancer status post chronic pain syndrome who presents to [place] emergency department for intractable abdominal pain. Patient was admitted to hospital with the following treatments and services were provided in his care. E force was checked and patient regimen for pain was reevaluated and upgraded. Patient was slowly transitioned to morphine oral 60 mg twice daily from his outpatient regimen of morphine oral 30 mg 3 times daily. Patient was continued on breakthrough medication. CT abdomen was obtained during presentation which showed large stool burden for which patient was given aggressive bowel regimen with passing of his stool. Brief evaluation obtained by palliative care for pain management recommendations. Patient pain has been managed outpatient by his oncologist. Patient to be given trial of new pain medication regimen with close follow-up outpatient with oncology upon discharge. This was communicated verbally to outpatient oncology and they are in agreement to assume care of the patient's pain regimen once discharged from the hospital. During hospitalization neurology was consulted for evaluation but it was deemed unlikely that patient symptoms were in relation to a urological etiology. Lab work stable. Patient otherwise clinically stable for discharge with close outpatient follow-up of chronic pain syndrome. Quality: VTE Deep Vein Thrombosis/Pulmonary Embolism Present on Admission: No Results Impressions ITS Impressions Abdomen/Pelvis CT 07/16/18 14:00 CONCLUSION: Essentially unremarkable study except for tiny left renal stone. Discharge Plan Discharge Disposition Patient Disposition: 01 Discharge Home Discharge Condition Condition: Stable Discharge Order Discharge Orders: Discharge Order (Routine); Ordered 07/24/18 Ordered By: Josh Woodard Discharge Details Anticipated Discharge Date: 07/24/18 Discharge Comment: Patient to be discharged once pain medication prescription has been signed by primary physician Physicians Team ED Provider: Teddy Reich ED Midlevel Provider: Michael Wallace Primary Care Provider: Primary Care Physici,No Attending Provider: Josh Woodard Other Providers: Randy Lockett Rxs /Orders / Referrals /Forms Prescriptions: New morphine 30 mg Tablet Extended Release 60 mg PO Q12HR 5 Days Qty: 20 RF: 0 apixaban [Eliquis] 5 mg Tablet 5 mg PO BID 30 Days Qty: 60 RF: 0 docusate sodium [Colace] 100 mg capsule 100 mg PO BID 30 Days Qty: 60 RF: 0 Continue levothyroxine [Synthroid] 50 mcg Tablet 50 mcg PO DAILY@0600 Qty: 30 RF: 0 sennosides-docusate sodium [Lax Stool Softener With Senna] 8.6-50 mg Tablet 2 tab PO BID PRN (Reason: Constipation) Qty: 120 RF: 0 dronabinol 5 mg Capsule 5 mg PO BID@1100,1600 Qty: 60 RF: 0 oxycodone-acetaminophen 10-325 mg Tablet 1 tab PO Q4H PRN (Reason: Pain) Qty: 60 RF: 0 ondansetron [Zofran ODT] 4 mg Tablet,Disintegrating 4 mg PO Q6-8H PRN (Reason: Nausea) Qty: 30 RF: 0 Discontinued morphine 30 mg Capsule, Er Multiphase 24 Hr 30 mg PO DAILY RF: 0 Referrals: Primary Care Melissa Brito [Primary Care Provider] - See Instructions (Follow-up with primary medical physician in 7-14 days post discharge.) Alexey Mathews MD [Physician] - See Instructions (Please follow-up with oncologist within 7 days post discharge) Discharge Interventions Interventions: Discharge Planning - Case Management Last Done: 07/20/18 15:40 Status ED Status: Left Department
== END 2018-07-24 16:13 | disposition home or self-care (01) | DRG 92 ==
LOC: NEPE 11:59 → NEDA 16:59 → NEPHCDU 19:30 → N07 07-19 18:51
PROVIDERS: ADMIT Internal Medicine; ATTEND Internal Medicine
DX: R10.9 Unspecified abdominal pain; K59.00 Constipation, unspecified; N39.0 Urinary tract infection, site not specified; C67.9 Malignant neoplasm of bladder, unspecified; J44.9 Chronic obstructive pulmonary disease, unspecified; F17.210 Nicotine dependence, cigarettes, uncomplicated; Z79.890 Hormone replacement therapy; Z79.01 Long term (current) use of anticoagulants; Z90.6 Acquired absence of other parts of urinary tract; B96.1 Klebsiella pneumoniae [K. pneumoniae] as the cause of diseases classified elsewhere; Z51.5 Encounter for palliative care; Z86.718 Personal history of other venous thrombosis and embolism; R63.4 Abnormal weight loss; Z92.21 Personal history of antineoplastic chemotherapy; G89.4 Chronic pain syndrome
CPT/HCPCS: 74177; 80048; 80053; 81001; 83605; 83690; 83735; 85025; 85610; 85730; 87040; 87077; 87086; 87186; 90761; 90765; 90775; 96361; 96365; 96375; 99285; J0696; J1170; J2405; J7030; Q9967

== ENCOUNTER 2018-09-05 10:11 | Inpatient (IN) ==
[2018-09-05] MEDS ORDERED: Naloxone Inj 0.4 MG/ML Vial IV.PUSH ONE (10:19)
[2018-09-05] MEDS ORDERED: Sod Chloride 0.9% Inj 1,000 ML IV.SIG SCH ×2 (10:30→12:15)
[2018-09-05 10:53] LABS: Hematocrit 37.5 % (39.0-51.0); Hemoglobin 12.3 gm/dL (13.0-17.0); Mean Corpuscular HGB Conc 32.8 % (32.0-36.0); Mean Corpuscular Hemoglobin 27.2 pg (27.0-34.0); Mean Corpuscular Volume 82.8 fL (80.0-100.0); Mean Platelet Volume 9.5 fL (7.0-11.0); Platelet Count 493 th/mm3 (150-450); Red Blood Count 4.53 mil/mm3 (4.50-5.90); Red Cell Distribution Width 18.1 % (11.6-17.2); White Blood Count 61.1 th/mm3 (4.0-11.0)
[2018-09-05 10:54] LABS: Bilirubin,Urine Negative (Negative); Clarity,Urine Slightly Cloudy (Clear); Color,Urine Yellow (Yellw/Straw); Glucose,Urine (UA) Negative (Negative); Leukocyte Esterase,Urine Large (Negative); Nitrite,Urine Negative (Negative); Urobilinogen,Urine 0.2 mg/dL (Less than 2)
[2018-09-05 11:10] LABS: Squamous Epithelial Cell,Urine 0-5 /hpf (0-5)
[2018-09-05 11:11] LABS: Bacteria,Urine Few /hpf
[2018-09-05 11:26] LABS: Hyaline Casts,Urine 0-3 /lpf (0-3)
[2018-09-05 11:46] LABS: Lymphocytes 4 % (9-44); Monocytes 3 % (0-8)
[2018-09-05 11:48] LABS: Platelet Morphology Normal (Normal); Toxic Granulation 2+
[2018-09-05 12:03] LABS: Chloride 103 meq/L (98-107); Potassium 4.4 meq/L (3.5-5.1); Sodium 138 meq/L (136-145)
[2018-09-05 12:07] LABS: Albumin 2.4 g/dL (3.4-5.0); Anion Gap 12 meq/L (5-15); Blood Urea Nitrogen 63 mg/dL (7-18); Calcium 11.5 mg/dL (8.5-10.1); Carbon Dioxide 23.1 meq/L (21.0-32.0); Glucose,Random 96 mg/dL (74-106)
[2018-09-05 12:10] LABS: Alanine Aminotransferase 12 U/L (12-78); Aspartate Aminotransferase 15 U/L (15-37)
[2018-09-05 12:11] LABS: Glomerular Filtration Rate 79 mL/min (>89)
[2018-09-05 12:12] LABS: Total Protein 7.4 g/dL (6.4-8.2)
[2018-09-05 12:13] LABS: Alkaline Phosphatase 246 U/L (45-117)
--- NOTE | 2018-09-05 12:17 | ED ---
HPI General Chief complaint: Weakness Stated complaint: Evac Time Seen by Provider: 09/05/18 10:19 Source: patient Mode of arrival: EMS Limitations: altered mental status History of Present Illness HPI narrative: This 62-year-old male is sent from hospice. He became unresponsive there. This gentleman has a history of bladder cancer. He has an ileal conduit. At the time of his bladder surgery the margins were not clear. The patient has been quite emaciated and has not been thought to be strong enough for ongoing chemo or radiation he has had chronic pain requiring large amounts of pain medication. He was admitted to hospice yesterday. The patient says he was living at home prior to that. He has had chronic ongoing pain. An etiology for the pain has not been certain. He is thought to have residual cancer of the right has not been apparent on multiple imaging studies. This morning he was unresponsive. According to his living girlfriend he does not have a DO NOT RESUSCITATE order and did not want one. Related Data Home Medications Medication Instructions Recorded Confirmed levothyroxine 50 mcg PO DAILY 09/05/18 09/05/18 lorazepam 0.5 mg PO Q4HR 09/05/18 09/05/18 mirtazapine 15 mg PO DAILY 09/05/18 09/05/18 morphine 60 mg PO Q12H 09/05/18 09/05/18 oxycodone-acetaminophen 1 tab PO Q4H PRN MDD 8 09/05/18 09/05/18 pantoprazole 40 mg PO DAILY 09/05/18 09/05/18 ranitidine HCl [Zantac] 300 mg PO DAILY 09/05/18 09/05/18 sennosides 8.6 mg PO BID PRN MDD 2 09/05/18 09/05/18 Allergies Allergy/AdvReac Type Severity Reaction Status Date / Time No Known Allergies Allergy Verified 07/16/18 14:00 Review of Systems ROS Unobtainable ROS Unobtainable: unobtainable due to mental condition PMFSH Medical History Medical History Anxiety (Acute) Bladder cancer (Acute) COPD (chronic obstructive pulmonary disease) (Acute) Cancer (Acute) Chronic abdominal pain (Acute) Depression (Acute) History of chemotherapy (Acute) Scarlet fever (Acute) Surgical History Surgical History History of bladder surgery (Acute) History of lung biopsy (Acute) Social History Social History Substance History: No History of Abuse Second Hand Smoke Exposure: No Smoking Status: Current every day smoker Tobacco Type: Cigarettes How Often Do You Have a Drink Containing Alcohol: Never Recent Travel in [facility] within the Last 8 Weeks: No Recent Out of Country Travel within the Last 8 Weeks: No Immunization History Tetanus Immunization: Unsure Exam Narrative Exam Narrative: GENERAL: Cachectic male with evidence of severe weight loss. He arrives unresponsive. He does withdraw to painful stimuli SKIN: Focused skin assessment dry. HEAD: Atraumatic. Normocephalic. EYES: Pupils pinpoint bilaterally. No scleral icterus. No injection or drainage. ENT: No nasal bleeding or discharge. Mucous membranes dry NECK: Trachea midline. No JVD. CARDIOVASCULAR: Regular rate and rhythm. No murmur appreciated. RESPIRATORY: No accessory muscle use. Scattered rhonchi breath sounds equal bilaterally. GASTROINTESTINAL: Abdomen is scaphoid, ileal conduit in place MUSCULOSKELETAL: No obvious deformities. No clubbing. No cyanosis. No edema. Diffuse cachexia NEUROLOGICAL: Unresponsive. Withdraws to pain. Nonverbal. Course Initial Documented Vital Signs Temperature 97.3 F L 09/05/18 10:26 Pulse Rate 112 H 09/05/18 10:26 Respiratory Rate 16 09/05/18 10:26 Blood Pressure 102/87 09/05/18 10:26 Pulse Oximetry 95 09/05/18 10:26 Last Documented Vital Signs Temperature 97.3 F L 09/05/18 10:26 Pulse Rate 89 09/05/18 13:20 Respiratory Rate 18 09/05/18 12:32 Blood Pressure 112/81 09/05/18 12:32 Pulse Oximetry 96 09/05/18 12:32 Medical Decision Making MDM Narrative Medical decision making narrative: Patient was given 0.4 Narcan and after this he became much more responsive. He has woken up in bed is complaining of pain all over. I do not want to give additional Narcan as he undoubtedly has opiate dependence. His BUN is 63 with creatinine of 0.94. Of note his calcium was also elevated at 11.5 with an albumin of only 2.4. He is getting IV fluids. His white count is 65,000. A month ago his white count was 45,000. Medical Screen Exam Complete: Yes Emergency Medical Condition: Yes Lab Data Result diagrams: 09/05/18 10:30 09/05/18 10:30 Lab Results 09/05/18 09/05/18 09/05/18 Range/Units 10:30 10:30 10:30 CBC w Diff Slide review pending WBC 61.1 H (4.0-11.0) th/mm3 RBC 4.53 (4.50-5.90) mil/mm3 Hgb 12.3 L (13.0-17.0) gm/dL Hct 37.5 L (39.0-51.0) % MCV 82.8 (80.0-100.0) fL MCH 27.2 (27.0-34.0) pg MCHC 32.8 (32.0-36.0) % RDW 18.1 H (11.6-17.2) % Plt Count 493 H (150-450) th/mm3 MPV 9.5 (7.0-11.0) fL WBC Differential Manual diff final Seg Neuts % (Manual) 85 H (16-70) % Band Neuts % (Manual) 8 H (0-6) % Lymphocytes % (Manual) 4 L (9-44) % Monocytes % (Manual) 3 (0-8) % Abs Neuts (Manual) 56.8 H (1.8-7.7) th/mm3 Differential Comment . Toxic Granulation 2+ H (None) Platelet Estimate High H (Normal) Platelet Morphology Normal (Normal) Sodium 138 (136-145) meq/L Potassium 4.4 (3.5-5.1) meq/L Chloride 103 (98-107) meq/L Carbon Dioxide 23.1 (21.0-32.0) meq/L Anion Gap 12 (5-15) meq/L BUN 63 H (7-18) mg/dL Creatinine 0.97 (0.60-1.30) mg/dL Estimated GFR 79 L (>89) mL/min Random Glucose 96 (74-106) mg/dL Lactic Acid 2.1 H (0.4-2.0) mmol/L Calcium 11.5 H (8.5-10.1) mg/dL Total Bilirubin 1.2 H (0.2-1.0) mg/dL AST 15 (15-37) U/L ALT 12 (12-78) U/L Alkaline Phosphatase 246 H (45-117) U/L Total Protein 7.4 (6.4-8.2) g/dL Albumin 2.4 L (3.4-5.0) g/dL Ur Collection Type Urine Color (Yellw/Straw) Urine Clarity (Clear) Urine pH (5.0-8.5) Ur Specific [place]illi[place] (1.002-1.035) Urine Protein (Neg-Trace) mg/dL Urine Glucose (UA) (Negative) mg/dL Urine Ketones (Negative) mg/dL Urine Occult Blood (Negative) Urine Nitrate (Negative) Urine Bilirubin (Negative) Urine Urobilinogen (Less than 2) mg/dL Ur Leukocyte Esterase (Negative) Urine WBC (0-5) /hpf Ur Squamous Epith Cells (0-5) /hpf Urine Bacteria (None) /hpf Hyaline Casts (0-3) /lpf Micro UA Comment Ur Microscopic Review Urine Culture Comments 09/05/18 09/05/18 Range/Units 10:40 12:55 CBC w Diff WBC (4.0-11.0) th/mm3 RBC (4.50-5.90) mil/mm3 Hgb (13.0-17.0) gm/dL Hct (39.0-51.0) % MCV (80.0-100.0) fL MCH (27.0-34.0) pg MCHC (32.0-36.0) % RDW (11.6-17.2) % Plt Count (150-450) th/mm3 MPV (7.0-11.0) fL WBC Differential Seg Neuts % (Manual) (16-70) % Band Neuts % (Manual) (0-6) % Lymphocytes % (Manual) (9-44) % Monocytes % (Manual) (0-8) % Abs Neuts (Manual) (1.8-7.7) th/mm3 Differential Comment Toxic Granulation (None) Platelet Estimate (Normal) Platelet Morphology (Normal) Sodium (136-145) meq/L Potassium (3.5-5.1) meq/L Chloride (98-107) meq/L Carbon Dioxide (21.0-32.0) meq/L Anion Gap (5-15) meq/L BUN (7-18) mg/dL Creatinine (0.60-1.30) mg/dL Estimated GFR (>89) mL/min Random Glucose (74-106) mg/dL Lactic Acid 2.2 H (0.4-2.0) mmol/L Calcium (8.5-10.1) mg/dL Total Bilirubin (0.2-1.0) mg/dL AST (15-37) U/L ALT (12-78) U/L Alkaline Phosphatase (45-117) U/L Total Protein (6.4-8.2) g/dL Albumin (3.4-5.0) g/dL Ur Collection Type Clean catch Urine Color Yellow (Yellw/Straw) Urine Clarity Slightly cloudy (Clear) Urine pH 7.0 (5.0-8.5) Ur Specific Hilliards 1.010 (1.002-1.035) Urine Protein Trace (Neg-Trace) mg/dL Urine Glucose (UA) Negative (Negative) mg/dL Urine Ketones Negative (Negative) mg/dL Urine Occult Blood Small H (Negative) Urine Nitrate Negative (Negative) Urine Bilirubin Negative (Negative) Urine Urobilinogen 0.2 (Less than 2) mg/dL Ur Leukocyte Esterase Large H (Negative) Urine WBC 9-20 H (0-5) /hpf Ur Squamous Epith Cells 0-5 (0-5) /hpf Urine Bacteria Few H (None) /hpf Hyaline Casts 0-3 (0-3) /lpf Micro UA Comment Culture indicated Ur Microscopic Review Microscopic reviewed Urine Culture Comments Culture indicated Imaging Data Radiologist's impression: Chest X-Ray 09/05/18 12:07 CONCLUSION: Marked hyperinflation, negative for infiltrate or pneumothorax. Discharge Plan Discharge Disposition Patient Disposition: ED Admit(ED Internal Use Only) Discharge Condition Condition: Serious Discharge Order Discharge Orders: ED Use Only Admit Order (Routine); Ordered 09/05/18 Ordered By: Servando Bledsoe Discharge Details Diagnosis: Dehydration, Leukocytosis, Hypercalcemia, Altered mental status Physicians Team ED Provider: Servando Bledsoe Primary Care Provider: UNKNOWN, Rxs /Orders / Referrals /Forms Prescriptions: No Action sennosides 8.6 mg Tablet 8.6 mg PO BID MDD 2 PRN (Reason: Constipation) RF: 0 ranitidine HCl [Zantac] 300 mg Tablet 300 mg PO DAILY RF: 0 lorazepam 0.5 mg Tablet 0.5 mg PO Q4HR RF: 0 oxycodone-acetaminophen 10-325 mg Tablet 1 tab PO Q4H MDD 8 PRN (Reason: Pain, Moderate) RF: 0 levothyroxine 50 mcg Tablet 50 mcg PO DAILY RF: 0 pantoprazole 40 mg Tablet,Delayed Release (Dr/Ec) 40 mg PO DAILY RF: 0 mirtazapine 15 mg Tablet 15 mg PO DAILY RF: 0 morphine 60 mg Tablet Extended Release 12hr 60 mg PO Q12H RF: 0 Discharge Interventions Interventions: Vital Signs Last Done: 09/05/18 13:20 Status ED Status: With Doctor
--- NOTE | 2018-09-05 12:42 | XR ---
EXAM DATE: 09/05/2018 12:29 PM EST AGE/SEX: 62 years / Male INDICATIONS: Short of breath, cough, congestion. CLINICAL DATA: This is the patient's initial encounter. Patient reports that signs and symptoms have been present for 1 day and indicates a pain score of Nonresponsive. MEDICAL/SURGICAL HISTORY: Carcinoma, bladder. Chronic obstructive pulmonary disease. Chemother apy. Scarlet fever. . Bladder sx. COMPARISON: [facility] [place], CHEST 2V AP&LAT, 04/25/2018. . FINDINGS: Cicatrizing fibrotic changes are present in the apex of the right lung greater than the left. Marked hyperinflation. The heart and pulmonary vascularity are normal.. There is no pneumothorax. The portio n of the bony skeleton visualized is unremarkable. CONCLUSION: Marked hyperinflation, negative for infiltrate or pneumothorax. Electronically signed by: Mustapha Rodriguez MD Board Certified Radiologist 09/05/2018 12:41 PM EST
[2018-09-05] MEDS ORDERED: Sod Chloride 0.9% Inj 1,000 ML IV.CONT SCH (13:45)
--- NOTE | 2018-09-05 14:07 | CT ---
EXAM DATE: 09/05/2018 1:36 PM EST AGE/SEX: 62 years / Male INDICATIONS: Altered mental status. CLINICAL DATA: This is the patient's initial encounter. Patient reports that signs and symptoms have been present for 1 day and indicates a pain score of 0/10. MEDICAL/SURGICAL HISTORY: Carcinoma, bladder. . Ileal conduit. RADIATION DOSE: 59.97 CTDI (mGy) COMPARISON: No prior exams available for comparison. TECHNIQUE: CT of the head without contrast. Using automated exposure control and adjustment of the mA and/or kV according to patient size, radiation dose was kept as low as reasonably achievable to ob tain optimal diagnostic quality images. DICOM format image data is available electronically for revi ew and comparison. FINDINGS: Cerebrum: The ventricles are normal for age. No evidence of midline shift, mass lesion, hemorrhage or acute infarction. No extraaxial fluid collections are seen. Posterior Fossa: The cerebellum and brainstem are intact. The 4th ventricle is midline. The cerebe llopontine angle is unremarkable. Extracranial: The visualized portion of the orbits is intact. Skull: The calvaria is intact. No evidence of skull fracture. CONCLUSION: 1. Negative for acute process . . Electronically signed by: Mustapha Rodriguez MD Board Certified Radiologist 09/05/2018 2:06 PM EST
[2018-09-05] MEDS ORDERED: Bisacodyl 10 MG Supp RECTAL PRN (14:47)
[2018-09-05] MEDS ORDERED: Acetaminophen 325 MG Tablet PO PRN (14:47)
[2018-09-05] MEDS: Sod Chloride 0.9% Inj 1,000 ML IV.CONT SCH (14:52)
--- NOTE | 2018-09-05 15:49 | P.DIET ---
Nutritional Evaluation Type of nutrition evaluation: initial Nutrition screening: Weight Loss > 10 lbs Objective - Diagnosis hyperkalemia, dehydration, AMS - Objective Body Mass Index: 13.7 [place] body weight: 65 kg (142lbs) % IBW: 58 Body Weight Used for Calculations: Actual Energy Needs - Lower Range (kCal/kg): 40 Energy Needs - Upper Range (kCal/kg): 45 Lower Limit kCal/kg (kCals): 1,520 Upper Limit kCal/kg (kCals): 1,710 Lower Limit Protein Factor (Grams per Kg): 1.2 Upper Limit Protein Factor (Grams per Kg): 1.5 Lower Protein Needs (Protein): 46 Upper Protein Needs (Protein): 57 Dietitian Reviewed in Medical Record: Current diet, Curent medications, Intake & Output, Labs, Medical history Diet Order: regualr Objective Comments: PMH; bladder cancer, depression, COPD Labs; BUN 63, GFR 79 Medications; reviewed Assessment Assessment: Weight Loss screen; Pt presents to ED from hospice as he was unresponsive and is currently at nutritional risk r/t cancer diagnosis, recent weight loss, and low BMI of 13.7. Per MD note pt is emaciated and thought not to be strong enough to continue with radiation or chemotherapy and was placed on hospice yesterday. He is currently ordered for a regular diet with PO intake not yet established. Will send pt Ensure Enlive supplement TID in efforts to support PO intake as pt's energy requirements are significantly increased at this time and minimize further weight loss. Each supplement will provide 350kcal and 20g protein. Will continue to monitor PO intake, supplement acceptance and clinical course. Recommendations: 1. Ensure Enlive TID 2. Encourage PO intake Dietitian to Monitor: Lab values, Supplement acceptance, Intake & Output, Diet tolerance, Weight change, PO Intake, Medical course
--- NOTE | 2018-09-05 15:49 | P.HPIM ---
History of Present Illness Primary Care Physician: UNKNOWN Chief Complaint: Altered mental status change History of Present Illness: 62-year-old male with history of bladder cancer status post radical cystectomy in April 2018, and recently transferred to a local hospice care center on September 04, 2018 was brought to the ED today for evaluation of an acute onset of altered mental status change. During my exam, patient is unable to communicate, and the history is obtained from chart review below: 'This 62-year-old male is sent from hospice. He became unresponsive there. This gentleman has a history of bladder cancer. He has an ileal conduit. At the time of his bladder surgery the margins were not clear. The patient has been quite emaciated and has not been thought to be strong enough for ongoing chemo or radiation he has had chronic pain requiring large amounts of pain medication. He was admitted to hospice yesterday. The patient says he was living at home prior to that. He has had chronic ongoing pain. An etiology for the pain has not been certain. He is thought to have residual cancer of the right has not been apparent on multiple imaging studies. This morning he was unresponsive. According to his living girlfriend he does not have a DO NOT RESUSCITATE order and did not want one.' The case was discussed with patient events girlfriend, who stated that if the patient ever wakes up she will have him changed his CODE STATUS to DNR. Inpatient Certification Inpatient Certification: I certify that the inpatient services were ordered in accordance with Medicare regulations governing the order. This includes certification that hospital inpatient services are reasonable and necessary and in the case of services not specified as inpatient-only under 42 CFR 419.22(n), that they are appropriately provided as inpatient services in accordance to with the 2-midnight benchmark under 43 CFR 412.3(e) Estimated Total Length of Stay (Days): 2 Plans for Post Hospital Care: Not yet determined Review of Systems ROS Unobtainable: unobtainable due to mental status PMFSH Medical History Medical History Anxiety (Acute) Bladder cancer (Acute) COPD (chronic obstructive pulmonary disease) (Acute) Cancer (Acute) Chronic abdominal pain (Acute) Depression (Acute) History of chemotherapy (Acute) Scarlet fever (Acute) Surgical History Surgical History History of bladder surgery (Acute) History of lung biopsy (Acute) Social History Social History Substance History: No History of Abuse Second Hand Smoke Exposure: Yes Smoking Status: Current some day smoker Tobacco Type: Cigarettes How Often Do You Have a Drink Containing Alcohol: Never Recent Travel in [place] within the Last 8 Weeks: No Recent Out of Country Travel within the Last 8 Weeks: No Immunization History Tetanus Immunization: Unable to Assess Hx Influenza Vaccine This Season: No Medications and Allergies Allergies Allergy/AdvReac Type Severity Reaction Status Date / Time No Known Allergies Allergy Verified 07/16/18 14:00 Home Medications Medication Instructions Recorded Confirmed Type levothyroxine 50 mcg PO DAILY 09/05/18 09/05/18 History lorazepam 0.5 mg PO Q4HR 09/05/18 09/05/18 History mirtazapine 15 mg PO DAILY 09/05/18 09/05/18 History morphine 60 mg PO Q12H 09/05/18 09/05/18 History oxycodone-acetaminophen 1 tab PO Q4H PRN MDD 8 09/05/18 09/05/18 History pantoprazole 40 mg PO DAILY 09/05/18 09/05/18 History ranitidine HCl [Zantac] 300 mg PO DAILY 09/05/18 09/05/18 History sennosides 8.6 mg PO BID PRN MDD 2 09/05/18 09/05/18 History Active Medications: Active Medications Acetaminophen (Tylenol) 650 mg PO Q4H PRN PRN Reason: Temp > 100.4 Al Hydroxide/Mg Hydroxide (Milk Of Magnesia Liq) 30 ml PO Q12H PRN PRN Reason: Mild Constipation Bisacodyl (Dulcolax Supp) 10 mg RECTAL DAILY PRN PRN Reason: SEVERE CONSITIPATION Sodium Chloride (Ns Inj) 1,000 mls @ 250 mls/hr IV.CONT .Q4H NADINE Last Infusion: 09/05/18 14:32 Dose: 250 mls/hr Sodium Chloride (Ns Inj) 1,000 mls @ 100 mls/hr IV.CONT .Q10H NADINE Last Admin: 09/05/18 14:52 Dose: 100 mls/hr Lactulose (Lactulose Liq) 30 ml PO DAILY PRN PRN Reason: SEVERE CONSITIPATION Ondansetron HCl (Zofran Inj) 4 mg IV.PUSH Q6H PRN PRN Reason: NAUSEA OR VOMITING Senna/Docusate Sodium (Loni-Colace) 1 tab PO BID [facility] Sennosides (Senokot) 17.2 mg PO Q12H PRN PRN Reason: Moderate Constipation Sodium Chloride (Ns Flush) 2 ml IV.FLUSH BID NADINE Sodium Chloride (Ns Flush) 2 ml IV.FLUSH PRN PRN PRN Reason: FLUSH AFTER USING IV ACCESS Physical Exam Vital signs: Vital Signs 09/05/18 10:26 09/05/18 11:07 09/05/18 12:32 Temperature 97.3 F L Pulse Rate 112 H 104 H 98 H Respiratory Rate 16 18 18 Blood Pressure 102/87 109/88 112/81 Pulse Oximetry 95 99 96 09/05/18 13:20 09/05/18 14:09 Temperature Pulse Rate 89 87 Respiratory Rate 16 Blood Pressure 100/73 Pulse Oximetry 96 Intake & Output 09/04/18 09/05/18 09/05/18 18:59 06:59 18:59 Intake Total 2099 Balance 2099 Weight 38.5 kg Intake: IV 2099 NS Inj 1,000 ML @ 250 mls/hr IV 100 / 100 .CONT .Q4H NADINE Rx#:[id number] NS Inj 1,000 ML @ 1000 mls/hr 1999 IV.SIG BOLUS NADINE Rx#:[id number] Narrative: GENERAL: Cachectic man with evidence of temporal wasting, currently unresponsive. SKIN: Warm and dry. HEAD: Atraumatic. Normocephalic. EYES: Pupils equal and round. No scleral icterus. No injection or drainage. ENT: No nasal bleeding or discharge. Mucous membranes pink and moist. NECK: Trachea midline. No JVD. CARDIOVASCULAR: Regular rate and rhythm. RESPIRATORY: No accessory muscle use. Breath sounds decreased bilaterally. GASTROINTESTINAL: Abdomen soft, non-tender, nondistended. Hepatic and splenic margins not palpable. MUSCULOSKELETAL: Extremities without clubbing, cyanosis, or edema. No obvious deformities. NEUROLOGICAL: Unresponsive, nonverbal Results Labs CBC & Chem 7: 09/05/18 10:30 09/05/18 10:30 Imaging Impressions Chest X-Ray 09/05/18 12:07 CONCLUSION: Marked hyperinflation, negative for infiltrate or pneumothorax. Head CT 09/05/18 12:17 CONCLUSION: 1. Negative for acute process . . Caprini VTE Risk Assessment Caprini VTE Risk Assessment: Moderate/High Risk (score >= 2) Caprini Risk Assessment Model: Point Value = 1 Point Value = 2 Point Value = 3 Point Value = 5 Age 41-60 Minor surgery BMI > 25 kg/m2 Swollen legs Varicose veins or History of unexplained or recurrent spontaneous Oral contraceptives or hormone replacement Sepsis (< 1 month) Serious lung disease, including pneumonia (< 1 month) Abnormal pulmonary function Acute myocardial infarction Congestive heart failure (< 1 month) History of inflammatory bowel disease Medical patient at bed rest Age 61-74 Arthroscopic surgery Major open surgery (> 45 min) Laparoscopic surgery (> 45 min) Malignancy Confined to bed (> 72 hours) Immobilizing plaster cast Central venous access Age >= 75 History of VTE Family history of VTE Factor V Leiden Prothrombin [id number] Lupus anticoagulant Anticardiolipin antibodies Elevated serum homocysteine Heparin-induced thrombocytopenia Other congenital or acquired thrombophilia Stroke (< 1 month) Elective arthroplasty Hip, pelvis, or leg fracture Acute spinal cord injury (< 1 month) Prophylaxis Regimen: Total Risk Factor Score Risk Level Prophylaxis Regimen 0-1 Low Early ambulation 2 Moderate Order ONE of the following: *Sequential Compression Device (SCD) *Heparin 5000 units SQ BID 3-4 Higher Order ONE of the following medications: *Heparin 5000 units SQ TID *Enoxaparin/Lovenox 40 mg SQ daily (WT < 150 kg, CrCl > 30 mL/min) *Enoxaparin/Lovenox 30 mg SQ daily (WT < 150 kg, CrCl > 10-29 mL/min) *Enoxaparin/Lovenox 30 mg SQ BID (WT < 150 kg, CrCl > 30 mL/min) AND/OR *Sequential Compression Device (SCD) 5 or more Highest Order ONE of the following medications: *Heparin 5000 units SQ TID (Preferred with Epidurals) *Enoxaparin/Lovenox 40 mg SQ daily (WT < 150 kg, CrCl > 30 mL/min) *Enoxaparin/Lovenox 30 mg SQ daily (WT < 150 kg, CrCl > 10-29 mL/min) *Enoxaparin/Lovenox 30 mg SQ BID (WT < 150 kg, CrCl > 30 mL/min) AND *Sequential Compression Device (SCD) Assessment and Plan Plan 62-year-old man with Altered mental status change Toxic encephalopathy Secondary to medication side effect Head CT noted and reviewed by me without any acute finding Chest x-ray noted and reviewed by me without any pulmonary infiltrate Hold all [employer] depressant medication Status post Narcan in the ED History of bladder cancer Case was discussed with Dr. Mathews, oncology We highly recommend hospice admission, however patient is currently full code I had a lengthy discussion with patient living with his girlfriend who is not POA Severe protein calorie malnutrition Secondary to above history of bladder cancer Currently patient is n.p.o. Consider consult from dietitian Severe dehydration Continue with gentle IV fluid hydration Lactic acidosis Secondary to dehydration versus current diagnosis of cancer Continue with IV fluid hydration and monitor lactic acid Hypercalcemia Continue with IV fluid hydration and consider pamidronate Decubitus ulcer Consult wound care nurse H&P: Quality VTE Deep Vein Thrombosis/Pulmonary Embolism Present on Admission: No
--- NOTE | 2018-09-05 15:55 | P.CON ---
History of Present Illness Service: Hematology/oncology. Consult date: 09/05/18 Requesting Physician: Servando Bledsoe Reason for Consult: History of bladder carcinoma. Hypercalcemia. Primary Care Provider: UNKNOWN Chief Complaint: Unarousable. History of Present Illness: Mr. 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 He initially underwent a transurethral resection of bladder tumor. Following that he underwent staging studies and was found to have locally advanced disease. He was advised neoadjuvant chemotherapy which consisted of combination of gemcitabine and cisplatin, treatment was initiated in November 2017, the patient remained on treatment until late January 2018. In early April 2018 he underwent surgical resection with a radical cystectomy. Gross disease was resected though he did have positive microscopic margins. His postoperative course was complicated by severe pain, debility, protein calorie malnutrition and a protracted hospitalization. After he was discharged he was reevaluated and advised combined modality postoperative chemoradiotherapy for treatment of the positive margins. The patient however did not recover to the extent required to undergo treatment,He unfortunately struggled with malnutrition, chronic pain, debility, adult failure to thrive all of which made him a poor candidate for aggressive adjuvant therapy. The patient was last seen by myself in late July 2018, he underwent restaging PET/CT imaging on 08/11/2018 to assess for residual disease or metastatic disease. The only area of abnormality identified on this PET scan was abnormal uptake involving the L4 vertebral body which was a site of a compression fracture, intra-abdominal organs, intrathoracic organs and the remainder of the musculoskeletal system was without abnormalities. The patient however reported severe pain requiring [id number] high doses of opioids; both long and short acting. He was offered evaluation by pain management and eventually elected to enroll on hospice primarily for pain management but also for optimization of supportive care. Over the past 3 weeks the patient's clinical condition has declined significantly as evident on today' s examination. He had been on high doses of long-acting morphine and this morning was noted to be difficult to arouse. Though he had been on hospice care he was in the medical records a full code and was therefore referred to the emergency department, he was resuscitated with IV fluids and was given Narcan. Upon evaluation in the emergency department patient was noted to have hypercalcemia and was clinically dehydrated. Additionally he was noted to have hyperleukocytosis with a white blood cell count of over 60,000; most of the WBCs were neutrophils and band neutrophils. Lactic acid level was noted to be elevated. He is being admitted to the hospital for supportive management and resuscitation. Oncology service was asked to see him to assist in further workup and management. Review of Systems unobtainable due to mental condition PMFSH - History History Provided By: Significant Other - Medical History Medical History: Medical History (Last Updated 09/05/18 @ 16:08 by Alexey Mathews MD) Opioid dependence in controlled environment Anxiety Bladder cancer COPD (chronic obstructive pulmonary disease) Chronic abdominal pain Depression History of chemotherapy Scarlet fever - Surgical History Surgical History: Surgical History (Last Reviewed 09/05/18 @ 16:08 by Alexey Mathews MD) History of bladder surgery History of lung biopsy - Social History I have reviewed the patient's Social History: No - Tobacco History Second Hand Smoke Exposure: Yes Tobacco Use In Past 30 Days: Yes Smoking Status: Current some day smoker Tobacco Type: Cigarettes - Alcohol History How Often Do You Have a Drink Containing Alcohol: Never - Substance Use History Substance History: No History of Abuse - Travel History Recent Travel in the [place] Within the Last 8 Weeks: No Recent Travel Out of the Country Within the Last 8 Weeks: No - Immunization History Tetanus Immunization: Unable to Assess Hx Influenza Vaccine This Season: No Medications and Allergies Active Medications: Active Medications Acetaminophen (Tylenol) 650 mg PO Q4H PRN PRN Reason: Temp > 100.4 Al Hydroxide/Mg Hydroxide (Milk Of Magnesia Liq) 30 ml PO Q12H PRN PRN Reason: Mild Constipation Bisacodyl (Dulcolax Supp) 10 mg RECTAL DAILY PRN PRN Reason: SEVERE CONSITIPATION Sodium Chloride (Ns Inj) 1,000 mls @ 250 mls/hr IV.CONT .Q4H [facility] Last Infusion: 09/05/18 14:32 Dose: 250 mls/hr Sodium Chloride (Ns Inj) 1,000 mls @ 100 mls/hr IV.CONT .Q10H [facility] Last Admin: 09/05/18 14:52 Dose: 100 mls/hr Lactulose (Lactulose Liq) 30 ml PO DAILY PRN PRN Reason: SEVERE CONSITIPATION Ondansetron HCl (Zofran Inj) 4 mg IV.PUSH Q6H PRN PRN Reason: NAUSEA OR VOMITING Senna/Docusate Sodium (Loni-Colace) 1 tab PO BID NADINE Sennosides (Senokot) 17.2 mg PO Q12H PRN PRN Reason: Moderate Constipation Sodium Chloride (Ns Flush) 2 ml IV.FLUSH BID NADINE Sodium Chloride (Ns Flush) 2 ml IV.FLUSH PRN PRN PRN Reason: FLUSH AFTER USING IV ACCESS Allergies Allergy/AdvReac Type Severity Reaction Status Date / Time No Known Allergies Allergy Verified 07/16/18 14:00 Home Medications Medication Instructions Recorded Confirmed Type levothyroxine 50 mcg PO DAILY 09/05/18 09/05/18 History lorazepam 0.5 mg PO Q4HR 09/05/18 09/05/18 History mirtazapine 15 mg PO DAILY 09/05/18 09/05/18 History morphine 60 mg PO Q12H 09/05/18 09/05/18 History oxycodone-acetaminophen 1 tab PO Q4H PRN MDD 8 09/05/18 09/05/18 History pantoprazole 40 mg PO DAILY 09/05/18 09/05/18 History ranitidine HCl [Zantac] 300 mg PO DAILY 09/05/18 09/05/18 History sennosides 8.6 mg PO BID PRN MDD 2 09/05/18 09/05/18 History Physical Exam Vital signs: Vital Signs 09/05/18 10:26 09/05/18 11:07 09/05/18 12:32 Temperature 97.3 F L Pulse Rate 112 H 104 H 98 H Respiratory Rate 16 18 18 Blood Pressure 102/87 109/88 112/81 Pulse Oximetry 95 99 96 09/05/18 13:20 09/05/18 14:09 Temperature Pulse Rate 89 87 Respiratory Rate 16 Blood Pressure 100/73 Pulse Oximetry 96 Intake & Output 09/04/18 09/05/18 09/05/18 18:59 06:59 18:59 Intake Total 2099 Balance 2099 Weight 38.5 kg Intake: IV 2099 NS Inj 1,000 ML @ 250 mls/hr IV 100 / 100 .CONT .Q4H NADINE Rx#:[id number] NS Inj 1,000 ML @ 1000 mls/hr 1999 IV.SIG BOLUS NADINE Rx#:[id number] Narrative: General physical appearance: Patient is chronically ill, cachectic, and unresponsive. He appears to be disheveled. He barely opens his eyes to tactile and verbal stimulus. HEENT: Severe temporal muscle wasting, oral examination with dry mucous membranes, poor dental hygiene. Neck examination: Mass associated neck, no lymphadenopathy. Respiratory: Difficult to auscultate due to severe loss of soft tissue and intercostal muscles. However breathing was shallow, coarse breath sounds noted , no rales or rhonchi. Cardiovascular: Tachycardic, regular, S1-S2 no obvious murmurs rubs gallops. Abdominal exam: Urostomy bags in place, extremely thin belly, soft, no organ enlargement appreciated. He does grimace when his abdomen is palpated. Musculoskeletal: Severe muscle wasting/atrophy. Skin: Dry. SHIELD CLEANER: Difficult to assess due to his obtundation. Psychiatric: Unable to assess due to obtundation. Results - Labs CBC & Chem 7: 09/05/18 10:30 09/05/18 10:30 Labs: Laboratory Results - last 24 hr 09/05/18 09/05/18 09/05/18 10:30 10:30 10:30 CBC w Diff Slide review pending WBC 61.1 H RBC 4.53 Hgb 12.3 L Hct 37.5 L MCV 82.8 MCH 27.2 MCHC 32.8 RDW 18.1 H Plt Count 493 H MPV 9.5 WBC Differential Manual diff final Seg Neuts % (Manual) 85 H Band Neuts % (Manual) 8 H Lymphocytes % (Manual) 4 L Monocytes % (Manual) 3 Abs Neuts (Manual) 56.8 H Differential Comment . Toxic Granulation 2+ H Platelet Estimate High H Platelet Morphology Normal Sodium 138 Potassium 4.4 Chloride 103 Carbon Dioxide 23.1 Anion Gap 12 BUN 63 H Creatinine 0.97 Estimated GFR 79 L Random Glucose 96 Lactic Acid 2.1 H Calcium 11.5 H Total Bilirubin 1.2 H AST 15 ALT 12 Alkaline Phosphatase 246 H Total Protein 7.4 Albumin 2.4 L Ur Collection Type Urine Color Urine Clarity Urine pH Ur Specific [place] Urine Protein Urine Glucose (UA) Urine Ketones Urine Occult Blood Urine Nitrate Urine Bilirubin Urine Urobilinogen Ur Leukocyte Esterase Urine WBC Ur Squamous Epith Cells Urine Bacteria Hyaline Casts Micro UA Comment Ur Microscopic Review Urine Culture Comments 09/05/18 09/05/18 10:40 12:55 CBC w Diff WBC RBC Hgb Hct MCV MCH MCHC RDW Plt Count MPV WBC Differential Seg Neuts % (Manual) Band Neuts % (Manual) Lymphocytes % (Manual) Monocytes % (Manual) Abs Neuts (Manual) Differential Comment Toxic Granulation Platelet Estimate Platelet Morphology Sodium Potassium Chloride Carbon Dioxide Anion Gap BUN Creatinine Estimated GFR Random Glucose Lactic Acid 2.2 H Calcium Total Bilirubin AST ALT Alkaline Phosphatase Total Protein Albumin Ur Collection Type Clean catch Urine Color Yellow Urine Clarity Slightly cloudy Urine pH 7.0 Ur Specific [place] 1.010 Urine Protein Trace Urine Glucose (UA) Negative Urine Ketones Negative Urine Occult Blood Small H Urine Nitrate Negative Urine Bilirubin Negative Urine Urobilinogen 0.2 Ur Leukocyte Esterase Large H Urine WBC 9-20 H Ur Squamous Epith Cells 0-5 Urine Bacteria Few H Hyaline Casts 0-3 Micro UA Comment Culture indicated Ur Microscopic Review Microscopic reviewed Urine Culture Comments Culture indicated - Imaging Impressions Chest X-Ray 09/05/18 12:07 CONCLUSION: Marked hyperinflation, negative for infiltrate or pneumothorax. Head CT 09/05/18 12:17 CONCLUSION: 1. Negative for acute process . . Assessment and Plan - Plan Mr. Herr is a critically ill 62-year-old male with a history of high-grade urothelial cell carcinoma of the bladder initially diagnosed in September 2017. Status post neoadjuvant chemotherapy consisting of gemcitabine and cisplatin followed by a radical cystectomy in April 2018. He had ypT3 ypN0 cM0 disease , positive margins were noted on microscopic review though no gross residual disease was remaining at conclusion of surgery. Following surgical resection he has had issues with continual pain in his back, abdomen and along his flank, he has had progressive protein calorie malnourishment and progressive physical debility. Though restaging imaging scans performed in July 2018 revealed no evidence of definite metastatic disease or local recurrence the patient appeared as if his disease was truly progressing given his clinical decline. He was evaluated for combined modality chemoradiotherapy to the tumor resection margins in the pelvis which were positive however his poor ECOG performance status, poor nutritional status and overall debility did not allow aggressive therapeutic interventions. He was therefore advised hospice referral for optimization of pain control and supportive care with the hopes that he may possibly recover sufficiently to a degree where we could at some point consider treatment. Unfortunately, his condition has only declined over the past several weeks he now presents the hospital critically ill with severe dehydration, protein calorie malnutrition, hypercalcemia, oversedation and hyper leukocytosis the etiology of which is not known. Recommendations: 1. Hypercalcemia: Continue hydration with normal saline aggressively. Monitor calcium levels. 2. Hyperleukocytosis: Some of this may be related to dehydration and sepsis, however he may also have an underlying myeloproliferative disorder. Should clinical circumstances allow a future bone marrow biopsy may be needed to further understand the etiology of the leukocytosis. 3. History of carcinoma of the bladder: As far as our most recent staging studies and clinical findings he is in remission following neoadjuvant systemic chemotherapy and radical cystectomy. 4. Pain control: Currently he is oversedated likely secondary to over medication with long and short acting opioids. He may require palliative care to evaluate him for optimization of pain management. I would advise a palliative approach given his overall condition at this time. Continue supportive measures with hydration at this time. Oncology will follow along with you.
[2018-09-05] MEDS ORDERED: Sodium Chlor 0.9% Inj 500 ML IV.SIG SCH (20:16)
[2018-09-05 20:40] LABS: ABG PCO2 34 mmHg (38-42); ABG PO2 60 mmHg (61-120)
[2018-09-05] MEDS: Senna/Docusate Sodium 8.6/50 MG Tablet PO SCH (20:58)
--- NOTE | 2018-09-05 21:16 | P.EN ---
Mr. Herr has indicated to bedside RN with witness present at bedside that he does not want any resuscitation in the event of cardiopulmonary arrest. The patient is lethargic and somewhat confused so I called his Healthcare Surrogate (see legal document in EMR - HCS designation form identifying Holly Levine as HCS, signed by patient with two witnesses on 04/28/18). Holly Levine confirmed patient's DNR/No Code status and I have therefore entered the order to honor the patient's wishes. Testing Rehab Instance Type Lower Coccyx: Wound Type: Pressure Injury Wound Length: 4.5
[2018-09-06] MEDS: Sod Chloride 0.9% Inj 1,000 ML IV.CONT SCH ×3 (02:19→21:02)
[2018-09-06] MEDS ORDERED: Chlorhexidine Gluconate 2% 1 Pack (2 Cloths) TOPICAL PRN (04:00)
[2018-09-06] MEDS: Chlorhexidine Gluconate 2% 1 Pack (2 Cloths) TOPICAL SCH (06:17)
[2018-09-06 06:23] LABS: Baso # (Auto) 0.4 th/mm3 (0.0-0.2); Baso % (Auto) 0.9 % (0.0-2.0); Eos # (Auto) 0.4 th/mm3 (0.0-0.4); Eos % (Auto) 0.9 % (0.0-4.0); Hematocrit 29.1 % (39.0-51.0); Hemoglobin 9.5 gm/dL (13.0-17.0); Lymph # (Auto) 0.4 th/mm3 (1.0-4.8); Lymph % (Auto) 0.9 % (9.0-44.0); Mean Corpuscular HGB Conc 32.5 % (32.0-36.0); Mean Corpuscular Hemoglobin 27.7 pg (27.0-34.0); Mean Corpuscular Volume 85.2 fL (80.0-100.0); Mean Platelet Volume 9.3 fL (7.0-11.0); Mono # (Auto) 0.7 th/mm3 (0.0-0.9); Mono % (Auto) 1.7 % (0.0-8.0); Neut # (Auto) 40.8 th/mm3 (1.8-7.7); Neut % (Auto) 95.6 % (16.0-70.0); Platelet Count 294 th/mm3 (150-450); Red Blood Count 3.42 mil/mm3 (4.50-5.90); Red Cell Distribution Width 19.2 % (11.6-17.2); White Blood Count 42.7 th/mm3 (4.0-11.0)
[2018-09-06 07:17] LABS: Alanine Aminotransferase 11 U/L (12-78); Albumin 2.1 g/dL (3.4-5.0); Alkaline Phosphatase 192 U/L (45-117); Anion Gap 8 meq/L (5-15); Aspartate Aminotransferase 17 U/L (15-37); Blood Urea Nitrogen 50 mg/dL (7-18); Calcium 10.5 mg/dL (8.5-10.1); Carbon Dioxide 21.8 meq/L (21.0-32.0); Chloride 117 meq/L (98-107); Glomerular Filtration Rate Greater Than 89 mL/min (>89); Glucose,Random 71 mg/dL (74-106); Potassium 3.4 meq/L (3.5-5.1); Sodium 147 meq/L (136-145); Total Protein 6.4 g/dL (6.4-8.2)
[2018-09-06 07:20] LABS: Lymphocytes 1 % (9-44); Monocytes 3 % (0-8); Ovalocytes 1+
[2018-09-06 07:21] LABS: Dimorphic RBC Present
[2018-09-06 07:22] LABS: Platelet Estimate Normal (Normal); Platelet Morphology Normal (Normal)
[2018-09-06] MEDS: Senna/Docusate Sodium 8.6/50 MG Tablet PO SCH ×2 (10:39→21:02)
[2018-09-06] MEDS: Levothyroxine 50 MCG Tablet PO SCH (10:39)
[2018-09-06] MEDS: Pantoprazole Inj 40 MG Vial IV.PUSH SCH (10:42)
--- NOTE | 2018-09-06 14:05 | P.PNIM ---
Subjective Interval history: Follow-up encephalopathy/hypercalcemia/chronic pain syndrome/ history of carcinoma of the bladder September 06, 2018patient seen and examined, more alert today, and able to follow some commands. DNR order was obtained last night as patient was able to make his wishes known Physical Exam Vital signs: Vital Signs 09/05/18 14:09 09/05/18 16:00 09/05/18 20:00 Temperature 96.9 F L 95.9 F L Pulse Rate 87 88 93 H Respiratory Rate 16 24 18 Blood Pressure 100/73 111/67 88/61 L Pulse Oximetry 96 99 85 L 09/05/18 20:20 09/05/18 20:40 09/05/18 20:47 Temperature 98 F Pulse Rate 90 Respiratory Rate 16 Blood Pressure 109/69 Pulse Oximetry 88 L 95 94 L 09/05/18 20:51 09/05/18 21:00 09/05/18 22:00 Temperature Pulse Rate 92 H 92 H 84 Respiratory Rate 15 25 H 20 Blood Pressure 107/69 89/72 L 90/64 L Pulse Oximetry 96 97 100 09/05/18 23:00 09/06/18 00:00 09/06/18 01:00 Temperature 100 F H Pulse Rate 82 80 88 Respiratory Rate 26 H 27 H 28 H Blood Pressure 85/67 L 94/67 L 120/79 Pulse Oximetry 98 99 100 09/06/18 02:00 09/06/18 03:00 09/06/18 04:00 Temperature 98.6 F Pulse Rate 96 H 94 H 88 Respiratory Rate 26 H 30 H 26 H Blood Pressure 107/74 99/69 L 88/64 L Pulse Oximetry 96 94 L 99 09/06/18 05:00 09/06/18 08:00 09/06/18 09:00 Temperature Pulse Rate 84 88 92 H Respiratory Rate 28 H 26 H 30 H Blood Pressure 95/66 L 95/67 L 112/71 Pulse Oximetry 100 92 L 100 09/06/18 09:26 09/06/18 10:00 Temperature Pulse Rate 88 Respiratory Rate 27 H Blood Pressure 90/64 L Pulse Oximetry 100 100 Intake & Output 09/05/18 09/06/18 09/06/18 18:59 06:59 18:59 Intake Total 2100 / 2100 1000 / 1000 1000 / 1000 Output Total 550 / 550 800 / 800 Balance 1550 / 1550 200 / 200 1000 / 1000 Weight 38.5 kg 32.6 kg Intake: IV 2100 / 2100 1000 / 1000 1000 / 1000 NS Inj 1,000 ML @ 100 mls/hr IV 100 / 100 1000 / 1000 1000 / 1000 .CONT .Q10H [facility]INE Rx#:[id number] NS Inj 1,000 ML @ 1000 mls/hr 1999 / 1999 IV.SIG BOLUS NADINE Rx#:[id number] Oral 0 / 0 0 / 0 Output: Urine 550 / 550 800 / 800 Stool 0 / 0 0 / 0 Other: Date of Last Bowel Movement 09/05/18 Narrative: GENERAL: Cachectic man with evidence of temporal wasting, in mild distress. SKIN: Warm and dry. HEAD: Atraumatic. Normocephalic. EYES: Pupils equal and round. No scleral icterus. No injection or drainage. ENT: No nasal bleeding or discharge. Mucous membranes pink and moist. NECK: Trachea midline. No JVD. CARDIOVASCULAR: Regular rate and rhythm. RESPIRATORY: No accessory muscle use. Breath sounds decreased bilaterally. GASTROINTESTINAL: Abdomen soft, non-tender, nondistended. Hepatic and splenic margins not palpable. MUSCULOSKELETAL: Extremities without clubbing, cyanosis, or edema. No obvious deformities. NEUROLOGICAL: Alert and following some commands Results Labs CBC & Chem 7: 09/06/18 05:46 09/06/18 05:46 Labs: Microbiology 09/05/18 10:40 Clean Catch Urine Urine Culture - Preliminary gram negative rods 09/05/18 10:35 Blood - Peripheral Aerobic Blood Culture - Preliminary No growth in 1 day 09/05/18 10:35 Blood - Peripheral Anaerobic Blood Culture - Preliminary No growth in 1 day 09/05/18 10:30 Blood - Peripheral Aerobic Blood Culture - Preliminary No growth in 1 day 09/05/18 10:30 Blood - Peripheral Anaerobic Blood Culture - Preliminary No growth in 1 day Imaging Imaging: Impressions Head CT 09/05/18 12:17 CONCLUSION: 1. Negative for acute process . . 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 Mathews, oncology September 05, 2018 Currently DNR Awaiting for hospice admission Chronic pain syndrome Will initiate treatment with low-dose morphine IV as needed Severe protein calorie malnutrition Secondary to above history of bladder cancer Consider consult from dietitian Severe dehydration Continue with gentle IV fluid hydration Lactic acidosis-resolved Secondary to dehydration versus current diagnosis of cancer Now resolved with IV fluid hydration Hypercalcemia Continue with IV fluid hydration and consider pamidronate Decubitus ulcer Consult wound care nurse Likely will discharge to hospice today September 06, 2018 Progress Note: Quality VTE Deep Vein Thrombosis/Pulmonary Embolism Present on Admission: No
[2018-09-06] MEDS: Morphine Inj 4 MG/ML Vial IV.PUSH PRN ×3 (14:31→21:00)
[2018-09-07 02:25] LABS: Magnesium 2.5 mg/dL (1.5-2.5)
[2018-09-07 02:27] LABS: Potassium 2.5 meq/L (3.5-5.1)
[2018-09-07] MEDS ORDERED: Potassium Chloride Liq 20 MEQ/15 ML UDC PO ONE ×2 (02:36→12:00)
[2018-09-07] MEDS ORDERED: Dextrose 5%/NaCl 0.45% Inj 1,000 ML IV.CONT SCH (02:36)
[2018-09-07] MEDS ORDERED: Potassium Chloride 10 MEQ ER Capsule PO ONE (02:37)
[2018-09-07] MEDS ORDERED: KCL 40 mEq/D5W/NaCl 0.45% Inj 1,000 ML IV.CONT SCH (02:45)
[2018-09-07] MEDS: Chlorhexidine Gluconate 2% 1 Pack (2 Cloths) TOPICAL SCH (03:42)
[2018-09-07] MEDS: Morphine Inj 4 MG/ML Vial IV.PUSH PRN (03:45)
[2018-09-07 04:32] VITALS: TEMP 98.6
[2018-09-07] MEDS: Pantoprazole Inj 40 MG Vial IV.PUSH SCH (09:45)
[2018-09-07] MEDS ORDERED: Morphine Inj 4 MG/ML Vial IV.PUSH PRN (10:31)
--- NOTE | 2018-09-07 10:40 | P.PNIM ---
Subjective Interval history: Follow-up encephalopathy/hypercalcemia/chronic pain syndrome/ history of carcinoma of the bladder September 07, 2018patient seen and examined, much more alert and oriented and following commands. State, he is now willing to go to care center hospice. Complaining of poorly controlled pain mostly to his abdomen area and requesting his narcotics . Patient able to name what he is taking for pain management. ALEX Carter was present during the entire encounter with patient. Apparently, hospice nurse was in this morning but patient's could not made a decision about discharged to hospice. Physical Exam Vital signs: Vital Signs 09/06/18 12:00 09/06/18 13:19 09/06/18 14:00 Temperature Pulse Rate 86 88 86 Respiratory Rate 25 H 30 H 28 H Blood Pressure 101/67 93/59 L 84/57 L Pulse Oximetry 94 L 100 97 09/06/18 16:00 09/06/18 16:06 09/06/18 17:12 Temperature Pulse Rate 86 92 H 88 Respiratory Rate 27 H 31 H 26 H Blood Pressure 82/57 L 91/60 L 98/68 L Pulse Oximetry 97 94 L 100 09/06/18 19:00 09/06/18 20:00 09/06/18 21:00 Temperature 98 F Pulse Rate 90 88 90 Respiratory Rate 24 26 H 25 H Blood Pressure 97/71 L 93/59 L 101/67 Pulse Oximetry 99 99 100 09/06/18 21:05 09/06/18 22:00 09/06/18 23:00 Temperature Pulse Rate 88 86 Respiratory Rate 20 23 23 Blood Pressure 109/59 L Pulse Oximetry 95 92 L 09/07/18 00:00 09/07/18 01:21 09/07/18 02:00 Temperature 98 F Pulse Rate 86 90 84 Respiratory Rate 23 25 H 24 Blood Pressure 109/70 106/67 99/64 L Pulse Oximetry 95 93 L 93 L 09/07/18 03:00 09/07/18 04:00 09/07/18 08:31 Temperature 98.6 F Pulse Rate 86 90 Respiratory Rate 26 H 28 H Blood Pressure 108/72 98/65 L Pulse Oximetry 97 95 97 Intake & Output 09/06/18 09/07/18 09/07/18 18:59 06:59 18:59 Intake Total 1480 / 1480 1840 / 1840 Output Total 950 / 950 775 / 775 Balance 530 / 530 1065 / 1065 Weight 33.4 kg Intake: IV 1000 / 1000 1600 / 1600 NS Inj 1,000 ML @ 100 mls/hr IV 1000 / 1000 1600 / 1600 .CONT .Q10H NADINE Rx#:[id number] Oral 480 / 480 240 / 240 Output: Urine Amount (Stoma) 950 / 950 775 / 775 Pre-Hospital: [facility] 950 / 950 775 / 775 Right Other: Date of Last Bowel Movement 09/06/18 09/07/18 # Incontinent Bowel Movements 2 Narrative: GENERAL: Cachectic man with evidence of temporal wasting, in mild distress. SKIN: Warm and dry. HEAD: Atraumatic. Normocephalic. EYES: Pupils equal and round. No scleral icterus. No injection or drainage. ENT: No nasal bleeding or discharge. Mucous membranes pink and moist. NECK: Trachea midline. No JVD. CARDIOVASCULAR: Regular rate and rhythm. RESPIRATORY: No accessory muscle use. Breath sounds decreased bilaterally. GASTROINTESTINAL: Abdomen soft, mildly tender, nondistended. Hepatic and splenic margins not palpable. Urostomy bag in place MUSCULOSKELETAL: Extremities without clubbing, cyanosis, or edema. No obvious deformities. NEUROLOGICAL: Alert and following some commands Results Labs CBC & Chem 7: 09/06/18 05:46 09/07/18 01:45 Labs: Microbiology 09/05/18 10:40 Clean Catch Urine Urine Culture - Preliminary gram negative rods 09/05/18 10:35 Blood - Peripheral Aerobic Blood Culture - Preliminary No growth in 1 day 09/05/18 10:35 Blood - Peripheral Anaerobic Blood Culture - Preliminary No growth in 1 day 09/05/18 10:30 Blood - Peripheral Aerobic Blood Culture - Preliminary No growth in 1 day 09/05/18 10:30 Blood - Peripheral Anaerobic Blood Culture - Preliminary No growth in 1 day Assessment and Plan Plan 62-year-old man with Altered mental status change-improving Toxic encephalopathy-improving Secondary to medication side effect Head CT without any acute finding Chest x-ray without any pulmonary infiltrate Hold 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 Mathews, oncology September 05, 2018 Currently DNR Patient was seen this a.m. by hospice nurse unfortunately patient could not give an answer for discharge. Will request a revisit from hospice nurse today September 07, 2018 Chronic pain syndrome Increase morphine as needed Continue to hold all p.o. narcotics Severe protein calorie malnutrition Secondary to above history of bladder cancer Consider consult from dietitian Severe dehydration Continue with gentle IV fluid hydration Lactic acidosis-resolved Secondary to dehydration versus current diagnosis of cancer Now resolved with IV fluid hydration Hypercalcemia Continue with IV fluid hydration and consider pamidronate Decubitus ulcer Consult wound care nurse Likely will discharge to hospice today September 07, 2018 Progress Note: Quality VTE Deep Vein Thrombosis/Pulmonary Embolism Present on Admission: No
[2018-09-07] MEDS: Senna/Docusate Sodium 8.6/50 MG Tablet PO SCH (10:41)
--- NOTE | 2018-09-07 12:03 | P.DS ---
DS: Providers Date of admission: 09/05/18 13:54 Primary care physician: UNKNOWN Brief History from admission: 62-year-old male with history of bladder cancer status post radical cystectomy in April 2018, and recently transferred to a local hospice care center on September 04, 2018 was brought to the ED today for evaluation of an acute onset of altered mental status change. During my exam, patient is unable to communicate, and the history is obtained from chart review below: 'This 62-year-old male is sent from hospice. He became unresponsive there. This gentleman has a history of bladder cancer. He has an ileal conduit. At the time of his bladder surgery the margins were not clear. The patient has been quite emaciated and has not been thought to be strong enough for ongoing chemo or radiation he has had chronic pain requiring large amounts of pain medication. He was admitted to hospice yesterday. The patient says he was living at home prior to that. He has had chronic ongoing pain. An etiology for the pain has not been certain. He is thought to have residual cancer of the right has not been apparent on multiple imaging studies. This morning he was unresponsive. According to his living girlfriend he does not have a DO NOT RESUSCITATE order and did not want one.' The case was discussed with patient events girlfriend, who stated that if the patient ever wakes up she will have him changed his CODE STATUS to DNR. DS: Summary Change admitted secondary to toxic encephalopathy due to medication side effects for which she was initially treated with Narcan in the ED and monitor in the ICU. All [employer] depressant medications were held. Secondary to history of bladder, Dr. Mathews, neurologist was consulted. Patient mentation is improved and hospice was consulted after patient was made DNR. He was treated with IV morphine. DVT and GI prophylaxis were provided. Patient will be discharged to hospice care center. Time Spent with Patient Total time spent providing and/or coordinating discharge services: Quality: VTE Deep Vein Thrombosis/Pulmonary Embolism Present on Admission: No Exam Narrative Exam Narrative: GENERAL: Cachectic man with severe temporal wasting SKIN: Warm and dry. HEAD: Atraumatic. Normocephalic. EYES: Pupils equal and round. No scleral icterus. No injection or drainage. ENT: No nasal bleeding or discharge. Mucous membranes pink and moist. NECK: Trachea midline. No JVD. CARDIOVASCULAR: Regular rate and rhythm. RESPIRATORY: No accessory muscle use. Clear to auscultation. Breath sounds equal bilaterally. GASTROINTESTINAL: Abdomen soft, non-tender, nondistended. Hepatic and splenic margins not palpable. Urostomy bag in place MUSCULOSKELETAL: Extremities without clubbing, cyanosis, or edema. No obvious deformities. NEUROLOGICAL: Awake and alert. No obvious cranial nerve deficits. Motor grossly within normal limits. Five out of 5 muscle strength in the arms and legs. Results Procedures completed during hospitalization: None Labs on day of discharge: Labs from last 24 hours 09/07/18 09/05/18 01:45 22:48 Potassium 2.5 L* D Magnesium 2.5 Nasal Screen MRSA (PCR) Mrsa detected Preliminary micro results at discharge 09/05/18 10:35 Aerobic Blood Culture - Preliminary Blood - Peripheral No growth in 2 days Anaerobic Blood Culture - Preliminary No growth in 2 days 09/05/18 10:30 Aerobic Blood Culture - Preliminary Blood - Peripheral No growth in 2 days Anaerobic Blood Culture - Preliminary No growth in 2 days Impressions ITS Impressions Chest X-Ray 09/05/18 12:07 CONCLUSION: Marked hyperinflation, negative for infiltrate or pneumothorax. Head CT 09/05/18 12:17 CONCLUSION: 1. Negative for acute process . . Discharge Plan Discharge Disposition Patient Disposition: [facility] Hospice/Med Facility Discharge Condition Condition: Serious Discharge Order Discharge Orders: Discharge Order (Routine); Ordered 09/07/18 Ordered By: Jose Cervantes Physicians Team ED Provider: Servando Bledsoe Primary Care Provider: UNKNOWN, Attending Provider: Jose Cervantes Rxs /Orders / Referrals /Forms Prescriptions: Continue sennosides 8.6 mg Tablet 8.6 mg PO BID MDD 2 PRN (Reason: Constipation) RF: 0 ranitidine HCl [Zantac] 300 mg Tablet 300 mg PO DAILY RF: 0 lorazepam 0.5 mg Tablet 0.5 mg PO Q4HR RF: 0 oxycodone-acetaminophen 10-325 mg Tablet 1 tab PO Q4H MDD 8 PRN (Reason: Pain, Moderate) RF: 0 levothyroxine 50 mcg Tablet 50 mcg PO DAILY RF: 0 pantoprazole 40 mg Tablet,Delayed Release (Dr/Ec) 40 mg PO DAILY RF: 0 mirtazapine 15 mg Tablet 15 mg PO DAILY RF: 0 morphine 60 mg Tablet Extended Release 12hr 60 mg PO Q12H RF: 0 Referrals: UNKNOWN, [Primary Care Provider] - See Instructions Discharge Interventions Interventions: Discharge Planning - Case Management Last Done: 09/07/18 08:14 Status ED Status: Left Department
[2018-09-07] MEDS: Levothyroxine 50 MCG Tablet PO SCH (12:30)
[2018-09-07 13:19] VITALS: BP 88/56; PULSE 92; RESP 25; O2SAT 99
[2018-09-08] MEDS ORDERED: Levothyroxine 50 MCG Tablet PO SCH (06:00)
== END 2018-09-07 13:45 | disposition hospice, inpatient (51) | DRG 91 ==
LOC: PHED 10:11 → PHEDA 13:54 → PH3 14:37 → PHICU 20:49
PROVIDERS: ADMIT Hospitalist; ATTEND Hospitalist
CPT/HCPCS: 36600; 70450; 71010; 71045; 80053; 81001; 82805; 83605; 83735; 84132; 85025; 87040; 87077; 87086; 87186; 87641; 90761; 90774; 96361; 96374; 99285; C8952; C9113; J2270; J2310; J3480; J7030; J7040